=== PATIENT | male | born 1955 | race Caucasian/White ===

== ENCOUNTER → 2017-11-24 13:59 | Outpatient (CLI) | payer MEDICARE, SELFPAY ==
[2017-11-24 15:07] LABS: Absolute Lymphocyte Count 4.19 X10^3/ul (0.83-4.51); Absolute Neutrophil Count 10.7 X10^3/uL (2.0-7.7); Basophil# 0.11 X10^3/uL; Basophil% 0.7 % (0-1); Eosinophil# 0.28 X10^3/uL; Eosinophils% 1.7 % (0-5); Hematocrit 49.5 % (40-54); Hemoglobin 16.9 g/dl (13.0-16.5); Lymphocyte # 4.19 X10^3/ul (4.0); Lymphocyte % 25.5 % (19-41); Mean Corp Hgb Conc 34.1 g/gl (32-36); Mean Corpuscular Hgb 30.3 pg (27.0-32.0); Mean Corpuscular Volume 88.9 fL (80-94); Mean Platelet Vol. 11.1 fl (6.2-12.0); Monocyte# 1.03 X10^3/uL; Monocyte% 6.3 % (0-10); Neutrophil # 10.71 X10^3/uL (2.7-7.7); Neutrophil % 65.3 % (47-70); Platelet Count 307 K/mm3 (150-450); RBC Distribution Width CV 13.8 % (11.6-14.6); RBC Distribution Width SD 44.8 fl (35.1-43.9); Red Blood Count 5.57 M/mm3 (4.6-6.2); White Blood Count 16.4 K/mm3 (4.4-11.0)
[2017-11-24 15:23] LABS: AST(SGOT) 15 U/L (15-37); Alanine Aminotransfer ALT/SGPT 29 U/L (16-61); Albumin, Serum 3.9 g/dL (3.2-5.0); Alkaline Phosphatase 117 U/L (45-117); Anion Gap 9 (5-15); BUN 11 mg/dL (7-18); BUN/Creat Ratio 11.5 RATIO (10-20); Calcium,Total 8.9 mg/dL (8.5-10.1); Chloride 103 mmol/L (98-107); Cholesterol 160 mg/dL (200); Creatinine, Serum 0.96 mg/dL (0.70-1.30); EST Glomerular Filtration Rate 85 mL/min (>60); Est Glom Filt Rate - Afr Amer 103 mL/min (>60); Globulin 4.1 g/dL (2.2-4.2); Glucose 104 mg/dL (74-106); High Density Lipoprotein 32 mg/dL; Potassium 4.1 mmol/L (3.5-5.1); Sodium Level 137 mmol/L (136-145); Triglycerides 147 mg/dL; Very Low Density Lipoprotein 29 mg/dL (5-40)
[2017-11-24 15:29] LABS: Microalbumin,Random Urine 12.6 mg/L (NO RANGE EST.); Microalbumin:Creatinine Ratio 5.9 mg/g CRE (<30 mg/g CRE)
[2017-11-24 15:41] LABS: POSITIVE COUNT NO; POSITIVE DIFFERENTIAL NO; POSITIVE MORPHOLOGY NO
== END ==
PROVIDERS: Family Provider Family Medicine; PCP Family Medicine; Visit Provider Family Medicine
DX: E11.9 Type 2 diabetes mellitus without complications (principal); R35.0 Frequency of micturition; E78.5 Hyperlipidemia, unspecified; I10 Essential (primary) hypertension
CPT/HCPCS: 36415; 80053; 80061; 82043; 82570; 85025

== ENCOUNTER 2018-01-14 17:22 | Inpatient (IN) | payer MEDICARE, SELFPAY ==
[2018-01-14] VITALS (9 sets, daily range): BP systolic 116–160; BP diastolic 74–117; PULSE 59–93; RESP 8–20; TEMP 36.6–37.3; O2SAT 94–98; BMI 25.1; BMI 25.2
[2018-01-14 17:31] LABS: Bedside Glucose 101 mg/dL (70-110)
--- NOTE | 2018-01-14 17:42 | CT_ITS ---
STUDY: CT BRAIN WITHOUT CONTRAST REASON FOR EXAM: Male, 62 years old. Stroke RADIATION DOSAGE (If Supplied By Facility): CTDIvol = ( 44.99 ) mGy, DLP = ( 829.85 ) mGycm TECHNIQUE: Transaxial CT imaging of the brain was performed without administration of intravenous contrast material. Individualized dose optimization techniques were used for this CT. COMPARISON: September 22, 2014. FINDINGS: Normal soft tissue structures. Normal calvarium. Prominent size ventricles and extra-axial spaces with mild atrophy. Encephalomalacia of the left parietal lobe posteriorly. Normal white matter tracts of the cerebral hemispheres. Normal basal ganglia and thalami. Normal brainstem. Normal cerebellum. There is no intracranial hemorrhage. There are no findings of an acute ischemic infarction. Mucosal thickening of the right paranasal sinuses. CT/Brain/Head without Contrast IMPRESSION: Age-related and chronic changes of the brain. Right-sided paranasal sinus disease. Electronically Signed: Neeraj Preston DO at 18:55 EDT Tel [phone], Service support ,
--- NOTE | 2018-01-14 17:42 | EKG12_ITS ---
Test Reason : NEURO Blood Pressure : / mmHG Vent. Rate : 089 BPM Atrial Rate : 089 BPM P-R Int : 126 ms QRS Dur : 096 ms QT Int : 368 ms P-R-T Axes : 025 074 055 degrees QTc Int : 447 ms Normal sinus rhythm Nonspecific ST abnormality Abnormal ECG Confirmed by ALIVIA RO, THOMAS ([id number]), dictionary editor MARTINE BEATTY ([id number] on 01/19/2018 2:16:52 PM Referred By: Confirmed By:THOMAS BUNCH MD
--- NOTE | 2018-01-14 17:45 | RAD_ITS ---
STUDY: X-RAY CHEST REASON FOR EXAM: Male, 62 years old. Stroke TECHNIQUE: Single frontal view COMPARISON: September 22, 2014 FINDINGS: Stable sternotomy wires. The lungs are expanded. Bilateral apical pleural thickening. There is interstitial prominence. Normal size heart. Normal mediastinum and yuniel. Normal visualized pulmonary arteries. Normal visualized aortic arch and descending thoracic aorta. Normal visualized thoracic spine. Normal visualized ribs, clavicles, and shoulders. There is no demonstrated abnormality of the visualized soft tissue structures of the upper abdomen. RAD/Chest 1 View (Portable) IMPRESSION: Mild interstitial prominence. Bilateral apical pleural thickening. Electronically Signed: Neeraj Preston DO at 18:08 EDT Tel [phone], Service support ,
[2018-01-14] MEDS: 0.9% Normal Saline 1,000 ML 1000 ML IV (17:53)
[2018-01-14 18:00] LABS: Absolute Lymphocyte Count 4.03 X10^3/ul (0.83-4.51); Absolute Neutrophil Count 14.1 X10^3/uL (2.0-7.7); Basophil# 0.04 X10^3/uL; Basophil% 0.2 % (0-1); Eosinophil# 0.16 X10^3/uL; Eosinophils% 0.8 % (0-5); Hematocrit 54.1 % (40-54); Lymphocyte # 4.03 X10^3/ul (4.0); Lymphocyte % 20.2 % (19-41); Mean Corp Hgb Conc 33.5 g/gl (32-36); Mean Corpuscular Hgb 30.1 pg (27.0-32.0); Mean Platelet Vol. 11.2 fl (6.2-12.0); Neutrophil # 14.09 X10^3/uL (2.7-7.7); Neutrophil % 70.4 % (47-70); Platelet Count 325 K/mm3 (150-450); RBC Distribution Width SD 42.6 fl (35.1-43.9); Red Blood Count 6.01 M/mm3 (4.6-6.2)
[2018-01-14 18:01] LABS: Partial Thromboplast Time 25.5 Seconds (24.1-36.2); Prothrombin Time (Protime)PT. 13.6 SECONDS (11.7-14.9)
[2018-01-14 18:05] LABS: Differential Indicated SCAN CRITERIA MET; POSITIVE COUNT NO; POSITIVE DIFFERENTIAL YES; POSITIVE MORPHOLOGY NO
[2018-01-14 18:06] LABS: Hemoglobin 18.1 g/dl (13.0-16.5)
[2018-01-14 18:13] LABS: ALB/GLOB Ratio 0.9 RATIO (0.9-2.4); AST(SGOT) 10 U/L (15-37); Alanine Aminotransfer ALT/SGPT 22 U/L (16-61); Albumin, Serum 4.1 g/dL (3.2-5.0); Alkaline Phosphatase 133 U/L (45-117); Anion Gap 10 (5-15); BUN 15 mg/dL (7-18); Calcium,Total 8.7 mg/dL (8.5-10.1); Chloride 106 mmol/L (98-107); Creatinine, Serum 1.15 mg/dL (0.70-1.30); EST Glomerular Filtration Rate 69 mL/min (>60); Est Glom Filt Rate - Afr Amer 83 mL/min (>60); Estimated Creatinine Clearance 74.04 ml/min; Globulin 4.4 g/dL (2.2-4.2); Glucose 93 mg/dL (74-106); Lipase 62 U/L (73-393); Potassium 3.7 mmol/L (3.5-5.1); Protein, Total 8.5 g/dL (6.4-8.2); Sodium Level 140 mmol/L (136-145)
[2018-01-14 18:21] LABS: Differential Comment SCANNED
--- NOTE | 2018-01-14 18:39 | ED.DCSUM_ITS ---
- ER Visit Summary Date of Service: 01/14/18 Chief Complaint: Stroke History of Present Illness: The patient is a 62 M who presents with right-sided deficit. Patient states his 1 month ago. States that he has had prior left-sided stroke with some residual weakness on the right side particularly the fourth and fifth fingers on the right. States that a couple weeks ago he began to have some paresthesias on the right arm and leg. What he does notice for sure is over the past 3 days he has been pretty much unable to move the left leg and the right arm has become basically worthless. He states that he feels nauseated has a headache. He states he has been eating or drinking very much because his been hard to get to the kitchen and he is nauseated. His son drops him off here in the department. Nursing notes that he was unable to be transferred by himself Physical Examination: Overall vital signs are stable Gen: Well-nourished well-developed Head: Normocephalic atraumatic Eyes: Perrl EOMI ENT: TMs clear no rhinorrhea moist mucous membranes Neck: Supple no lymphadenopathy no JVD nontender CVS: Regular rate rhythm no murmurs normal S1-S2 Respiratory: No distress clear to auscultation bilaterally chest nontender Abdomen: Soft nontender nondistended normal bowel sounds no masses Back: Nontender Extremity: Nontender no edema Skin: Normal color no rash Neuro: alert and age of 11 please see the T-sheet and nursing documentation for NIH scale. Psych: Depressed and tearful Test Results: CT the head showed chronic changes. Chest x-ray showed no acute disease. White blood cell count at 20 hemoglobin of 18.1. Lactic acid 1.2. Troponin less than 0.02. EKG sinus at a rate of 89. Urinalysis was negative. Tox workup was positive for marijuana. Emergency Department Course and Treatment: Patient received IV fluids. He passed a swallowing test and was given Tylenol for his headache. Given the recent and his and his overall depressed affect I do wonder about some degree of conversion disorder. However the patient maintains that these deficits are new. Her plan is admission into the hospital. Impression: 1. CVA causing right-sided deficits 2. Depression This note was generated with [employer] software. It may contain incorrect words, spelling, and punctuation that were not noted in review of the chart prior to signing ED Disposition - Plan for ED Patient: Disposition: Acute Care Hospital [facility] Chief Complaint: Neuro S/Sx
[2018-01-14] MEDS: 0.9% Normal Saline 1,000 ML 150 ML IV (18:42)
[2018-01-14 18:44] LABS: CPK Total, Creatine Kinase 57 U/L (39-308)
[2018-01-14] MEDS: Enoxaparin 80 MG/0.8 ML Syringe SC (18:45)
[2018-01-14 18:53] LABS: Lactic Acid 1.2 mmol/L (0.4-2.0)
[2018-01-14] MEDS: Acetaminophen 500 MG Tablet 1000 MG PO (20:19)
[2018-01-14 20:26] LABS: Bacteria 0 SEEN /hpf (None Seen); Mucous, Urine 0 SEEN /hpf (<or=2+); Red Blood Cells-Urine 0 SEEN /hpf (0-5); Squamous Epithelial Cells - UA 0 SEEN /hpf (0-5); White Blood Cells 0 SEEN /hpf (0-5)
[2018-01-14 20:30] LABS: Color, Urine Yellow (Yellow); Glucose, Dipstick Normal (Normal); Ketone-Dipstick 5 mg/dl (Negative); Leukocyte Esterase-Dipstick Negative /ul (Negative); Nitrite-Dipstick Negative (Negative); Occult Blood-Urine Negative /ul (Negative); Protein-Dipstick Negative (Negative); Urine Bilirubin Dipstick Negative (Negative); Urine Clarity Clear (Clear); Urine Urobilinogen 4 mg/dl (Normal); Urine pH 6.5 (5.0 - 8.0)
[2018-01-14 20:59] LABS: Amphetamine Urine VISTA NEGATIVE (<1000 ng/mL); Barbiturate Urine VISTA NEGATIVE (< 200 ng/mL); Benzodiazepine Urine VISTA NEGATIVE (< 200 ng/mL); Cocaine Urine VISTA NEGATIVE (< 300 ng/mL); Ecstacy Urine VISTA NEGATIVE (< 500 ng/mL); Methadone Urine VISTA NEGATIVE (< 300 ng/mL); PCP Urine VISTA NEGATIVE (< 25 ng/mL); THC Urine VISTA POSITIVE (< 50 ng/mL); Vista UDS pH Range 6
--- NOTE | 2018-01-14 20:59 | PCM.HP.STD ---
Problem List (1) Stroke Status: Acute Qualifiers: CVA mechanism: unspecified Qualified Code(s): I63.9 - Cerebral infarction, unspecified (2) Status post placement of implantable loop recorder Status: Chronic (3) History of COPD Status: Chronic Comment: mild (4) Coronary artery disease Status: Chronic Qualifiers: Coronary Disease-Associated Artery/Lesion type: unspecified vessel or lesion type [place] vs. transplanted heart: unspecified whether [place] or transplanted heart Associated angina: angina presence unspecified Qualified Code(s): I25.10 - Atherosclerotic heart disease of [place] coronary artery without angina pectoris Comment: remote CABG (5) Compression fracture Status: Chronic (6) Hyperlipidemia Status: Chronic Qualifiers: Hyperlipidemia type: unspecified Qualified Code(s): E78.5 - Hyperlipidemia, unspecified (7) Hypertension Status: Chronic Qualifiers: Hypertension type: essential hypertension Qualified Code(s): I10 - Essential (primary) hypertension (8) Diabetes type 2, controlled Status: Chronic Qualifiers: Diabetes mellitus custodial insulin use: without termite control representative use Diabetes mellitus complication status: with unspecified complications Qualified Code(s): E11.8 - Type 2 diabetes mellitus with unspecified complications (9) Cerebrovascular disease Status: Chronic Comment: Status post ischemic stroke left parieto-occipital lobe 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 Status post ischemic stroke left frontal lobe MCA territory residual aphasia, dyslexia, RUE apraxia and numbness History of Present Illness Date of Admission: 01/14/18 Chief Complaint: R sided weakness, debility The patient is a 62 y/o M w/ PMHx: Hx [place], 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 He notes his spouse passed ~ 1 month prior. In the ED CBC w/ WBC 20, Hgb 18.1, Plts 325 with L shift, CMP unremarkable aside Alk phos 133, trop < 0.02, CXR unremarkable, CT head unremarkable, unremarkable UA, UDS w/ + cannabis. In the ED patient administered NS, tylenol and in error lovenox 80 mg SC x 1. 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 Status post ischemic stroke left frontal lobe MCA territory residual aphasia, dyslexia, RUE apraxia and numbness Dyslipidemia (Chronic) History of leukocytosis (Chronic) mild Allergies simvastatin Allergy (Verified 01/14/18 17:28) Unknown venom-honey bee [bee venom (honey bee)] Allergy (Verified 01/14/18 17:28) Unknown metformin Adverse Reaction (Verified 01/14/18 17:28) Diarrhea Home Medications: Ambulatory Orders Medication Instructions Recorded Duloxetine Hcl [Cymbalta] 60 mg PO DAILY 12/01/14 Atorvastatin Calcium [Lipitor] 20 mg PO QHS 01/14/18 Buspirone HCl [Buspirone HCl] 7.5 mg PO BID 01/14/18 Gabapentin [Neurontin] 100 mg PO TID 01/14/18 Metoprolol Succinate 25 mg PO DAILY 01/14/18 Surgical History: coronary bypass surgery Psychiatric History: Anxiety, Depression Lives: Alone Smoking Status: Current every day smoker - 1.5 ppd. Tobacco Use: Cigarettes Alcohol: None Drugs: Marijuana - *Family History Maternal History Items: No pertinent history Paternal History Items: No pertinent history Review of Systems Constitutional: Reports: Malaise, Weakness, Fatigue. Denies: Chills, Fever, Weight Change HEENT: Denies: Head Aches, Sinus Congestion, Sinus Drainage Cardiovascular: Denies: Chest Pain, Palpitations Respiratory: Denies: Cough, Shortness of breath at rest, Sputum production Gastrointestinal: Denies: Abdominal Pain, Nausea, Vomiting Genitourinary: Denies: Dysuria Musculoskeletal: Denies: Joint Pain, Joint Tenderness Skin: Denies: Rash, Wounds Neurological: Reports: Balance problems, Focal weakness. Denies: Numbness, Tingling Psychiatric: Reports: Anxiety, Depression. Denies: Homicidal Ideations, Suicidal Ideations Hematologic/ Lymphatic: Denies: Easy Bruising, Easy Bleeding VTE Information - Inpt Only VTE Present on Admission: No VTE Mechan Device Prophylaxis: SCD's VTE Pharm Prophylaxis ordered?: Yes Patient Problems: Active and Suspected Problems (Last Updated 01/04/18 @ 17:29 by Natalee Mark) Stroke (Acute) Subjective: Seated upright in the ED bed, NAD. Objective: Physical Examination: General: awake, alert, oriented x 3 and cooperative, seated upright in the ED bed in no apparent distress. Skin: normal color, turgor, no icterus, cyanosis. HEENT: AT/NC, EOMI, PERRLA, mildly dry MM, no carotid bruits or JVD noted. Lungs: Diminished BS BL, > bases, smells of tobacco, moderate effort, no rales, ronchi or wheezing. Heart: Regular rate and rhythm; no gallop, rub audible. Abdomen: soft, NTTP, ND, normal BS, no HSM. Extremities: no cyanosis, clubbing, or edema. Neurological: patient awake, alert, oriented x 3; cognitive function intact; pupils equally reactive to light and accomodation; cranial nerves II-XII grossly normal, moving all 4 extremities, negative babinski, sensation intact, RUE 4/5 strength w/ notable drift and RLE 3/5 strength w/ also drift, difficult to assess as prior chronic RLE weakness. Psychiatric: affect appears mildly flat, no acute evidence of depressive or anxiety feelings. - Physical Exam Vital Signs Temp Pulse Resp BP Pulse Ox 98 F 65 8 L 125/79 H 97 01/14/18 17:23 01/14/18 20:49 01/14/18 20:49 01/14/18 20:49 01/14/18 20:49 Oxygen Flow Rate (L/min) 2 Oxygen Delivery Method Nasal Cannula Weight: 185 lb 3.013 oz Body Mass Index (BMI) 25.1 Finger Stick Blood Glucose 101 Laboratory Tests Past 24 Hrs 01/14/18 01/14/18 01/14/18 17:25 17:25 17:25 WBC 20.0 H RBC 6.01 Hgb 18.1 H* Hct 54.1 H MCV 90.0 MCH 30.1 MCHC 33.5 RDW 13.0 RDW Differential 42.6 Plt Count 325 MPV 11.2 Immature Gran % (Auto) 0.400 Neut % (Auto) 70.4 H Lymph % (Auto) 20.2 [place] % (Auto) 8.0 Eos % (Auto) 0.8 Baso % (Auto) 0.2 Absolute Neuts (auto) 14.1 H Absolute Lymphs (auto) 4.03 Total Counted Not Reportable Differential Comment SCANNED Diff Path Review May foll PT 13.6 INR 1.0 APTT 25.5 Sodium 140 Potassium 3.7 Chloride 106 Carbon Dioxide 24.0 Anion Gap 10 BUN 15 Creatinine 1.15 Estim Creat Clear Calc 74.04 Est GFR (MDRD) Af Amer 83 Est GFR (MDRD) Non-Af 69 BUN/Creatinine Ratio 13.0 Glucose 93 Lactic Acid Calcium 8.7 Total Bilirubin 0.70 AST 10 L ALT 22 Alkaline Phosphatase 133 H Total Creatine Kinase Troponin I < 0.02 Total Protein 8.5 H Albumin 4.1 Globulin 4.4 H Albumin/Globulin Ratio 0.9 Lipase 62 L Urine Color Urine Clarity Urine pH Ur Specific [place] Urine Protein Urine Glucose (UA) Urine Ketones Urine Occult Blood Urine Nitrite Urine Bilirubin Urine Urobilinogen Ur Leukocyte Esterase Urine RBC Urine WBC Ur Squamous Epith Cells Urine Bacteria Urine Mucus Urine Opiates Screen Urine Methadone Screen Ur Barbiturates Screen Ur Phencyclidine Scrn Ur Amphetamines Screen U Methamphetamin-MDMA U Benzodiazepines Scrn Urine Cocaine Screen U Cannabinoids Screen Ur Drug Screen Comment Ethyl Alcohol 01/14/18 01/14/18 01/14/18 17:25 18:20 18:20 WBC RBC Hgb Hct MCV MCH MCHC RDW RDW Differential Plt Count MPV Immature Gran % (Auto) Neut % (Auto) Lymph % (Auto) [place] % (Auto) Eos % (Auto) Baso % (Auto) Absolute Neuts (auto) Absolute Lymphs (auto) Total Counted Differential Comment Diff Path Review PT INR APTT Sodium Potassium Chloride Carbon Dioxide Anion Gap BUN Creatinine Estim Creat Clear Calc Est GFR (MDRD) Af Amer Est GFR (MDRD) Non-Af BUN/Creatinine Ratio Glucose Lactic Acid 1.2 Calcium Total Bilirubin AST ALT Alkaline Phosphatase Total Creatine Kinase 57 Troponin I Total Protein Albumin Globulin Albumin/Globulin Ratio Lipase Urine Color Urine Clarity Urine pH Ur Specific [place] Urine Protein Urine Glucose (UA) Urine Ketones Urine Occult Blood Urine Nitrite Urine Bilirubin Urine Urobilinogen Ur Leukocyte Esterase Urine RBC Urine WBC Ur Squamous Epith Cells Urine Bacteria Urine Mucus Urine Opiates Screen Urine Methadone Screen Ur Barbiturates Screen Ur Phencyclidine Scrn Ur Amphetamines Screen U Methamphetamin-MDMA U Benzodiazepines Scrn Urine Cocaine Screen U Cannabinoids Screen Ur Drug Screen Comment Ethyl Alcohol 3.0 01/14/18 01/14/18 20:05 20:05 WBC RBC Hgb Hct MCV MCH MCHC RDW RDW Differential Plt Count MPV Immature Gran % (Auto) Neut % (Auto) Lymph % (Auto) [place] % (Auto) Eos % (Auto) Baso % (Auto) Absolute Neuts (auto) Absolute Lymphs (auto) Total Counted Differential Comment Diff Path Review PT INR APTT Sodium Potassium Chloride Carbon Dioxide Anion Gap BUN Creatinine Estim Creat Clear Calc Est GFR (MDRD) Af Amer Est GFR (MDRD) Non-Af BUN/Creatinine Ratio Glucose Lactic Acid Calcium Total Bilirubin AST ALT Alkaline Phosphatase Total Creatine Kinase Troponin I Total Protein Albumin Globulin Albumin/Globulin Ratio Lipase Urine Color Yellow Urine Clarity Clear Urine pH 6.5 Ur Specific [place] 1.010 Urine Protein Negative Urine Glucose (UA) Normal Urine Ketones 5 H Urine Occult Blood Negative Urine Nitrite Negative Urine Bilirubin Negative Urine Urobilinogen 4 H Ur Leukocyte Esterase Negative Urine RBC 0 SEEN Urine WBC 0 SEEN Ur Squamous Epith Cells 0 SEEN Urine Bacteria 0 SEEN Urine Mucus 0 SEEN Urine Opiates Screen NEGATIVE Urine Methadone Screen NEGATIVE Ur Barbiturates Screen NEGATIVE Ur Phencyclidine Scrn NEGATIVE Ur Amphetamines Screen NEGATIVE U Methamphetamin-MDMA NEGATIVE U Benzodiazepines Scrn NEGATIVE Urine Cocaine Screen NEGATIVE U Cannabinoids Screen POSITIVE H Ur Drug Screen Comment Ethyl Alcohol POC Glucose 01/14/18 17:25 POC Glucose 101 Assessment/Plan Active and Suspected Problems (Last Updated 01/04/18 @ 17:29 by Natalee Mark) Stroke (Acute) The patient is a 62 y/o M w/ PMHx: [place]x [place], 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 (1) R sided Weakness, Debility concerning for Acute CVA w/ Hx CVA left parieto-occipital lobe 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 and left frontal lobe MCA territory w/ residual aphasia, dyslexia, RUE apraxia and numbness: Will admit to PCU, given loop recorder unable to obtain MRI, will obtain CTA Head and Neck, obtain ECHO, PT/OT/Speech/Nutrition evaluation per protocol. Will consult Neurology for evaluation. Will continue home BP regimen with PRN to achieve goal < 140/90, asa-->plavix, increase statin w/ AM FLP, fall precautions, mag pending, TSH pending. s/p loop recorder, following w/ Dr. Schuster for cryptogenic CVA history. (2) Leukocytosis: Unclear etiology, CXR, UA unremarkable, no marked symptoms aside R sided weakness, possibly dehydration but UA with normal SG, will hydrate and repeat CBC w/ diff in AM. (2) CAD: Maintain on asa-->plavix, increased statin, BB therapy. (3) Hypertension: Will maintain on home regimen metoprolol given ongoing symptoms x 3 days, PRN hydralazine. (4) Hyperlipidemia: Change statin to high dose, AM FLP. (5) Anxiety and Depression: Maintain on home regimen cymbalta, buspar. (6) Tobacco Abuse: Encouraged cessation, inpatient consultation per RT, NR if desired. (7) Chronic COPD: Will maintain on oxygen with wean as tolerated to room air/home oxygen supplementation, continue ATC duonebs, PRN albuterol, HOB, IS parameters. (8) Chronic Back Pain: Fall precautions, PT and OT consulted, position changes q 2 hours. (9) MARCELO: CPAP q HS. (10) DVT Prophylaxis: SCDs, already given lovenox therapeutic x 1 in error in the ED, will defer lovenox until 12 hours has passed and maintain on prophylactic dose only. Code Visit Inpatient E&M: [id number] Init Hosp L3
--- NOTE | 2018-01-14 21:19 | HP.PCM_ITS ---
Problem List (1) Stroke Status: Acute Qualifiers: CVA mechanism: unspecified Qualified Code(s): I63.9 - Cerebral infarction, unspecified (2) Status post placement of implantable loop recorder Status: Chronic (3) History of COPD Status: Chronic Comment: mild (4) Coronary artery disease Status: Chronic Qualifiers: Coronary Disease-Associated Artery/Lesion type: unspecified vessel or lesion type [place] vs. transplanted heart: unspecified whether [place] or transplanted heart Associated angina: angina presence unspecified Qualified Code(s): I25.10 - Atherosclerotic heart disease of [place] coronary artery without angina pectoris Comment: remote CABG (5) Compression fracture Status: Chronic (6) Hyperlipidemia Status: Chronic Qualifiers: Hyperlipidemia type: unspecified Qualified Code(s): E78.5 - Hyperlipidemia , unspecified (7) Hypertension Status: Chronic Qualifiers: Hypertension type: essential hypertension Qualified Code(s): I10 - Essential (primary) hypertension (8) Diabetes type 2, controlled Status: Chronic Qualifiers: Diabetes mellitus 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 insulin use: without retirement use Diabetes mellitus complication status: with unspecified complications Qualified Code(s) : E11.8 - Type 2 diabetes mellitus with unspecified complications (9) Cerebrovascular disease Status: Chronic Comment: Status post ischemic stroke left parieto-occipital lobe AERIAL SPRAYER territory Status post ischemic stroke left frontal lobe MCA territory residual aphasia, dyslexia, RUE apraxia and numbness History of Present Illness Date of Admission: 01/14/18 Chief Complaint: R sided weakness, debility The patient is a 62 y/o M w/ PMHx: Hx ID, 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 He notes his spouse passed ~ 1 month prior. In the ED CBC w/ WBC 20, Hgb 18.1, Plts 325 with L shift, CMP unremarkable aside Alk phos 133, trop < 0.02, CXR unremarkable, CT head unremarkable, unremarkable UA, UDS w/ + cannabis. In the ED patient administered NS, tylenol and in error lovenox 80 mg SC x 1. Past Medical History Past Medical History (Chronic Problems): Chronic Problems (Last Updated 01/04/18 @ 17:29 by Natalee Mark) Status post placement of implantable loop recorder (Chronic) History of COPD (Chronic) mild Coronary artery disease (Chronic) remote CABG Compression fracture (Chronic) Hyperlipidemia (Chronic) Hypertension (Chronic) Diabetes type 2, controlled (Chronic) Cerebrovascular disease (Chronic) Status post ischemic stroke left parieto-occipital lobe AERIAL SPRAYER territory Status post ischemic stroke left frontal lobe MCA territory residual aphasia, dyslexia, RUE apraxia and numbness Dyslipidemia (Chronic) History of leukocytosis (Chronic) mild Allergies simvastatin Allergy (Verified 01/14/18 17:28) Unknown venom-honey bee [bee venom (honey bee)] Allergy (Verified 01/14/18 17:28) Unknown metformin Adverse Reaction (Verified 01/14/18 17:28) Diarrhea Home Medications: Ambulatory Orders Medication Instructions Recorded Duloxetine Hcl [Cymbalta] 60 mg PO DAILY 12/01/14 Atorvastatin Calcium [Lipitor] 20 mg PO QHS 01/14/18 Buspirone HCl [Buspirone HCl] 7.5 mg PO BID 01/14/18 Gabapentin [Neurontin] 100 mg PO TID 01/14/18 Metoprolol Succinate 25 mg PO DAILY 01/14/18 Surgical History: coronary bypass surgery Psychiatric History: Anxiety, Depression Lives: Alone Smoking Status: Current every day smoker - 1.5 ppd. Tobacco Use: Cigarettes Alcohol: None Drugs: Marijuana - *Family History Maternal History Items: No pertinent history Paternal History Items: No pertinent history Review of Systems Constitutional: Reports: Malaise, Weakness, Fatigue. Denies: Chills, Fever, Weight Change HEENT: Denies: Head Aches, Sinus Congestion, Sinus Drainage Cardiovascular: Denies: Chest Pain, Palpitations Respiratory: Denies: Cough, Shortness of breath at rest, Sputum production Gastrointestinal: Denies: Abdominal Pain, Nausea, Vomiting Genitourinary: Denies: Dysuria Musculoskeletal: Denies: Joint Pain, Joint Tenderness Skin: Denies: Rash, Wounds Neurological: Reports: Balance problems, Focal weakness. Denies: Numbness, Tingling Psychiatric: Reports: Anxiety, Depression. Denies: Homicidal Ideations, Suicidal Ideations Hematologic/ Lymphatic: Denies: Easy Bruising, Easy Bleeding VTE Information - Inpt Only VTE Present on Admission: No VTE Mechan Device Prophylaxis: SCD's VTE Pharm Prophylaxis ordered?: Yes Patient Problems: Active and Suspected Problems (Last Updated 01/04/18 @ 17:29 by Natalee Mark) Stroke (Acute) Subjective: Seated upright in the ED bed, NAD. Objective: Physical Examination: General: awake, alert, oriented x 3 and cooperative, seated upright in the ED bed in no apparent distress. Skin: normal color, turgor, no icterus, cyanosis. HEENT: AT/NC, EOMI, PERRLA, mildly dry MM, no carotid bruits or JVD noted. Lungs: Diminished BS BL, > bases, smells of tobacco, moderate effort, no rales, ronchi or wheezing. Heart: Regular rate and rhythm; no gallop, rub audible. Abdomen: soft, NTTP, ND, normal BS, no HSM. Extremities: no cyanosis, clubbing, or edema. Neurological: patient awake, alert, oriented x 3; cognitive function intact; pupils equally reactive to light and accomodation; cranial nerves II-XII grossly normal, moving all 4 extremities, negative babinski, sensation intact, RUE 4/5 strength w/ notable drift and RLE 3/5 strength w/ also drift, difficult to assess as prior chronic RLE weakness. Psychiatric: affect appears mildly flat, no acute evidence of depressive or anxiety feelings. - Physical Exam Vital Signs Temp Pulse Resp BP Pulse Ox 98 F 65 8 L 125/79 H 97 01/14/18 17:23 01/14/18 20:49 01/14/18 20:49 01/14/18 20:49 01/14/18 20:49 Oxygen Flow Rate (L/min) 2 Oxygen Delivery Method Nasal Cannula Weight: 185 lb 3.013 oz Body Mass Index (BMI) 25.1 Finger Stick Blood Glucose 101 Laboratory Tests Past 24 Hrs 01/14/18 01/14/18 01/14/18 17:25 17:25 17:25 WBC 20.0 H RBC 6.01 Hgb 18.1 H* Hct 54.1 H MCV 90.0 MCH 30.1 MCHC 33.5 RDW 13.0 RDW Differential 42.6 Plt Count 325 MPV 11.2 Immature Gran % (Auto) 0.400 Neut % (Auto) 70.4 H Lymph % (Auto) 20.2 [place] % (Auto) 8.0 Eos % (Auto) 0.8 Baso % (Auto) 0.2 Absolute Neuts (auto) 14.1 H Absolute Lymphs (auto) 4.03 Total Counted Not Reportable Differential Comment SCANNED Diff Path Review May foll PT 13.6 INR 1.0 APTT 25.5 Sodium 140 Potassium 3.7 Chloride 106 Carbon Dioxide 24.0 Anion Gap 10 BUN 15 Creatinine 1.15 Estim Creat Clear Calc 74.04 Est GFR (MDRD) Af Amer 83 Est GFR (MDRD) Non-Af 69 BUN/Creatinine Ratio 13.0 Glucose 93 Lactic Acid Calcium 8.7 Total Bilirubin 0.70 AST 10 L ALT 22 Alkaline Phosphatase 133 H Total Creatine Kinase Troponin I < 0.02 Total Protein 8.5 H Albumin 4.1 Globulin 4.4 H Albumin/Globulin Ratio 0.9 Lipase 62 L Urine Color Urine Clarity Urine pH Ur Specific [place] Urine Protein Urine Glucose (UA) Urine Ketones Urine Occult Blood Urine Nitrite Urine Bilirubin Urine Urobilinogen Ur Leukocyte Esterase Urine RBC Urine WBC Ur Squamous Epith Cells Urine Bacteria Urine Mucus Urine Opiates Screen Urine Methadone Screen Ur Barbiturates Screen Ur Phencyclidine Scrn Ur Amphetamines Screen U Methamphetamin-MDMA U Benzodiazepines Scrn Urine Cocaine Screen U Cannabinoids Screen Ur Drug Screen Comment Ethyl Alcohol 01/14/18 01/14/18 01/14/18 17:25 18:20 18:20 WBC RBC Hgb Hct MCV MCH MCHC RDW RDW Differential Plt Count MPV Immature Gran % (Auto) Neut % (Auto) Lymph % (Auto) [place] % (Auto) Eos % (Auto) Baso % (Auto) Absolute Neuts (auto) Absolute Lymphs (auto) Total Counted Differential Comment Diff Path Review PT INR APTT Sodium Potassium Chloride Carbon Dioxide Anion Gap BUN Creatinine Estim Creat Clear Calc Est GFR (MDRD) Af Amer Est GFR (MDRD) Non-Af BUN/Creatinine Ratio Glucose Lactic Acid 1.2 Calcium Total Bilirubin AST ALT Alkaline Phosphatase Total Creatine Kinase 57 Troponin I Total Protein Albumin Globulin Albumin/Globulin Ratio Lipase Urine Color Urine Clarity Urine pH Ur Specific [place] Urine Protein Urine Glucose (UA) Urine Ketones Urine Occult Blood Urine Nitrite Urine Bilirubin Urine Urobilinogen Ur Leukocyte Esterase Urine RBC Urine WBC Ur Squamous Epith Cells Urine Bacteria Urine Mucus Urine Opiates Screen Urine Methadone Screen Ur Barbiturates Screen Ur Phencyclidine Scrn Ur Amphetamines Screen U Methamphetamin-MDMA U Benzodiazepines Scrn Urine Cocaine Screen U Cannabinoids Screen Ur Drug Screen Comment Ethyl Alcohol 3.0 01/14/18 01/14/18 20:05 20:05 WBC RBC Hgb Hct MCV MCH MCHC RDW RDW Differential Plt Count MPV Immature Gran % (Auto) Neut % (Auto) Lymph % (Auto) [place] % (Auto) Eos % (Auto) Baso % (Auto) Absolute Neuts (auto) Absolute Lymphs (auto) Total Counted Differential Comment Diff Path Review PT INR APTT Sodium Potassium Chloride Carbon Dioxide Anion Gap BUN Creatinine Estim Creat Clear Calc Est GFR (MDRD) Af Amer Est GFR (MDRD) Non-Af BUN/Creatinine Ratio Glucose Lactic Acid Calcium Total Bilirubin AST ALT Alkaline Phosphatase Total Creatine Kinase Troponin I Total Protein Albumin Globulin Albumin/Globulin Ratio Lipase Urine Color Yellow Urine Clarity Clear Urine pH 6.5 Ur Specific [place] 1.010 Urine Protein Negative Urine Glucose (UA) Normal Urine Ketones 5 H Urine Occult Blood Negative Urine Nitrite Negative Urine Bilirubin Negative Urine Urobilinogen 4 H Ur Leukocyte Esterase Negative Urine RBC 0 SEEN Urine WBC 0 SEEN Ur Squamous Epith Cells 0 SEEN Urine Bacteria 0 SEEN Urine Mucus 0 SEEN Urine Opiates Screen NEGATIVE Urine Methadone Screen NEGATIVE Ur Barbiturates Screen NEGATIVE Ur Phencyclidine Scrn NEGATIVE Ur Amphetamines Screen NEGATIVE U Methamphetamin-MDMA NEGATIVE U Benzodiazepines Scrn NEGATIVE Urine Cocaine Screen NEGATIVE U Cannabinoids Screen POSITIVE H Ur Drug Screen Comment Ethyl Alcohol POC Glucose 01/14/18 17:25 POC Glucose 101 Assessment/Plan Active and Suspected Problems (Last Updated 01/04/18 @ 17:29 by Natalee Mark) Stroke (Acute) The patient is a 62 y/o M w/ PMHx: Hx ID, 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 (1) R sided Weakness, Debility concerning for Acute CVA w/ Hx CVA left parieto- occipital lobe AERIAL SPRAYER territory and left frontal lobe MCA territory w/ residual aphasia, dyslexia, RUE apraxia and numbness: Will admit to PCU, given loop recorder unable to obtain MRI, will obtain CTA Head and Neck, obtain ECHO, PT/OT /Speech/Nutrition evaluation per protocol. Will consult Neurology for evaluation. Will continue home BP regimen with PRN to achieve goal < 140/90, asa -->plavix, increase statin w/ AM FLP, fall precautions, mag pending, TSH pending. s/p loop recorder, following w/ Dr. Schuster for cryptogenic CVA history. (2) Leukocytosis: Unclear etiology, CXR, UA unremarkable, no marked symptoms aside R sided weakness, possibly dehydration but UA with normal SG, will hydrate and repeat CBC w/ diff in AM. (2) CAD: Maintain on asa-->plavix, increased statin, BB therapy. (3) Hypertension: Will maintain on home regimen metoprolol given ongoing symptoms x 3 days, PRN hydralazine. (4) Hyperlipidemia: Change statin to high dose, AM FLP. (5) Anxiety and Depression: Maintain on home regimen cymbalta, buspar. (6) Tobacco Abuse: Encouraged cessation, inpatient consultation per RT, NR if desired. (7) Chronic COPD: Will maintain on oxygen with wean as tolerated to room air/ home oxygen supplementation, continue ATC duonebs, PRN albuterol, HOB, IS parameters. (8) Chronic Back Pain: Fall precautions, PT and OT consulted, position changes q 2 hours. (9) MARCELO: CPAP q HS. (10) DVT Prophylaxis: SCDs, already given lovenox therapeutic x 1 in error in the ED, will defer lovenox until 12 hours has passed and maintain on prophylactic dose only. Code Visit Inpatient E&M: 79167 Init Hosp L3
--- NOTE | 2018-01-14 22:34 | ECHOD_ITS ---
Reason For Study: TIA/CVA Procedure This was a 2D Doppler, Color Flow transthoracic echocardiogram. Exam performed portable in patient room. Left Ventricle Normal size and thickness. The estimated ejection fraction is 65 %. Normal diastology for age. No regional wall motion abnormalities noted. Right Ventricle Normal size and thickness. Normal systolic function. Atria Normal left atrium. Normal right atrium. Normal atrial septum. Mitral Valve The mitral valve is structurally normal. No prolapse or stenosis seen. Trivial mitral valve insufficiency. Tricuspid Valve Normal tricuspid valve. Trivial tricuspid valve insufficiency. Unable to estimate RV systolic pressure/pulmonary artery pressure due to technically difficult study. Aortic Valve Normal aortic valve. Trisinus/trileaflet aortic valve. Pulmonic Valve Normal pulmonic valve. Trivial pulmonic valve insufficiency. Great Vessels Normal aortic root. Normal arch. Normal inferior vena cava. Inferior vena cava collapse with sniff. Pericardium/Pleural No pericardial effusion. MMode/2D Measurements & Calculations LVIDd: 3.7 cm IVSd: 1.3 cm Ao root diam: 3.5 cm LVIDs: 2.1 cm LVPWd: 1.3 cm LA dimension: 4.1 cm RVDd: 3.4 cm FS: 44.0 % LAV(MOD-bp): 53.6 ml LA A4 area: 19.6 cm2 RA A4 area: 18.0 cm2 LAV(MOD-bp) Indexed: 26.0 ml/m2 LAV(MOD-sp2): 49.8 ml LAV(MOD-sp4): 57.0 ml Doppler Measurements & Calculations MV E max lori: 66.9 cm/sec Ao V2 max: 108.6 cm/sec LV V1 max: 87.8 cm/sec MV A max lori: 57.2 cm/sec Ao max P.7 mmHg LV V1 max P.1 mmHg MV E/A: 1.2 PA V2 max: 88.9 cm/sec Interpretation Summary The estimated ejection fraction is 65 %. Normal diastology for age. Trivial mitral valve insufficiency. Trivial tricuspid valve insufficiency. Unable to estimate RV systolic pressure/pulmonary artery pressure due to technically difficult study. There is no comparison study available. Ordering Physician: Elvia Hope Referring Physician: Bear Muñoz Performed By: Korina Freitas RDCS
--- NOTE | 2018-01-14 22:34 | CT_ITS ---
STUDY: CTA OF THE BRAIN REASON FOR EXAM: Male, 62 years old. History of CVA right arm and leg numbness for 3 days. History of facial droop. RADIATION DOSAGE (If Supplied By Facility): CTDIvol = ( 20.39 ) mGy, DLP = ( 778.23 ) mGycm TECHNIQUE: CT angiography was performed with a multi-detector CT scanner. Data acquisition was obtained from the skull base through the vertex following intravenous administration of ml of . MIP images were reconstructed from the axial data set. Post-processing of the angiographic images was performed, with multiplanar reformation and 3D reconstruction. Individualized dose optimization techniques were used for this CT. COMPARISON: 09/25/2014. FINDINGS: Normal bilateral petrous carotid arteries. There is calcified plaque formation of the right cavernous carotid artery, with a mild stenosis (less than 50%). There is calcified plaque formation of the left cavernous carotid artery, with a mild stenosis (less than 50%). Normal right A1 segments of the anterior cerebral artery. Normal left A1 segments of the anterior cerebral artery. Normal intact anterior communicating artery (ACOM). Normal bilateral A2 segments of the anterior cerebral arteries. Normal right M1 and M2 segments of the middle cerebral arteries, with a normal M1 bifurcation. Normal left M1 and M2 segments of the middle cerebral arteries, with a normal M1 bifurcation. Normal right posterior communicating artery (PCOM). Normal left posterior communicating artery (PCOM). There is a small atretic right vertebral artery with a dominant left vertebral artery. The basilar artery is unremarkable. There again is hypoplastic left posterior cerebral artery. There is no demonstrated definite aneurysm of the [place] within the scope and limitation of this examination. CT/CTA Head W/WO Contrast IMPRESSION: Atherosclerotic calcifications of the cavernous internal carotid arteries bilaterally with a stable less than 50% stenosis unchanged since the prior examination.. No dominant left vertebral artery. Hypoplastic left posterior cerebral artery unchanged. No hemodynamically significant stenosis is seen. Electronically Signed: Lionel Carpenter MD at 0:35 EDT Tel , Service support ,
--- NOTE | 2018-01-14 22:34 | CT_ITS ---
STUDY: CTA NECK WITH CONTRAST REASON FOR EXAM: Male, 62 years old. RADIATION DOSAGE (If Supplied By Facility): CTDIvol = ( 20.39 ) mGy, DLP = ( 778.23 ) mGycm TECHNIQUE: CT angiography with multi-detector data acquisition was performed from the aortic arch to the skull base following intravenous administration of 100ML ml of Isovue 370 contrast. MIP images were reconstructed from the axial data set. Post-processing of the angiographic images was performed, with multiplanar reformation. Individualized dose optimization techniques were used for this CT. COMPARISON: 09/25/2014. FINDINGS: AORTIC ARCH: There is atherosclerotic calcific plaque formation of the aortic arch and great vessels arising from the aortic arch, without a hemodynamically significant stenosis. There is a normal origin of the brachiocephalic, left common carotid, and left subclavian arteries. Normal origins of the brachiocephalic, left common carotid, and left subclavian arteries. RIGHT CAROTID ARTERIES: Normal right common carotid artery (CCA). There is minimal atherosclerotic plaque formation without significant narrowing of the right carotid bulb. There again is minimal atherosclerotic plaque formation of the origin of the right internal carotid artery no significant cross sectional diameter stenosis. Normal visualized cervical portion of the right internal carotid artery. Normal origin of the right external carotid artery (ECA). LEFT CAROTID ARTERIES: Normal left common carotid artery (CCA). There again is moderate atherosclerotic plaque formation mostly eccentric with no significant narrowing of the left carotid bulb. There again is mild atherosclerotic plaque formation of the origin of the left internal carotid artery with less than 30% cross sectional diameter stenosis. Normal visualized cervical portion of the left internal carotid artery. Normal origin of the left external carotid artery (ECA). VERTEBRAL ARTERIES: There is enhancement within the bilateral vertebral arteries with a small right vertebral artery, and a dominant left vertebral artery. There again slightly prominent mediastinal nodes but unchanged since prior examination. 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 CT/CTA Neck W/WO Contrast IMPRESSION: Mild atherosclerotic calcifications of the carotid bulb and bifurcation bilaterally slightly worse on the left side without hemodynamically significant stenosis as described above unchanged since the prior examination. Patent bilateral vertebral artery with dominant left vertebral artery. 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 Electronically Signed: Lionel Carpenter MD at 0:52 EDT Tel , Service support ,
[2018-01-14 23:04] LABS: Magnesium 2.4 mg/dL (1.6-2.6); Thyroid Stim Hormone (TSH) 4.17 uIU/mL (0.358-3.74)
[2018-01-14] MEDS: Famotidine 20 MG Tablet PO (23:37)
[2018-01-14] MEDS: Gabapentin 100 MG Capsule PO (23:37)
[2018-01-14] MEDS: busPIRone 15 MG TABLET 7.5 MG PO (23:37)
[2018-01-15] VITALS (11 sets, daily range): BP systolic 119–135; BP diastolic 63–92; PULSE 59–79; RESP 14–16; TEMP 36.4–36.7; O2SAT 95–98; BMI 25.2
[2018-01-15] MEDS: 0.9% Normal Saline 1,000 ML 25 ML IV (00:06)
[2018-01-15] MEDS: 0.9% NaCl Peripheral Flush Adult/Peds IV (00:06)
[2018-01-15 07:39] LABS: Anion Gap 7 (5-15); BUN 10 mg/dL (7-18); BUN/Creat Ratio 10.6 RATIO (10-20); Calcium,Total 8.5 mg/dL (8.5-10.1); Chloride 111 mmol/L (98-107); Cholesterol 106 mg/dL (200); Creatinine, Serum 0.94 mg/dL (0.70-1.30); EST Glomerular Filtration Rate 87 mL/min (>60); Est Glom Filt Rate - Afr Amer 105 mL/min (>60); Estimated Creatinine Clearance 90.58 ml/min; Glucose 90 mg/dL (74-106); High Density Lipoprotein 22 mg/dL; Sodium Level 142 mmol/L (136-145); Triglycerides 136 mg/dL; Very Low Density Lipoprotein 27 mg/dL (5-40)
[2018-01-15] MEDS: Gabapentin 100 MG Capsule PO ×2 (08:57→11:43)
[2018-01-15] MEDS: busPIRone 15 MG TABLET 7.5 MG PO (08:57)
[2018-01-15] MEDS: Glucerna Shake 120 ML LIQUID PO (08:57)
[2018-01-15] MEDS: Enoxaparin 40 MG/0.4 ML Syringe SC (08:58)
[2018-01-15] MEDS: DULoxetine Hcl 60 MG Capsule PO (08:58)
[2018-01-15] MEDS: Atorvastatin Calcium 80 MG Tablet PO (08:58)
[2018-01-15] MEDS: Famotidine 20 MG Tablet PO (08:59)
[2018-01-15] MEDS: Clopidogrel Bisulfate 75 MG Tablet PO (08:59)
[2018-01-15] MEDS: Metoprolol(XL)Succ 25 MG Tablet PO (08:59)
--- NOTE | 2018-01-15 10:27 | PCM.CONS.GEN ---
Reason for Consult Date of Consultation: 01/15/18 History of Present Illness: The patient is a 62 year old M with history of cva, loop recorder unplugged because my grandkids kept turning it off. reports it was functional though for two yrs and was unrevealing. placed by lupe. history of marcelo but not on cpap because they said it wasnt that bad. history of left mca stroke with right sided weakness, reports worsening right sided weakness starting about 4 days ago, improved now, not back to normal, unclear reasons for improvement. reports one month ago, has been missing sleep and meals and losing weight and greiving. 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 He notes his spouse passed ~ 1 month prior. In the ED CBC w/ WBC 20, Hgb 18.1, Plts 325 with L shift, CMP unremarkable aside Alk phos 133, trop < 0.02, CXR unremarkable, CT head unremarkable, unremarkable UA, UDS w/ + cannabis. In the ED patient administered NS, tylenol and in error lovenox 80 mg SC x 1. 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 Status post ischemic stroke left frontal lobe MCA territory residual aphasia, dyslexia, RUE apraxia and numbness Dyslipidemia (Chronic) History of leukocytosis (Chronic) mild Allergies simvastatin Allergy (Verified 01/14/18 22:49) Unknown venom-honey bee [bee venom (honey bee)] Allergy (Verified 01/14/18 22:49) Unknown metformin Adverse Reaction (Verified 01/14/18 22:49) Diarrhea Home Medications: Ambulatory Orders Medication Instructions Recorded Duloxetine Hcl [Cymbalta] 60 mg PO DAILY 12/01/14 Atorvastatin Calcium [Lipitor] 20 mg PO QHS 01/14/18 Buspirone HCl [Buspirone HCl] 7.5 mg PO BID 01/14/18 Gabapentin [Neurontin] 100 mg PO TID 01/14/18 Metoprolol Succinate 25 mg PO DAILY 01/14/18 Surgical History: coronary bypass surgery Psychiatric History: Anxiety, Depression Lives: Alone Smoking Status: Current every day smoker Tobacco Use: Cigarettes Alcohol: None Drugs: Marijuana - *Family History Paternal History Items: No pertinent history Maternal History Items: No pertinent history Review of Systems Constitutional: Denies: Chills, Fever, Weight Change HEENT: Denies: Head Aches, Sinus Congestion, Sinus Drainage Cardiovascular: Denies: Chest Pain, Palpitations Respiratory: Denies: Cough, Shortness of breath at rest, Sputum production Gastrointestinal: Denies: Abdominal Pain, Nausea, Vomiting Genitourinary: Denies: Dysuria Musculoskeletal: Denies: Joint Pain, Joint Tenderness Skin: Denies: Rash, Wounds Neurological: Denies: Numbness, Tingling, Focal weakness Psychiatric: Reports: Depression - reactive, passed one month ago. Denies: Anxiety, Homicidal Ideations, Suicidal Ideations Hematologic/ Lymphatic: Denies: Easy Bruising, Easy Bleeding Patient Problems: Active and Suspected Problems (Last Updated 01/04/18 @ 17:29 by Natalee Mark) Stroke (Acute) - Physical Exam General: Alert, Oriented x3, Cooperative HEENT: Atraumatic, PERRLA, EOMI, Normocephalic Neck: Supple, No JVD, Negative Carotid Bruits Lungs: Clear to auscultation, Normal air movement Cardiovascular: Regular rate, No murmurs Abdomen: Bowel Sounds Present, Soft, Non Tender Extremities: No edema, Capillary Refill Less than 3 Seconds Skin: No rashes, No breakdown Musculoskeletal: No Tenderness to Palpation of Joints or Extremities Neurological: Cranial nerves II-XII grossly intact, - - neuro exam demonstrates give-way and nonphysiologic discoord with normal reflexes and no spasticity. Psych/Mental Status: Normal Affect, Appropriate Vital Signs Temp Pulse Resp BP Pulse Ox 36.5 C L 65 16 119/91 H 96 01/15/18 06:46 01/15/18 08:59 01/15/18 06:46 01/15/18 06:46 01/15/18 07:40 Oxygen Delivery Method Room Air Weight: 84.3 kg Body Mass Index (BMI) 25.2 Intake and Output for Last 24 Hours 01/13/18 01/14/18 01/15/18 23:59 23:59 23:59 Intake Total 382 / 382 Output Total 400 / 400 Balance - Laboratory Tests Past 24 Hrs 01/15/18 06:42 Sodium 142 Potassium 4.0 Chloride 111 H Carbon Dioxide 24.0 Anion Gap 7 BUN 10 Creatinine 0.94 Estim Creat Clear Calc 90.58 Est GFR (MDRD) Af Amer 105 Est GFR (MDRD) Non-Af 87 BUN/Creatinine Ratio 10.6 Glucose 90 Calcium 8.5 Triglycerides 136 Cholesterol 106 LDL Cholesterol 57 VLDL Cholesterol 27 HDL Cholesterol 22 L Current Home Med List Medication Instructions Recorded Confirmed Type Duloxetine Hcl [Cymbalta] 60 mg PO DAILY 12/01/14 01/14/18 History Atorvastatin Calcium [Lipitor] 20 mg PO QHS 01/14/18 01/14/18 History Buspirone HCl [Buspirone HCl] 7.5 mg PO BID 01/14/18 01/14/18 History Gabapentin [Neurontin] 100 mg PO TID 01/14/18 01/14/18 History Metoprolol Succinate 25 mg PO DAILY 01/14/18 01/14/18 History asa 325mg daily Current Medications Generic Name Dose Route Start Last Admin Trade Name Freq PRN Reason Stop Dose Admin Acetaminophen 650 mg 01/14/18 22:34 Tylenol PO Q4H PRN PRN Headache/Temp>99F Acetaminophen 650 mg 01/14/18 22:34 Tylenol RECTAL Q4H PRN PRN Headache/Temp>99F Acetaminophen 650 mg 01/14/18 22:34 Tylenol Liquid NG Q4H PRN PRN Headache/Temp>99F Al Hydroxide/Mg Hydroxide 30 ml 01/14/18 22:34 Mylanta Ii PO Q6H PRN PRN Gastric burning Albuterol Sulfate 2.5 mg 01/14/18 22:34 Ventolin Aerosols INHALATION Q2H PRN PRN dypsnea, wheezing Albuterol/Ipratropium 3 ml 01/14/18 22:34 01/15/18 07:40 Duoneb INHALATION Not Given Q6HWA.RT FELIPE Atorvastatin Calcium 80 mg 01/15/18 10:00 01/15/18 08:58 Lipitor PO 80 mg DAILY FELIPE Administration Buspirone HCl 7.5 mg 01/14/18 23:00 01/15/18 08:57 Buspar PO 7.5 mg BID FELIPE Administration Clopidogrel Bisulfate 75 mg 01/15/18 10:00 01/15/18 08:59 Plavix PO 75 mg DAILY FELIPE Administration Duloxetine HCl 60 mg 01/15/18 10:00 01/15/18 08:58 Cymbalta PO 60 mg DAILY FELIPE Administration Enoxaparin Sodium 40 mg 01/15/18 10:00 01/15/18 08:58 Lovenox SC 40 mg DAILY@1000 FELIPE Administration Famotidine 20 mg 01/14/18 22:34 01/15/18 08:59 Pepcid PO 20 mg BID FELIPE Administration Gabapentin 100 mg 01/14/18 22:34 01/15/18 08:57 Neurontin PO 100 mg TIDCM FELIPE Administration Hydralazine HCl 10 mg 01/14/18 22:34 Apresoline Iv IV Q4H PRN PRN SBP > 160 Sodium Chloride 1,000 mls @ 125 mls/hr 01/15/18 04:25 01/15/18 04:30 IV Not Given .Q8H FELIPE Magnesium Hydroxide 30 ml 01/14/18 22:34 Milk Of Magnesia PO DAILY PRN Constipation Metoprolol Succinate 25 mg 01/15/18 10:00 01/15/18 08:59 Toprol Xl (Beta Tram) PO 25 mg DAILY FELIPE Administration Nicotine 21 mg 01/14/18 22:34 01/15/18 08:58 Nicoderm Cq (Pbkc) TRANSDERM. 21 mg DAILY FELIPE Administration Nutritional Formula (Lactose Free) 120 ml 01/15/18 10:00 01/15/18 08:57 Glucerna Shake PO 120 ml 4X/DAY FELIPE Administration Ondansetron HCl 4 mg 01/14/18 22:34 Zofran IV Q8H PRN PRN NAUSEA Sodium Chloride 5 - 30 ml 01/14/18 23:31 01/15/18 00:06 IV 10 ml UD PRN Administration SALINE FLUSH ct and cta reviewd, no acute or significant stenosis, has old posterior left mca infarct Assessment/Plan Active and Suspected Problems (Last Updated 01/04/18 @ 17:29 by Natalee Mark) Stroke (Acute) history of left mca infarct, mild residual on right side, now nonspecific worsening in the presence of grief reaction mri if feasible, has non-funcitional loop recorder. repeat ct if unable to do mri takes asa daily, continue if mri neg bp control monitor leukocytosis, infection potential cause of decompensation of previously compensated neurologic deficits
--- NOTE | 2018-01-15 10:40 | MRI_ITS ---
MR Brain WO/W Contrast INDICATION: CVA. Numbness right arm and leg, H/A, right facial droop. COMPARISON: CT brain from the prior day, MRI brain September 22, 2014 TECHNIQUE: Multiplanar multisequence MRI examination of the brain without and with IV contrast. 7 mL of gadavist were given intravenously. FINDINGS: The area of infarction which was identified on September 2014 in the left parieto-occipital region has developed into encephalomalacia with surrounding gliosis and expected dilatation of the occipital horn of the left lateral ventricle is seen. There is no evidence of new infarction on today's study. The ventricular system is otherwise normal in size. Cortical sulci and basal cisterns are well seen. Mild chronic ischemic microvascular white matter changes are noted in the ajay. A very small lacunar infarct is noted in the left head of the caudate and left thalamus. There is no evidence of parenchymal hemorrhage, mass effect or midline shift, or abnormal extra-axial collection. After contrast administration, there is no abnormal parenchymal or extra-axial enhancement identified. There is diffuse mucosal thickening throughout the right paranasal sinuses and complete opacification of the right maxillary sinus. MRI/Brain W/WO Contrast IMPRESSION: Remote left parieto-occipital infarct with encephalomalacia. No acute infarct. Mild chronic ischemic microvascular white matter changes in the ajay and tiny lacunar infarcts in the left basal ganglia. Right paranasal sinus disease. at 1531 Reported and signed by: Shima Javier MD Electronically Signed: Shima Javier MD at 15:29 EDT Tel , Service support ,
[2018-01-15] MEDS: 0.9% Normal Saline 1,000 ML 125 ML IV (11:43)
[2018-01-15] MEDS: LORazepam 2 MG/ML Syringe 1 MG IV (13:40)
--- NOTE | 2018-01-15 13:53 | CASEMGMT ---
Social Work Assessment SW met with pt to complete initial assessment and to determine discharge needs. Per Unique REGALADO pt may need placement at discharge and pt recently lost his last month. SW introduced self and role at [facility]. Per pt, pt lives with his son and his son is with him 27/04. Pt states that he was previously independent with ADLs before coming into the hospital. Pt states that his son is good support for him and that his three grandkids are also good support for him. Pt states that he lost his about a month ago. Pt states that it was sudden. Pt states that his had been battling cancer and about two months ago pt brought his home from the custodial. Pt states that his went to bed at 11:20 pm and then pt tried to wake up his to watch the [employer] at 11:30 pm and when pt tried to wake his up she was unresponsive. Pt states that his son tried to wake up his mom as well and the squad attempted to as well. Pt states that the squad was able to get a faint pulse for pt but then she later on passed. Pt states that his from a heart attack. Pt states that he and his had been for 39 years. Pt states that he has had a hard time since his passed. He states that he has been eating less and sleeping less. Pt states that he has had no appetite and has been laying around and staying up all night. SW offered support and provided empathy to pt. SW used active listening skills and provided support to pt. SW informed pt that the feelings that he is feeling are normal for the grieving process and that everyone grieves differently. Pt was receptive to this. Pt states that he has a walker and wheelchair at home. Pt states that he wants to return to [facility] and that his [facility] family and heel former is also good support for him. Pt states that his plan is to return home at discharge. SW asked pt if he would be interested in home health care at discharge and pt denied at this time. Pt states that he would like to get through his grieving process before wanting home health care. SW informed pt that he can always talk to his PCP about getting home health care at a later time if needed. Pt states understanding. Pt asked this worker for information about the grieving process and support groups. This worker provided pt with information on the grieving process and local support groups. Pt denied additional needs at this time. 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 SW offered positive support and feedback to pt. Pt also states that he smokes about 1.5 packs of cigarettes a day as well but that he also trying to quit. SW again offered positive support and feedback. Mental Health Hx: Pt states that he has a history of depression and that bipolar runs in the family. Pt states that he currently takes Duloxetine. Pt states that he used to receive counseling services at the [facility]. Pt states that he thinks he will begin counseling services again at discharge. SW offered positive support and feedback to pt regarding receiving counseling services again. Pt states that he will also continue to go to [facility]. Plan: Return home at discharge and follow up with counseling services and support groups. Reyna Su KELP GATHERER, PRINT FINISHER.
--- NOTE | 2018-01-15 14:08 | PCM.PROGNOTE ---
Patient Problems: Active and Suspected Problems (Last Updated 01/04/18 @ 17:29 by Natalee Mark) Stroke (Acute) Subjective: Patient seen and examined. States he has chronic right-sided weakness which she states has been worse recently. Patient states he lost his approximately 1 month ago and has not been sleeping or eating. States he is able to ambulate with assistance of a cane and declines home health services. Denies other complaints. - Physical Exam General: Alert, Oriented x3, Cooperative, No apparent distress HEENT: Atraumatic, PERRLA, EOMI, Normocephalic Neck: Supple, No JVD, Negative Carotid Bruits Lungs: Clear to auscultation, Diminished Cardiovascular: Regular rate, Regular Rhythm, Normal S1, Normal S2, No murmurs Abdomen: Bowel Sounds Present, Soft, Non Tender, Non-Distended Extremities: No clubbing, No cyanosis, No edema, Capillary Refill Less than 3 Seconds Skin: No rashes, No breakdown Musculoskeletal: No Tenderness to Palpation of Joints or Extremities Neurological: - - Right-sided weakness with right upper extremity and right lower extremity drift. Sensation intact. Psych/Mental Status: Normal Affect, Appropriate Vital Signs Temp Pulse Resp BP Pulse Ox 98.0 F 69 16 132/92 H 98 01/15/18 11:26 01/15/18 11:26 01/15/18 11:26 01/15/18 11:26 01/15/18 11:26 Oxygen Delivery Method Room Air Weight: 84.3 kg Body Mass Index (BMI) 25.2 Intake and Output for Last 24 Hours 01/13/18 01/14/18 01/15/18 23:59 23:59 23:59 Intake Total 1264 / 1264 Output Total 975 / 975 Balance 289 / 289 Laboratory Tests Past 24 Hrs 01/15/18 06:42 Sodium 142 Potassium 4.0 Chloride 111 H Carbon Dioxide 24.0 Anion Gap 7 BUN 10 Creatinine 0.94 Estim Creat Clear Calc 90.58 Est GFR (MDRD) Af Amer 105 Est GFR (MDRD) Non-Af 87 BUN/Creatinine Ratio 10.6 Glucose 90 Calcium 8.5 Triglycerides 136 Cholesterol 106 LDL Cholesterol 57 VLDL Cholesterol 27 HDL Cholesterol 22 L Medical Necessity - Tobacco Use Smoking Status: Current every day smoker Tobacco Use: Cigarettes Assessment/Plan Active and Suspected Problems (Last Updated 01/04/18 @ 17:29 by Natalee Mark) Stroke (Acute) 1. 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 Neurology consulted. Brain CT showed age-related and chronic changes of the brain. CTA of head showed atherosclerotic calcifications of the internal carotid arteries with a stable less than 50% stenosis, unchanged from prior. Patient has a loop recorder but was able to undergo MRI. Results pending. Continue Plavix, statin. If MRI is negative, patient can continue aspirin regimen. Echo pending. Patient states he has been under distressed with recent passing of his . Toxicology screen positive for cannabinoids. Behavioral health consulted. 2. Leukocytosis-etiology unclear. Chest x-ray, UA unremarkable. Possibly secondary to dehydration. Afebrile. Continue IV fluids. Repeat CBC in a.m. 3. CAD-continue Plavix, statin, beta-taj. 4. Hypertension continue home regimen of metoprolol. As needed hydralazine.- 5. Hyperlipidemia-continue statin. 6. Anxiety/depression-continue home Cymbalta, BuSpar regimen. 7. Tobacco dependence-encourage smoking cessation. 8. Chronic COPD-no acute exacerbation. Albuterol/DuoNeb aerosols. 9. Obstructive sleep apnea-CPAP nightly. DVT prophylaxis-Lovenox Discharge planning: Physical therapy recommending further skilled therapy/rehab. This patient was seen by HOANG Hall under the supervision of Dr. Ernandez.
[2018-01-15 15:20] LABS: T4 Free Direct 1.32 ng/dL (0.76-1.46)
--- NOTE | 2018-01-15 17:27 | PCM.DC ---
- Discharge Diagnoses Current Active Problems: Current Active and Chronic Problems (Last Updated 01/04/18 @ 17:29 by Natalee Mark) Stroke (Acute) You will use the following diet at home:: Cardiac Discharge Activity: Return to Normal Activity Call your doctor if you observe: Numbness or Tingling, Shortness of breath, Dizziness, Fainting spells, Chest pain Allergies/Adverse Reactions: Allergies simvastatin Allergy (Verified 01/14/18 22:49) Unknown venom-honey bee [bee venom (honey bee)] Allergy (Verified 01/14/18 22:49) Unknown metformin Adverse Reaction (Verified 01/14/18 22:49) Diarrhea Medications to take at Discharge Duloxetine Hcl [Cymbalta] 60 mg PO DAILY 12/01/14 Atorvastatin Calcium [Lipitor] 20 mg PO QHS 01/14/18 Gabapentin [Neurontin] 100 mg PO TID 01/14/18 Metoprolol Succinate 25 mg PO DAILY 01/14/18 Aspirin E.C. [Ecotrin] 81 mg PO DAILY@0800 #30 tab 01/15/18 busPIRone [Buspar] 10 mg PO BID #120 tab 01/15/18 The following prescriptions were given: Aspirin E.C. [Ecotrin] 81 mg PO DAILY@0800 #30 tab busPIRone [Buspar] 10 mg PO BID #120 tab Primary Care Physician: Bear Muñoz DO [Primary Care Provider] - Please follow up with your Primary Care Physician in: 1 Week Please Follow Up With: Luc Estrella MD - Neurology When: 2-4 Weeks Please Follow Up With: Anupam Schuster MD When: As scheduled Proposed Discharge Date: 01/15/18
--- NOTE | 2018-01-15 17:29 | PCM.DC.SUM ---
Discharge Date and Diagnosis Date of Admission: 01/14/18 Date of Discharge: 01/15/18 - Primary Discharge Diagnosis Active and Suspected Problems (Last Updated 01/04/18 @ 17:29 by Natalee Mark) 1. Right sided weakness, debility-acute CVA ruled out. Residual right-sided weakness from previous MCA infarct. 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 Right-sided paranasal sinus disease. Electronically Signed: Neeraj Preston DO at 18:55 EDT Tel [phone], Service support , Chest X-Ray 01/14/18 17:45 IMPRESSION: Mild interstitial prominence. Bilateral apical pleural thickening. Electronically Signed: Neeraj Preston DO at 18:08 EDT Tel [phone], Service support , Head CTA 01/14/18 22:34 IMPRESSION: Atherosclerotic calcifications of the cavernous internal carotid arteries bilaterally with a stable less than 50% stenosis unchanged since the prior examination.. No dominant left vertebral artery. Hypoplastic left posterior cerebral artery unchanged. No hemodynamically significant stenosis is seen. Electronically Signed: Lionel Carpenter MD at 0:35 EDT Tel , Service support , Neck CTA 01/14/18 22:34 IMPRESSION: Mild atherosclerotic calcifications of the carotid bulb and bifurcation bilaterally slightly worse on the left side without hemodynamically significant stenosis as described above unchanged since the prior examination. Patent bilateral vertebral artery with dominant left vertebral artery. 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 Electronically Signed: Lionel Carpenter MD at 0:52 EDT Tel , Service support , Brain MRI 01/15/18 10:40 IMPRESSION: Remote left parieto-occipital infarct with encephalomalacia. No acute infarct. Mild chronic ischemic microvascular white matter changes in the ajay and tiny lacunar infarcts in the left basal ganglia. Right paranasal sinus disease. at 1531 Reported and signed by: Shima Javier MD Electronically Signed: Shima Javier MD at 15:29 EDT Tel , Service support , Dr. Estrella- Neurology Operations: None Procedures: None Summary of Care Provided: Patient is a 62-year-old male admitted 01/14/18 due to right-sided weakness, debility. 1. Right-sided weakness, debility-acute CVA ruled out. 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 Neurology consulted. Brain CT showed age-related and chronic changes of the brain. CTA of head showed atherosclerotic calcifications of the internal carotid arteries with a stable less than 50% stenosis, unchanged from prior. MRI negative for acute stroke. Echo showed an EF of 65%. Patient will continue aspirin, statin at discharge. Patient will follow up with neurology in 2-4 weeks. 2. Leukocytosis-etiology unclear. Chest x-ray, UA unremarkable. Possibly secondary to dehydration vs stress reaction due to recent loss of . Afebrile. 3. CAD-continue aspirin, statin, beta-taj. 4. Hypertension continue home regimen of metoprolol. 5. Hyperlipidemia-continue statin. 6. Anxiety/depression-continue home Cymbalta, BuSpar regimen. BuSpar regimen increased to 10 mg twice daily. 7. Tobacco dependence-encourage smoking cessation. 8. Chronic COPD-no acute exacerbation. 9. Obstructive sleep apnea-CPAP nightly. General: Alert, Oriented x3, Cooperative, No apparent distress HEENT: Atraumatic, PERRLA, EOMI, Normocephalic Neck: Supple, No JVD, Negative Carotid Bruits Lungs: Clear to auscultation, Diminished Cardiovascular: Regular rate, Regular Rhythm, Normal S1, Normal S2, No murmurs Abdomen: Bowel Sounds Present, Soft, Non Tender, Non-Distended Extremities: No clubbing, No cyanosis, No edema, Capillary Refill Less than 3 Seconds Skin: No rashes, No breakdown Musculoskeletal: No Tenderness to Palpation of Joints or Extremities Neurological: - - Right-sided weakness with right upper extremity and right lower extremity drift. Sensation intact. Psych/Mental Status: Normal Affect, Appropriate Patient seen and examined prior to discharge. Physical assessment as noted above. Physical therapy recommended further skilled therapy and patient declined. Stable for discharge home with further follow-up with primary care physician and neurology. Behavioral health to call patient at discharge for resources regarding grieving. This patient was seen by HOANG Hall under the supervision of Dr. Ernandez. Discharge Diet: Low fat/ Low Cholesterol Discharge Activity: Return to Normal Activity Call your doctor if you observe: Numbness or Tingling, Shortness of breath, Dizziness, Fainting spells, Chest pain Home Medications: Medications to take at Discharge Duloxetine Hcl [Cymbalta] 60 mg PO DAILY 12/01/14 Atorvastatin Calcium [Lipitor] 20 mg PO QHS 01/14/18 Gabapentin [Neurontin] 100 mg PO TID 01/14/18 Metoprolol Succinate 25 mg PO DAILY 01/14/18 Aspirin E.C. [Ecotrin] 81 mg PO DAILY@0800 #30 tab 01/15/18 busPIRone [Buspar] 10 mg PO BID #120 tab 01/15/18 Following Prescrptions Were Given to Patient: Aspirin E.C. [Ecotrin] 81 mg PO DAILY@0800 #30 tab busPIRone [Buspar] 10 mg PO BID #120 tab Primary Care Physician: Bear Muñoz DO [Primary Care Provider] - Please follow up with your Primary Care Physician in: 1 Week Please Follow Up With: Luc Estrella MD - Neurology When: 2-4 Weeks Please Follow Up With: Anupam Schuster MD When: As scheduled Disposition: Home Minutes spent on discharge:: 35 Patient Condition:: Stable Medical Necessity - Tobacco Use Smoking Status: Current every day smoker Tobacco Use: Cigarettes Meaningful Use Info Meaningful Use Diagnoses (Choose all that apply): None applicable
--- NOTE | 2018-01-15 17:37 | DS.PCM_ITS ---
Discharge Date and Diagnosis Date of Admission: 01/14/18 Date of Discharge: 01/15/18 - Primary Discharge Diagnosis Active and Suspected Problems (Last Updated 01/04/18 @ 17:29 by Natalee Mark) 1. Right sided weakness, debility-acute CVA ruled out. Residual right-sided weakness from previous MCA infarct. 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 Right-sided paranasal sinus disease. Electronically Signed: Neeraj Preston DO at 18:55 EDT Tel [phone], Service support , Chest X-Ray 01/14/18 17:45 IMPRESSION: Mild interstitial prominence. Bilateral apical pleural thickening. Electronically Signed: Neeraj Preston DO at 18:08 EDT Tel [phone], Service support , Head CTA 01/14/18 22:34 IMPRESSION: Atherosclerotic calcifications of the cavernous internal carotid arteries bilaterally with a stable less than 50% stenosis unchanged since the prior examination.. No dominant left vertebral artery. Hypoplastic left posterior cerebral artery unchanged. No hemodynamically significant stenosis is seen. Electronically Signed: Lionel Carpenter MD at 0:35 EDT Tel , Service support , Neck CTA 01/14/18 22:34 IMPRESSION: Mild atherosclerotic calcifications of the carotid bulb and bifurcation bilaterally slightly worse on the left side without hemodynamically significant stenosis as described above unchanged since the prior examination. Patent bilateral vertebral artery with dominant left vertebral artery. 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 Electronically Signed: Lionel Carpenter MD at 0:52 EDT Tel , Service support , Brain MRI 01/15/18 10:40 IMPRESSION: Remote left parieto-occipital infarct with encephalomalacia. No acute infarct. Mild chronic ischemic microvascular white matter changes in the ajay and tiny lacunar infarcts in the left basal ganglia. Right paranasal sinus disease. at 1531 Reported and signed by: Shima Javier MD Electronically Signed: Shima Javier MD at 15:29 EDT Tel , Service support , Dr. Estrella- Neurology Operations: None Procedures: None Summary of Care Provided: Patient is a 62-year-old male admitted 01/14/18 due to right-sided weakness, debility. 1. Right-sided weakness, debility-acute CVA ruled out. 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 Neurology consulted. Brain CT showed age-related and chronic changes of the brain. CTA of head showed atherosclerotic calcifications of the internal carotid arteries with a stable less than 50% stenosis, unchanged from prior. MRI negative for acute stroke. Echo showed an EF of 65%. Patient will continue aspirin, statin at discharge. Patient will follow up with neurology in 2-4 weeks. 2. Leukocytosis-etiology unclear. Chest x-ray, UA unremarkable. Possibly secondary to dehydration vs stress reaction due to recent loss of . Afebrile. 3. CAD-continue aspirin, statin, beta-taj. 4. Hypertension continue home regimen of metoprolol. 5. Hyperlipidemia-continue statin. 6. Anxiety/depression-continue home Cymbalta, BuSpar regimen. BuSpar regimen increased to 10 mg twice daily. 7. Tobacco dependence-encourage smoking cessation. 8. Chronic COPD-no acute exacerbation. 9. Obstructive sleep apnea-CPAP nightly. General: Alert, Oriented x3, Cooperative, No apparent distress HEENT: Atraumatic, PERRLA, EOMI, Normocephalic Neck: Supple, No JVD, Negative Carotid Bruits Lungs: Clear to auscultation, Diminished Cardiovascular: Regular rate, Regular Rhythm, Normal S1, Normal S2, No murmurs Abdomen: Bowel Sounds Present, Soft, Non Tender, Non-Distended Extremities: No clubbing, No cyanosis, No edema, Capillary Refill Less than 3 Seconds Skin: No rashes, No breakdown Musculoskeletal: No Tenderness to Palpation of Joints or Extremities Neurological: - - Right-sided weakness with right upper extremity and right lower extremity drift. Sensation intact. Psych/Mental Status: Normal Affect, Appropriate Patient seen and examined prior to discharge. Physical assessment as noted above. Physical therapy recommended further skilled therapy and patient declined. Stable for discharge home with further follow-up with primary care physician and neurology. Behavioral health to call patient at discharge for resources regarding grieving. This patient was seen by HOANG Hall under the supervision of Dr. Ernandez. Discharge Diet: Low fat/ Low Cholesterol Discharge Activity: Return to Normal Activity Call your doctor if you observe: Numbness or Tingling, Shortness of breath, Dizziness, Fainting spells, Chest pain Home Medications: Medications to take at Discharge Duloxetine Hcl [Cymbalta] 60 mg PO DAILY 12/01/14 Atorvastatin Calcium [Lipitor] 20 mg PO QHS 01/14/18 Gabapentin [Neurontin] 100 mg PO TID 01/14/18 Metoprolol Succinate 25 mg PO DAILY 01/14/18 Aspirin E.C. [Ecotrin] 81 mg PO DAILY@0800 #30 tab 01/15/18 busPIRone [Buspar] 10 mg PO BID #120 tab 01/15/18 Following Prescrptions Were Given to Patient: Aspirin E.C. [Ecotrin] 81 mg PO DAILY@0800 #30 tab busPIRone [Buspar] 10 mg PO BID #120 tab Primary Care Physician: Bear Muñoz DO [Primary Care Provider] - Please follow up with your Primary Care Physician in: 1 Week Please Follow Up With: Luc Estrella MD - Neurology When: 2-4 Weeks Please Follow Up With: Anupam Schuster MD When: As scheduled Disposition: Home Minutes spent on discharge:: 35 Patient Condition:: Stable Medical Necessity - Tobacco Use Smoking Status: Current every day smoker Tobacco Use: Cigarettes Meaningful Use Info Meaningful Use Diagnoses (Choose all that apply): None applicable
[2018-01-18 09:58] LABS: Pathologist Review Reviewed
--- NOTE | 2018-01-18 16:43 | CASEMGMT ---
Addendum entered by Reyna Ordonez 01/19/18 14:48: Attempted to reach pt again for discharge f/u phone call and pt's phone just keep ringing busy. [place] ODILIA RANGEL Original Note: ODILIA RANGEL DISCHARGE F/U PHONE CALL LACE: 9 STRATA: 3 CALL DATE: 01/18/18 DISCHARGE DATE: 01/15/18 TIME OF CALL: 1643 DURATION: NO ANSWER AND NO VOICEMAIL, WILL ATTEMPT AGAIN LATER ADM DX: CVA
== END 2018-01-15 18:48 | disposition home or self-care (01) | DRG 57 ==
LOC: ED 21:17 → PCU 21:56
PROVIDERS: Nurse Practitioner Family; Admitting Provider Family Medicine; Emergency Provider Emergency Medicine; Family Provider Family Medicine; PCP Family Medicine; Visit Provider Internal Medicine
DX: I69.351 Hemiplegia and hemiparesis following cerebral infarction affecting right dominant side (principal); R53.1 Weakness; I69.320 Aphasia following cerebral infarction; I69.398 Other sequelae of cerebral infarction; R20.9 Unspecified disturbances of skin sensation; I69.390 Apraxia following cerebral infarction; R48.0 Dyslexia and alexia; E11.9 Type 2 diabetes mellitus without complications; E78.5 Hyperlipidemia, unspecified; I10 Essential (primary) hypertension; Z95.1 Presence of aortocoronary bypass graft; I25.10 Atherosclerotic heart disease of native coronary artery without angina pectoris; F41.9 Anxiety disorder, unspecified; F32.9 Major depressive disorder, single episode, unspecified; G47.33 Obstructive sleep apnea (adult) (pediatric); J44.9 Chronic obstructive pulmonary disease, unspecified; Z79.899 Other long term (current) drug therapy; F17.210 Nicotine dependence, cigarettes, uncomplicated; D72.829 Elevated white blood cell count, unspecified; M54.9 Dorsalgia, unspecified; G89.29 Other chronic pain; I25.2 Old myocardial infarction
CPT/HCPCS: 36415; 70450; 70496; 70498; 70553; 71045; 80048; 80053; 80061; 80307; 80320; 81001; 82550; 82962; 83605; 83690; 83735; 84439; 84443; 84484; 85025; 85610; 85730; 92523; 93005; 93306; 97162; 97166; 97802; 99283; 99406; A9585; J7030; Q9967; A4216; G0480

== ENCOUNTER → 2018-02-01 06:44 | Day surgery (SDC) | payer MEDICARE, SELFPAY ==
[2018-01-29 09:29] VITALS: BMI 25.4
--- NOTE | 2018-02-01 08:36 | CL.IE_ITS ---
Patient: BOAZ MICHAEL Study Date: 02/01/2018 Performing: Anupam Schuster MD : [id number] Age: 62 Gender: male PROCEDURES PERFORMED NI19-OTYIYCK OF LOOP RECORDER INDICATIONS CVA PROCEDURE DETAILS The patient was brought to the Catheterization Lab in the postabsorptive nonsedated state. Informed consent was obtained prior to the procedure. Local anesthetic was given subcutaneously to the left torres bclavian region with Lidocaine 2%.Incision was made over the loop recorder.The loop was then explante d. The patient tolerated the procedure well. Estimated Blood Loss: 0 ml's IMPLANTED / EX-PLANTED DEVICES DEVICE PARAMETERS CONCLUSIONS / RECOMMENDATIONS Device Conclusions: Successful removal of Implanted loop recorder Device Recommendations: Follow up with Primary Care Physician PROCEDURE MEDICATIONS Versed 1 mg IV Oxygen: 2 L/min via nasal cannula Signed By Anupam Schuster MD On 02/01/2018 08:35:56 Anupam Schuster MD
== END ==
LOC: CLSP 06:44
PROVIDERS: Family Provider Family Medicine; PCP Family Medicine; Visit Provider Internal Medicine Cardiovascular Disease
DX: Z45.09 Encounter for adjustment and management of other cardiac device (principal); I10 Essential (primary) hypertension; E78.5 Hyperlipidemia, unspecified; I25.2 Old myocardial infarction; G47.33 Obstructive sleep apnea (adult) (pediatric); Z86.73 Personal history of transient ischemic attack (TIA), and cerebral infarction without residual deficits; J44.9 Chronic obstructive pulmonary disease, unspecified; I25.10 Atherosclerotic heart disease of native coronary artery without angina pectoris; E11.9 Type 2 diabetes mellitus without complications; Z95.1 Presence of aortocoronary bypass graft; Z90.89 Acquired absence of other organs; Z79.84 Long term (current) use of oral hypoglycemic drugs; Z79.82 Long term (current) use of aspirin; Z79.899 Other long term (current) drug therapy; F17.200 Nicotine dependence, unspecified, uncomplicated
CPT/HCPCS: 33284; 99152; J7030

== ENCOUNTER 2018-09-28 14:05 | Observation (INO) | payer MEDICARE, SELFPAY ==
[2018-09-28] VITALS (14 sets, daily range): BP systolic 85–156; BP diastolic 45–89; PULSE 56–78; RESP 8–20; TEMP 36.6–36.7; O2SAT 98–100; BMI 24.1; BMI 23.2
--- NOTE | 2018-09-28 14:09 | EKG12_ITS ---
Test Reason : Blood Pressure : / mmHG Vent. Rate : 072 BPM Atrial Rate : 072 BPM P-R Int : 136 ms QRS Dur : 096 ms QT Int : 398 ms P-R-T Axes : 060 086 079 degrees QTc Int : 435 ms Normal sinus rhythm Normal ECG Confirmed by ZITA RO, OSIRIS ([id number]), food editor MARTINE BEATTY ([id number]) on 10/01/2018 3:16:50 PM Referred By: ANDREW Confirmed By:OSIRIS AHUMADA MD
--- NOTE | 2018-09-28 14:10 | RAD_ITS ---
STUDY: X-RAY CHEST REASON FOR EXAM: Male, 63 years old. TECHNIQUE: 3 views COMPARISON: January 14, 2018 FINDINGS: The heart is not enlarged. Both lung tran are clear except mild pulmonary vascular congestion. No evidence of consolidation or atelectasis. The costophrenic angles are clear. There are multiple metallic stitches along the sternum from previous surgery. The visualized bony structures are intact. RAD/Chest 1 View (Portable) IMPRESSION: Mild pulmonary vascular congestion the study is otherwise negative Electronically Signed: Sue Farris, at 14:52 EST Tel , Service support ,
[2018-09-28 14:34] LABS: Absolute Lymphocyte Count 2.69 X10^3/ul (0.83-4.51); Absolute Neutrophil Count 10.6 X10^3/uL (2.0-7.7); Basophil# 0.05 X10^3/uL; Basophil% 0.3 % (0-1); Eosinophil# 0.21 X10^3/uL; Eosinophils% 1.5 % (0-5); Hemoglobin 16.7 g/dl (13.0-16.5); Lymphocyte # 2.69 X10^3/ul (4.0); Lymphocyte % 18.6 % (19-41); Mean Corp Hgb Conc 33.4 g/gl (32-36); Mean Corpuscular Hgb 30.5 pg (27.0-32.0); Mean Corpuscular Volume 91.4 fL (80-94); Mean Platelet Vol. 10.7 fl (6.2-12.0); Monocyte# 0.87 X10^3/uL; Neutrophil # 10.57 X10^3/uL (2.7-7.7); Neutrophil % 73.3 % (47-70); Platelet Count 283 K/mm3 (150-450); RBC Distribution Width CV 12.8 % (11.6-14.6); RBC Distribution Width SD 42.3 fl (35.1-43.9); Red Blood Count 5.47 M/mm3 (4.6-6.2); White Blood Count 14.4 K/mm3 (4.4-11.0)
[2018-09-28 14:35] LABS: POSITIVE COUNT NO; POSITIVE DIFFERENTIAL NO; POSITIVE MORPHOLOGY NO
[2018-09-28 14:43] LABS: Prothrombin Time (Protime)PT. 13.1 SECONDS (11.7-14.9)
[2018-09-28 14:44] LABS: Partial Thromboplast Time 26.9 Seconds (24.1-36.2)
[2018-09-28 14:45] LABS: Base Excess -2 mmol/L (-2 to +2); Blood Gas Specimen Type ART; O2 Delivery Device NRB Mask; PO2 227 mmHG (75-100); SITE R Radial; SO2 100 % (95-99); Time Given 1430; Total Carbon Dioxide 23 mmol/L; pCO2 33.6 mmHg (35-45); pH 7.42 (7.35-7.45)
[2018-09-28 14:46] LABS: Carboxyhemoglobin Frac (CO) 9.8 % (0.0-1.5)
[2018-09-28 14:51] LABS: Anion Gap 8 (5-15); BUN 10 mg/dL (7-18); BUN/Creat Ratio 11.4 RATIO (10-20); Calcium,Total 8.8 mg/dL (8.5-10.1); Chloride 106 mmol/L (98-107); Creatinine, Serum 0.88 mg/dL (0.70-1.30); EST Glomerular Filtration Rate 93 mL/min (>60); Est Glom Filt Rate - Afr Amer 113 mL/min (>60); Estimated Creatinine Clearance 95.53 ml/min; Glucose 103 mg/dL (74-106); Sodium Level 140 mmol/L (136-145)
[2018-09-28 14:57] LABS: Lactic Acid 1.6 mmol/L (0.4-2.0)
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
[2018-09-28 17:46] LABS: Carboxyhemoglobin Frac (CO) 6.7 % (0.0-1.5)
[2018-09-28] MEDS: 0.9% Normal Saline 1,000 ML 75 ML IV (18:02)
[2018-09-28] MEDS: Ipratropium/Albuterol Sulfate 3 ML AMPUL.NEB INHALATION (19:45)
--- NOTE | 2018-09-28 21:52 | NURSING ---
Pt blood sugar is 70 at this time. Pt states he does not feel like his blood sugar is low. Pt on clear liquid diet. Given approx 230 mL apple juice at this time. Will re-assess blood sugar.
[2018-09-28 21:55] LABS: Bedside Glucose 70 mg/dL (70-110)
--- NOTE | 2018-09-28 23:16 | NURSING ---
Pt not given 09/28/18 22:00 dose of Buspirone as pt states he takes 15 mg once a day even though he is supposed to take 7.5 mg BID. Pt states he already had 15 mg today.
--- NOTE | 2018-09-28 23:42 | NURSING ---
Blood sugar re-assessed at this time and was 72. Will give more apple juice to help keep blood sugar up through the night. Will continue to monitor blood sugar.
[2018-09-28 23:51] LABS: Bedside Glucose 72 mg/dL (70-110)
[2018-09-29] VITALS (10 sets, daily range): BP systolic 115–133; BP diastolic 59–79; PULSE 53–80; RESP 8–16; TEMP 36.6–37.1; O2SAT 95–98
[2018-09-29 06:25] LABS: Absolute Lymphocyte Count 3.27 X10^3/ul (0.83-4.51); Absolute Neutrophil Count 11.5 X10^3/uL (2.0-7.7); Basophil# 0.05 X10^3/uL; Basophil% 0.3 % (0-1); Eosinophil# 0.36 X10^3/uL; Eosinophils% 2.2 % (0-5); Hematocrit 47.5 % (40-54); Hemoglobin 15.6 g/dl (13.0-16.5); Lymphocyte # 3.27 X10^3/ul (4.0); Lymphocyte % 19.9 % (19-41); Mean Corp Hgb Conc 32.8 g/gl (32-36); Mean Corpuscular Volume 91.3 fL (80-94); Mean Platelet Vol. 11.2 fl (6.2-12.0); Monocyte# 1.21 X10^3/uL; Monocyte% 7.4 % (0-10); Neutrophil # 11.49 X10^3/uL (2.7-7.7); Neutrophil % 69.8 % (47-70); Platelet Count 269 K/mm3 (150-450); RBC Distribution Width CV 12.7 % (11.6-14.6); RBC Distribution Width SD 42.5 fl (35.1-43.9); White Blood Count 16.4 K/mm3 (4.4-11.0)
[2018-09-29 06:27] LABS: POSITIVE COUNT NO; POSITIVE DIFFERENTIAL NO; POSITIVE MORPHOLOGY NO
[2018-09-29 06:33] LABS: Anion Gap 8 (5-15); BUN 8 mg/dL (7-18); BUN/Creat Ratio 9.2 RATIO (10-20); Calcium,Total 8.8 mg/dL (8.5-10.1); Chloride 108 mmol/L (98-107); Creatinine, Serum 0.87 mg/dL (0.70-1.30); EST Glomerular Filtration Rate 95 mL/min (>60); Est Glom Filt Rate - Afr Amer 115 mL/min (>60); Estimated Creatinine Clearance 96.63 ml/min; Glucose 91 mg/dL (74-106); Sodium Level 144 mmol/L (136-145)
[2018-09-29] MEDS: Ipratropium/Albuterol Sulfate 3 ML AMPUL.NEB INHALATION (07:01)
[2018-09-29 07:15] LABS: Bedside Glucose 84 mg/dL (70-110)
[2018-09-29 08:25] LABS: Bedside Glucose 96 mg/dL (70-110)
[2018-09-29] MEDS: glipiZIDE 5 MG Tablet PO (10:12)
[2018-09-29] MEDS: DULoxetine Hcl 60 MG Capsule PO (10:12)
[2018-09-29] MEDS: busPIRone 5 MG Tablet 7.5 MG PO (10:12)
[2018-09-29] MEDS: Pantoprazole Sodium 20 MG Tablet PO (10:12)
[2018-09-29] MEDS: Aspirin E.C. 81 MG Tablet PO (10:12)
[2018-09-29] MEDS: Metoprolol(XL)Succ 25 MG Tablet PO (10:12)
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
--- NOTE | 2018-09-29 11:29 | NURSING ---
Patient being discharge. Already eating tray and declined insulin and blood sugar check.
== END 2018-09-29 10:28 | disposition home or self-care (01) ==
LOC: ED 14:45 → PCU 18:48
PROVIDERS: Admitting Provider Hospitalist; Emergency Provider Emergency Medicine; Family Provider Family Medicine; PCP Family Medicine; Visit Provider Internal Medicine
DX: J70.5 Respiratory conditions due to smoke inhalation (principal); G47.33 Obstructive sleep apnea (adult) (pediatric); E78.5 Hyperlipidemia, unspecified; J44.9 Chronic obstructive pulmonary disease, unspecified; I25.10 Atherosclerotic heart disease of native coronary artery without angina pectoris; I10 Essential (primary) hypertension; E11.9 Type 2 diabetes mellitus without complications; Z95.1 Presence of aortocoronary bypass graft; Z86.73 Personal history of transient ischemic attack (TIA), and cerebral infarction without residual deficits; Z79.899 Other long term (current) drug therapy; Z79.82 Long term (current) use of aspirin; Z79.84 Long term (current) use of oral hypoglycemic drugs; F17.210 Nicotine dependence, cigarettes, uncomplicated; F32.9 Major depressive disorder, single episode, unspecified; F41.9 Anxiety disorder, unspecified; D72.829 Elevated white blood cell count, unspecified; I25.2 Old myocardial infarction; R40.2410 Glasgow coma scale score 13-15, unspecified time
CPT/HCPCS: 36415; 36600; 71045; 80048; 82375; 82803; 82962; 83605; 84484; 85025; 85610; 85730; 93005; 94640; 94762; 96360; 96361; 97802; 99218; 99285; 99406; J7030; A4216; G0378

== ENCOUNTER → 2020-06-05 14:33 | Outpatient (CLI) | payer MEDICARE, SELFPAY ==
[2018-09-28 17:21] VITALS: BMI 23.2
[2020-06-05 17:08] LABS: Absolute Lymphocyte Count 3.69 X10^3/uL (0.83-4.51); Absolute Neutrophil Count 10.1 X10^3/uL (2.0-7.7); Basophil# 0.11 X10^3/uL; Basophil% 0.7 % (0-1); Eosinophil# 0.38 X10^3/uL; Eosinophils% 2.5 % (0-5); Hematocrit 49.3 % (40-54); Hemoglobin 15.7 g/dL (13.0-16.5); Lymphocyte # 3.69 X10^3/ul (4.0); Mean Corp Hgb Conc 31.8 g/dL (32-36); Mean Corpuscular Hgb 29.2 pg (27.0-32.0); Mean Corpuscular Volume 91.6 fL (80-94); Mean Platelet Vol. 10.9 fl (6.2-12.0); Monocyte# 0.94 X10^3/uL; Monocyte% 6.1 % (0-10); NRBC Flagged by Analyzer 0 % (0-5); Neutrophil # 10.14 X10^3/uL (2.7-7.7); Neutrophil % 65.8 % (47-70); Platelet Count 306 K/mm3 (150-450); RBC Distribution Width SD 43.6 fl (35.1-43.9); Red Blood Count 5.38 M/mm3 (4.6-6.2); White Blood Count 15.4 K/mm3 (4.4-11.0)
[2020-06-05 17:36] LABS: ALB/GLOB Ratio 0.9 RATIO (0.9-2.4); AST(SGOT) 15 U/L (15-37); Alanine Aminotransfer ALT/SGPT 32 U/L (16-61); Albumin, Serum 3.5 g/dL (3.2-5.0); Alkaline Phosphatase 98 U/L (45-117); Anion Gap 4 (5-15); BUN 10 mg/dL (7-18); BUN/Creat Ratio 10.4 RATIO (10-20); Calcium,Total 8.6 mg/dL (8.5-10.1); Chloride 104 mmol/L (98-107); Cholesterol 140 mg/dL (200); Creatinine, Serum 0.96 mg/dL (0.70-1.30); EST Glomerular Filtration Rate 83 mL/min (>60); Est Glom Filt Rate - Afr Amer 101 mL/min (>60); Globulin 3.9 g/dL (2.2-4.2); Glucose 55 mg/dL (74-106); High Density Lipoprotein 30 mg/dL; PSA,Total - Annual Screen 2.52 ng/mL (0.00-4.00); Potassium 3.8 mmol/L (3.5-5.1); Protein, Total 7.4 g/dL (6.4-8.2); Sodium Level 137 mmol/L (136-145); Triglycerides 112 mg/dL; Very Low Density Lipoprotein 22 mg/dL (5-40)
[2020-06-05 17:50] LABS: Hemoglobin A1c 7.1 % (3.8-5.6)
== END ==
LOC: BFHLAB 14:38
PROVIDERS: PCP Family Medicine; Visit Provider Family Medicine
DX: E11.9 Type 2 diabetes mellitus without complications (principal); I10 Essential (primary) hypertension; I25.10 Atherosclerotic heart disease of native coronary artery without angina pectoris; Z12.5 Encounter for screening for malignant neoplasm of prostate
CPT/HCPCS: 36415; 80053; 80061; 83036; 84153; 85025; G0103

== ENCOUNTER → 2020-12-26 10:51 | Outpatient (CLI) | payer MEDICARE, SELFPAY ==
[2018-09-28 17:21] VITALS: BMI 23.2
--- NOTE | 2020-12-26 11:01 | RAD_ITS ---
STUDY: X-RAY - PELVIS AND RIGHT HIP REASON FOR EXAM: Male, 65 years old. Right hip and leg pain. TECHNIQUE: 3 views of the pelvis and hip. COMPARISON: None. FINDINGS: There is a non-specific bowel gas pattern. Normal visualized soft tissue structures. There are atherosclerotic vascular calcifications. Normal bilateral iliac wings, sacroiliac joints and visualized sacrum. Normal bilateral superior and inferior pubic rami. Normal pubic symphysis. Normal bilateral ischial tuberosities. Moderate degenerative changes of the left hip. There are osteoarthritic changes of the right femoral head with marginal osteophyte formation. Normal right acetabulum. There is moderate articular joint space narrowing of the right hip. RAD/HIP, UNI W/ Pelvis 2-3 Views IMPRESSION: Degenerative changes in bilateral hips. There is no acute fracture or dislocation. Electronically Signed: Adeel Richardson DO at 16:49 EDT Tel [phone], Service support ,
--- NOTE | 2020-12-26 11:01 | RAD_ITS ---
STUDY: X-RAY - LUMBAR SPINE REASON FOR EXAM: Male, 65 years old. Right hip and leg pain. TECHNIQUE: 5 view(s) of the lumbar spine were obtained. COMPARISON: None FINDINGS: Normal lumbar lordosis. There is no substantial scoliosis. There is a normal alignment of the vertebrae. There is multilevel endplate spondylosis of the lumbar vertebrae. There is disc space narrowing at L5-S1. The remaining disc spaces appear preserved. Diffuse degenerative facet disease. There is no evidence of acute fracture or loss of vertebral axial height. There is no demonstrated spondylolysis of the pars interarticulares. There is atherosclerotic calcification of the abdominal aorta without a demonstrated aneurysm. RAD/L/S Spine Min 4 Views IMPRESSION: Degenerative changes of the spine, as detailed above. Electronically Signed: Adeel Richardson DO at 16:48 EDT Tel [phone], Service support ,
== END ==
PROVIDERS: PCP Family Medicine; Referring Provider Family Medicine; Visit Provider Family Medicine
DX: M25.551 Pain in right hip (principal); M79.604 Pain in right leg
CPT/HCPCS: 72110; 73502

== ENCOUNTER → 2021-05-13 | Outpatient (CLI) | payer MEDICARE, SELFPAY ==
[2018-09-28 17:21] VITALS: BMI 23.2
== END | disposition home or self-care (01) ==
LOC: LABSPEC 16:34
PROVIDERS: PCP Family Medicine; Referring Provider Urology; Visit Provider Urology
DX: R35.0 Frequency of micturition (principal)
CPT/HCPCS: 87086; 87088

== ENCOUNTER → 2021-06-03 12:01 | Outpatient (CLI) | payer MEDICARE, SELFPAY ==
--- NOTE | 2021-06-03 12:03 | EKG12_ITS ---
Test Reason : PRE OP Blood Pressure : / mmHG Vent. Rate : 099 BPM Atrial Rate : 099 BPM P-R Int : 122 ms QRS Dur : 094 ms QT Int : 362 ms P-R-T Axes : 068 082 014 degrees QTc Int : 464 ms Normal sinus rhythm Normal ECG Confirmed by ALIVIA RO, THOMAS ([id number]), senior technical editor ORVILLE ARGUELLO ([id number]) on 06/04/2021 8:36:26 AM Referred By: Rito Conway Confirmed By:THOMAS BUNCH MD
[2021-06-03 12:35] LABS: Hematocrit 48.4 % (40-54); Hemoglobin 15.8 g/dL (13.0-16.5); Mean Corp Hgb Conc 32.6 g/dL (32-36); Mean Corpuscular Hgb 29.3 pg (27.0-32.0); Mean Corpuscular Volume 89.8 fL (80-94); Mean Platelet Vol. 9.8 fl (6.2-12.0); Platelet Count 292 K/mm3 (150-450); RBC Distribution Width CV 12.7 % (11.6-14.6); RBC Distribution Width SD 41.8 fl (35.1-43.9); Red Blood Count 5.39 M/mm3 (4.6-6.2); White Blood Count 10.6 K/mm3 (4.4-11.0)
[2021-06-03 13:03] LABS: Anion Gap 4 (5-15); BUN 14 mg/dL (7-18); BUN/Creat Ratio 16.1 RATIO (10-20); Calcium,Total 9.1 mg/dL (8.5-10.1); Chloride 105 mmol/L (98-107); Creatinine, Serum 0.87 mg/dL (0.70-1.30); EST Glomerular Filtration Rate 93 mL/min (>60); Est Glom Filt Rate - Afr Amer 113 mL/min (>60); Glucose 177 mg/dL (74-106); Potassium 4.5 mmol/L (3.5-5.1); Sodium Level 137 mmol/L (136-145)
== END ==
LOC: PSN 12:02
PROVIDERS: PCP Family Medicine; Referring Provider Urology; Visit Provider Urology
DX: Z01.810 Encounter for preprocedural cardiovascular examination (principal); I10 Essential (primary) hypertension; Z01.812 Encounter for preprocedural laboratory examination
CPT/HCPCS: 36415; 80048; 85027; 93005

== ENCOUNTER → 2021-06-07 | Outpatient (CLI) | payer MEDICARE, SELFPAY ==
--- NOTE | 2021-06-07 11:17 | PROS_PTH ---
PATIENT: BOAZ MICHAEL [facility]: [facility] U#:[id number] AGE/SX: 66/M ROOM: RE06/07/[address]: Dr. Rito Conway MD : [id number] BED: DIS: 06/07/2021 SPEC #: [id number] RECD: 06/07/21 14:52 STATUS: PEG REGénesis #: [id number] CHAN: 06/07/21 11:[address]: Rito Conway DEPT: SURGICAL PATHOLOGY RECD BY: Dominick Montero ENTERED: 06/11/21 08:57 SP TYPE: TURP OTHR DR: Dr. Bear Muñoz, [facility] Tissues: Prostate, NOS Procedures: Surgery Specimen Level IV HEADER OPERATION: Transuretheral resection of the prostate PRE-OP DIAGNOSIS: BPH with lower urinary tract symptoms TISSUE SUBMITTED: Prostate tissue MICROSCOPIC DIAGNOSIS Prostate , transurethral resection: Benign nodular hyperplasia. Mild chronic inflammation. AM;am 06/12/21 MICROSCOPIC DESCRIPTION Slides are reviewed. GROSS DESCRIPTION Received is one container labeled with the patient's name and designated prostate tissue. The specimen consists of multiple irregular fragments of [place], rubbery, soft tissue that in aggregate weigh 6.5 gm and measure in aggregate 5 x 5 x 0.6cm. The entire specimen is totally submitted in 10 cassettes. /AM;am 06/11/21 TC:5 CPT: 98509
== END | disposition home or self-care (01) ==
LOC: LABSPEC 16:13
PROVIDERS: PCP Family Medicine; Visit Provider Urology
DX: N40.1 Benign prostatic hyperplasia with lower urinary tract symptoms (principal); R35.0 Frequency of micturition; N39.498 Other specified urinary incontinence
CPT/HCPCS: 88305

== ENCOUNTER 2022-03-30 14:31 | Emergency (ER) | payer MEDICARE, SELFPAY ==
[2022-03-30 14:32] VITALS: BP 171/115; PULSE 106; RESP 14; TEMP 36.4; O2SAT 98; BMI 26.7
[2022-03-30 14:39] VITALS: BP 139/100; PULSE 99; RESP 18; O2SAT 95
--- NOTE | 2022-03-30 14:58 | EKG12_ITS ---
Test Reason : Blood Pressure : / mmHG Vent. Rate : 088 BPM Atrial Rate : 088 BPM P-R Int : 136 ms QRS Dur : 096 ms QT Int : 364 ms P-R-T Axes : 044 073 070 degrees QTc Int : 440 ms Normal sinus rhythm Normal ECG Confirmed by ZITA RO, OSIRIS ([id number]), supervising film or videotape editor ORVILLE ARGUELLO ([id number]) on 04/01/2022 8:21:38 AM Referred By: KWAKU Confirmed By:OSIRIS AHUMADA MD
--- NOTE | 2022-03-30 14:58 | CT_ITS ---
STUDY: CT BRAIN WITHOUT CONTRAST REASON FOR EXAM: Male, 67 years old. head injury RADIATION DOSAGE (If Supplied By Facility): CTDIvol = ( 44.99 ) mGy, DLP = ( 829.85 ) mGycm TECHNIQUE: Transaxial CT imaging of the brain was performed without administration of intravenous contrast material. Individualized dose optimization techniques were used for this CT. COMPARISON: No relevant priors. FINDINGS: Normal soft tissue structures. Normal calvarium. There is moderate cerebral atrophy with widening of the extra-axial spaces and ventricular dilatation. Normal white matter tracts of the cerebral hemispheres. Normal basal ganglia and thalami. Normal brainstem. Normal cerebellum. There is no intracranial hemorrhage. Encephalomalacia in the posterior left parietal lobe consistent with a chronic infarct. Normal visualized paranasal sinuses. CT/Brain/Head without Contrast IMPRESSION: Chronic involutional changes of the brain. Electronically Signed: Sony Odonnell MD at 15:51 EDT ,
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
[2022-03-30 15:22] LABS: Mucous, Urine 0 SEEN /hpf (<or=2+)
[2022-03-30 15:24] LABS: Anion Gap 8 (5-15); BUN 12 mg/dL (7-18); Calcium,Total 9.2 mg/dL (8.5-10.1); Chloride 99 mmol/L (98-107); Creatinine, Serum 1.09 mg/dL (0.70-1.30); EST Glomerular Filtration Rate 72 mL/min (>60); Est Glom Filt Rate - Afr Amer 87 mL/min (>60); Estimated Creatinine Clearance 73.17 ml/min; Glucose 387 mg/dL (74-106); Potassium 4.2 mmol/L (3.5-5.1); Sodium Level 131 mmol/L (136-145)
[2022-03-30 15:26] LABS: Absolute Neutrophil Count 8.9 X10^3/uL (2.0-7.7); Basophil# 0.15 X10^3/uL; Basophil% 1.1 % (0-1); Eosinophil# 0.33 X10^3/uL; Eosinophils% 2.4 % (0-5); Hematocrit 48.3 % (40-54); Hemoglobin 16.4 g/dL (13.0-16.5); Lymphocyte % 23.2 % (19-41); Mean Corpuscular Hgb 29.7 pg (27.0-32.0); Mean Corpuscular Volume 87.5 fL (80-94); Mean Platelet Vol. 10.4 fl (6.2-12.0); Monocyte# 1.02 X10^3/uL; Monocyte% 7.4 % (0-10); NRBC Flagged by Analyzer 0 % (0-5); Neutrophil # 8.91 X10^3/uL (2.7-7.7); Neutrophil % 64.5 % (47-70); Platelet Count 300 K/mm3 (150-450); RBC Distribution Width CV 12.7 % (11.6-14.6); RBC Distribution Width SD 40.6 fl (35.1-43.9); Red Blood Count 5.52 M/mm3 (4.6-6.2); White Blood Count 13.8 K/mm3 (4.4-11.0)
[2022-03-30 15:28] LABS: Color, Urine Straw (Yellow); Glucose, Dipstick 1000 mg/dl (Normal); Ketone-Dipstick Negative (Negative); Leukocyte Esterase-Dipstick 500 /ul (Negative); Nitrite-Dipstick Positive (Negative); Occult Blood-Urine 10 /ul (Negative); Protein-Dipstick 15 mg/dl (Negative); Urine Bilirubin Dipstick Negative (Negative); Urine Clarity Clear (Clear); Urine Urobilinogen Normal (Normal)
[2022-03-30 15:38] LABS: Bacteria 1+ /hpf (None Seen); Red Blood Cells-Urine 5-10 SEEN /hpf (0-5); Squamous Epithelial Cells - UA 0-5 SEEN /hpf (0-5); White Blood Cells 25-50 SEEN /hpf (0-5); Yeast-Urine 3+ /hpf (None Seen)
[2022-03-30 16:50] VITALS: BP 143/87; PULSE 77; RESP 16; O2SAT 95
[2022-03-30] MEDS: Cephalexin 250 MG Capsule 500 MG PO (16:53)
== END 2022-03-30 16:58 | disposition home or self-care (01) ==
PROVIDERS: Emergency Provider Emergency Medicine; PCP Family Medicine; Visit Provider Emergency Medicine
DX: N39.0 Urinary tract infection, site not specified (principal); J44.9 Chronic obstructive pulmonary disease, unspecified; E11.65 Type 2 diabetes mellitus with hyperglycemia; B37.2 Candidiasis of skin and nail; R55 Syncope and collapse; I25.10 Atherosclerotic heart disease of native coronary artery without angina pectoris; E78.5 Hyperlipidemia, unspecified; G47.33 Obstructive sleep apnea (adult) (pediatric); Z95.818 Presence of other cardiac implants and grafts; Z86.73 Personal history of transient ischemic attack (TIA), and cerebral infarction without residual deficits; Z79.899 Other long term (current) drug therapy; Z79.84 Long term (current) use of oral hypoglycemic drugs; Z79.82 Long term (current) use of aspirin; N40.0 Benign prostatic hyperplasia without lower urinary tract symptoms; Z87.440 Personal history of urinary (tract) infections; F17.290 Nicotine dependence, other tobacco product, uncomplicated; S09.90XA Unspecified injury of head, initial encounter; W19.XXXA Unspecified fall, initial encounter
CPT/HCPCS: 70450; 80048; 81001; 85025; 87077; 87086; 87088; 93005; 99284

== ENCOUNTER 2022-08-25 12:27 | Outpatient (CLI) | payer MEDICARE, SELFPAY ==
[2022-08-25 13:02] LABS: Absolute Neutrophil Count 5.6 X10^3/uL (2.0-7.7); Basophil# 0.04 X10^3/uL; Basophil% 0.5 % (0-1); Eosinophils% 1.1 % (0-5); Hematocrit 50.6 % (40-54); Hemoglobin 16.1 g/dL (13.0-16.5); Lymphocyte % 24.1 % (19-41); Mean Corp Hgb Conc 31.8 g/dL (32-36); Mean Corpuscular Hgb 28.8 pg (27.0-32.0); Mean Corpuscular Volume 90.5 fL (80-94); Mean Platelet Vol. 11.3 fl (6.2-12.0); Monocyte# 0.66 X10^3/uL; Monocyte% 7.6 % (0-10); NRBC Flagged by Analyzer 0 % (0-5); Neutrophil # 5.64 X10^3/uL (2.7-7.7); Neutrophil % 64.7 % (47-70); Platelet Count 286 K/mm3 (150-450); RBC Distribution Width CV 12.5 % (11.6-14.6); RBC Distribution Width SD 40.9 fl (35.1-43.9); Red Blood Count 5.59 M/mm3 (4.6-6.2); White Blood Count 8.7 K/mm3 (4.4-11.0)
[2022-08-25 13:16] LABS: Microalbumin,Random Urine 8.7 mg/L (NO RANGE EST.); Microalbumin:Creatinine Ratio 11.5 mg/g CRE (<30 mg/g CRE)
[2022-08-25 13:20] LABS: ALB/GLOB Ratio 0.8 RATIO (0.9-2.4); AST(SGOT) 41 U/L (15-37); Alanine Aminotransfer ALT/SGPT 94 U/L (16-61); Albumin, Serum 3.3 g/dL (3.2-5.0); Alkaline Phosphatase 124 U/L (45-117); Anion Gap 8 (5-15); BUN 10 mg/dL (7-18); BUN/Creat Ratio 10.6 RATIO (10-20); Calcium,Total 8.7 mg/dL (8.5-10.1); Chloride 103 mmol/L (98-107); Cholesterol 153 mg/dL (200); Creatinine, Serum 0.94 mg/dL (0.70-1.30); EST Glomerular Filtration Rate 85 mL/min (>60); Est Glom Filt Rate - Afr Amer 103 mL/min (>60); Glucose 333 mg/dL (74-106); High Density Lipoprotein 23 mg/dL; PSA,Total - Annual Screen 2.08 ng/mL (0.00-4.00); Protein, Total 7.3 g/dL (6.4-8.2); Sodium Level 137 mmol/L (136-145); Triglycerides 187 mg/dL; Very Low Density Lipoprotein 37 mg/dL (5-40)
== END 2022-08-25 23:59 | disposition home or self-care (01) ==
LOC: LABSPEC 12:28
PROVIDERS: PCP Family Medicine; Referring Provider Family Medicine; Visit Provider Family Medicine
DX: E11.9 Type 2 diabetes mellitus without complications (principal); I25.10 Atherosclerotic heart disease of native coronary artery without angina pectoris; I10 Essential (primary) hypertension; Z12.5 Encounter for screening for malignant neoplasm of prostate
CPT/HCPCS: 80053; 80061; 82043; 82570; 84153; 85025; G0103

== ENCOUNTER → 2022-11-24 | Outpatient (CLI) | payer MEDICARE, SELFPAY ==
[2022-11-24 12:47] LABS: Hemoglobin A1c 9.5 % (3.8-5.6)
== END | disposition home or self-care (01) ==
LOC: BFHLAB 09:56
PROVIDERS: PCP Family Medicine; Visit Provider Family Medicine
DX: E11.40 Type 2 diabetes mellitus with diabetic neuropathy, unspecified (principal)
CPT/HCPCS: 36415; 83036

== ENCOUNTER → 2023-02-23 | Outpatient (CLI) | payer MEDICARE, SELFPAY ==
[2023-02-23 10:58] LABS: Anion Gap 6 (5-15); BUN 10 mg/dL (7-18); BUN/Creat Ratio 10.2 RATIO (10-20); Calcium,Total 9.1 mg/dL (8.5-10.1); Chloride 103 mmol/L (98-107); Creatinine, Serum 0.98 mg/dL (0.70-1.30); EST Glomerular Filtration Rate 81 mL/min (>60); Est Glom Filt Rate - Afr Amer 98 mL/min (>60); Glucose 230 mg/dL (74-106); Potassium 4.1 mmol/L (3.5-5.1); Sodium Level 137 mmol/L (136-145)
[2023-02-23 11:14] LABS: Microalbumin,Random Urine 16.3 mg/L (NO RANGE EST.); Microalbumin:Creatinine Ratio 8.4 mg/g CRE (<30 mg/g CRE)
== END | disposition home or self-care (01) ==
LOC: BFHLAB 09:47
PROVIDERS: PCP Family Medicine; Referring Provider Family Medicine; Visit Provider Family Medicine
DX: E11.40 Type 2 diabetes mellitus with diabetic neuropathy, unspecified (principal); I10 Essential (primary) hypertension
CPT/HCPCS: 36415; 80048; 82043; 82570

== ENCOUNTER → 2024-02-12 | Outpatient (CLI) | payer MEDICARE, SELFPAY ==
[2024-02-12 12:53] LABS: Absolute Lymphocyte Count 2.82 X10^3/uL (0.83-4.51); Absolute Neutrophil Count 9.7 X10^3/uL (2.0-7.7); Basophil# 0.17 X10^3/uL; Basophil% 1.2 % (0-1); Eosinophils% 2.1 % (0-5); Hematocrit 53.7 % (40-54); Lymphocyte # 2.82 X10^3/ul (0.83-4.51); Lymphocyte % 19.7 % (19-41); Mean Corp Hgb Conc 31.7 g/dL (32-36); Mean Corpuscular Hgb 27.8 pg (27.0-32.0); Mean Corpuscular Volume 87.7 fL (80-94); Mean Platelet Vol. 10.9 fl (6.2-12.0); Monocyte# 0.97 X10^3/uL; Monocyte% 6.8 % (0-10); NRBC Flagged by Analyzer 0 % (0-5); Neutrophil # 9.74 X10^3/uL (2.7-7.7); Neutrophil % 67.8 % (47-70); Platelet Count 419 K/mm3 (150-450); RBC Distribution Width CV 13.7 % (11.6-14.6); RBC Distribution Width SD 43.7 fl (35.1-43.9); Red Blood Count 6.12 M/mm3 (4.6-6.2); White Blood Count 14.3 K/mm3 (4.4-11.0)
[2024-02-12 13:25] LABS: Vitamin B12 436 pg/mL (211-911); Vitamin D,25 Hydroxy 18.5 ng/mL
[2024-02-12 13:28] LABS: Hemoglobin A1c 8.3 % (3.8-5.6)
[2024-02-12 13:40] LABS: ALB/GLOB Ratio 0.7 RATIO (0.9-2.4); AST(SGOT) 17 U/L (15-37); Alanine Aminotransfer ALT/SGPT 31 U/L (16-61); Albumin, Serum 3.3 g/dL (3.2-5.0); Alkaline Phosphatase 123 U/L (45-117); Anion Gap 8 (5-15); BUN 13 mg/dL (7-18); BUN/Creat Ratio 13.5 RATIO (10-20); Calcium,Total 8.9 mg/dL (8.5-10.1); Chloride 104 mmol/L (98-107); Cholesterol 186 mg/dL (200); Creatinine, Serum 0.97 mg/dL (0.70-1.30); EST Glomerular Filtration Rate 82 mL/min (>60); Est Glom Filt Rate - Afr Amer 100 mL/min (>60); Globulin 4.5 g/dL (2.2-4.2); Glucose 239 mg/dL (74-106); High Density Lipoprotein 30 mg/dL; Protein, Total 7.8 g/dL (6.4-8.2); Sodium Level 135 mmol/L (136-145); Thyroid Stim Hormone (TSH) 2.12 uIU/mL (0.358-3.74); Triglycerides 239 mg/dL; Very Low Density Lipoprotein 48 mg/dL (5-40)
== END | disposition home or self-care (01) ==
LOC: BFHLAB 10:56
PROVIDERS: PCP Family Medicine; Referring Provider Family Medicine; Visit Provider Family Medicine
DX: R53.83 Other fatigue (principal); E11.65 Type 2 diabetes mellitus with hyperglycemia; I25.10 Atherosclerotic heart disease of native coronary artery without angina pectoris; E55.9 Vitamin D deficiency, unspecified; E53.8 Deficiency of other specified B group vitamins
CPT/HCPCS: 80053; 80061; 82306; 82607; 83036; 84443; 85025

== ENCOUNTER 2024-04-15 17:08 | Emergency (ER) | payer MEDICARE, SELFPAY ==
[2024-04-15] VITALS (7 sets, daily range): BP systolic 143–180; BP diastolic 81–97; PULSE 69–103; RESP 11–22; TEMP 36.6–37.1; O2SAT 96–99; BMI 25.0
--- NOTE | 2024-04-15 17:29 | EX.ED.DYSGE1 ---
HPI History of Present Illness Chief Complaint: Confusion Informant: patient Onset/Context/Timing Onset: Month(s) Context: Gradual Onset Timing: Intermittent Quality: Forgetful, confused Location: Generalized Worsened by: Nothing Relieved by: Nothing Narrative Narrative: Patient presents with confusion that has been intermittent over the past few months. Patient states he feels like he is forgetful at times. Patient states that sometimes he does not remember how to get from one room to the next. Patient states nothing makes it better and nothing makes it worse. Patient admits to some nausea but denies any vomiting. Patient denies any fevers or chills. Patient denies any chest pain or shortness of breath. Patient denies any cough. [facility] Medical History Tobacco abuse Obstructive sleep apnea Stroke Status post placement of implantable loop recorder History of leukocytosis History of COPD Coronary artery disease Hyperlipidemia Hypertension Diabetes type 2, controlled Home Medications ?Medication ?Instructions ?Recorded ?Last Taken ?Type duloxetine 60 mg capsule,delayed 60 mg PO DAILY depression 12/01/14 09/28/18 08:00 History release atorvastatin 20 mg tablet 20 mg PO QHS CHOLESTEROL LOWERING 01/14/18 09/28/18 08:00 History gabapentin 100 mg capsule 100 mg PO TID PRN Pain 01/14/18 01/14/18 History metoprolol succinate 25 mg 25 mg PO DAILY BLOOD PRESSURE 01/14/18 09/28/18 08:00 History tablet,extended release 24 hr aspirin 81 mg tablet,delayed 81 mg PO DAILY@0800 #30 tabs 01/15/18 09/28/18 08:00 Rx release glipizide 5 mg tablet 5 mg PO QDAY diabetes 01/19/18 09/28/18 08:00 History omeprazole 20 mg capsule,delayed 20 mg PO QDAY reflux/ heart burn 01/19/18 09/28/18 08:00 History release buspirone 5 mg tablet 7.5 mg PO BID anxiety 01/27/18 09/28/18 08:00 History cephalexin 500 mg capsule 500 mg PO TID #20 caps 03/30/22 Unknown Rx nystatin 100,000 unit/gram topical 1 applic topical BID #30 grams 03/30/22 Unknown Rx cream Allergy/AdvReac Type Severity Reaction Status Date / Time venom-honey bee (bee venom Allergy Swelling Verified 04/15/24 17:12 (honey bee)) simvastatin AdvReac Unknown Unknown Verified 04/15/24 17:12 metformin AdvReac Diarrhea Verified 04/15/24 17:12 Family History Mother Diabetes Hypertension Father CAD (coronary artery disease) Hypertension Sister Hypertension Surgical History History of tonsillectomy History of appendectomy S/P CABG x 5 Social History (Updated 04/15/24 @ 17:[address] Alek Wu DO) Smoking Status: Current every day smoker tobacco type: cigarettes and e-cigarettes ROS ROS ED Constitutional Constitutional ED: Denies chills or fever(s) Eyes Eyes: Denies blurry vision or change in vision ENT ENT ED: Denies rhinorrhea or sore throat Cardiovascular Cardiovascular: Denies chest pain or palpitations Respiratory/Chest Respiratory/Chest: Denies cough or dyspnea Gastrointestinal Gastrointestinal: Reports nausea; Denies vomiting Genitourinary Genitourinary ED: Denies dysuria or hematuria Musculoskeletal Musculoskeletal: Denies back pain or neck pain Integumentary Denies abscess or rash Neurologic Neurologic: Denies headache(s) or weakness Allergic/Immunologic Allergic/Immunologic ED: Denies mouth swelling or urticaria EXAM Physical Exam Const Vital Signs: 04/15/24 17:09 04/15/24 18:30 04/15/24 19:00 Temperature 98.7 F Temperature Source Oral Pulse Rate 103 H 76 69 Respiratory Rate 22 H 11 L 13 Blood Pressure 180/87 H 143/81 H 147/84 H Blood Pressure Mean 118 101 104 Pulse Ox 97 96 97 Oxygen Delivery Method Room Air 04/15/24 19:15 04/15/24 19:30 04/15/24 21:00 Temperature Temperature Source Pulse Rate 69 71 71 Respiratory Rate 15 11 L 15 Blood Pressure 157/97 H Blood Pressure Mean 115 Pulse Ox 99 97 98 Oxygen Delivery Method Positive well nourished and well developed General Appearance ED: well developed and NAD HEENT Reports dry mucous membranes Mouth ED: Yes dry mucous membranes Mouth: dry mucous membranes Neck supple and no JVD Resp normal respiratory effort and clear to auscultation bilaterally Cardio regular rhythm Rate: tachycardic GI non-tender and non-distended Palpation: soft Neuro CN's II-XII intact bilaterally and no sensory deficits noted Neuro Narrative: Patient was alert and oriented to person, place, year, month, but is off on the exact day by 4 days. Patient stated it was the eighth when it is actually the 12th. Sensorium / Orientation: alert Motor Exam: strength 5/5 throughout Psych mental status grossly normal MDM MDM MDM Narrative Medical decision making narrative: Differential diagnosis includes urinary tract infection, pneumonia, viral infection, stroke, dehydration, electrolyte abnormality, hypothyroidism, hyperthyroidism, and encephalopathy. CT scan of the brain will be obtained to assess for intracranial bleeding and stroke. Chest x-ray will be obtained to assess for pneumonia and pneumothorax. CBC will be obtained to assess for leukocytosis and anemia. Comprehensive metabolic profile will be obtained to assess for hepatic function, renal function, and electrolyte abnormality. Serum ammonia level will be obtained to assess for encephalopathy. Urinalysis will be obtained to assess for urinary tract infection or hematuria. Lab Data Attestation: I reviewed the patient's lab results. Lab results narrative: CBC was reviewed. There is a mild leukocytosis of 11.3. The remainder is within normal limits. Comprehensive metabolic profile was reviewed. CO2 is slightly low at 20. Glucose was mildly elevated at 286. Alkaline phosphatase was slightly elevated at 130. The remainder is within normal limits. Serum ammonia level was reviewed and was normal at 15. Urinalysis was reviewed. There is no evidence of urinary tract infection or hematuria. COVID-19 PCR was reviewed and was negative. Influenza PCR was reviewed and was negative for influenza A and influenza B. RSV PCR was reviewed and was negative. Labs: Laboratory Results - last 24 hr 04/15/24 04/15/24 17:50 19:35 WBC 11.3 H RBC 5.96 Hgb 16.3 Hct 49.4 MCV 82.9 MCH 27.3 MCHC 33.0 RDW Std Deviation 41.7 RDW Coeff of [place] 13.9 Plt Count 290 MPV 10.5 Immature Gran % (Auto) 1.000 H Neut % (Auto) 65.3 Lymph % (Auto) 23.8 [place] % (Auto) 7.0 Eos % (Auto) 1.8 Baso % (Auto) 1.1 H Absolute Neuts (auto) 7.4 Absolute Lymphs (auto) 2.69 Nucleated RBC % 0 Sodium 137 Potassium 3.8 Chloride 107 Carbon Dioxide 20.0 L Anion Gap 10 BUN 12 Creatinine 1.15 Estim Creat Clear Calc 67.48 Est GFR (MDRD) Af Amer 81 Est GFR (MDRD) Non-Af 67 BUN/Creatinine Ratio 10.4 Glucose 286 H Calcium 8.9 Total Bilirubin 0.30 AST 20 ALT 31 Alkaline Phosphatase 130 H Ammonia 15.0 Total Protein 7.0 Albumin 3.1 L Globulin 3.9 Albumin/Globulin Ratio 0.8 L Urine Color Yellow Urine Clarity Sl. Cloudy Urine pH 6.5 Ur Specific [place] 1.015 Urine Protein Negative Urine Glucose (UA) 1000 H Urine Ketones Negative Urine Occult Blood Negative Urine Nitrite Negative Urine Bilirubin Negative Urine Urobilinogen 1 H Ur Leukocyte Esterase 100 H Urine RBC 0 SEEN Urine WBC 0-5 SEEN Ur Squamous Epith Cells 0 SEEN Urine Bacteria RARE Urine Mucus 0 SEEN Urine Yeast 1+ Radiography Diagnostic Testing: Clinical Impression(s) from Imaging Studies Brain CT 04/15/24 17:38 IMPRESSION: No change or acute abnormality. Stable old infarcts. Electronically Signed: Yves Ricketts MD at 18:57 EDT , CT scan of the brain was obtained. There is no acute intracranial abnormality. There are stable old infarcts. This was interpreted by the radiologist and was also independently reviewed by myself. EKG Initial EKG: Attestation: I personally reviewed and interpreted this EKG as follows: Interpretation: Sinus Rhythm (79) and Non-Specific ST Changes Comments: EKG was obtained. On my independent interpretation, it showed a normal sinus rhythm with a rate of 79. OK interval, QRS interval, and QTc intervals were all normal. [place] was normal. There are nonspecific ST-T wave changes. Prior EKG tracings: available for review Prior: Unchanged (03/30/2022) Treatment and Re-Evaluation :: Patient was given IV fluids. Patient was alert and oriented x 3 on reevaluation. Patient was advised of his findings. Patient was advised that this could be beginning of dementia. Case was discussed with the hospitalist. She recommended having the patient follow-up as an outpatient. Patient was given a referral for neurology. Patient was instructed to follow-up with his primary care physician in 5 to 7 days as well. Patient understood and was agreeable with the plan. All questions were answered. Discharge Plan Triage Chief Complaint: Confusion ED Provider: Alek Wu Dx/Rx/DC Orders Clinical Impression: Confusion, Diabetes type 2, controlled Instructions: ED Confusion Prescriptions: No Action glipizide 5 mg tablet 5 mg PO QDAY omeprazole 20 mg capsule,delayed release(DR/EC) 20 mg PO QDAY buspirone 5 mg tablet 7.5 mg PO BID duloxetine 60 MG capsule 60 mg PO DAILY Patient Comments: antidepressant gabapentin 100 MG capsule 100 mg PO TID PRN (Reason: Pain) Patient Comments: metoprolol succinate 25 MG tablet extended release 24 hr 25 mg PO DAILY atorvastatin 20 MG tablet 20 mg PO QHS aspirin 81 MG tablet 81 mg PO DAILY@0800 Qty: 30 0RF cephalexin [cephalexin] 500 mg capsule 500 mg PO TID Qty: 20 0RF nystatin 100,000 unit/gram cream 1 applic topical BID Qty: 30 0RF Primary Care Provider: Bear Muñoz Referrals: Bear Muñoz DO [Primary Care Provider] - 5-7 Days Ulisses Castellanos MD [Non-Staff -Ordering Privileges] - 5-7 Days Print Language: Kiswahili Disposition Disposition: Home, Self Care
--- NOTE | 2024-04-15 17:38 | CT_ITS ---
STUDY: CT BRAIN WITHOUT CONTRAST REASON FOR EXAM: Male, 69 years old. Confusion RADIATION DOSAGE (If Supplied By Facility): CTDIvol = ( 44.99 ) mGy, DLP = ( 863.60 ) mGycm TECHNIQUE: Transaxial CT imaging of the brain was performed without administration of intravenous contrast material. Individualized dose optimization techniques were used for this CT. COMPARISON: 03/30/2022 FINDINGS: Normal soft tissue structures. Normal calvarium. Normal size ventricles and extra-axial spaces for the patient''s age. There are areas of decreased attenuation within the white matter tracts of the supratentorial brain, consistent with microvascular disease changes. There are bilateral lacunar infarcts of the basal ganglia and thalami. Normal brainstem. Normal cerebellum. Stable large old left posterior parietal and occipital infarct. There is no intracranial hemorrhage. There are no findings of an acute ischemic infarction. Normal visualized paranasal sinuses. CT/Brain/Head without Contrast IMPRESSION: No change or acute abnormality. Stable old infarcts. Electronically Signed: Yves Ricketts MD at 18:57 EDT ,
--- NOTE | 2024-04-15 17:38 | EKG12_ITS ---
Test Reason : Blood Pressure : / mmHG Vent. Rate : 079 BPM Atrial Rate : 079 BPM P-R Int : 138 ms QRS Dur : 098 ms QT Int : 386 ms P-R-T Axes : 048 071 118 degrees QTc Int : 442 ms Normal sinus rhythm Nonspecific ST and T wave abnormality Abnormal ECG Confirmed by JAH RO, EVA ([id number]), advertising editor ORVILLE ARGUELLO ([id number]) on 04/20/2024 10:49:49 A M Referred By: Confirmed By:HANY TYSON MD
[2024-04-15] MEDS: 0.9% Normal Saline (1000mL) 1,000 ML 1000 ML IV (17:54)
--- NOTE | 2024-04-15 17:55 | ED.RN ---
pt's POA is [phone] Pat Garcia.....pt's sister.
[2024-04-15 17:59] LABS: Absolute Lymphocyte Count 2.69 X10^3/uL (0.83-4.51); Absolute Neutrophil Count 7.4 X10^3/uL (2.0-7.7); Basophil# 0.12 X10^3/uL; Basophil% 1.1 % (0-1); Eosinophils% 1.8 % (0-5); Hematocrit 49.4 % (40-54); Hemoglobin 16.3 g/dL (13.0-16.5); Lymphocyte # 2.69 X10^3/ul (0.83-4.51); Lymphocyte % 23.8 % (19-41); Mean Corpuscular Hgb 27.3 pg (27.0-32.0); Mean Corpuscular Volume 82.9 fL (80-94); Mean Platelet Vol. 10.5 fl (6.2-12.0); Monocyte# 0.79 X10^3/uL; NRBC Flagged by Analyzer 0 % (0-5); Neutrophil # 7.39 X10^3/uL (2.7-7.7); Neutrophil % 65.3 % (47-70); Platelet Count 290 K/mm3 (150-450); RBC Distribution Width CV 13.9 % (11.6-14.6); RBC Distribution Width SD 41.7 fl (35.1-43.9); Red Blood Count 5.96 M/mm3 (4.6-6.2); White Blood Count 11.3 K/mm3 (4.4-11.0)
[2024-04-15 18:16] LABS: ALB/GLOB Ratio 0.8 RATIO (0.9-2.4); AST(SGOT) 20 U/L (15-37); Alanine Aminotransfer ALT/SGPT 31 U/L (16-61); Albumin, Serum 3.1 g/dL (3.2-5.0); Alkaline Phosphatase 130 U/L (45-117); Anion Gap 10 (5-15); BUN 12 mg/dL (7-18); BUN/Creat Ratio 10.4 RATIO (10-20); Calcium,Total 8.9 mg/dL (8.5-10.1); Chloride 107 mmol/L (98-107); Creatinine, Serum 1.15 mg/dL (0.70-1.30); EST Glomerular Filtration Rate 67 mL/min (>60); Est Glom Filt Rate - Afr Amer 81 mL/min (>60); Estimated Creatinine Clearance 67.48 ml/min; Globulin 3.9 g/dL (2.2-4.2); Glucose 286 mg/dL (74-106); Potassium 3.8 mmol/L (3.5-5.1); Sodium Level 137 mmol/L (136-145)
--- NOTE | 2024-04-15 19:20 | ED.RN ---
THIS RN RECEIVED A CALL FROM THE PATIENT'S SISTER AND MIC RABAGO, SHE REFERS THAT SHE IS CONCERNED ABOUT HER BROTHERS SAFETY AT HOME. SHE STATES HE CURRENTLY LIVES WITH HIS SON WHO JUST STOPPED HIS MENTAL HEALTH MEDICATIONS. [facility]A HAD APS MAKE A STOP AT THE HOUSE TODAY WHO STATES THE HOUSE IS DEPLORABLE AND THEY DON'T EVEN FEEL IT IS GOOD LIVING CONDITIONS FOR THE DOG. RN WILL LET MD KNOW.
[2024-04-15 19:44] LABS: Mucous, Urine 0 SEEN /hpf (<or=2+); Red Blood Cells-Urine 0 SEEN /hpf (0-5); Squamous Epithelial Cells - UA 0 SEEN /hpf (0-5)
[2024-04-15 19:47] LABS: Color, Urine Yellow (Yellow); Glucose, Dipstick 1000 mg/dl (Normal); Ketone-Dipstick Negative (Negative); Leukocyte Esterase-Dipstick 100 /ul (Negative); Nitrite-Dipstick Negative (Negative); Occult Blood-Urine Negative /ul (Negative); Protein-Dipstick Negative (Negative); Specific Gravity, Urine 1.015 (1.002-1.030); Urine Bilirubin Dipstick Negative (Negative); Urine Clarity Sl. Cloudy (Clear); Urine Urobilinogen 1 mg/dl (Normal); Urine pH 6.5 (5.0 - 8.0)
[2024-04-15 19:56] LABS: Bacteria RARE /hpf (None Seen); White Blood Cells 0-5 SEEN /hpf (0-5); Yeast-Urine 1+ /hpf (None Seen)
== END 2024-04-15 23:10 | disposition home or self-care (01) ==
PROVIDERS: Emergency Provider Emergency Medicine; PCP Family Medicine; Visit Provider Emergency Medicine
DX: R41.0 Disorientation, unspecified (principal); J44.9 Chronic obstructive pulmonary disease, unspecified; E11.9 Type 2 diabetes mellitus without complications; F17.210 Nicotine dependence, cigarettes, uncomplicated; I25.10 Atherosclerotic heart disease of native coronary artery without angina pectoris; I10 Essential (primary) hypertension; E78.5 Hyperlipidemia, unspecified; Z86.73 Personal history of transient ischemic attack (TIA), and cerebral infarction without residual deficits; Z79.899 Other long term (current) drug therapy; Z79.82 Long term (current) use of aspirin; Z79.84 Long term (current) use of oral hypoglycemic drugs; Z90.49 Acquired absence of other specified parts of digestive tract; Z95.1 Presence of aortocoronary bypass graft; F17.290 Nicotine dependence, other tobacco product, uncomplicated
CPT/HCPCS: 70450; 80053; 81001; 82140; 85025; 87631; 93005; 96360; 96361; 99285; J7030

== ENCOUNTER 2024-04-24 18:41 | Inpatient (IN) | payer MEDICARE, SELFPAY ==
[2024-04-24] VITALS (9 sets, daily range): BP systolic 113–138; BP diastolic 69–99; PULSE 66–79; RESP 14–21; TEMP 35.7–36.7; O2SAT 91–98; BMI 26.8; BMI 24.3
--- NOTE | 2024-04-24 18:45 | CT_ITS ---
EXAM: CT ANGIOGRAPHY HEAD AND NECK WITH INTRAVENOUS CONTRAST CLINICAL INDICATION: CVA TECHNIQUE: [place] [facility] [place]/head and neck CT angiography protocol performed with intravenous contrast. This CT exam was performed using one or more of the following dose reduction techniques: automated exposure control, adjustment of the mA and/or kV according to patient size, and/or use of iterative reconstruction technique. MIP reconstructed images were created and reviewed. CONTRAST: IV 100mL Isovue-370 RADIATION DOSE: CTDIvol = 22.28 mGy, DLP = 723.54 mGy-cm COMPARISON: No relevant prior studies available. FINDINGS: HEAD: RIGHT ANTERIOR CEREBRAL ARTERY: Unremarkable. No occlusion or significant stenosis. Anterior communicating artery is present. No aneurysm. RIGHT MIDDLE CEREBRAL ARTERY: Unremarkable. No occlusion or significant stenosis. No aneurysm. RIGHT POSTERIOR CEREBRAL ARTERY: Unremarkable. No occlusion or significant stenosis. No aneurysm. RIGHT INTRACRANIAL INTERNAL CAROTID ARTERY: Unremarkable. No significant stenosis. No dissection or occlusion. RIGHT INTRACRANIAL VERTEBRAL ARTERY: Unremarkable. No significant stenosis. No dissection or occlusion. LEFT ANTERIOR CEREBRAL ARTERY: Unremarkable. No occlusion or significant stenosis. No aneurysm. LEFT MIDDLE CEREBRAL ARTERY: Unremarkable. No occlusion or significant stenosis. No aneurysm. LEFT POSTERIOR CEREBRAL ARTERY: Unremarkable. No occlusion or significant stenosis. No aneurysm. LEFT INTRACRANIAL INTERNAL CAROTID ARTERY: Unremarkable. No significant stenosis. No dissection or occlusion. LEFT INTRACRANIAL VERTEBRAL ARTERY: Unremarkable. No significant stenosis. No dissection or occlusion. BASILAR ARTERY: Unremarkable. No occlusion or significant stenosis. No aneurysm. 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 Series 2 image 358. 1.6 mm right posteriorly located supraclinoid carotid artery aneurysm. Series 2 image 365. Series 603 image 119. There is calcified plaque formation of the right cavernous carotid artery, with a mild stenosis (less than 50%). ALL ABOVE CRITERIA BY NASCET. There is calcified plaque formation of the left cavernous carotid artery, with a mild stenosis (less than 50%). ALL ABOVE CRITERIA BY NASCET. No vascular malformation. NECK: RIGHT COMMON CAROTID ARTERY: Unremarkable. No significant stenosis. No dissection or occlusion. RIGHT EXTRACRANIAL INTERNAL CAROTID ARTERY: There is mild atherosclerotic plaque formation of the origin of the right internal carotid artery with less than 50% cross sectional diameter stenosis. ALL ABOVE CRITERIA BY NASCET. No dissection or occlusion. RIGHT EXTERNAL CAROTID ARTERY: Unremarkable. No occlusion. RIGHT EXTRACRANIAL VERTEBRAL ARTERY: Unremarkable. No significant stenosis. No dissection or occlusion. LEFT COMMON CAROTID ARTERY: Unremarkable. No significant stenosis. No dissection or occlusion. LEFT EXTRACRANIAL INTERNAL CAROTID ARTERY: There is mild atherosclerotic plaque formation of the origin of the left internal carotid artery with less than 50% cross sectional diameter stenosis. ALL ABOVE CRITERIA BY NASCET. No dissection or occlusion. LEFT EXTERNAL CAROTID ARTERY: Unremarkable. No occlusion. LEFT EXTRACRANIAL VERTEBRAL ARTERY: Unremarkable. No significant stenosis. No dissection or occlusion. BRACHIOCEPHALIC AND SUBCLAVIAN ARTERIES: Unremarkable as visualized. No occlusion or significant stenosis. LUNG APICES: Pulmonary emphysema. HEAD and NECK: BONES/JOINTS: There are degenerative findings of the cervical spine. Median sternotomy wires. No discrete lytic or blastic abnormalities. SOFT TISSUES: Unremarkable. OTHER FINDINGS: Post-processing of the images was performed, with axial imaging and 3D reconstruction. MIPS images were obtained. CAROTID STENOSIS REFERENCE USING NASCET CRITERIA: % ICA stenosis = (1 - narrowest ICA diameter/diameter of distal cervical ICA) x 100. Mild - <50% stenosis. Moderate - 50-69% stenosis. Severe - 70-94% stenosis. Near occlusion - 95-99% stenosis. Occluded - 100% stenosis. CT/STROKE CTA Head AND Neck W/Con IMPRESSION: 1. 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 Series 2 image 358. 2. 1.6 mm right posteriorly located supraclinoid cavernous carotid artery aneurysm. Series 2 image 365. Series 603 image 119. 3. There is mild atherosclerotic plaque formation of the origin of the right internal carotid artery with less than 50% cross sectional diameter stenosis. ALL ABOVE CRITERIA BY NASCET. 4. There is mild atherosclerotic plaque formation of the origin of the left internal carotid artery with less than 50% cross sectional diameter stenosis. ALL ABOVE CRITERIA BY NASCET. 5. There is calcified plaque formation of the right cavernous carotid artery, with a mild stenosis (less than 50%). ALL ABOVE CRITERIA BY NASCET. 6. There is calcified plaque formation of the left cavernous carotid artery, with a mild stenosis (less than 50%). ALL ABOVE CRITERIA BY NASCET. Critical finding called and case discussed. 04/24/2024 7:17 PM Frannie Phipps.B. : The above Results were Read Back by Cristi Lambert MD to Brynn Kathleen DO, and understanding confirmed on 04/24/2024 19:17:40 (ET). Electronically Signed: Cristi Lambert MD at 19:18 EDT ,
--- NOTE | 2024-04-24 18:45 | EKG12_ITS ---
Test Reason : STROKE ALERT Blood Pressure : / mmHG Vent. Rate : 078 BPM Atrial Rate : 078 BPM P-R Int : 154 ms QRS Dur : 100 ms QT Int : 386 ms P-R-T Axes : 060 081 110 degrees QTc Int : 440 ms Sinus rhythm with Premature atrial complexes Nonspecific ST and T wave abnormality Abnormal ECG Confirmed by ALIVIA RO, THOMAS ([id number]), art editor RIK MCDERMOTT ([id number]) on 04/26/2024 8:29:04 AM Referred By: Confirmed By:THOMAS BUNCH MD
--- NOTE | 2024-04-24 18:45 | CT_ITS ---
We are attempting to reach an attending provider to discuss findings. An addendum with communication details will be sent when the communication is complete. EXAMINATION : Head CT w/out contrast HISTORY : CVA COMPARISON : 04/15/2024. TECHNIQUE : Multiple contiguous axial images were obtained from the skull base to the vertex without intravenous contrast. A radiation dose optimization technique was used for this scan. FINDINGS : There is no evidence for acute intracranial hemorrhage, mass effect, or midline shift. There is no extra-axial fluid collection. There are periventricular white matter changes consistent with chronic microvascular ischemic disease. There is sulcal widening and ventricular enlargement consistent with cerebral atrophy. There is normal rendon-white differentiation, without CT evidence of acute ischemia or infarct. Left parieto-occipital encephalomalacia. Old lacunar infarcts in the bilateral basal ganglia and thalami. The skull base and calvarium are unremarkable. The orbits are unremarkable. The paranasal sinuses are clear. The mastoid air cells are well-aerated. The soft tissues are unremarkable. CT/STROKE Brain/Head without Cont IMPRESSION: No acute intracranial abnormality. No change from prior. Electronically Signed: Antoine Lentz MD at 18:57 EDT ,
--- NOTE | 2024-04-24 18:46 | ED.VIS.STROK ---
HPI History of Present Illness Chief Complaint: Stroke Alert Detail of Chief Complaint: Confusion Informant: patient Narrative Narrative: Patient presents the emergency department with complaint of confusion. Patient was with a friend and a half an hour ago noted increased confusion and EMS was called. He had been normal prior to that. Patient has history of 5 prior strokes. Patient denies any chest pain or shortness of breath. He denies difficulty with speech. Patient denies vision changes although EMS initially thought he had ataxia and decreased vision in the left eye. Patient denies being on blood thinners. [facility] Medical History Tobacco abuse Obstructive sleep apnea Stroke Status post placement of implantable loop recorder History of leukocytosis History of COPD Coronary artery disease Hyperlipidemia Hypertension Diabetes type 2, controlled Home Medications ?Medication ?Instructions ?Recorded ?Last Taken ?Type duloxetine 60 mg capsule,delayed 60 mg PO DAILY depression 12/01/14 09/28/18 08:00 History release atorvastatin 20 mg tablet 20 mg PO QHS CHOLESTEROL LOWERING 01/14/18 09/28/18 08:00 History gabapentin 100 mg capsule 100 mg PO TID PRN Pain 01/14/18 01/14/18 History metoprolol succinate 25 mg 25 mg PO DAILY BLOOD PRESSURE 01/14/18 09/28/18 08:00 History tablet,extended release 24 hr aspirin 81 mg tablet,delayed 81 mg PO DAILY@0800 #30 tabs 01/15/18 09/28/18 08:00 Rx release glipizide 5 mg tablet 5 mg PO QDAY diabetes 01/19/18 09/28/18 08:00 History omeprazole 20 mg capsule,delayed 20 mg PO QDAY reflux/ heart burn 01/19/18 09/28/18 08:00 History release buspirone 5 mg tablet 7.5 mg PO BID anxiety 01/27/18 09/28/18 08:00 History cephalexin 500 mg capsule 500 mg PO TID #20 caps 03/30/22 Unknown Rx nystatin 100,000 unit/gram topical 1 applic topical BID #30 grams 03/30/22 Unknown Rx cream Allergy/AdvReac Type Severity Reaction Status Date / Time venom-honey bee (bee venom Allergy Swelling Verified 04/24/24 18:56 (honey bee)) simvastatin AdvReac Unknown Unknown Verified 04/24/24 18:56 metformin AdvReac Diarrhea Verified 04/24/24 18:56 Family History Mother Diabetes Hypertension Father CAD (coronary artery disease) Hypertension Sister Hypertension Surgical History History of tonsillectomy History of appendectomy S/P CABG x 5 Social History (Updated 04/15/24 @ 17:[address] Alek Wu DO) Smoking Status: Current every day smoker tobacco type: cigarettes and e-cigarettes ROS ROS ED ROS Narrative Confusion Review of Systems ROS Unobtainable: other Constitutional Constitutional ED: Reports lethargy; Denies chills, fever(s), sweats or weight loss Eyes Eyes: Denies blurry vision, change in vision or diplopia ENT ENT ED: Denies rhinorrhea or sore throat Cardiovascular Cardiovascular: Denies chest pain, orthopnea or racing heartbeat Respiratory/Chest Respiratory/Chest: Denies cough, dyspnea, dyspnea on exertion, orthopnea or sputum Gastrointestinal Gastrointestinal: Denies abdominal pain, diarrhea, nausea or vomiting Genitourinary Genitourinary ED: Denies dysuria, hematuria or urinary frequency Musculoskeletal Musculoskeletal: Denies arthralgias, back pain, myalgias or neck pain Integumentary Denies abscess, Abrasions or rash Neurologic Neurologic: Denies headache(s) or weakness Psychiatric Psychiatric: Denies anxiety, depression or suicidal thoughts Endocrine Endocrinology: Denies polydipsia, polyphagia or polyuria Hematologic/Lymphatic Hematologic/Lymphatic: Denies easy bleeding, easy bruising or lymphadenopathy Allergic/Immunologic Allergic/Immunologic ED: Denies mouth swelling, tongue swelling or urticaria EXAM Physical Exam Const Vital Signs: 04/24/24 18:43 04/24/24 18:45 04/24/24 19:03 Temperature 97.8 F 97.8 F Temperature Source Temporal Temporal Pulse Rate 79 Respiratory Rate 16 Blood Pressure 131/73 H Blood Pressure Mean 92 Pulse Ox 93 Oxygen Delivery Method Room Air Room Air 04/24/24 19:15 04/24/24 19:30 04/24/24 19:42 Temperature Temperature Source Pulse Rate 73 73 74 Respiratory Rate 18 19 H 21 H Blood Pressure 123/72 H 126/69 H 126/69 H Blood Pressure Mean 89 88 88 Pulse Ox 94 91 94 Oxygen Delivery Method Room Air Room Air Room Air Positive well nourished and well developed General Appearance ED: well developed and NAD HEENT Reports TM's clear and moist mucous membranes normocephalic and atraumatic; Negative for trauma or tenderness Tympanic Membrane ED: Yes TM's clear Eyes PERRL and EOMs intact bilaterally General Eye ED: Negative for pale conjunctiva or scleral icterus Neck no lymphadenopathy, supple and no JVD General: Negative for tenderness Chest Wall inspection of chest normal and palpation of chest normal Chest: Negative for tenderness Resp normal respiratory effort and clear to auscultation bilaterally Effort and Inspection: Negative for respiratory distress or pain with movement Auscultation: Negative for rhonchi, wheezes or diminished lung sounds Cardio regular rate, regular rhythm, S1 normal heart sound, S2 normal heart sound and no murmurs Peripheral Pulses: pulses 2+ throughout GI normal to inspection, nondistended, normoactive bowel sounds, soft to palpation, non-tender, non-distended and no masses Back/Spine no CVA tenderness and no thoracic nor lumbar tenderness Extremity normal to inspection General Extremety ED: Negative for edema General Extremity: Negative for edema Neuro oriented x3, CN's II-XII intact bilaterally, no sensory deficits noted and gait normal Neuro Narrative: No focal deficits noted on exam. We did give him an NIH stroke scale of 1 for some decreased vision in the left eye. Did not appreciate any ataxia here. Patient does not know the year. Sensorium / Orientation: awake, alert, oriented to person, oriented to place and oriented to time Motor Exam: strength 5/5 throughout and strength abnormal Psych mental status grossly normal Skin no rashes or lesions noted and no wounds [facility] MDM MDM Narrative Medical decision making narrative: Patient presents with confusion and history of strokes. Rather sudden onset. Patient had a stroke team called. On my initial and evaluation of the patient in the hallway got a stroke scale of 1 for some decreased vision to the left eye. It is unclear if this is baseline for him or not as he does wear glasses. He also has had prior strokes. EKG obtained arrival showed a sinus rhythm with ventricular rate of [address] changes. Initial head CT was unremarkable for hemorrhage. 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 CBC with differential showed a slightly elevated white count white count of 16.6 with hemoglobin 16.8 and platelet count of 325. Chemistries were unremarkable. 1 view chest x-ray obtained interpreted by myself as no evidence of acute disease process. I did discuss case with [facility] neurologist who evaluated patient and who did not feel patient required or met criteria for tPA. This point etiology of his confusion unclear. Will discuss with hospitalist to evaluate patient for admission. Lab Data Attestation: I reviewed the patient's lab results. Labs: Laboratory Results - last 24 hr 04/24/24 04/24/24 18:45 19:14 WBC 16.6 H RBC 6.13 Hgb 16.8 H Hct 51.8 MCV 84.5 MCH 27.4 MCHC 32.4 RDW Std Deviation 43.3 RDW Coeff of [place] 14.6 Plt Count 325 MPV 10.3 Immature Gran % (Auto) 1.000 H Neut % (Auto) 75.5 H Lymph % (Auto) 15.4 L [place] % (Auto) 5.9 Eos % (Auto) 1.4 Baso % (Auto) 0.8 Absolute Neuts (auto) 12.5 H Absolute Lymphs (auto) 2.55 Nucleated RBC % 0 PT 14.4 INR 1.1 APTT 25.4 Sodium 136 Potassium 4.3 Chloride 107 Carbon Dioxide 21.0 Anion Gap 8 BUN 19 H Creatinine 1.18 Estim Creat Clear Calc 65.76 Est GFR (MDRD) Af Amer 79 Est GFR (MDRD) Non-Af 65 BUN/Creatinine Ratio 16.1 Glucose 168 H Calcium 9.4 Troponin I High Sens 33 POC Glucose 171 H Radiography Chest X-Ray - ED: 1 View Diagnostic Testin view chest x-ray obtained interpreted by myself as no evidence of infiltrate or pneumothorax or acute disease process. Radiology in agreement. EKG Initial EKG: Attestation: I personally reviewed and interpreted this EKG as follows: Comments: Sinus rhythm with rate of [address] changes Discharge Plan Dx/Rx/DC Orders Clinical Impression: Altered mental status, Acute confusion, History of stroke Disposition Disposition: Acute Care Hospital [facility]
[2024-04-24 18:53] LABS: Absolute Lymphocyte Count 2.55 X10^3/uL (0.83-4.51); Absolute Neutrophil Count 12.5 X10^3/uL (2.0-7.7); Basophil# 0.13 X10^3/uL; Basophil% 0.8 % (0-1); Eosinophil# 0.23 X10^3/uL; Eosinophils% 1.4 % (0-5); Hematocrit 51.8 % (40-54); Hemoglobin 16.8 g/dL (13.0-16.5); Lymphocyte # 2.55 X10^3/ul (0.83-4.51); Lymphocyte % 15.4 % (19-41); Mean Corp Hgb Conc 32.4 g/dL (32-36); Mean Corpuscular Hgb 27.4 pg (27.0-32.0); Mean Corpuscular Volume 84.5 fL (80-94); Mean Platelet Vol. 10.3 fl (6.2-12.0); Monocyte# 0.98 X10^3/uL; Monocyte% 5.9 % (0-10); NRBC Flagged by Analyzer 0 % (0-5); Neutrophil # 12.51 X10^3/uL (2.7-7.7); Neutrophil % 75.5 % (47-70); Platelet Count 325 K/mm3 (150-450); RBC Distribution Width CV 14.6 % (11.6-14.6); RBC Distribution Width SD 43.3 fl (35.1-43.9); Red Blood Count 6.13 M/mm3 (4.6-6.2); White Blood Count 16.6 K/mm3 (4.4-11.0)
[2024-04-24 19:16] LABS: Anion Gap 8 (5-15); BUN 19 mg/dL (7-18); BUN/Creat Ratio 16.1 RATIO (10-20); Calcium,Total 9.4 mg/dL (8.5-10.1); Chloride 107 mmol/L (98-107); Creatinine, Serum 1.18 mg/dL (0.70-1.30); EST Glomerular Filtration Rate 65 mL/min (>60); Est Glom Filt Rate - Afr Amer 79 mL/min (>60); Estimated Creatinine Clearance 65.76 ml/min; Glucose 168 mg/dL (74-106); Potassium 4.3 mmol/L (3.5-5.1); Sodium Level 136 mmol/L (136-145); Troponin-I HS 33 pg/mL (3.0-78.0)
[2024-04-24 19:18] LABS: International Normalized Ratio 1.1; Prothrombin Time (Protime)PT. 14.4 SECONDS (11.7-14.9)
[2024-04-24 19:19] LABS: Partial Thromboplast Time 25.4 Seconds (24.1-36.2)
--- NOTE | 2024-04-24 19:23 | RAD_ITS ---
STUDY: XR Chest 1 View 04/24/2024 7:20 PM REASON FOR EXAM: Male, 69 years old. NEURO DEFICIT, ACUTE, STROKE SUSPECTED COMPARISON: 09/28/2018 TECHNIQUE: XR Chest 1 View FINDINGS: There is no demonstrated pleural abnormality. There are multiple median sternotomy wires. Normal heart size. Normal mediastinum. Normal yuniel. Prominent appearing increased interstitial lung markings. Normal visualized pulmonary arteries. There is atherosclerotic calcification of the aortic arch with tortuosity. There are diffuse degenerative changes of the visualized thoracic spine. There is degenerative osteoarthritis of the bilateral shoulders. There are no acute findings of the upper abdomen. RAD/Chest 1 View IMPRESSION: There are no acute findings. Electronically Signed: Cristi Lambert MD at 20:01 EDT ,
[2024-04-24 19:34] LABS: Bedside Glucose 171 mg/dL (74-106)
--- NOTE | 2024-04-24 19:45 | PCM.HP.STD ---
HPI - General General Date of Admission: 04/24/24 Date of Service: 04/24/24 Chief Complaint: Transient AMS, Ataxia and Decreased Vision in the Left Eye. HPI Narrative BOAZ MICHAEL, is a 69 M with a past medical history of essential hypertension, hyperlipidemia; on statin, DM-2; of unknown control on Glyburide, overweight; with BMI of 26.8 this admission, MARCELO, active chronic tobacco abuse; with subsequent COPD, history of chronic mild Leukocytosis, depression, GERD, OA, history of appendectomy, history of tonsillectomy, history of implanted Loop Recorder, CAD; s/p CABG x 5 (2007) and history of CVA's x 5; on daily BASA who presents to [facility] ER complaining of transient altered mental status, ataxia and decreased vision in the Left eye. Mr. Michael reports his symptoms began approximately 30 minutes prior to arrival when his friend noticed the abrupt-onset of confusion with immediate activation of EMS. According to the records EMS thought he had ataxia and decreased visual acuity in the Left eye but there was no report of slurred speech, headache, unilateral weakness, chest pain or SOB. Patient denies being on any other antiplatelet or anticoagulant agents other than BASA. In the ER his initial Head CT was negative for acute pathologic changes - but did reveal two small Right-sided cavernous sinus aneurysms (~2.9 mm & 1.6 mm) with [facility] teleneurology not recommending TNK and stating the aneurysms are very small and likely not related to his initial complaints. However, the patient was noted to have Leukocytosis of 16.6K with Left Shift of 1% present on admission with a negative CXR, no other obvious source of infection and UA pending at this time. He was then admitted to the PCU under observation status for TIA/CVA workup for a stay that is expected to be less than 2 midnights. [facility] Medical History Tobacco abuse Obstructive sleep apnea Stroke Status post placement of implantable loop recorder History of leukocytosis History of COPD Coronary artery disease Hyperlipidemia Hypertension Diabetes type 2, controlled Home Medications ?Medication ?Instructions ?Recorded ?Last Taken ?Type duloxetine 60 mg capsule,delayed 60 mg PO DAILY depression 12/01/14 09/28/18 08:00 History release atorvastatin 20 mg tablet 20 mg PO QHS CHOLESTEROL LOWERING 01/14/18 09/28/18 08:00 History gabapentin 100 mg capsule 100 mg PO TID PRN Pain 01/14/18 01/14/18 History metoprolol succinate 25 mg 25 mg PO DAILY BLOOD PRESSURE 01/14/18 09/28/18 08:00 History tablet,extended release 24 hr aspirin 81 mg tablet,delayed 81 mg PO DAILY@0800 #30 tabs 01/15/18 09/28/18 08:00 Rx release glipizide 5 mg tablet 5 mg PO QDAY diabetes 01/19/18 09/28/18 08:00 History omeprazole 20 mg capsule,delayed 20 mg PO QDAY reflux/ heart burn 01/19/18 09/28/18 08:00 History release buspirone 5 mg tablet 7.5 mg PO BID anxiety 01/27/18 09/28/18 08:00 History nystatin 100,000 unit/gram topical 1 applic topical BID #30 grams 03/30/22 Unknown Rx cream Allergy/AdvReac Type Severity Reaction Status Date / Time venom-honey bee (bee venom Allergy Swelling Verified 04/24/24 18:56 (honey bee)) simvastatin AdvReac Unknown Unknown Verified 04/24/24 18:56 metformin AdvReac Diarrhea Verified 04/24/24 18:56 Family History Mother Diabetes Hypertension Father CAD (coronary artery disease) Hypertension Sister Hypertension Surgical History History of tonsillectomy History of appendectomy S/P CABG x 5 Social History Smoking Status: Current every day smoker tobacco type: cigarettes and e-cigarettes ROS ROS Narrative Review of systems: Constitutional: Patient admit to lethargy but he denies fever or chills. Eyes: Patient denies changes in vision or discharge from eyes. ENT: Patient denies runny nose, sore throat or ear pain. CV: Patient denies chest pain or palpitations. Resp: Patient denies SOB or cough. GI: Patient denies nausea, vomiting, diarrhea or constipation. : Patient denies dysuria, hematuria or urinary frequency. MSK: Patient admits to myalgias but denies arthralgias. Skin: Patient denies rash, abscess or jaundice. Neuro: Patient admits to confusion, ataxia and transient decreased visual acuity in the Left eye but he denies headache, paresthesias or focal neurologic deficits. Allergy: Patient denies lip swelling, tongue swelling or urticaria. Psychology: Patient admits to depression and anxiety that are made worse with drinking but he denies suicidal or homicidal ideation. Hematology: Patient denies easy bleeding or easy bruisability. Endocrinology: Patient denies polyuria, polydipsia and polyphagia. 14 point ROS otherwise negative except for positives noted above. Vital Signs Vital Signs Vital Signs: 04/24/24 18:43 04/24/24 18:45 04/24/24 19:03 Temperature 97.8 F 97.8 F Temperature Source Temporal Temporal Pulse Rate 79 Respiratory Rate 16 Blood Pressure 131/73 H Blood Pressure Mean 92 Pulse Ox 93 Oxygen Delivery Method Room Air Room Air 04/24/24 19:15 04/24/24 19:30 04/24/24 19:42 Temperature Temperature Source Pulse Rate 73 73 74 Respiratory Rate 18 19 H 21 H Blood Pressure 123/72 H 126/69 H 126/69 H Blood Pressure Mean 89 88 88 Pulse Ox 94 91 94 Oxygen Delivery Method Room Air Room Air Room Air Weight Weight: 197 lb 8.547 oz Body Mass Index (BMI) 26.8 Physical Exam Const alert, oriented x3, no apparent distress and average body habitus General Appearance: cooperative HEENT normocephalic, head/scalp atraumatic, hearing grossly normal bilaterally and moist oral mucous membranes Eyes PERRL and EOMs intact bilaterally Neck no lymphadenopathy and supple Resp normal respiratory effort, no retractions, no use of accessory muscles and clear to auscultation bilaterally Cardio regular rate and regular rhythm GI normal to inspection, nondistended, normoactive bowel sounds, soft to palpation, non-tender and non-distended Extremity normal to inspection, full ROM and no clubbing, cyanosis or edema Skin Skin Narrative: Patient has no evidence of rash, abscess or jaundice. Neuro oriented x3, CN's II-XII intact bilaterally, moves all extremities and no focal motor deficits Sensorium / Orientation: awake, alert, oriented to person, oriented to place and oriented to time Speech: speech normal Psych affect normal Results Medical Records Data Attestation: I reviewed the patient's medical records Lab / Micro Data Attestation: I reviewed the patient's lab results. 04/24/24 18:45 04/24/24 18:45 Labs: Laboratory Results - last 24 hr 04/24/24 18:45: WBC 16.6 H, RBC 6.13, Hgb 16.8 H, Hct 51.8, MCV 84.5, MCH 27.4, MCHC 32.4, RDW Std Deviation 43.3, RDW Coeff of [place] 14.6, Plt Count 325, MPV 10.3, Immature Gran % (Auto) 1.000 H, Neut % (Auto) 75.5 H, Lymph % (Auto) 15.4 L, [place] % (Auto) 5.9, Eos % (Auto) 1.4, Baso % (Auto) 0.8, Absolute Neuts (auto) 12.5 H, Absolute Lymphs (auto) 2.55, Nucleated RBC % 0, PT 14.4, INR 1.1, APTT 25.4, Sodium 136, Potassium 4.3, Chloride 107, Carbon Dioxide 21.0, Anion Gap 8, BUN 19 H, Creatinine 1.18, Estim Creat Clear Calc 65.76, Est GFR (MDRD) Af Amer 79, Est GFR (MDRD) Non-Af 65, BUN/Creatinine Ratio 16.1, Glucose 168 H, Calcium 9.4, Troponin I High Sens 33 04/24/24 19:14: POC Glucose 171 H Assessment & Plan Assessment/Plan (1) TIA (transient ischemic attack): (2) Altered mental status: QUALIFIERS: Altered mental status type: unspecified Qualified Code(s): R41.82 - Altered mental status, unspecified (3) Ataxia: (4) Decreased vision of left eye: (5) History of multiple cerebrovascular accidents (CVAs): (6) Tobacco abuse: (7) S/P CABG x 5: (8) Leukocytosis: QUALIFIERS: Leukocytosis type: unspecified Qualified Code(s): D72.829 - Elevated white blood cell count, unspecified PLAN: Plan 1. TIA vs CVA; with transient altered mental status, ataxia and decreased vision in the Left eye in the setting of previous CVA's x 5 - Admit to PCU under observation status. Continue BASA and statin plus add Plavix 75 mg PO daily with breakthrough symptoms. We will order complete standard TIA/CVA workup with MRI of brain without contrast, carotid doppler to evaluate for stenosis and echocardiogram to evaluate LVEF and to assess for any evidence of clots. We will hold scheduled antihypertensives to allow for 'permissive hypertension' until CVA definitively ruled out on MRI. Give Tylenol prn pain or fever. Finally, [facility] teleneurology help is greatly appreciated. 2. Chronic Active Tobacco Abuse; with subsequent COPD likely contributing to #1 - Tobacco Cessation will be strongly encouraged with Nicotine patch offered to control cravings. 3. Leukocytosis of 16.6K with Left Shift of 1% present on admission with a history of Chronic Mild Leukocytosis complicating #1 & #2 - Noted. Imaging and physical exam not showing any signs of acute infection with UA pending at this time. 4. Head CT this admission did reveal two small Right-sided cavernous sinus aneurysms (~2.9 mm & 1.6 mm) with [facility] teleneurology not recommending TNK and stating the aneurysms are very small and likely not related to his initial complaints - Noted. 5. Essential hypertension - Hold scheduled antihypertensives to allow for 'permissive hypertension'. 6. Hyperlipidemia; on statin - Resume statin and check Lipid Profile to assess effectiveness of current dose of statin. 7. DM-2; of unknown control on Glyburide - ADA diet. FSBS q. AC/HS plus SSI. Hold Glyburide until further notice. Finally we will check HgbA1c to objectively evaluate quality of diabetic control. 8. History of CAD; s/p CABG x 5 (2007) - Noted. 9. History of implanted Loop Recorder - Noted. 10. Overweight; with BMI of 26.8 this admission plus MARCELO - Weight loss will be recommended. Resume CPAP as previous. Check TSH. 11. Depression - Continue Duloxetine as previous. 12. GERD - Resume PPI. 13. History of appendectomy - Noted. 14. History of tonsillectomy - Noted. 15. OA - Give Tylenol prn. 16. DVT prophylaxis - Lovenox 40 mg sq daily. Total time: Approximately 85 minutes. Charges/Coding Visit Charges OBSV E&M: 54488 Observ/hosp same date L2
--- NOTE | 2024-04-24 19:49 | ED.RN ---
Attempted to call sister listed as a contact in pt's chart. Number no longer associated with patient's family
[2024-04-24 20:13] LABS: Mucous, Urine 0 SEEN /hpf (<or=2+); Red Blood Cells-Urine 0 SEEN /hpf (0-5)
--- NOTE | 2024-04-24 20:16 | CDU_ITS ---
Reason For Study: Evaluate for stenosis Rt. Velocities/BP Lt. Velocities/BP Prox CCA 57.9/6.9 cm/sec. Prox CCA 90/14.5 cm/sec. Mid CCA 82.5/8.8 cm/sec. Mid CCA 60.7/10.7 cm/sec. Dist CCA 81.7/6.9 cm/sec. Dist CCA 53.2/9.7 cm/sec. Prox ICA 25.8/4.1 cm/sec. Prox ICA 59.8/7.8 cm/sec. Mid ICA 50.4/13.5 cm/sec. Mid ICA 72.1/19.2 cm/sec. Dist ICA 57/11.6 cm/sec. Dist ICA 52.2/14.5 cm/sec. Rt. ICA/CCA = 0.69. Lt. ICA/CCA = 1.19. Prox ECA 108.4/7.7 cm/sec. Prox ECA 85.3/6 cm/sec. Rt. Vert. 33.7/4.5 cm/sec. Lt. Vert. 46.6/9.7 cm/sec. Right Extracranial There is intimal thickening but no significant atherosclerotic plaque noted in the right common carotid artery. There is heterogeneous, irregular atherosclerotic plaque noted in the right internal carotid artery. There is heterogeneous, irregular atherosclerotic plaque noted in the right external carotid artery. Antegrade flow is noted in the right vertebral artery. Left Extracranial There is homogeneous, smooth atherosclerotic plaque noted in the left common carotid artery. There is heterogeneous, irregular atherosclerotic plaque noted in the left internal carotid artery. There is heterogeneous, irregular atherosclerotic plaque noted in the left external carotid artery. Antegrade flow is noted in the left vertebral artery. Procedure Carotid Duplex [id number]. This is a Carotid Duplex examination using B-mode, color flow and specral Doppler. Exam performed portable in patient room. VL/Carotid Duplex Ultrasound Interpretation Summary Irregular calcific plaque with shadowing at the proximal right internal carotid artery and less than 50% stenosis Less than 50% stenosis right external carotid artery Irregular calcific plaque with shadowing at the proximal left internal carotid artery with less than 50% stenosis Less than 50% stenosis left external carotid artery Patent and antegrade vertebral arteries bilaterally Ordering Physician: Conor Azevedo Referring Physician: Bear Muñoz Performed By: Reyna Gan RVT
--- NOTE | 2024-04-24 20:16 | ECHOD_ITS ---
Reason For Study: TIA/CVA Procedure This was a 2D Doppler, Color Flow transthoracic echocardiogram. Exam performed portable in patient room. Left Ventricle Normal left ventricle. Left ventricular systolic function is normal. The left ventricular ejection fraction is 60 %. No regional wall motion abnormalities noted. Right Ventricle Normal RV size. Normal systolic function. Atria Normal left atrium. Normal right atrium. Mitral Valve Normal mitral valve. Tricuspid Valve Normal tricuspid valve. Mild tricuspid valve insufficiency. Aortic Valve Trisinus/trileaflet aortic valve. Pulmonic Valve Normal pulmonic valve. Great Vessels Normal aortic root. The pulmonary artery is normal size. Normal inferior vena cava. Pericardium/Pleural No pericardial effusion. MMode/2D Measurements & Calculations LVIDd: 4.9 cm IVSd: 1.5 cm LVOT diam: 2.1 cm LVIDs: 3.6 cm LVPWd: 0.98 cm LVOT area: 3.5 cm2 RVDd: 3.3 cm FS: 27.3 % Ao root diam: 3.3 cm LAV(MOD-bp): 37.7 ml LVAd ap4: 31.3 cm2 LAV(MOD-bp) Indexed: 18.6 ml/m2 LVLd ap4: 8.0 cm LAV(MOD-sp2): 49.3 ml EDV(MOD-sp4): 101.6 ml LAV(MOD-sp4): 28.7 ml EDV(sp4-el): 104.4 ml LVAs ap4: 20.0 cm2 LVLs ap4: 6.6 cm ESV(MOD-sp4): 52.0 ml ESV(sp4-el): 51.8 ml EF(MOD-sp4): 48.8 % EF(sp4-el): 50.4 % LVAd ap2: 31.4 cm2 SV(MOD-sp4): 49.6 ml SV(MOD-sp2): 42.9 ml LVLd ap2: 8.5 cm EDV(MOD-sp2): 98.7 ml EDV(sp2-el): 98.1 ml LVAs ap2: 22.5 cm2 LVLs ap2: 7.8 cm ESV(MOD-sp2): 55.8 ml ESV(sp2-el): 55.0 ml EF(MOD-sp2): 43.5 % SV(sp4-el): 52.7 ml LA dimension(2D): 4.1 cm LA A4 area: 13.7 cm2 RA A4 area: 14.4 cm2 TAPSE: 1.3 cm Time Measurements MV dec time: 0.29 sec Doppler Measurements & Calculations MV E max parish: 78.7 cm/sec Lat Peak E' Parish: 8.7 cm/sec Med Peak E' Parish: 5.6 cm/sec MV A max parish: 77.3 cm/sec E/E' lat: 9.0 E/E' med: 14.1 MV E/A: 1.0 Ao V2 max: 100.4 cm/sec LV V1 max: 90.5 cm/sec MV dec slope: 269.6 cm/sec2 Ao max P.0 mmHg LV V1 max P.3 mmHg Ao V2 mean: 67.4 cm/sec LV V1 mean P.6 mmHg Ao mean P.1 mmHg LV V1 mean: 58.2 cm/sec Ao V2 VTI: 22.0 cm LV V1 VTI: 18.5 cm AV (velocity ratio): 0.84 AISHWARYA(I,D): 3.0 cm2 AISHWARYA(V,D): 3.2 cm2 SV(LVOT): 65.0 ml PA V2 max: 80.6 cm/sec PI end-d parish: 97.0 cm/sec PA max PG (full): 1.1 mmHg TR max parish: 189.2 cm/sec TR max P.3 mmHg ECHO/Echo Complete Interpretation Summary Normal left ventricle. Left ventricular systolic function is normal. The left ventricular ejection fraction is 60 %. Structurally normal valves. Ordering Physician: Conor Azevedo Referring Physician: Bear Muñoz Performed By: Korina Freitas RDCS and Student
[2024-04-24 20:22] LABS: Color, Urine Yellow (Yellow); Glucose, Dipstick 1000 mg/dl (Normal); Ketone-Dipstick 5 mg/dl (Negative); Leukocyte Esterase-Dipstick 500 /ul (Negative); Nitrite-Dipstick Negative (Negative); Occult Blood-Urine Negative /ul (Negative); Protein-Dipstick 15 mg/dl (Negative); Specific Gravity, Urine 1.015 (1.002-1.030); Urine Bilirubin Dipstick Negative (Negative); Urine Clarity Clear (Clear); Urine Urobilinogen 1 mg/dl (Normal)
[2024-04-24 20:43] LABS: Bacteria 1+ /hpf (None Seen); Squamous Epithelial Cells - UA 0-5 SEEN /hpf (0-5); White Blood Cells 5-10 SEEN /hpf (0-5)
[2024-04-24 20:45] LABS: Yeast-Urine 1+ /hpf (None Seen)
[2024-04-24 21:21] LABS: Hemoglobin A1c 9.1 % (3.8-5.6)
[2024-04-24] MEDS: 0.9% Normal Saline (1000mL) 1,000 ML 50 ML IV (21:25)
[2024-04-24 21:26] LABS: Thyroid Stim Hormone (TSH) 0.73 uIU/mL (0.358-3.74)
[2024-04-24] MEDS: Atorvastatin Calcium 20 MG Tablet PO (21:27)
[2024-04-24] MEDS: busPIRone 5 MG Tablet 7.5 MG PO (21:27)
[2024-04-24] MEDS: Clopidogrel Bisulfate 75 MG Tablet PO (21:31)
[2024-04-24 23:30] LABS: Bedside Glucose 135 mg/dL (74-106)
[2024-04-25 01:00] VITALS: BP 145/90; PULSE 87; RESP 14; TEMP 36.1; O2SAT 97
[2024-04-25 04:22] VITALS: BMI 24.3
[2024-04-25 05:00] VITALS: BP 136/83; PULSE 80; RESP 16; TEMP 36.2; O2SAT 97
[2024-04-25] MEDS: Enoxaparin 40 MG/0.4 ML Syringe SC (05:03)
[2024-04-25 06:44] LABS: Cholesterol 164 mg/dL (200); High Density Lipoprotein 27 mg/dL; Triglycerides 127 mg/dL; Very Low Density Lipoprotein 25 mg/dL (5-40)
[2024-04-25 06:53] LABS: Bedside Glucose 94 mg/dL (74-106)
--- NOTE | 2024-04-25 07:00 | MRI_ITS ---
ACR Level 3 findings have been noted. An addendum which confirms receipt of the report will follow. HISTORY: Evaluate for CVA. please compare to previous mri. TECHNIQUE: Multiplanar and multisequence MR images of the brain were obtained without contrast. 295 images. COMPARISON: CT prior day, MR 01/15/2018. FINDINGS: BRAIN PARENCHYMA: Chronic moderate left parieto-occipital encephalomalacia with ex vacuo dilatation of the left lateral ventricle. Chronic small vessel ischemic gliosis. 3 mm focus of restricted diffusion in the left thalamus. No acute intracranial hemorrhage identified. CSF SPACES: Chronic volume loss. No significant midline shift or other mass effect.No extra-axial fluid collection. VASCULAR SYSTEM: Major intracranial flow voids are maintained. PARANASAL SINUSES AND MASTOID AIR CELLS: Trace fluid in the left mastoid air cells. ORBITS: Symmetric contents. MRI/Brain without Contrast IMPRESSION: Acute left thalamic lacunar infarct. Old left parieto-occipital infarct. Chronic involutional and white matter changes. Electronically Signed: Darby Oliver MD at 8:25 EDT ,
--- NOTE | 2024-04-25 09:23 | CASEMGMT ---
SW completed a PHQ 9 with patient as he had a Stroke. Patient scored a 9 which indicates mild depression. SW spoke with patient about counseling resources. Patient said he was not sure if he wanted any. SW then provided patient with a list of local mental health agencies and a pamphlet on [facility] stroke support group. Unique REGALADO
[2024-04-25 11:13] VITALS: BP 132/71; PULSE 61; RESP 16; TEMP 36.7; O2SAT 98
[2024-04-25] MEDS: DULoxetine Hcl 60 MG Capsule PO (11:28)
[2024-04-25] MEDS: Pantoprazole Sodium 20 MG Tablet PO (11:28)
[2024-04-25] MEDS: Aspirin E.C. 81 MG Tablet PO (11:29)
[2024-04-25] MEDS: busPIRone 5 MG Tablet 7.5 MG PO ×2 (11:29→21:10)
[2024-04-25] MEDS: Clopidogrel Bisulfate 75 MG Tablet PO (11:35)
[2024-04-25 11:48] LABS: Bedside Glucose 151 mg/dL (74-106)
--- NOTE | 2024-04-25 12:02 | CASEMGMT ---
Addendum entered by Renata Ly 04/25/24 13:26: TC to pt son Natanael. He states that pt has a DPOA and it is his sister Pat Garcia. 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 He asked RN CM to call Pat regarding dc plan. Original Note: RN JUAN CARLOS Assessment: Face to Face with pt for initial transition planning/care coordination assessment. RN JUAN CARLOS introduced self and role at [facility], pt voices understanding and consents to assessment. Pt is A&O x2, unable to state president or correct year. Care providers, pharmacy, and demographics verified/updated. Admitting Dx:TIA vs CVA with transient AMS ataxia PCP:Wanda Specialists:Denies, states to speak with his son. Preferred Pharmacy:[facility] Insurance:[facility] Prescription Benefit: yes LNOK:Pat Garcia, sister Living Arrangements: Pt lives with son in a mobile home with 4-5 steps to enter with a rail. Pt reports he is I in ADL and son performs IADLs such as obtaining meals, getting groceries and doing laundry. Pt denies concerns at home. Transportation: Pt reports his son provides him with transportation. DME:[employer] with sufficient supply of strips and lancets, cane HHC/SNF:Pt reports he has had HHC in the past but cannot recall the name, denies SNF stays. Pt states no concerns with going home at time of dc. Pt requests RN CM speak to son regarding dc plan. Discussed home therapy and pt is agreeable and agreeable to son making decision of agency. ST to eval and came in room during assessment. Pt states no further concerns/needs. CM to follow. Advised pt to ask CM if any further question/concerns/needs arise, voices understanding. Pt Goal:Home with HHC Plan:Home with HHC pending conversation with son and course of hospitalization.
--- NOTE | 2024-04-25 12:37 | CON.PCM.NE_ITS ---
Assessment and Plan: Stroke Assessment/Plan BOAZ MICHAEL is a 69 M with a history of previous strokes who presents for evaluation of confusion. Pt is a poor historian. He notes he has had previous strokes, doesnt know his medications, but states he has not missed any doses. Neurological examination shows NIH 0. Neuroimaging shows MRI with left thalamic infarct. Could be a cause of his confusion, however given previous vascular insults, he probably is suffering from mild vascular dementia. Plan - Anti-platelet medication: Aspirin 81 mg daily/Plavix 75. For 90 days,. Then ASA only after that. - Occupational/ Physical therapy consults - NPO until swallow evaluation. IVF until able to take po - DVT prophylaxis with SCDs and heparin SQ - Vascular risk factor modification. The following are the recommended guidelines: LDL Goal < 70. Inc Lipitor to 80mg Smoking Cessation - states he has stopped. Diabetes Management - check A1C terminal manager blood pressure control should achieve <130/80 mmHg. BP management should aim to achieve long-term control in a reasonable amount of time, taking into consideration the individual patient's requirements and characteristics. Weight Management: Goal for BMI is 18.5 -24.9 kg/m2 Alcohol: No more than 2 drinks/day for men or 1 drink/day for non- women - Promote lifestyle modification: weight control, physical activity, moderation of alcohol intake, moderate sodium intake. -- Repeat CTA or Carotid US in 6 mos, for monitor progression of carotid stenosis. IF 50-70%, would recommend vascular consult, since he has had BL infarcts now. Followup with PCP in 1-2 weeks, and in Neurology clinic in 6-12 weeks. Follow up or send referral to Neurocognitive clinic for memory loss. Recommend home health to help with medications at home. HPI Consult Data Date of Consult: 04/25/24 HPI Narrative HPI Narrative: BOAZ MICHAEL, is a 69 M who presents [facility] Medical History Tobacco abuse Obstructive sleep apnea Stroke Status post placement of implantable loop recorder History of leukocytosis History of COPD Coronary artery disease Hyperlipidemia Hypertension Diabetes type 2, controlled Home Medications ?Medication ?Instructions ?Recorded ?Last Taken ?Type duloxetine 60 mg capsule,delayed 60 mg PO DAILY depression 12/01/14 09/28/18 08:00 History release atorvastatin 20 mg tablet 20 mg PO QHS CHOLESTEROL LOWERING 01/14/18 09/28/18 08:00 History gabapentin 100 mg capsule 100 mg PO TID PRN Pain 01/14/18 01/14/18 History metoprolol succinate 25 mg 25 mg PO DAILY BLOOD PRESSURE 01/14/18 09/28/18 08:00 History tablet,extended release 24 hr aspirin 81 mg tablet,delayed 81 mg PO DAILY@0800 #30 tabs 01/15/18 09/28/18 08:00 Rx release glipizide 5 mg tablet 5 mg PO QDAY diabetes 01/19/18 09/28/18 08:00 History omeprazole 20 mg capsule,delayed 20 mg PO QDAY reflux/ heart burn 01/19/18 09/28/18 08:00 History release buspirone 5 mg tablet 7.5 mg PO BID anxiety 01/27/18 09/28/18 08:00 History nystatin 100,000 unit/gram topical 1 applic topical BID #30 grams 03/30/22 Unknown Rx cream Allergy/AdvReac Type Severity Reaction Status Date / Time venom-honey bee (bee venom Allergy Swelling Verified 04/24/24 18:56 (honey bee)) simvastatin AdvReac Unknown Unknown Verified 04/24/24 18:56 metformin AdvReac Diarrhea Verified 04/24/24 18:56 Family History Mother Diabetes Hypertension Father CAD (coronary artery disease) Hypertension Sister Hypertension Surgical History History of tonsillectomy History of appendectomy S/P CABG x 5 Social History Smoking Status: Current every day smoker tobacco type: cigarettes and e- cigarettes Vital Signs Vital Signs Vital Signs: 04/24/24 18:43 04/24/24 18:45 04/24/24 19:03 Temperature 97.8 F 97.8 F Temperature Source Temporal Temporal Pulse Rate 79 Pulse Strength Respiratory Rate 16 Respiratory Effort Respiratory Depth Respiratory Pattern Blood Pressure 131/73 H Blood Pressure Mean 92 Blood Pressure Source Blood Pressure Position Blood Pressure Location Pulse Ox 93 Oxygen Delivery Method Room Air Room Air 04/24/24 19:15 04/24/24 19:30 07/21/24 19:42 Temperature Temperature Source Pulse Rate 73 73 74 Pulse Strength Respiratory Rate 18 19 H 21 H Respiratory Effort Respiratory Depth Respiratory Pattern Blood Pressure 123/72 H 126/69 H 126/69 H Blood Pressure Mean 89 88 88 Blood Pressure Source Blood Pressure Position Blood Pressure Location Pulse Ox 94 91 94 Oxygen Delivery Method Room Air Room Air Room Air 04/24/24 20:00 04/24/24 20:00 04/24/24 20:03 Temperature 98.1 F Temperature Source Pulse Rate 71 70 68 Pulse Strength Respiratory Rate 14 16 19 H Respiratory Effort Respiratory Depth Respiratory Pattern Blood Pressure 113/99 H 113/99 H 113/99 H Blood Pressure Mean 103 103 103 Blood Pressure Source Blood Pressure Position Blood Pressure Location Pulse Ox 92 98 98 Oxygen Delivery Method Room Air Room Air 04/24/24 20:55 04/24/24 21:00 04/24/24 21:23 Temperature 96.2 F L Temperature Source Temporal Pulse Rate 66 Pulse Strength Normal (2+) Respiratory Rate 18 Respiratory Effort Normal Non-Labored Respiratory Depth Normal Respiratory Pattern Normal Blood Pressure 138/76 H Blood Pressure Mean 96 Blood Pressure Source Monitor Blood Pressure Position Semi-Fowlers Blood Pressure Location Left Arm Pulse Ox 95 Oxygen Delivery Method Room Air Room Air 04/24/24 22:49 04/25/24 01:00 04/25/24 01:33 Temperature 97.0 F L Temperature Source Temporal Pulse Rate 87 Pulse Strength Respiratory Rate 14 Respiratory Effort Normal Non-Labored Respiratory Depth Respiratory Pattern Blood Pressure 145/90 H Blood Pressure Mean 108 Blood Pressure Source Monitor Blood Pressure Position Supine Blood Pressure Location Right Arm Pulse Ox 95 97 Oxygen Delivery Method Room Air Room Air Room Air 04/25/24 05:00 04/25/24 11:13 Temperature 97.1 F L 98.1 F Temperature Source Temporal Temporal Pulse Rate 80 61 Pulse Strength Respiratory Rate 16 16 Respiratory Effort Respiratory Depth Respiratory Pattern Blood Pressure 136/83 H 132/71 H Blood Pressure Mean 100 91 Blood Pressure Source Monitor Monitor Blood Pressure Position Semi-Fowlers Semi-Fowlers Blood Pressure Location Right Arm Left Arm Pulse Ox 97 98 Oxygen Delivery Method Room Air Room Air Weight Weight: 81.4 kg Body Mass Index (BMI) 24.3 EEG Results Procedure Details EEG Procedure Details: BOAZ MICHAEL is a 69 year old M with a past medical history of , who presents for evaluation of Electroencephalogram on DATE at TIME NIHSS NIHSS Nursing Documentation NIHSS Nursing Documentation: NIHSS: Ischemic Stroke/TIA Start: 04/24/24 20:57 Text: For PCU Patients: NIH and Neuro Check every 4 Status: Active hours, PRN and with change in RN caregiver. Freq: [id number] Protocol: Activity Type Activity Date Activity User E-sign Co-sign Detail Recorded Client Recorded Date Recorded By Document 04/25/24 11:14 SS desktop 04/25/24 11:24 SS 04/25/24 11:14 NIH Stroke Scale [NIHSS] A score of 0 is normal or asymptomatic . Total possible score is 42. Inpatient: RN or Physician to activate a stroke alert for onset of new stroke symptoms or with NIHSS increase >/= 3 points. Following change in neurological status, NIHSS will be performed per physician order or more frequently PRN. -1a. Level of Consciousness Alert; keenly responsive -1b. LOC Questions Answers BOTH questions correctly. -1c. LOC Commands Performs both tasks correctly . -2. Best Gaze Normal -3. Visual Partial hemianopia -4. Facial Palsy Normal symmetrical movements -5a. Left Arm No drift; arm holds 90 (or 45 ) degrees for full 10 seconds -5b. Right Arm No drift; arm holds 90 (or 45 ) degrees for full 10 seconds -6a. Left Leg No drift; leg holds 30-degree position for full 5 seconds -6b. Right Leg No drift; leg holds 30-degree position for full 5 seconds -7. Limb Ataxia Absent -8. Sensory Normal; no sensory loss -9. Best Language Mild-to- moderate aphasia; -10. Dysarthria Mild-to- moderate dysarthria; -11. Extinction and Inattention No abnormality -Total 3 Query Text:A score of 0 is normal or asymptomatic. Total possible score is 42 . ED: Notify Physician for NIHSS increase by > / = 3 points. Inpatient: RN or Physician to activate a stroke alert for NIHSS increase of > / = 3 points. Coma Scale [Assess] -Eye Opening Spontaneous -Motor Obeys Commands -Verbal Oriented [Total] -Coma Scale Total 15 Physical Exam Neuro Cranial Nerves: CN normal except as noted Speech: speech normal Motor Exam: strength 5/5 throughout Psych Attention / Concentration: attention grossly impaired and concentration grossly impaired Memory / Cognition: memory grossly impaired and cognition impaired Lab / Micro Data 04/24/24 18:45 04/24/24 18:45 Labs: Laboratory Results - last 24 hr 04/24/24 18:45: WBC 16.6 H, RBC 6.13, Hgb 16.8 H, Hct 51.8, MCV 84.5, MCH 27.4, MCHC 32.4, RDW Std Deviation 43.3, RDW Coeff of [place] 14.6, Plt Count 325, MPV 10.3, Immature Gran % (Auto) 1.000 H, Neut % (Auto) 75.5 H, Lymph % (Auto) 15.4 L, Logan % (Auto) 5.9, Eos % (Auto) 1.4, Baso % (Auto) 0.8, Absolute Neuts (auto) 12.5 H, Absolute Lymphs (auto) 2.55, Nucleated RBC % 0, PT 14.4, INR 1.1, APTT 25.4, Sodium 136, Potassium 4.3, Chloride 107, Carbon Dioxide 21.0, Anion Gap 8, BUN 19 H, Creatinine 1.18, Estim Creat Clear Calc 65.76, Est GFR (MDRD) Af Amer 79, Est GFR (MDRD) Non-Af 65, BUN/Creatinine Ratio 16.1, Glucose 168 H, Calcium 9.4, Troponin I High Sens 33 04/24/24 19:14: POC Glucose 171 H 04/24/24 20:00: Urine Color Yellow, Urine Clarity Clear, Urine pH 5.0, Ur Specific [place] 1.015, Urine Protein 15 H, Urine Glucose (UA) 1000 H, Urine Ketones 5 H, Urine Occult Blood Negative, Urine Nitrite Negative, Urine Bilirubin Negative, Urine Urobilinogen 1 H, Ur Leukocyte Esterase 500 H, Urine RBC 0 SEEN, Urine WBC 5-10 SEEN, Ur Squamous Epith Cells 0-5 SEEN, Urine Bacteria 1+, Urine Mucus 0 SEEN, Urine Yeast 1+ 04/24/24 20:45: Hemoglobin A1c 9.1 H, TSH 0.73, Ethyl Alcohol 3.0 04/24/24 21:14: POC Glucose 135 H 04/25/24 05:58: Triglycerides 127, Cholesterol 164, LDL Cholesterol 112, VLDL Cholesterol 25, HDL Cholesterol 27 L 04/25/24 06:33: POC Glucose 94 04/25/24 11:29: POC Glucose 151 H Imaging Radiology Impression Brain CT 04/24/24 18:45 IMPRESSION: No acute intracranial abnormality. No change from prior. N.B. : The above Results were Read Back by Antoine Lentz MD to Brynn Kathleen DO, and understanding confirmed on 04/24/2024 19:06:29 (ET). Electronically Signed: Antoine Lentz MD at 18:57 EDT , Head/Neck CTA 04/24/24 18:45 IMPRESSION: 1. 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 Series 2 image 358. 2. 1.6 mm right posteriorly located supraclinoid cavernous carotid artery aneurysm. Series 2 image 365. Series 603 image 119. 3. There is mild atherosclerotic plaque formation of the origin of the right internal carotid artery with less than 50% cross sectional diameter stenosis. ALL ABOVE CRITERIA BY NASCET. 4. There is mild atherosclerotic plaque formation of the origin of the left internal carotid artery with less than 50% cross sectional diameter stenosis. ALL ABOVE CRITERIA BY NASCET. 5. There is calcified plaque formation of the right cavernous carotid artery, with a mild stenosis (less than 50%). ALL ABOVE CRITERIA BY NASCET. 6. There is calcified plaque formation of the left cavernous carotid artery, with a mild stenosis (less than 50%). ALL ABOVE CRITERIA BY NASCET. Critical finding called and case discussed. 04/24/2024 7:17 PM [place] N.B. : The above Results were Read Back by Cristi Lambert MD to Brynn Kathleen DO, and understanding confirmed on 04/24/2024 19:17:40 (ET). Electronically Signed: Cristi Lambert MD at 19:18 EDT , Chest X-Ray 04/24/24 19:23 IMPRESSION: There are no acute findings. Electronically Signed: Cristi Lambert MD at 20:01 EDT , Carotid Duplex 04/24/24 20:16 Interpretation Summary Irregular calcific plaque with shadowing at the proximal right internal carotid artery and less than 50% stenosis Less than 50% stenosis right external carotid artery Irregular calcific plaque with shadowing at the proximal left internal carotid artery with less than 50% stenosis Less than 50% stenosis left external carotid artery Patent and antegrade vertebral arteries bilaterally Ordering Physician: Conor Azevedo Referring Physician: Bear Muñoz Performed By: Reyna Gan, T Brain MRI 04/25/24 07:00 IMPRESSION: Acute left thalamic lacunar infarct. Old left parieto-occipital infarct. Chronic involutional and white matter changes. Electronically Signed: Darby Oliver MD at 8:25 EDT , ADDENDUM: 04/25/24 0837 IMPRESSION: Acute left thalamic lacunar infarct. Old left parieto-occipital infarct. Chronic involutional and white matter changes. N.B. : Juli Amador RN, confirmed on 04/25/2024 08:30:07 (ET) that the healthcare facility has received the radiology report. Electronically Signed: Darby Oliver MD at 8:25 EDT , Active Medications Active Medications Active Medications: Current Medications Generic Name Dose Route Start Last Admin Trade Name Freq PRN Reason Stop Dose Admin Acetaminophen 650 mg 04/24/24 20:57 Acetaminophen 325 Mg Tablet PO Q4H PRN PRN Pain 1-10 Or Fever>99.6 Aspirin 81 mg 04/25/24 08:00 04/25/24 11:29 Aspirin E.C. 81 Mg Tablet PO 81 mg DAILY@0800 FELIPE Administration Atorvastatin Calcium 20 mg 04/24/24 22:00 04/24/24 21:27 Atorvastatin Calcium 20 Mg Tablet PO 20 mg QHS FELIPE Administration Buspirone HCl 7.5 mg 04/24/24 22:00 04/25/24 11:29 Buspirone 5 Mg Tablet PO 7.5 mg BID FELIPE Administration Clopidogrel Bisulfate 75 mg 04/24/24 20:30 04/25/24 11:35 Clopidogrel Bisulfate 75 Mg Tablet PO 75 mg DAILY FELIPE Administration Duloxetine HCl 60 mg 04/25/24 10:00 04/25/24 11:28 Duloxetine Hcl 60 Mg Capsule PO 60 mg DAILY FELIPE Administration Enoxaparin Sodium 40 mg 04/25/24 06:00 04/25/24 05:03 Enoxaparin 40 Mg/0.4 Ml Syringe SC 40 mg DAILY@0600 FELIPE Administration Gabapentin 100 mg 04/24/24 20:57 Gabapentin 100 Mg Capsule PO TID PRN PRN Nerve Pain 1-10 Hydralazine HCl 5 mg 04/24/24 20:57 Hydralazine 20 Mg/Ml Vial IV 04/25/24 20:58 Q30M PRN maintain BP parameters with HR <60 Sodium Chloride 1,000 mls @ 50 mls/hr 04/24/24 20:57 04/25/24 11:41 IV 50 mls/hr .Q20H FELIPE Infusion Sodium Chloride 250 mls @ 15 mls/hr 04/24/24 21:01 IV .[id number] PRN Additional IVPB Infusion Sodium Chloride 250 mls @ 15 mls/hr 04/24/24 21:01 IV .[id number] PRN Saline Flush Nystatin 1 applic 04/24/24 22:00 04/25/24 11:29 Nystatin Ointment TOPICAL Not Given BID FELIPE Pantoprazole Sodium 20 mg 04/25/24 10:00 04/25/24 11:28 Pantoprazole Sodium 20 Mg Tablet PO 20 mg DAILY FELIPE Administration Sodium Chloride 10 - 40 ml 04/24/24 21:01 0.9% Saline Lock 10 Ml Syringe IV UD PRN SALINE FLUSH
--- NOTE | 2024-04-25 12:56 | CASEMGMT ---
Discharge Planning A list of?HH providers including quality and resource use data and consistent with the patient's preferred geographic region, medical needs, and insurance network was created in [employer] Guide.? This list was provided to the RN JUAN CARLOS. [place], Discharge Planning Asst.
--- NOTE | 2024-04-25 14:02 | PN.HOSP_ITS ---
Reason for Visit Reason for Visit: Diagnoses Elevated white blood cell count, unspecified (04/24/24) Transient cerebral ischemic attack, unspecified (04/24/24) Unqualified visual loss, left eye, normal vision right eye (04/24/24) Ataxia, unspecified (04/24/24) Altered mental status, unspecified (04/24/24) Tobacco use (04/24/24) Personal history of transient ischemic attack (TIA), and cerebral infarction without residual deficits (04/24/24) Presence of aortocoronary bypass graft (04/24/24) Subjective Subjective Patient was seen and examined today, his MRI of the brain resulted showing an acute left thalamic lacunar infarct. I talked to the patient briefly today, I also talked with his POA who is his sister, she states she would prefer the patient go to a rehab facility or half-way facility if possible, she states that the patient lives with his son who has schizophrenia and bipolar disorder and she does not feel he would receive proper care there poststroke. I talked to the patient about going to a rehab facility and he did not seem to object. Objective Data Objective Data Vital Signs: Vital Signs Temp Pulse Resp BP Pulse Ox O2 Del Method 98.1 F 61 16 132/71 H 98 Room Air 04/25/24 11:13 04/25/24 11:13 04/25/24 11:13 04/25/24 11:13 04/25/24 11:13 04/25/24 11:13 Oxygen Delivery Method Room Air Weight: 81.4 kg Body Mass Index (BMI) 24.3 Intake & Output: Intake and Output for Last 24 Hours 04/23/24 04/24/24 04/25/24 23:59 23:59 23:59 Intake Total 911.67 / 911.67 Balance 911.67 / 911.67 Lab / Micro Data 04/24/24 18:45 04/24/24 18:45 Labs: Laboratory Results - last 24 hr 04/24/24 18:45: WBC 16.6 H, RBC 6.13, Hgb 16.8 H, Hct 51.8, MCV 84.5, MCH 27.4, MCHC 32.4, RDW Std Deviation 43.3, RDW Coeff of Tyler 14.6, Plt Count 325, MPV 10.3, Immature Gran % (Auto) 1.000 H, Neut % (Auto) 75.5 H, Lymph % (Auto) 15.4 L, Yancey % (Auto) 5.9, Eos % (Auto) 1.4, Baso % (Auto) 0.8, Absolute Neuts (auto) 12.5 H, Absolute Lymphs (auto) 2.55, Nucleated RBC % 0, PT 14.4, INR 1.1, APTT 25.4, Sodium 136, Potassium 4.3, Chloride 107, Carbon Dioxide 21.0, Anion Gap 8, BUN 19 H, Creatinine 1.18, Estim Creat Clear Calc 65.76, Est GFR (MDRD) Af Amer 79, Est GFR (MDRD) Non-Af 65, BUN/Creatinine Ratio 16.1, Glucose 168 H, Calcium 9.4, Troponin I High Sens 33 04/24/24 19:14: POC Glucose 171 H 04/24/24 20:00: Urine Color Yellow, Urine Clarity Clear, Urine pH 5.0, Ur Specific [place] 1.015, Urine Protein 15 H, Urine Glucose (UA) 1000 H, Urine Ketones 5 H, Urine Occult Blood Negative, Urine Nitrite Negative, Urine Bilirubin Negative, Urine Urobilinogen 1 H, Ur Leukocyte Esterase 500 H, Urine RBC 0 SEEN, Urine WBC 5-10 SEEN, Ur Squamous Epith Cells 0-5 SEEN, Urine Bacteria 1+, Urine Mucus 0 SEEN, Urine Yeast 1+ 04/24/24 20:45: Hemoglobin A1c 9.1 H, TSH 0.73, Ethyl Alcohol 3.0 04/24/24 21:14: POC Glucose 135 H 04/25/24 05:58: Triglycerides 127, Cholesterol 164, LDL Cholesterol 112, VLDL Cholesterol 25, HDL Cholesterol 27 L 04/25/24 06:33: POC Glucose 94 04/25/24 11:29: POC Glucose 151 H Radiography Diagnostic Testing: Radiology Impression Brain CT 04/24/24 18:45 IMPRESSION: No acute intracranial abnormality. No change from prior. N.B. : The above Results were Read Back by Antoine Lentz MD to Brynn Kathleen DO, and understanding confirmed on 04/24/2024 19:06:29 (ET). Electronically Signed: Antoine Lentz MD at 18:57 EDT , Head/Neck CTA 04/24/24 18:45 IMPRESSION: 1. 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 Series 2 image 358. 2. 1.6 mm right posteriorly located supraclinoid cavernous carotid artery aneurysm. Series 2 image 365. Series 603 image 119. 3. There is mild atherosclerotic plaque formation of the origin of the right internal carotid artery with less than 50% cross sectional diameter stenosis. ALL ABOVE CRITERIA BY NASCET. 4. There is mild atherosclerotic plaque formation of the origin of the left internal carotid artery with less than 50% cross sectional diameter stenosis. ALL ABOVE CRITERIA BY NASCET. 5. There is calcified plaque formation of the right cavernous carotid artery, with a mild stenosis (less than 50%). ALL ABOVE CRITERIA BY NASCET. 6. There is calcified plaque formation of the left cavernous carotid artery, with a mild stenosis (less than 50%). ALL ABOVE CRITERIA BY NASCET. Critical finding called and case discussed. 04/24/2024 7:17 PM Frannie Maria : The above Results were Read Back by Cristi Lambert MD to Brynn Kathleen DO, and understanding confirmed on 04/24/2024 19:17:40 (ET). Electronically Signed: Cristi Lambert MD at 19:18 EDT , Chest X-Ray 04/24/24 19:23 IMPRESSION: There are no acute findings. Electronically Signed: Cristi Lambert MD at 20:01 EDT , Carotid Duplex 04/24/24 20:16 Interpretation Summary Irregular calcific plaque with shadowing at the proximal right internal carotid artery and less than 50% stenosis Less than 50% stenosis right external carotid artery Irregular calcific plaque with shadowing at the proximal left internal carotid artery with less than 50% stenosis Less than 50% stenosis left external carotid artery Patent and antegrade vertebral arteries bilaterally Ordering Physician: Conor Azevedo Referring Physician: Bear Muñoz Performed By: Reyna Gan, RVT Brain MRI 04/25/24 07:00 IMPRESSION: Acute left thalamic lacunar infarct. Old left parieto-occipital infarct. Chronic involutional and white matter changes. Electronically Signed: Darby Oliver MD at 8:25 EDT , ADDENDUM: 04/25/24 0837 IMPRESSION: Acute left thalamic lacunar infarct. Old left parieto-occipital infarct. Chronic involutional and white matter changes. N.B. : Juli Amador RN, confirmed on 04/25/2024 08:30:07 (ET) that the healthcare facility has received the radiology report. Electronically Signed: Darby Oliver MD at 8:25 EDT , Physical Exam Const alert and no apparent distress Constitutional Narrative: Patient appears older than stated age General Appearance: cooperative and well developed Orientation / Consciousness: awake, oriented to person and oriented to place HEENT normocephalic, head/scalp atraumatic and moist oral mucous membranes Eyes PERRL, EOMs intact bilaterally and conjunctivae normal Neck supple, no JVD, thyroid normal and no carotid bruits General: trachea midline Resp normal respiratory effort, no retractions, no use of accessory muscles and clear to auscultation bilaterally Auscultation: Negative for rales, rhonchi or wheezes Cardio regular rate, regular rhythm, S1 normal heart sound, S2 normal heart sound, no murmurs, no rub and no gallops GI normal to inspection, nondistended, normoactive bowel sounds, soft to palpation, non-tender and non-distended Extremity no clubbing, cyanosis or edema Skin no rashes or lesions noted General Skin Exam: no breakdown Neuro CN's II-XII intact bilaterally, moves all extremities and no focal motor deficits Sensorium / Orientation: awake, alert, oriented to person and oriented to place Speech: speech normal Psych Psych Narrative: Patient has flat affect Assessment & Plan Assessment/Plan (1) History of multiple cerebrovascular accidents (CVAs): PLAN: Plan 1. Acute ischemic left thalamic lacunar infarct-patient will continue with PT and OT, he will continue on a statin and dual antiplatelet therapy for 90 days according to teleneurology. Patient will need temporary placement in a half-way facility versus a rehab facility. #2 coronary artery disease-this is stable at this time, complicates care, management, recovery, and prognosis #3 type 2 diabetes-blood sugars will be monitored, sliding scale insulin will be used as needed #4 hypertension-patient will remain on his current medications, blood pressure medication will be adjusted as needed #5 chronic obstructive pulmonary disease-patient is not on any oxygen presently, he does not use any inhalers #6 anxiety/depression-patient will remain on his present outpatient medications #7 hyperlipidemia-patient is on a statin Total clinical time spent by myself addressing the patient's medical issues, reviewing all of his data, and collaborating with patient's care team: 35 minutes Charges/Coding Visit Charges Inpatient E&M: 40870 Subs Hosp L2
--- NOTE | 2024-04-25 14:05 | CASEMGMT ---
Physician spoke with patient's sister Pat. Pat said she is patient's Healthcare Power of Registered Nurse Nursery. Per physician Pat would like patient to go somewhere for rehab. AUREA called patient's sister Pat. AUREA introduced self and role at [facility]. Pat said she has moved to [place]. Pat said patient lives at home with his son Natanael. Natanael has Schizophrenia and Bipolar Disorder. Pat said Natanael is having a hard time dealing with patient and his condition. Pat has noticed a decline in patient's cognitive functioning. Pat feels patient is withdrawn and has given up. Adult Protective Services is involved per Pat. AUREA explained to Pat that patient would have to get approved by his insurance to go to a Rehab Unit or a fci. AUREA explained if insurance does not approve patient he would have to private pay at the fci. Pat said patient would not be able to private pay. AUREA talked about patient applying for Medicaid. Pat said she is patient's Power of Registered Nurse Nursery so she could assist with this as she has access to patient's finances. AUREA asked Pat if she could email a copy of the documents as they are not on file at [facility]. AUREA provided Pat with SW's email address. Pat stated she would like [facility] Acute Rehab or [facility] TCU. AUREA let Pat know SW will make the referral and we can see what insurance says. AUREA will be in touch with Pat when AUREA finds out more. AUREA made a referral to [facility] Acute Rehab Unit. Unique REGALADO
--- NOTE | 2024-04-25 14:44 | CASEMGMT ---
AUREA called Adult Protective Services and left a message for Lucien. Unique Kumar WAFER POLISHER FLORIST SUPPLIES SALESPERSON
[2024-04-25 15:00] VITALS: BP 129/81; PULSE 71; RESP 16; TEMP 36.6; O2SAT 98
--- NOTE | 2024-04-25 15:13 | CASEMGMT ---
Addendum entered by Unique Kumar 04/25/24 15:31: Physician spoke with patient about going to Acute Rehab and patient did not object to this plan. SW will also check in with patient. SW was not sure if patient is able to make his own decisions, but physician feels like patient is able to make decisions. Unique REGALADO Original Note: [facility] Acute Rehab Unit accepted patient and [facility] will start the pre-cert. Plan: [facility] Acute Rehab pending insurance approval. Unique REGALADO
--- NOTE | 2024-04-25 15:42 | CASEMGMT ---
SW received a call from [place] at Adult Protective Services. They are not actively involved with patient at this time. A worker did go out to the home at one time and a referral was made to [facility]. Unique REGALADO
[2024-04-25 16:46] LABS: Bedside Glucose 140 mg/dL (74-106)
[2024-04-25 17:00] VITALS: BP 135/84; PULSE 71; RESP 16; TEMP 36.4; O2SAT 98
[2024-04-25 18:12] VITALS: BMI 24.3
[2024-04-25] MEDS: 0.9% Normal Saline (1000mL) 1,000 ML 50 ML IV (20:19)
[2024-04-25 21:00] VITALS: BP 137/95; PULSE 59; RESP 18; TEMP 36.4; O2SAT 98
[2024-04-25] MEDS: Atorvastatin Calcium 20 MG Tablet PO (21:10)
[2024-04-26] VITALS (8 sets, daily range): BP systolic 144–157; BP diastolic 84–90; PULSE 66–70; RESP 16–18; TEMP 36.4–36.6; O2SAT 95–99; BMI 24.3
[2024-04-26 00:28] LABS: Bedside Glucose 117 mg/dL (74-106)
[2024-04-26] MEDS: Enoxaparin 40 MG/0.4 ML Syringe SC (06:37)
[2024-04-26 06:56] LABS: Bedside Glucose 107 mg/dL (74-106)
--- NOTE | 2024-04-26 09:46 | CASEMGMT ---
AUREA spoke with patient this am regarding recommendations for Acute Rehab. Patient was agreeable to [facility] Acute Rehab or TCU and he declined a list of Rehab Units or SNF's. Await pre-cert. Plan: d/c to [facility] Acute Rehab pending insurance approval. Unique Kumar EKG TECHMatheus REGALADO
--- NOTE | 2024-04-26 10:32 | PCM.PN.HOSP ---
Reason for Visit Reason for Visit: Diagnoses Elevated white blood cell count, unspecified (04/25/24) Transient cerebral ischemic attack, unspecified (04/25/24) Unqualified visual loss, left eye, normal vision right eye (04/25/24) Ataxia, unspecified (04/25/24) Altered mental status, unspecified (04/25/24) Tobacco use (04/25/24) Personal history of transient ischemic attack (TIA), and cerebral infarction without residual deficits (04/25/24) Presence of aortocoronary bypass graft (04/25/24) Subjective Subjective Patient was seen and examined today, he voices no complaints to this examiner. We are currently awaiting approval from his insurance carrier for the patient to go to a rehab center or senior living facility for rehab services for his stroke. Objective Data Objective Data Vital Signs: Vital Signs Temp Pulse Resp BP Pulse Ox O2 Del Method 97.5 F L 66 18 151/84 H 97 Room Air 04/26/24 05:00 04/26/24 05:00 04/26/24 05:00 04/26/24 05:00 04/26/24 09:38 04/26/24 09:38 Oxygen Delivery Method Room Air Weight: 81.4 kg Body Mass Index (BMI) 24.3 Intake & Output: Intake and Output for Last 24 Hours 04/24/24 04/25/24 04/26/24 23:59 23:59 23:59 Intake Total 1703.34 / 1703.34 120 / 120 Balance 1703.34 / 1703.34 120 / 120 Lab / Micro Data 04/24/24 18:45 04/24/24 18:45 Labs: Laboratory Results - last 24 hr 04/25/24 11:29: POC Glucose 151 H 04/25/24 16:27: POC Glucose 140 H 04/25/24 21:08: POC Glucose 117 H 04/26/24 06:36: POC Glucose 107 H Radiography Diagnostic Testing: Radiology Impression Carotid Duplex 04/24/24 20:16 Interpretation Summary Irregular calcific plaque with shadowing at the proximal right internal carotid artery and less than 50% stenosis Less than 50% stenosis right external carotid artery Irregular calcific plaque with shadowing at the proximal left internal carotid artery with less than 50% stenosis Less than 50% stenosis left external carotid artery Patent and antegrade vertebral arteries bilaterally Ordering Physician: Conor Azevedo Referring Physician: Bear Muñoz Performed By: Reyna Gan RVT Echocardiogram 04/24/24 20:16 Interpretation Summary Normal left ventricle. Left ventricular systolic function is normal. The left ventricular ejection fraction is 60 %. Structurally normal valves. Ordering Physician: Conor Azevedo Referring Physician: Bear Muñoz Performed By: Korina Freitas RDCS and Student Physical Exam Narrative alert and no apparent distress Constitutional Narrative: Patient appears older than stated age General Appearance: cooperative and well developed Orientation / Consciousness: awake, oriented to person and oriented to place HEENT normocephalic, head/scalp atraumatic and moist oral mucous membranes Eyes PERRL, EOMs intact bilaterally and conjunctivae normal Neck supple, no JVD, thyroid normal and no carotid bruits General: trachea midline Resp normal respiratory effort, no retractions, no use of accessory muscles and clear to auscultation bilaterally Auscultation: Negative for rales, rhonchi or wheezes Cardio regular rate, regular rhythm, S1 normal heart sound, S2 normal heart sound, no murmurs, no rub and no gallops GI normal to inspection, nondistended, normoactive bowel sounds, soft to palpation, non-tender and non-distended Extremity no clubbing, cyanosis or edema Skin no rashes or lesions noted General Skin Exam: no breakdown Neuro CN's II-XII intact bilaterally, moves all extremities and no focal motor deficits Sensorium / Orientation: awake, alert, oriented to person and oriented to place Speech: speech normal Psych Psych Narrative: Patient has flat affect Assessment & Plan Assessment/Plan (1) History of multiple cerebrovascular accidents (CVAs): PLAN: Plan 1. Acute ischemic left thalamic lacunar infarct-patient will continue with PT and OT, he will continue on a statin and dual antiplatelet therapy for 90 days according to teleneurology. Patient will need temporary placement in a senior living facility versus a rehab facility. Approval is pending at this point. #2 coronary artery disease-this is stable at this time, complicates care, management, recovery, and prognosis #3 type 2 diabetes-blood sugars will be monitored, sliding scale insulin will be used as needed #4 hypertension-patient will remain on his current medications, blood pressure medication will be adjusted as needed #5 chronic obstructive pulmonary disease-patient is not on any oxygen presently, he does not use any inhalers #6 anxiety/depression-patient will remain on his present outpatient medications #7 hyperlipidemia-patient is on a statin Total clinical time spent by myself addressing the patient's medical issues, reviewing all of his data, and collaborating with patient's care team: 35 minutes Charges/Coding Visit Charges Inpatient E&M: 12897 Subs Hosp L2
[2024-04-26] MEDS: busPIRone 5 MG Tablet 7.5 MG PO ×2 (11:49→22:11)
[2024-04-26] MEDS: Aspirin E.C. 81 MG Tablet PO (11:49)
[2024-04-26] MEDS: Pantoprazole Sodium 20 MG Tablet PO (11:49)
[2024-04-26] MEDS: DULoxetine Hcl 60 MG Capsule PO (11:49)
[2024-04-26] MEDS: Clopidogrel Bisulfate 75 MG Tablet PO (11:49)
[2024-04-26 12:43] LABS: Bedside Glucose 149 mg/dL (74-106)
--- NOTE | 2024-04-26 12:47 | CASEMGMT ---
Social Work As per admitting RN, pt does not have LW/POA completed and declined further information. WANDY Richards
[2024-04-26] MEDS: 0.9% Saline Lock 10 ML Syringe IV (16:15)
[2024-04-26 16:46] LABS: Bedside Glucose 103 mg/dL (74-106)
[2024-04-26] MEDS: Atorvastatin Calcium 20 MG Tablet PO (22:13)
[2024-04-27] VITALS (7 sets, daily range): BP systolic 110–172; BP diastolic 85–95; PULSE 70–85; RESP 14–18; TEMP 36.5–36.7; O2SAT 97–99; BMI 24.3
[2024-04-27 00:06] LABS: Bedside Glucose 158 mg/dL (74-106)
[2024-04-27] MEDS: Enoxaparin 40 MG/0.4 ML Syringe SC (06:09)
[2024-04-27] MEDS: 0.9% Saline Lock 10 ML Syringe IV (06:10)
[2024-04-27 06:49] LABS: Bedside Glucose 124 mg/dL (74-106)
--- NOTE | 2024-04-27 07:41 | CASEMGMT ---
SW received a voice mail from patient's insurance. They are requesting a peer to peer to make final decision. SW will check with physician to see if she would be willing to do a peer to peer. Should physician not want to do a peer to peer pre-cert could be initiated for SNF (TCU). Unique Kumar MACHINE II ENGRAVER FABRICIO
[2024-04-27] MEDS: Pantoprazole Sodium 20 MG Tablet PO (11:00)
[2024-04-27] MEDS: Aspirin E.C. 81 MG Tablet PO (11:00)
[2024-04-27] MEDS: Clopidogrel Bisulfate 75 MG Tablet PO (11:00)
[2024-04-27] MEDS: busPIRone 5 MG Tablet 7.5 MG PO ×2 (11:00→20:32)
[2024-04-27] MEDS: DULoxetine Hcl 60 MG Capsule PO (11:00)
[2024-04-27 11:45] LABS: Bedside Glucose 192 mg/dL (74-106)
--- NOTE | 2024-04-27 13:40 | CASEMGMT ---
Pre-cert has been initiated for TCU. Unique Kumar CHRISTMAS TREE GRADER SKIVER MACHINE OPERATOR
--- NOTE | 2024-04-27 14:20 | PN_ITS ---
Subjective Subjective Patient seen and examined. He was lying comfortably in bed. He had no complaints and had an uneventful night. Review of systems otherwise negative. He is awaiting placement. Objective Data Objective Data Vital Signs: Vital Signs Temp Pulse Resp BP Pulse Ox O2 Del Method 97.7 F L 84 16 148/91 H 97 Room Air 04/27/24 10:58 04/27/24 10:58 04/27/24 10:58 04/27/24 10:58 04/27/24 10:58 04/27/24 10:58 Oxygen Delivery Method Room Air Weight: 179 lb 7.3 oz Body Mass Index (BMI) 24.3 Intake & Output: Intake and Output for Last 24 Hours 04/25/24 04/26/24 04/27/24 23:59 23:59 23:59 Intake Total 1703.34 / 1703.34 2213.33 / 2213.33 Balance 1703.34 / 1703.34 2213.33 / 2213.33 Lab / Micro Data 04/24/24 18:45 04/24/24 18:45 Labs: Laboratory Results - last 24 hr 04/26/24 16:13: POC Glucose 103 04/26/24 22:10: POC Glucose 158 H 04/27/24 06:14: POC Glucose 124 H 04/27/24 11:27: POC Glucose 192 H Physical Exam Const alert, oriented x3, no apparent distress and well nourished General Appearance: cooperative and well developed HEENT normocephalic, head/scalp atraumatic, moist oral mucous membranes and oropharynx normal Eyes PERRL and EOMs intact bilaterally Neck no lymphadenopathy, supple and no JVD Lymph Lymphatic: no lymphadenopathy noted and no lymphedema noted Resp normal respiratory effort, normal air movement and clear to auscultation bilaterally Cardio regular rate, regular rhythm, S1 normal heart sound, S2 normal heart sound and no murmurs GI normal to inspection, nondistended, normoactive bowel sounds, soft to palpation, non-tender and non-distended Extremity normal capillary refill, no clubbing, cyanosis or edema and no calf tenderness General Extremity: no tenderness to palpation of joints or extremities Skin General Skin Exam: no breakdown and turgor normal Neuro CN's II-XII intact bilaterally, no focal motor deficits, no sensory deficits noted and deep tendon reflexes 2+ bilaterally Motor Exam: strength 5/5 throughout and general weakness Psych thought process normal and cooperative Appearance: appropriate Assessment & Plan Assessment/Plan (1) History of multiple cerebrovascular accidents (CVAs): PLAN: Plan #Acute ischemic CVA * Imaging showed left thalamic lacunar infarct. * On aspirin and statin as well as Plavix. * PT OT on board. Awaiting placement. * 2D echo showed EF of 60% with normal left ventricular function and normal valves. #CAD: On aspirin and statin as well as Plavix. #Type 2 diabetes mellitus: On glipizide. Insulin sliding scale. Accu-Cheks ACHS. #Hypertension: On metoprolol #COPD: Not in exacerbation. Stable #anxiety and depression: On duloxetine and buspirone #Hyperlipidemia: On statin Disposition: awaiting placement Charges/Coding Visit Charges Inpatient E&M: 30959 Subs Hosp L2
[2024-04-27 18:19] LABS: Bedside Glucose 180 mg/dL (74-106)
[2024-04-27] MEDS: Atorvastatin Calcium 20 MG Tablet PO (20:32)
[2024-04-27 21:22] LABS: Bedside Glucose 175 mg/dL (74-106)
[2024-04-28 02:30] VITALS: BP 148/89; PULSE 82; RESP 14; TEMP 36.6; O2SAT 94
[2024-04-28] MEDS: Enoxaparin 40 MG/0.4 ML Syringe SC (06:08)
[2024-04-28 06:36] LABS: Absolute Lymphocyte Count 2.01 X10^3/uL (0.83-4.51); Absolute Neutrophil Count 7.4 X10^3/uL (2.0-7.7); Basophil# 0.11 X10^3/uL; Eosinophils% 2.8 % (0-5); Hematocrit 54.4 % (40-54); Hemoglobin 17.4 g/dL (13.0-16.5); Lymphocyte # 2.01 X10^3/ul (0.83-4.51); Lymphocyte % 18.6 % (19-41); Mean Corpuscular Hgb 27.3 pg (27.0-32.0); Mean Corpuscular Volume 85.4 fL (80-94); Monocyte# 0.95 X10^3/uL; Monocyte% 8.8 % (0-10); NRBC Flagged by Analyzer 0 % (0-5); Neutrophil # 7.37 X10^3/uL (2.7-7.7); Platelet Count 260 K/mm3 (150-450); RBC Distribution Width CV 14.1 % (11.6-14.6); RBC Distribution Width SD 43.2 fl (35.1-43.9); Red Blood Count 6.37 M/mm3 (4.6-6.2); White Blood Count 10.8 K/mm3 (4.4-11.0)
[2024-04-28 07:05] LABS: Anion Gap 8 (5-15); BUN 15 mg/dL (7-18); BUN/Creat Ratio 13.5 RATIO (10-20); Calcium,Total 9.4 mg/dL (8.5-10.1); Chloride 109 mmol/L (98-107); Creatinine, Serum 1.11 mg/dL (0.70-1.30); EST Glomerular Filtration Rate 70 mL/min (>60); Est Glom Filt Rate - Afr Amer 85 mL/min (>60); Estimated Creatinine Clearance 69.91 ml/min; Glucose 138 mg/dL (74-106); Potassium 3.7 mmol/L (3.5-5.1); Sodium Level 139 mmol/L (136-145)
[2024-04-28 08:28] VITALS: BP 150/92; PULSE 80; RESP 18; TEMP 36.2; O2SAT 96
[2024-04-28 08:32] VITALS: PULSE 80
[2024-04-28] MEDS: busPIRone 5 MG Tablet 7.5 MG PO ×2 (08:32→21:28)
[2024-04-28] MEDS: DULoxetine Hcl 60 MG Capsule PO (08:32)
[2024-04-28] MEDS: Metoprolol(XL)Succ 25 MG Tablet PO (08:32)
[2024-04-28] MEDS: Aspirin E.C. 81 MG Tablet PO (08:32)
[2024-04-28] MEDS: glipiZIDE 5 MG Tablet PO (08:32)
[2024-04-28] MEDS: Clopidogrel Bisulfate 75 MG Tablet PO (08:33)
[2024-04-28] MEDS: Pantoprazole Sodium 20 MG Tablet PO (08:33)
[2024-04-28 09:22] VITALS: BMI 24.3
--- NOTE | 2024-04-28 11:31 | PN_ITS ---
Subjective Subjective Patient seen and examined. He had no active complaints and had an uneventful night. Review of systems is otherwise negative. Objective Data Objective Data Vital Signs: Vital Signs Temp Pulse Resp BP Pulse Ox O2 Del Method 97.2 F L 80 18 150/92 H 96 Room Air 04/28/24 08:28 04/28/24 08:32 04/28/24 08:28 04/28/24 08:28 04/28/24 08:28 04/28/24 08:28 Oxygen Delivery Method Room Air Weight: 179 lb 7.3 oz Body Mass Index (BMI) 24.3 Intake & Output: Intake and Output for Last 24 Hours 04/26/24 04/27/24 04/28/24 23:59 23:59 23:59 Intake Total 2213.33 / 2213.33 580 / 580 Balance 2213.33 / 2213.33 580 / 580 Lab / Micro Data 04/28/24 05:48 04/28/24 05:48 Labs: Laboratory Results - last 24 hr 04/27/24 11:27: POC Glucose 192 H 04/27/24 17:54: POC Glucose 180 H 04/27/24 20:37: POC Glucose 175 H 04/28/24 05:48: WBC 10.8, RBC 6.37 H, Hgb 17.4 H, Hct 54.4 H, MCV 85.4, MCH 27.3, MCHC 32.0, RDW Std Deviation 43.2, RDW Coeff of Tyler 14.1, Plt Count 260, MPV 11.0, Immature Gran % (Auto) 0.800, Neut % (Auto) 68.0, Lymph % (Auto) 18.6 L, Blair % (Auto) 8.8, Eos % (Auto) 2.8, Baso % (Auto) 1.0, Absolute Neuts (auto) 7.4, Absolute Lymphs (auto) 2.01, Nucleated RBC % 0, Sodium 139, Potassium 3.7, Chloride 109 H, Carbon Dioxide 22.0, Anion Gap 8, BUN 15, Creatinine 1.11, Estim Creat Clear Calc 69.91, Est GFR (MDRD) Af Amer 85, Est GFR (MDRD) Non-Af 70, BUN/Creatinine Ratio 13.5, Glucose 138 H, Calcium 9.4 Physical Exam Const alert, oriented x3, no apparent distress, average body habitus and well nourished General Appearance: cooperative and well developed Orientation / Consciousness: awake, oriented to person and oriented to place HEENT normocephalic, head/scalp atraumatic, hearing grossly normal bilaterally, moist oral mucous membranes and oropharynx normal Eyes PERRL, EOMs intact bilaterally and conjunctivae normal Neck no lymphadenopathy, supple, no JVD, thyroid normal and no carotid bruits General: trachea midline Lymph Lymphatic: no lymphadenopathy noted and no lymphedema noted Resp normal respiratory effort, normal air movement, no retractions, no use of accessory muscles and clear to auscultation bilaterally Auscultation: Negative for rales, rhonchi or wheezes Cardio regular rate, regular rhythm, S1 normal heart sound, S2 normal heart sound, no murmurs, no rub and no gallops GI normal to inspection, nondistended, normoactive bowel sounds, soft to palpation, non-tender and non-distended Extremity normal to inspection, full ROM, normal capillary refill, no clubbing, cyanosis or edema and no calf tenderness General Extremity: no tenderness to palpation of joints or extremities Skin no rashes or lesions noted General Skin Exam: no breakdown and turgor normal Neuro oriented x3, CN's II-XII intact bilaterally, moves all extremities, no focal motor deficits, no sensory deficits noted and deep tendon reflexes 2+ bilaterally Sensorium / Orientation: awake, alert, oriented to person, oriented to place and oriented to time Speech: speech normal Motor Exam: strength 5/5 throughout and general weakness Psych thought process normal, cooperative and affect normal Appearance: appropriate Assessment & Plan Assessment/Plan (1) History of multiple cerebrovascular accidents (CVAs): PLAN: Plan #Acute ischemic CVA * Imaging showed left thalamic lacunar infarct. * On aspirin and statin as well as Plavix. * PT OT on board. Awaiting placement. * 2D echo showed EF of 60% with normal left ventricular function and normal valves. #CAD: On aspirin and statin as well as Plavix. #Type 2 diabetes mellitus: On glipizide. Insulin sliding scale. Accu-Cheks ACHS. #Hypertension: On metoprolol #COPD: Not in exacerbation. Stable #anxiety and depression: On duloxetine and buspirone #Hyperlipidemia: On statin Disposition: still awaiting placement Charges/Coding Visit Charges Inpatient E&M: 83445 Subs Hosp L2
[2024-04-28 12:17] LABS: Bedside Glucose 190 mg/dL (74-106)
--- NOTE | 2024-04-28 14:44 | CASEMGMT ---
AUREA called patient's sister Pat and updated her regarding denial for the Acute Rehab Unit and now trying for [facility] TCU. AUREA explained if he would get denied for TCU home health could be arranged. Pat asked AUREA if AUREA received patient's POA papers. AUREA told her SW did not. Pat asked patient's DrFavio's office to e-mail them to AUREA. AUREA will contact Dr Muñoz's office to get a copy. Pat thanked AUREA for the update. Pat would also like notified when patient is being discharged. Plan: TCU pending insurance approval. Unique Kumar CLIENT SERVICES VICE PRESIDENT FABRICIO
[2024-04-28 15:00] VITALS: BP 118/72; PULSE 68; RESP 18; TEMP 36.2; O2SAT 95
[2024-04-28 16:11] LABS: Bedside Glucose 151 mg/dL (74-106)
[2024-04-28 16:47] LABS: Bedside Glucose 79 mg/dL (74-106)
[2024-04-28 21:26] VITALS: BP 130/76; PULSE 62; RESP 18; TEMP 36.3; O2SAT 98
[2024-04-28] MEDS: 0.9% Saline Lock 10 ML Syringe IV (21:28)
[2024-04-28] MEDS: Atorvastatin Calcium 20 MG Tablet PO (21:29)
[2024-04-29 00:45] LABS: Bedside Glucose 138 mg/dL (74-106)
[2024-04-29 03:30] VITALS: BP 162/90; PULSE 69; RESP 18; TEMP 36.4; O2SAT 95
[2024-04-29 03:32] VITALS: BMI 24.3
[2024-04-29] MEDS: Enoxaparin 40 MG/0.4 ML Syringe SC (05:52)
[2024-04-29 06:45] LABS: Absolute Lymphocyte Count 2.48 X10^3/uL (0.83-4.51); Absolute Neutrophil Count 6.6 X10^3/uL (2.0-7.7); Basophil# 0.11 X10^3/uL; Eosinophil# 0.46 X10^3/uL; Eosinophils% 4.3 % (0-5); Hematocrit 53.8 % (40-54); Hemoglobin 17.2 g/dL (13.0-16.5); Lymphocyte # 2.48 X10^3/ul (0.83-4.51); Mean Corpuscular Hgb 27.4 pg (27.0-32.0); Mean Corpuscular Volume 85.7 fL (80-94); Monocyte# 1.04 X10^3/uL; Monocyte% 9.7 % (0-10); NRBC Flagged by Analyzer 0 % (0-5); Neutrophil # 6.56 X10^3/uL (2.7-7.7); Platelet Count 254 K/mm3 (150-450); RBC Distribution Width SD 42.9 fl (35.1-43.9); Red Blood Count 6.28 M/mm3 (4.6-6.2); White Blood Count 10.8 K/mm3 (4.4-11.0)
[2024-04-29 06:51] LABS: Bedside Glucose 130 mg/dL (74-106)
[2024-04-29 07:12] LABS: Anion Gap 3 (5-15); BUN 14 mg/dL (7-18); BUN/Creat Ratio 13.1 RATIO (10-20); Calcium,Total 9.3 mg/dL (8.5-10.1); Chloride 109 mmol/L (98-107); Creatinine, Serum 1.07 mg/dL (0.70-1.30); EST Glomerular Filtration Rate 73 mL/min (>60); Est Glom Filt Rate - Afr Amer 88 mL/min (>60); Estimated Creatinine Clearance 72.52 ml/min; Glucose 122 mg/dL (74-106); Potassium 3.8 mmol/L (3.5-5.1); Sodium Level 137 mmol/L (136-145)
[2024-04-29 08:30] VITALS: BP 146/86; PULSE 69; RESP 18; TEMP 36.7; O2SAT 98
[2024-04-29] MEDS: Aspirin E.C. 81 MG Tablet PO (08:30)
[2024-04-29] MEDS: glipiZIDE 5 MG Tablet PO (08:30)
[2024-04-29 08:31] VITALS: BP 146/86; PULSE 69
[2024-04-29] MEDS: Nystatin Ointment 1 APPLIC TOPICAL (08:31)
[2024-04-29] MEDS: Pantoprazole Sodium 20 MG Tablet PO (08:31)
[2024-04-29] MEDS: Metoprolol(XL)Succ 25 MG Tablet PO (08:31)
[2024-04-29] MEDS: DULoxetine Hcl 60 MG Capsule PO (08:31)
[2024-04-29] MEDS: Clopidogrel Bisulfate 75 MG Tablet PO (08:31)
[2024-04-29] MEDS: busPIRone 5 MG Tablet 7.5 MG PO (08:31)
--- NOTE | 2024-04-29 10:59 | PN_ITS ---
Subjective Subjective Patient seen and examined. He was lying comfortably in bed and had no complaints. He had an uneventful night. Review of systems otherwise negative. He is awaiting placement. Objective Data Objective Data Vital Signs: Vital Signs Temp Pulse Resp BP Pulse Ox O2 Del Method 98.1 F 69 18 146/86 H 98 Room Air 04/29/24 08:30 04/29/24 08:31 04/29/24 08:30 04/29/24 08:31 04/29/24 08:30 04/29/24 08:42 Oxygen Delivery Method Room Air Weight: 179 lb 7.3 oz Body Mass Index (BMI) 24.3 Intake & Output: Intake and Output for Last 24 Hours 04/27/24 04/28/24 04/29/24 23:59 23:59 23:59 Intake Total 580 / 580 920 / 920 Balance 580 / 580 920 / 920 Lab / Micro Data 04/29/24 05:47 04/29/24 05:47 Labs: Laboratory Results - last 24 hr 04/28/24 06:10: POC Glucose 151 H 04/28/24 10:55: POC Glucose 190 H 04/28/24 16:06: POC Glucose 79 04/28/24 21:25: POC Glucose 138 H 04/29/24 05:47: WBC 10.8, RBC 6.28 H, Hgb 17.2 H, Hct 53.8, MCV 85.7, MCH 27.4, MCHC 32.0, RDW Std Deviation 42.9, RDW Coeff of [place] 14.0, Plt Count 254, MPV 11.0, Immature Gran % (Auto) 1.000 H, Neut % (Auto) 61.0, Lymph % (Auto) 23.0, [place] % (Auto) 9.7, Eos % (Auto) 4.3, Baso % (Auto) 1.0, Absolute Neuts (auto) 6.6, Absolute Lymphs (auto) 2.48, Nucleated RBC % 0, Sodium 137, Potassium 3.8, Chloride 109 H, Carbon Dioxide 25.0, Anion Gap 3 L, BUN 14, Creatinine 1.07, Estim Creat Clear Calc 72.52, Est GFR (MDRD) Af Amer 88, Est GFR (MDRD) Non-Af 73, BUN/Creatinine Ratio 13.1, Glucose 122 H, Calcium 9.3 04/29/24 06:34: POC Glucose 130 H Physical Exam Const alert, oriented x3, no apparent distress, average body habitus and well nourished Constitutional Narrative: General Appearance: cooperative and well developed Orientation / Consciousness: awake, oriented to person and oriented to place HEENT normocephalic, head/scalp atraumatic, hearing grossly normal bilaterally, moist oral mucous membranes and oropharynx normal Eyes PERRL, EOMs intact bilaterally and conjunctivae normal Neck no lymphadenopathy, supple, no JVD, thyroid normal and no carotid bruits General: trachea midline Lymph Lymphatic: no lymphadenopathy noted and no lymphedema noted Resp normal respiratory effort, normal air movement, no retractions, no use of accessory muscles and clear to auscultation bilaterally Auscultation: Negative for rales, rhonchi or wheezes Cardio regular rate, regular rhythm, S1 normal heart sound, S2 normal heart sound, no murmurs, no rub and no gallops GI normal to inspection, nondistended, normoactive bowel sounds, soft to palpation, non-tender and non-distended Extremity normal to inspection, full ROM, normal capillary refill, no clubbing, cyanosis or edema and no calf tenderness General Extremity: no tenderness to palpation of joints or extremities Skin no rashes or lesions noted General Skin Exam: no breakdown and turgor normal Neuro oriented x3, CN's II-XII intact bilaterally, moves all extremities, no focal motor deficits, no sensory deficits noted and deep tendon reflexes 2+ bilaterally Sensorium / Orientation: awake, alert, oriented to person, oriented to place and oriented to time Speech: speech normal Motor Exam: strength 5/5 throughout and general weakness Psych thought process normal, cooperative and affect normal Appearance: appropriate Assessment & Plan Assessment/Plan (1) History of multiple cerebrovascular accidents (CVAs): PLAN: Plan #Acute ischemic CVA * Imaging showed left thalamic lacunar infarct. * On aspirin and statin as well as Plavix. * PT OT on board. Awaiting placement. * 2D echo showed EF of 60% with normal left ventricular function and normal valves. #CAD: On aspirin and statin as well as Plavix. #Type 2 diabetes mellitus: On glipizide. Insulin sliding scale. Accu-Cheks ACHS. #Hypertension: On metoprolol #COPD: Not in exacerbation. Stable #anxiety and depression: On duloxetine and buspirone #Hyperlipidemia: On statin Disposition: still awaiting placement Charges/Coding Visit Charges Inpatient E&M: 25276 Subs Hosp L2
[2024-04-29 11:54] LABS: Bedside Glucose 80 mg/dL (74-106)
--- NOTE | 2024-04-29 13:27 | CASEMGMT ---
Social Work POA papers for pt were sent over naming Pat as POA. The form is Durable POA but does contain provisions regarding Medical POA as well. WANDY Richards
[2024-04-29 14:42] VITALS: BP 152/88; PULSE 66; RESP 16; TEMP 36.4; O2SAT 97
--- NOTE | 2024-04-29 14:42 | CASEMGMT ---
Social Work [facility] in TCU did get precert for pt to go to TCU today. SW let physician know, she will discharge pt. SW let pt know,he is agreeable to TCU today, and agreeable for SW to call sister to let her know. SW called pt's sister Pat, message left letting her know pt will go to TCU today. WANDY Richards
[2024-04-29 14:51] VITALS: BMI 24.3
--- NOTE | 2024-04-29 15:07 | TREXTCAR_ITS ---
Diet Diet Order/Speech Therapy: 04/25/24 06:44 Diet: Cardiac - Heart Healthy Is pt able to select menu?: Yes Routine Orders/Code Status Enema Type: Fleetz Enema Frequency: Daily PRN Suppository Type: Dulcolax 10mg Suppository Frequency: Daily PRN O2 Frequency: PRN Keep PO Greater than or Equal to (%): 90 Therapies Weight Bearing: Weight bearing as tolerated Physical Therapy: Eval and Treat Occupational Therapy: Eval and Treat Problem/Diagnosis (1) History of multiple cerebrovascular accidents (CVAs): Status: Acute Code(s): Z86.73 - Personal history of transient ischemic attack (TIA), and cerebral infarction without residual deficits Plan #Acute ischemic CVA * Imaging showed left thalamic lacunar infarct. * On aspirin and statin as well as Plavix. * PT OT on board. Awaiting placement. * 2D echo showed EF of 60% with normal left ventricular function and normal valves. #CAD: On aspirin and statin as well as Plavix. #Type 2 diabetes mellitus: On glipizide. Insulin sliding scale. Accu-Cheks ACHS. #Hypertension: On metoprolol #COPD: Not in exacerbation. Stable #anxiety and depression: On duloxetine and buspirone #Hyperlipidemia: On statin Disposition: still awaiting placement Allergies/Procedures Done in Hospital Allergies venom-honey bee (bee venom (honey bee)) Allergy (Verified 04/24/24 18:56) Swelling simvastatin Adverse Reaction (Unknown, Verified 04/24/24 18:56) Unknown metformin Adverse Reaction (Verified 04/24/24 18:56) Diarrhea Procedures: 2-D Echocardiogram Type of Care/Length of Stay Estimated LOS: Convalescent Care Less Than 30 days Type of Care Needed: Skilled Rehab Potential: Fair Prognosis: Fair Additional Orders/Day of Discharge H&P will serve as current which was dated: 04/29/24 Day of Discharge: 04/29/24 Dietary and Speech Recommendations Dietitian Recommendations/Changes: Continue Cardiac diet to manage medical conditions. Speech Linguistic Eval Summary: The patient lives at home with his son, who is does not work and is able to assist him as needed per patient. Pt was independently completing finance and medication management tasks at home prior to this CVA. Per patient, his son is capable of assisting him with these tasks. Orientation: Pt is oriented to self, age, , place, and month. He was off by 2 hours reading the clock, off by 21 days for date, and unable to independently state the year, but could select the year from field of 2 choices. Auditory Comprehension: Following 2-step commands - 4/5 acc. Following multi- step commands - 1/3 acc. Basic yes/no - 5/5 acc. Moderate yes/no - 4/5 acc. Verbal Expression: 2-min speech sample revealed slow rate of speech with HEAD SWAMPER providing frequent cueing to elicit simple conversation. He responded with 2-10 word utterances. Speech was fluent at 4.58 words per utterance. He had one moment of anomia. 27.5 words per minute. Speech 100% intelligible. Confrontation naming 9/10 acc with 1 self-correction (unable to name cap of pen). Divergent naming of animals (60sec) - 1 item. Short-term Recall: Immediate recall 3/3 acc. Delayed recall (4-min) - 0/3 acc. The patient presents with mild-moderate cognitive-linguistic impairment characterized by deficits in verbal expression, auditory comprehension, and short term memory. Goals added to POC. Discharge Plan Admission Admit Date/Time: 04/25/24 14:09 Primary Reason for Your Visit: ischemic stroke Attending Provider: Mary Vickers Primary Care Provider: Bear Muñoz Consulting Providers: Gerardo Paris; Fidel Silva; Mary Ellen Ellington; Nia Mcgraw; Taylor Puentes; Ryan Wilson; Paulette Lopez; Girish Mora; Robby Velasquez; Maycol Farnsworth; Lili Ruvalcaba; Don Schroeder; Nika Siu; Marlon Garcia; Carol Ann Castrejon; Gerry Rush; Rachael Bennett; Rivera Mosquera; Malena Malave; Herb Major; Conor Azevedo; Bear Cuevas Instructions Patient Instructions: Booklet - [facility] Stroke ED - Living After Stroke, Booklet - Understanding Stroke Discharge Orders/Prescriptions Prescriptions: New clopidogrel 75 mg Tablet 75 mg PO DAILY Qty: 21 0RF atorvastatin 40 mg tablet 40 mg PO DAILY Qty: 30 2RF Continued glipizide 5 mg tablet 5 mg PO QDAY omeprazole 20 mg capsule,delayed release(DR/EC) 20 mg PO QDAY buspirone 5 mg tablet 7.5 mg PO BID duloxetine 60 MG capsule 60 mg PO DAILY Patient Comments: antidepressant gabapentin 100 MG capsule 100 mg PO TID PRN (Reason: Pain) Patient Comments: metoprolol succinate 25 MG tablet extended release 24 hr 25 mg PO DAILY aspirin 81 MG tablet 81 mg PO DAILY@0800 Qty: 30 0RF nystatin 100,000 unit/gram cream 1 applic topical BID Qty: 30 0RF Discontinued atorvastatin 20 MG tablet 20 mg PO QHS Referrals / Follow Up: Bear Muñoz DO [Primary Care Provider] - Within 2 Weeks Ulisses Castellanos MD [Non-Staff -Ordering Privileges] - Within 2 Weeks Disposition Disposition (needs filled in before D/C Order can be placed): Assisted Facility
--- NOTE | 2024-04-29 15:08 | DS.PCM_ITS ---
Providers Date of Admission: 04/25/24 Date of Discharge: 04/29/24 Primary Care Physician: Dr. Bear Muñoz, DO Consultations 04/24/24 20:57 Consult: Tele-Neurology Routine Consulting Provider: [facility] Reason for Consult: Acute Ischemic Stroke/TIA EMERGENT Consult: No MD Notified: Yes Date Notified: 04/24/24 Time Notified: 20:08 Method of Notification: ED Physician Initiated Nursing Unit Staff Notify [facility] of Tele-Neurology Consult: Yes Reason For Visit: TIA VS CVA WITH TRANSIENT AMS ATAXIA AND DECREASED Diagnosis Discharge Diagnosis (1) History of multiple cerebrovascular accidents (CVAs): Status: Acute Code(s): Z86.73 - Personal history of transient ischemic attack (TIA), and cerebral infarction without residual deficits Plan #Acute ischemic CVA * Imaging showed left thalamic lacunar infarct. * On aspirin and statin as well as Plavix. * PT OT on board. Awaiting placement. * 2D echo showed EF of 60% with normal left ventricular function and normal valves. #CAD: On aspirin and statin as well as Plavix. #Type 2 diabetes mellitus: On glipizide. Insulin sliding scale. Accu-Cheks ACHS. #Hypertension: On metoprolol #COPD: Not in exacerbation. Stable #anxiety and depression: On duloxetine and buspirone #Hyperlipidemia: On statin Disposition: still awaiting placement Medications at Discharge Home Medications duloxetine 60 mg capsule,delayed release 60 mg PO DAILY depression 12/01/14 gabapentin 100 mg capsule 100 mg PO TID PRN Pain 01/14/18 metoprolol succinate 25 mg tablet,extended release 24 hr 25 mg PO DAILY BLOOD PRESSURE 01/14/18 aspirin 81 mg tablet,delayed release 81 mg PO DAILY@0800 #30 tabs 01/15/18 glipizide 5 mg tablet 5 mg PO QDAY diabetes 01/19/18 omeprazole 20 mg capsule,delayed release 20 mg PO QDAY reflux/ heart burn 01/19/18 buspirone 5 mg tablet 7.5 mg PO BID anxiety 01/27/18 nystatin 100,000 unit/gram topical cream 1 applic topical BID #30 grams 03/30/22 atorvastatin 40 mg tablet 40 mg PO DAILY #30 tabs 04/29/24 clopidogrel 75 mg tablet 75 mg PO DAILY #21 tabs 04/29/24 Hospital Course Operations None Procedures 2-D Echocardiogram Summary of Care Provided Minutes Spent on Discharge: 55 Hospital Course: Patient is a 69-year-old male with a past medical history as outlined was admitted through the ED on 04/24/2024 with a complaint of transient onset of mental status, ataxia and decreased vision in the left eye. His symptoms are started about 30 minutes prior to his admission. He did not have any slurred speech or headache unilateral weakness. 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 [facility] reviewed patient and did not think that he was a candidate for tenecteplase. Neurology also stated that the aneurysms were small and unlikely to be related to his initial complaints. He was admitted to be managed for TIA and was started on aspirin and Plavix as well as high intensity statin. 2D echo done showed EF of 60% with normal left ventricular systolic function and normal valves. MRI of the brain done showed left thalamic lacunar infarct. As stated he was placed on aspirin and statin as well as Plavix. He was to be on Plavix for 21 days together with the aspirin and to continue on aspirin monotherapy afterwards together with high intensity statin. Patient's course was otherwise uncomplicated. He was skilled as needing rehab. Insurance denied rehab the patient was accepted to TCU. He was discharged to the transitional care unit on 04/29/2024. He is follow-up with his primary care doctor and with neurology within 2 to 4 weeks. Patient seen and examined prior to discharge. He had no active complaints and had an uneventful night. Review of systems otherwise negative. Labs and vitals reviewed. Home medication reviewed and reconciled. Physical Exam Const alert, oriented x3, no apparent distress, average body habitus and well nourished Constitutional Narrative: General Appearance: cooperative, comfortable, well kempt and well developed Orientation / Consciousness: awake, oriented to person and oriented to place HEENT normocephalic, head/scalp atraumatic, hearing grossly normal bilaterally, moist oral mucous membranes and oropharynx normal Mouth: oral and palatal mucosa normal Eyes PERRL, EOMs intact bilaterally and conjunctivae normal Neck no lymphadenopathy, supple, no JVD, thyroid normal and no carotid bruits General: trachea midline Lymph Lymphatic: no lymphadenopathy noted and no lymphedema noted Resp normal respiratory effort, normal air movement, no retractions, no use of accessory muscles and clear to auscultation bilaterally Auscultation: Negative for rales, rhonchi or wheezes Cardio regular rate, regular rhythm, S1 normal heart sound, S2 normal heart sound, no murmurs, no rub and no gallops GI normal to inspection, nondistended, normoactive bowel sounds, soft to palpation, non-tender and non-distended Extremity normal to inspection, full ROM, normal capillary refill, no clubbing, cyanosis or edema and no calf tenderness General Extremity: no tenderness to palpation of joints or extremities Skin no rashes or lesions noted General Skin Exam: no breakdown and turgor normal Neuro oriented x3, CN's II-XII intact bilaterally, moves all extremities, no focal motor deficits, no sensory deficits noted and deep tendon reflexes 2+ bilaterally Sensorium / Orientation: awake, alert, oriented to person, oriented to place and oriented to time Speech: speech normal Motor Exam: strength 5/5 throughout and general weakness Psych thought process normal, cooperative and affect normal Appearance: appropriate Weight / BMI Weight Weight: 179 lb 7.3 oz Body Mass Index (BMI) 24.3 ABG / Lab / Microbiology Data 04/29/24 05:47 04/29/24 05:47 Laboratory: Laboratory Results - last 24 hr 04/28/24 06:10: POC Glucose 151 H 04/28/24 16:06: POC Glucose 79 04/28/24 21:25: POC Glucose 138 H 04/29/24 05:47: WBC 10.8, RBC 6.28 H, Hgb 17.2 H, Hct 53.8, MCV 85.7, MCH 27.4, MCHC 32.0, RDW Std Deviation 42.9, RDW Coeff of [place] 14.0, Plt Count 254, MPV 11.0, Immature Gran % (Auto) 1.000 H, Neut % (Auto) 61.0, Lymph % (Auto) 23.0, [place] % (Auto) 9.7, Eos % (Auto) 4.3, Baso % (Auto) 1.0, Absolute Neuts (auto) 6.6, Absolute Lymphs (auto) 2.48, Nucleated RBC % 0, Sodium 137, Potassium 3.8, Chloride 109 H, Carbon Dioxide 25.0, Anion Gap 3 L, BUN 14, Creatinine 1.07, Estim Creat Clear Calc 72.52, Est GFR (MDRD) Af Amer 88, Est GFR (MDRD) Non-Af 73, BUN/Creatinine Ratio 13.1, Glucose 122 H, Calcium 9.3 04/29/24 06:34: POC Glucose 130 H 04/29/24 11:34: POC Glucose 80 D/C Instructions Discharge Diet: Low fat / Low cholesterol Discharge Activity: Return to Normal Activity Weight Bearing Status: Weight bearing as tolerated Call your doctor if you observe: Fever of 101 or Higher, Shortness of breath, Dizziness, Swelling in the ankles and Chest pain Meaningful Use Info Meaningful Use Meaningful Use Diagnoses (Choose all that apply): Ischemic CVA CVA Therapy Assessed for PT,OT and/or ST?: Yes Ischemic Stroke Antithrombotic order at d/c?: Yes Dx of Atrial fib/flutter?: No Anticoagulant at discharge?: No Reason anticoagulant not ordered: Treatment not Indicated Statin Dosing Therapy Reference: STATIN DOSE THERAPY REFERENCE: * Patients > 75 years receive moderate or high dose statin therapy. * Patients 75 years or YOUNGER should receive HIGH intensity statin dose unless contraindicated. You will be required to document reason for non-treatment if statin daily dose does not meet guidelines. HIGH DOSE STATIN THERAPY DAILY Atorvastatin > than or = to 40 mg Rosuvastatin > than or = to 20 mg Amlodipine + Atorvastatin > than or = to 2.5/40 mg Ezetimibe + Simvastatin 10/80 mg Simvastatin 80mg Statins at discharge?: Yes If patient is 75 or younger, pt will be discharged on HIGH intensity statin.: Y es Primary Dx Acute Ischemic CVA?: Yes IV thrombolytic ordered during stay?: No Reason IV thrombolytic not ordered: Treatment not Indicated Discharge Plan Admission Admit Date/Time: 04/25/24 14:09 Primary Reason for Your Visit: ischemic stroke Attending Provider: Mary Vickers Primary Care Provider: Bear Muñoz Consulting Providers: Gerardo Paris; Fidel Silva; Mary Ellen Ellington; Nia Mcgraw; Taylor Puentes; Ryan Wilson; Paulette Lopez; Girish Mora; Robby Velasquez; Maycol Farnsworth; Lili Ruvalcaba; Don Schroeder; Nika Siu; Marlon Garcia; Carol Ann Castrejon; Gerry Rush; Rachael Bennett; Rivera Mosquera; Malena Malave; Herb Major; Conor Azevedo; Bear Cuevas Instructions Patient Instructions: Booklet - [facility] Stroke ED - Living After Stroke, Booklet - Understanding Stroke Discharge Orders/Prescriptions Prescriptions: New clopidogrel 75 mg Tablet 75 mg PO DAILY Qty: 21 0RF atorvastatin 40 mg tablet 40 mg PO DAILY Qty: 30 2RF Continued glipizide 5 mg tablet 5 mg PO QDAY omeprazole 20 mg capsule,delayed release(DR/EC) 20 mg PO QDAY buspirone 5 mg tablet 7.5 mg PO BID duloxetine 60 MG capsule 60 mg PO DAILY Patient Comments: antidepressant gabapentin 100 MG capsule 100 mg PO TID PRN (Reason: Pain) Patient Comments: metoprolol succinate 25 MG tablet extended release 24 hr 25 mg PO DAILY aspirin 81 MG tablet 81 mg PO DAILY@0800 Qty: 30 0RF nystatin 100,000 unit/gram cream 1 applic topical BID Qty: 30 0RF Discontinued atorvastatin 20 MG tablet 20 mg PO QHS Referrals / Follow Up: Bear Muñoz DO [Primary Care Provider] - Within 2 Weeks Ulisses Castellanos MD [Non-Staff -Ordering Privileges] - Within 2 Weeks Disposition Disposition (needs filled in before D/C Order can be placed): Care Home Facility Charges/Coding Visit Charges Inpatient E&M: 18713 Disch Hosp >30min
--- NOTE | 2024-04-29 15:31 | CASEMGMT ---
Social Work Pt's sister did call back, [facility] let Pat know pt was accepted and is going to TCU today. [facility] faxed over discharge instructions. No further needs, pt to TCU skilled today. WANDY Richards
--- NOTE | 2024-04-29 16:15 | NURSING ---
Reoprt given to Edwin, patient to go to TCU Room 2
== END 2024-04-29 16:28 | disposition skilled nursing facility (03) | DRG 66 ==
LOC: ED 19:41 → PCU 20:27
PROVIDERS: Internal Medicine; Admitting Provider Internal Medicine; Emergency Provider Emergency Medicine; PCP Family Medicine; Visit Provider Student in an Organized Health Care Education/Training Program
DX: I63.81 Other cerebral infarction due to occlusion or stenosis of small artery (principal); I67.1 Cerebral aneurysm, nonruptured; E11.9 Type 2 diabetes mellitus without complications; J44.9 Chronic obstructive pulmonary disease, unspecified; F01.A0 Vascular dementia, mild, without behavioral disturbance, psychotic disturbance, mood disturbance, and anxiety; I10 Essential (primary) hypertension; F32.A Depression, unspecified; E78.5 Hyperlipidemia, unspecified; F17.210 Nicotine dependence, cigarettes, uncomplicated; I25.10 Atherosclerotic heart disease of native coronary artery without angina pectoris; F17.290 Nicotine dependence, other tobacco product, uncomplicated; G47.33 Obstructive sleep apnea (adult) (pediatric); K21.9 Gastro-esophageal reflux disease without esophagitis; M19.90 Unspecified osteoarthritis, unspecified site; H54.62 Unqualified visual loss, left eye, normal vision right eye; F41.9 Anxiety disorder, unspecified; E66.3 Overweight; R27.0 Ataxia, unspecified; R41.82 Altered mental status, unspecified; R29.701 NIHSS score 1; Z68.26 Body mass index [BMI] 26.0-26.9, adult; Z79.82 Long term (current) use of aspirin; Z79.84 Long term (current) use of oral hypoglycemic drugs; Z79.899 Other long term (current) drug therapy; Z86.73 Personal history of transient ischemic attack (TIA), and cerebral infarction without residual deficits; Z95.1 Presence of aortocoronary bypass graft
CPT/HCPCS: 36415; 70450; 70496; 70498; 70551; 71045; 80048; 80061; 81001; 82077; 82962; 83036; 84443; 84484; 85025; 85610; 85730; 92507; 92523; 93005; 93306; 93880; 97110; 97116; 97162; 97166; 97530; 97535; 99285; J7030; Q9967; A4216

== ENCOUNTER 2024-04-29 16:32 | Inpatient (IN) | payer MEDICARE, SELFPAY ==
[2024-04-29 16:36] VITALS: BP 145/82; PULSE 66; RESP 15; TEMP 36.1; O2SAT 97; BMI 23.8; BMI 23.9
[2024-04-29 16:43] VITALS: BMI 23.9
--- NOTE | 2024-04-29 16:55 | NURSING ---
Arrived with street clothes on, states he has a wallet in his pocket. Asked if he would like it locked up in med box and he declined
--- NOTE | 2024-04-29 19:37 | HP.PCM_ITS ---
HPI - General General Date of Admission: 04/29/24 Date of Service: 04/29/24 Chief Complaint: Here for rehabilitation. HPI Narrative 04/24/2024 BOAZ MICHAEL, is a 69 Male who presents to [facility] ED with stroke alert. Confusion, worsening confusion for 1.5 hours. History of 5 previous strokes, also ataxia, decreased vision left eye. NIHSS 1. EKG okay, CT brain negative for hemorrhage. CTA head and neck negative LVO, but showed small right aneurysm x 2. Chest X-ray okay, Neurology recommended no TNK. 04/24/2024 Admit to [facility]. Change mental status, ataxia, decreased vision left eye. Statin, Aspirin, add Plavix for TIA versus stroke. 04/24/2024 Echo Normal LV. LVSF normal. LVEF 60%. 04/25/2024 Carotid doppler ultrasound < 50% bilateral stenosis. 04/25/2024 MRI brain showed acute left thalamic lacunar infarct. Lives with schizophrenic, bipolar son, would not have good care at home. PT/OT/ST SNF versus RU. 04/26/2024 No complaints. Pre-CERT for SNF versus RU. 04/27/2024 Aspirin, Plavix, statin for stroke. PT/OT. Await placement. 04/28/2024 No acute events overnight. Await placement. 04/29/2024 Admit to TCU with debility, here for rehabilitation, strengthening, prior to discharge home with son. [facility] Medical History Tobacco abuse Obstructive sleep apnea Stroke Status post placement of implantable loop recorder History of leukocytosis History of COPD Coronary artery disease Hyperlipidemia Hypertension Diabetes type 2, controlled Home Medications ?Medication ?Instructions ?Recorded ?Last Taken ?Type duloxetine 60 mg capsule,delayed 60 mg PO DAILY depression 12/01/14 04/29/24 History release gabapentin 100 mg capsule 100 mg PO TID PRN Pain 01/14/18 01/14/18 History metoprolol succinate 25 mg 25 mg PO DAILY BLOOD PRESSURE 01/14/18 04/29/24 History tablet,extended release 24 hr aspirin 81 mg tablet,delayed 81 mg PO DAILY@0800 Anticoagulant 01/15/18 09/28/18 08:00 Rx release #30 tabs glipizide 5 mg tablet 5 mg PO QDAY diabetes 01/19/18 04/29/24 History omeprazole 20 mg capsule,delayed 20 mg PO QDAY reflux/ heart burn 01/19/18 04/29/24 History release buspirone 5 mg tablet 7.5 mg PO BID anxiety 01/27/18 09/28/18 08:00 History nystatin 100,000 unit/gram topical 1 applic topical BID Redness #30 03/30/22 Unknown Rx cream grams atorvastatin 40 mg tablet 40 mg PO DAILY Hyperlipidemia #30 04/29/24 Unknown Rx tabs clopidogrel 75 mg tablet 75 mg PO DAILY Anticoagulant #21 04/29/24 Unknown Rx tabs Allergy/AdvReac Type Severity Reaction Status Date / Time venom-honey bee (bee venom Allergy Swelling Verified 04/24/24 18:56 (honey bee)) simvastatin AdvReac Unknown Unknown Verified 04/24/24 18:56 metformin AdvReac Diarrhea Verified 04/24/24 18:56 Family History Mother Diabetes Hypertension Father CAD (coronary artery disease) Hypertension Sister Hypertension Surgical History History of tonsillectomy History of appendectomy S/P CABG x 5 Social History (Updated 04/29/24 @ 19:[address] Basim Baires MD) household members: children and other details: Son with schizophrenia, bipolar disorder. Smoking Status: Current every day smoker tobacco type: cigarettes and e- cigarettes alcohol intake: never substance use type: does not use ROS Constitutional Constitutional: Denies chills, fever(s) or weight gain ENT HEENT: Denies headache(s), nasal congestion or nasal discharge Cardiovascular Cardiovascular: Denies chest pain or palpitations Respiratory/Chest Respiratory/Chest: Denies cough, excessive phlegm production or shortness of breath with exertion Gastrointestinal Gastrointestinal: Denies abdominal pain, nausea or vomiting Genitourinary Genitourinary: Denies dysuria Musculoskeletal Musculoskeletal: Denies joint pain or joint swelling Integumentary Integumentary: Denies rash or wounds Neurologic Neurologic: Denies focal weakness, numbness or tingling Psychiatric Psychiatric: Denies anxiety, auditory hallucinations, depression, homicidal ideation or suicidal ideation Vital Signs Vital Signs Vital Signs: 04/29/24 16:36 04/29/24 16:36 Temperature 97 F L Temperature Source Temporal Pulse Rate 66 Pulse Rhythm Regular Pulse Strength Normal (2+) Respiratory Rate 15 Respiratory Effort Normal Non-Labored Respiratory Depth Normal Respiratory Pattern Normal Blood Pressure 145/82 H Blood Pressure Mean 103 Blood Pressure Source Monitor Blood Pressure Position Sitting Blood Pressure Location Right Arm Pulse Ox 97 Oxygen Delivery Method Room Air Room Air Weight Weight: 80.014 kg Body Mass Index (BMI) 23.9 Physical Exam Const alert General Appearance: cooperative HEENT normocephalic Eyes PERRL and EOMs intact bilaterally Neck supple, no JVD and no carotid bruits Resp normal respiratory effort, normal air movement and clear to auscultation bilaterally Cardio regular rate and regular rhythm GI normal to inspection, nondistended, normoactive bowel sounds, non-tender and non-distended Extremity normal capillary refill General Extremity: Negative for edema Skin no rashes or lesions noted General Skin Exam: no breakdown Neuro moves all extremities Speech: speech normal Psych affect normal Appearance: appropriate Assessment & Plan Assessment/Plan (1) Debility: (2) Stroke: (3) Depression: (4) Hyperlipidemia: (5) Neuropathic pain: (6) Diabetes mellitus type 2 in nonobese: (7) GERD (gastroesophageal reflux disease): (8) Anxiety: (9) Coronary artery disease: PLAN: Plan 69 year old male with below past medical history hospitalized with encephalopathy, ataxia, vision loss left eye, diagnosed with stroke (acute left thalamic lacunar infarct), admitted to TCU with debility, here for rehabilitation, strengthening, prior to discharge home with son. * Debility - PT/OT. * Pain - Tylenol 1000mg q6 prn pain (1-10). * Bowel - senna/colace 1 tablet bid. * Adult immunization - Administer pneumonia vaccine, covid vaccine, flu vaccine as appropriate. * DVT prophylaxis - Hold on dual antiplatelet therapy. * Stroke - Aspirin 81mg daily, Plavix 75mg daily thru 07/16/2024, then Aspirin 81mg daily only. * Hyperlipidemia - Atorvastatin 40mg qhs. * Anxiety - Buspar 7.5mg bid, stable chronic terminal superintendent use, GDR not recommended. * Depression - Duloxetine 60mg daily, stable chronic terminal superintendent use, GDR not recommended. * Neuropathic pain - Gabapentin 100mg tid prn. * Diabetes Mellitus II - Glipizide 5mg daily. * Skin irritation - Calmoseptine topical bid. * Coronary artery disease - Metoprolol succinate 25mg daily. * Tinea Corporis - Nystatin cream topical bid, Nystatin powder topical bid. * GERD - Pantoprazole 20mg daily.
[2024-04-29] MEDS: busPIRone 5 MG Tablet 7.5 MG PO (21:08)
[2024-04-29] MEDS: Senna/Docusate Sodium 1 Tablet PO (21:09)
[2024-04-29] MEDS: Nystatin Ointment 1 APPLIC TOPICAL (21:10)
[2024-04-29] MEDS: Menthol/Lanolin/Calamine/Znox 113 GM Tube 1 APPLIC TOPICAL (21:13)
[2024-04-29] MEDS: Nystatin Powder 15gm Bottle 1 APPLIC TOPICAL (21:14)
[2024-04-30 07:46] LABS: Bedside Glucose 148 mg/dL (74-106)
[2024-04-30] MEDS: glipiZIDE 5 MG Tablet PO (07:52)
[2024-04-30] MEDS: Aspirin E.C. 81 MG Tablet PO (07:52)
[2024-04-30] MEDS: busPIRone 5 MG Tablet 7.5 MG PO ×2 (07:52→20:02)
[2024-04-30] MEDS: DULoxetine Hcl 60 MG Capsule PO (07:54)
[2024-04-30] MEDS: Atorvastatin Calcium 40 MG Tablet PO (07:54)
[2024-04-30] MEDS: Nystatin Powder 15gm Bottle 1 APPLIC TOPICAL ×2 (07:54→20:05)
[2024-04-30] MEDS: Menthol/Lanolin/Calamine/Znox 113 GM Tube 1 APPLIC TOPICAL ×2 (07:54→20:04)
[2024-04-30 07:55] VITALS: BP 136/88; PULSE 71
[2024-04-30] MEDS: Pantoprazole Sodium 20 MG Tablet PO (07:55)
[2024-04-30] MEDS: Senna/Docusate Sodium 1 Tablet PO ×2 (07:55→20:03)
[2024-04-30] MEDS: Metoprolol(XL)Succ 25 MG Tablet PO (07:55)
[2024-04-30] MEDS: Nystatin Ointment 1 APPLIC TOPICAL ×2 (07:56→20:03)
[2024-04-30] MEDS: Clopidogrel Bisulfate 75 MG Tablet PO (08:03)
[2024-04-30 08:07] VITALS: BP 136/88; PULSE 71
[2024-04-30 08:47] LABS: Absolute Lymphocyte Count 2.62 X10^3/uL (0.83-4.51); Absolute Neutrophil Count 8.4 X10^3/uL (2.0-7.7); Basophil# 0.09 X10^3/uL; Basophil% 0.7 % (0-1); Eosinophil# 0.42 X10^3/uL; Eosinophils% 3.3 % (0-5); Hematocrit 55.2 % (40-54); Hemoglobin 17.6 g/dL (13.0-16.5); Lymphocyte # 2.62 X10^3/ul (0.83-4.51); Lymphocyte % 20.8 % (19-41); Mean Corp Hgb Conc 31.9 g/dL (32-36); Mean Corpuscular Hgb 27.2 pg (27.0-32.0); Mean Corpuscular Volume 85.4 fL (80-94); Mean Platelet Vol. 10.7 fl (6.2-12.0); Monocyte# 0.96 X10^3/uL; Monocyte% 7.6 % (0-10); NRBC Flagged by Analyzer 0 % (0-5); Neutrophil # 8.42 X10^3/uL (2.7-7.7); Platelet Count 302 K/mm3 (150-450); RBC Distribution Width SD 43.2 fl (35.1-43.9); Red Blood Count 6.46 M/mm3 (4.6-6.2); White Blood Count 12.6 K/mm3 (4.4-11.0)
[2024-04-30 09:07] LABS: Anion Gap 5 (5-15); BUN 16 mg/dL (7-18); BUN/Creat Ratio 14.5 RATIO (10-20); Calcium,Total 9.6 mg/dL (8.5-10.1); Chloride 107 mmol/L (98-107); EST Glomerular Filtration Rate 71 mL/min (>60); Est Glom Filt Rate - Afr Amer 86 mL/min (>60); Estimated Creatinine Clearance 70.55 ml/min; Glucose 198 mg/dL (74-106); Potassium 4.2 mmol/L (3.5-5.1); Sodium Level 134 mmol/L (136-145)
[2024-04-30] MEDS: Tuberculin,Purif.prot.deriv. 50 TU/ML Vial 0.1 ML ID (10:11)
[2024-04-30 15:51] VITALS: BP 128/76; PULSE 65; RESP 18; TEMP 36.2; O2SAT 96
[2024-05-01 06:49] LABS: Bedside Glucose 157 mg/dL (74-106)
[2024-05-01] MEDS: glipiZIDE 5 MG Tablet PO (07:56)
[2024-05-01] MEDS: busPIRone 5 MG Tablet 7.5 MG PO ×2 (07:56→19:57)
[2024-05-01] MEDS: Aspirin E.C. 81 MG Tablet PO (07:57)
[2024-05-01] MEDS: Senna/Docusate Sodium 1 Tablet PO ×2 (07:57→19:57)
[2024-05-01] MEDS: DULoxetine Hcl 60 MG Capsule PO (07:57)
[2024-05-01] MEDS: Clopidogrel Bisulfate 75 MG Tablet PO (07:57)
[2024-05-01 07:58] VITALS: BP 132/87; PULSE 68
[2024-05-01] MEDS: Menthol/Lanolin/Calamine/Znox 113 GM Tube 1 APPLIC TOPICAL ×2 (07:58→19:58)
[2024-05-01] MEDS: Metoprolol(XL)Succ 25 MG Tablet PO (07:58)
[2024-05-01] MEDS: Pantoprazole Sodium 20 MG Tablet PO (07:58)
[2024-05-01] MEDS: Nystatin Powder 15gm Bottle 1 APPLIC TOPICAL ×2 (07:59→19:57)
[2024-05-01] MEDS: Nystatin Ointment 1 APPLIC TOPICAL ×2 (08:00→19:56)
[2024-05-01] MEDS: Atorvastatin Calcium 40 MG Tablet PO (08:01)
[2024-05-01 08:06] VITALS: BP 132/87; PULSE 68
[2024-05-01 13:30] VITALS: PULSE 70; RESP 18; O2SAT 95
[2024-05-01 16:00] VITALS: BP 146/87; PULSE 65; RESP 12; TEMP 36.7; O2SAT 99
[2024-05-02 06:37] LABS: Bedside Glucose 132 mg/dL (74-106)
[2024-05-02 08:29] VITALS: BP 118/74; PULSE 67
[2024-05-02] MEDS: glipiZIDE 5 MG Tablet PO (08:30)
[2024-05-02 08:31] VITALS: PULSE 67
[2024-05-02] MEDS: Aspirin E.C. 81 MG Tablet PO (08:31)
[2024-05-02] MEDS: Pantoprazole Sodium 20 MG Tablet PO (08:31)
[2024-05-02] MEDS: Clopidogrel Bisulfate 75 MG Tablet PO (08:31)
[2024-05-02] MEDS: busPIRone 5 MG Tablet 7.5 MG PO ×2 (08:31→22:40)
[2024-05-02] MEDS: Metoprolol(XL)Succ 25 MG Tablet PO (08:31)
[2024-05-02] MEDS: Senna/Docusate Sodium 1 Tablet PO ×2 (08:31→22:41)
[2024-05-02] MEDS: DULoxetine Hcl 60 MG Capsule PO (08:32)
[2024-05-02] MEDS: Atorvastatin Calcium 40 MG Tablet PO (08:32)
[2024-05-02] MEDS: Nystatin Powder 15gm Bottle 1 APPLIC TOPICAL ×2 (08:33→22:40)
[2024-05-02] MEDS: Menthol/Lanolin/Calamine/Znox 113 GM Tube 1 APPLIC TOPICAL ×2 (08:33→22:42)
[2024-05-02] MEDS: Nystatin Ointment 1 APPLIC TOPICAL ×2 (08:33→22:42)
--- NOTE | 2024-05-02 12:42 | PHA.CONS_ITS ---
Documented by User: Dg Morgan 05/02/24 12:52 TCU RX Drug Regimen Review Subjective/Objective Subjective/Objective: Subjective: TCU admission note. EDUARDO is a 69 yo M who presents to [facility] ED with stroke alert, and worsening confusion for 1.5 hours on 04/24. Currently admitted to TCU with debility, here for rehabilitation, strengthening, prior to discharge home with son. Objective: Allergies venom-honey bee (bee venom (honey bee)) Allergy (Verified 04/24/24 18:56) Swelling simvastatin Adverse Reaction (Unknown, Verified 04/24/24 18:56) Unknown metformin Adverse Reaction (Verified 04/24/24 18:56) Diarrhea Current Medications Generic Name Dose Route Start Last Admin Trade Name Freq PRN Reason Stop Dose Admin Acetaminophen 1,000 mg 04/29/24 19:51 Acetaminophen 500 Mg Tablet PO Q6H PRN PRN Pain Score 1-10 Aspirin 81 mg 04/30/24 08:00 05/02/24 08:31 Aspirin E.C. 81 Mg Tablet PO 81 mg DAILY@0800 FELIPE Administration Atorvastatin Calcium 40 mg 04/30/24 10:00 05/02/24 08:32 Atorvastatin Calcium 40 Mg Tablet PO 40 mg DAILY FELIPE Administration Buspirone HCl 7.5 mg 04/29/24 22:00 05/02/24 08:31 Buspirone 5 Mg Tablet PO 7.5 mg BID FELIPE Administration Calamine/Phenol 1 applic 04/29/24 22:00 05/02/24 08:33 Menthol/Lanolin/Calamine/Znox 113 Gm Tube TOPICAL 1 applic BID FELIPE Administration Protocol Clopidogrel Bisulfate 75 mg 04/30/24 10:00 05/02/24 08:31 Clopidogrel Bisulfate 75 Mg Tablet PO 07/16/24 23:59 75 mg DAILY FELIPE Administration Duloxetine HCl 60 mg 04/30/24 10:00 05/02/24 08:32 Duloxetine Hcl 60 Mg Capsule PO 60 mg DAILY FELIPE Administration Gabapentin 100 mg 04/29/24 16:41 Gabapentin 100 Mg Capsule PO TID PRN Pain Score 1-10 Glipizide 5 mg 04/30/24 07:30 05/02/24 08:30 Glipizide 5 Mg Tablet PO 5 mg DAILY@0730 FELIPE Administration Metoprolol Succinate 25 mg 04/30/24 10:00 05/02/24 08:31 Metoprolol(Xl)Succ 25 Mg Tablet PO 25 mg DAILY FELIPE Administration Protocol Nystatin 1 applic 04/29/24 22:00 05/02/24 08:33 Nystatin Ointment TOPICAL 1 applic BID FELIPE Administration Nystatin 1 applic 04/29/24 22:00 05/02/24 08:33 Nystatin Powder 15gm Bottle TOPICAL 1 applic BID FELIPE Administration Protocol Pantoprazole Sodium 20 mg 04/30/24 10:00 05/02/24 08:31 Pantoprazole Sodium 20 Mg Tablet PO 20 mg DAILY FELIPE Administration Senna/Docusate Sodium 1 tablet 04/29/24 22:00 05/02/24 08:31 Senna/Docusate Sodium 1 Tablet PO 1 tablet BID FELIPE Administration Tuberculin PPD 0.1 ml 05/07/24 10:00 Tuberculin,Purif.Prot.Deriv. 50 Tu/Ml Vial ID 05/07/24 10:01 X1 ONE Problem List Coronary artery disease (Acute) Anxiety (Acute) GERD (gastroesophageal reflux disease) (Acute) Diabetes mellitus type 2 in nonobese (Acute) Neuropathic pain (Acute) Depression (Acute) Debility (Acute) Stroke (Chronic) Hyperlipidemia (Chronic) Vital Signs Temp Pulse Resp BP Pulse Ox O2 Del Method 98.0 F 67 12 118/74 99 Room Air 05/01/24 16:00 05/02/24 08:31 05/01/24 16:00 05/02/24 08:29 05/01/24 16:00 05/01/24 16:00 Oxygen Delivery Method Room Air Weight: 80.014 kg Body Mass Index (BMI) 23.9 Sodium 134 mmol/L (136-145) L 04/30/24 08:35 Potassium 4.2 mmol/L (3.5-5.1) 04/30/24 08:35 Chloride 107 mmol/L (98-107) 04/30/24 08:35 Carbon Dioxide 22.0 mmol/L (21.0-32.0) 04/30/24 08:35 Anion Gap 5 (5-15) 04/30/24 08:35 BUN 16 mg/dL (7-18) 04/30/24 08:35 Creatinine 1.10 mg/dL (0.70-1.30) 04/30/24 08:35 Est GFR (MDRD) Af Amer 86 mL/min (>60) 04/30/24 08:35 Est GFR (MDRD) Non-Af 71 mL/min (>60) 04/30/24 08:35 BUN/Creatinine Ratio 14.5 RATIO (10-20) 04/30/24 08:35 Glucose 198 mg/dL (74-106) H 04/30/24 08:35 Assessment/Plan: 1. Stroke - Aspirin 81 mg PO DAILY, Clopidogrel 75 mg PO DAILY thru 07/16/2024, then Aspirin 81 mg PO DAILY ONLY. Continue to monitor for new or worsening bruising or bleeding, coughing up blood or vomit that looks like coffee grounds, bloody or dark/tarry stools, and blood in the urine, hemoglobin (last 17.6 g/dL [H], on 04/30/24), and platelets (last 302 K/mm3, on 04/30). 2. HLD - Atorvastatin 40 mg PO QHS. Continue to monitor for muscle pains, lipid panel (last WNL, except HDL 27 mg/dL [L], on 04/25/24), and LFTs (no current AST/ALT levels). 3. T2DM - Glipizide 5 mg PO DAILY. Continue to monitor for S/S of hypo- /hyperglycemia, nausea, and upset stomach, BG (last 198 mg/dL), A1c (last 9.1%, on 04/24/24).? 4. CAD - Metoprolol succinate 25 mg PO DAILY. Continue to monitor for dizziness, headaches, nausea, and syncope, HR (last 67 BPM), and BP (last 118/74 mmHg). 5. Tinea Corporis - Nystatin 100,000 unit/g cream topical BID, nystatin powder topically BID. Continue to monitor for skin irritation where medicine is applied. 6. GERD - Pantoprazole 20 mg PO DAILY. Continue to monitor for diarrhea and headaches. 7. Skin irritation - Calmoseptine topical BID. Continue to monitor for skin irritation where medicine is applied. 8. Bowel - Senna/colace 8.6-50 mg PO BID. Continue to monitor for diarrhea, and/or constipation. 9. Neuropathic?pain - Gabapentin 100 mg PO TID PRN pain. Continue to monitor for vision changes, dizziness/drowsiness, lack of energy and tiredness, and PRN usage. 10. Pain - Tylenol 1,000 mg PO Q6H PRN pain (1-10). Continue?to monitor for PRN usage. Resident has had 0 PRN doses of Acetaminophen given. Pain appears to be managed at this time with current therapy options. Assessment & Plan for indications treated with psychotropic medications: 1. Anxiety - Buspirone 7.5 mg PO BID, stable chronic long chain quiller tender use, GDR not recommended. 2. Depression - Duloxetine 60 mg PO DAILY, stable chronic long chain quiller tender use, GDR not recommended. Medical chart and medication regimen reviewed. The following medication irregularities or issues were identified: 1. HLD - Please recommend getting AST/ALT levels. Date Date of Note:: 05/02/24 Documented by User: Dr. Basim Baires MD 05/02/24 12:59 TCU RX Drug Regimen Review Provider Comments Provider responsibility Provider Comments to Recommendations by Pharmacy: Agree
[2024-05-02 13:33] VITALS: BP 135/79; PULSE 71; RESP 18; TEMP 36.5; O2SAT 96
--- NOTE | 2024-05-02 14:23 | CASEMGMT ---
Social Work SW met with patient to complete initial assessment. Introduced self and role. Verified contacts. Pt confirmed code status as full code. Pt denied wanting to complete advanced directives. SW educated to [facility] insurance with NRD 05/03 and continued stay is not guaranteed with each review. Pt's goal is to return home with son at [facility]. SW will continue to follow. MIKEY SheffieldW
[2024-05-02 20:00] VITALS: PULSE 63; O2SAT 98
[2024-05-03 06:14] LABS: Bedside Glucose 136 mg/dL (74-106)
[2024-05-03 06:35] LABS: ALB/GLOB Ratio 0.8 RATIO (0.9-2.4); AST(SGOT) 18 U/L (15-37); Alanine Aminotransfer ALT/SGPT 28 U/L (16-61); Albumin, Serum 3.3 g/dL (3.2-5.0); Alkaline Phosphatase 117 U/L (45-117); Anion Gap 7 (5-15); BUN 17 mg/dL (7-18); BUN/Creat Ratio 15.6 RATIO (10-20); Calcium,Total 9.3 mg/dL (8.5-10.1); Chloride 106 mmol/L (98-107); Creatinine, Serum 1.09 mg/dL (0.70-1.30); EST Glomerular Filtration Rate 72 mL/min (>60); Est Glom Filt Rate - Afr Amer 87 mL/min (>60); Estimated Creatinine Clearance 71.19 ml/min; Globulin 3.9 g/dL (2.2-4.2); Glucose 128 mg/dL (74-106); Potassium 4.1 mmol/L (3.5-5.1); Protein, Total 7.2 g/dL (6.4-8.2); Sodium Level 139 mmol/L (136-145)
[2024-05-03 08:37] VITALS: PULSE 72
[2024-05-03] MEDS: DULoxetine Hcl 60 MG Capsule PO (08:37)
[2024-05-03] MEDS: glipiZIDE 5 MG Tablet PO (08:37)
[2024-05-03] MEDS: Metoprolol(XL)Succ 25 MG Tablet PO (08:37)
[2024-05-03] MEDS: busPIRone 5 MG Tablet 7.5 MG PO ×2 (08:37→21:04)
[2024-05-03] MEDS: Pantoprazole Sodium 20 MG Tablet PO (08:37)
[2024-05-03] MEDS: Clopidogrel Bisulfate 75 MG Tablet PO (08:38)
[2024-05-03] MEDS: Atorvastatin Calcium 40 MG Tablet PO (08:38)
[2024-05-03] MEDS: Senna/Docusate Sodium 1 Tablet PO ×2 (08:38→21:03)
[2024-05-03] MEDS: Aspirin E.C. 81 MG Tablet PO (08:38)
[2024-05-03] MEDS: Nystatin Powder 15gm Bottle 1 APPLIC TOPICAL ×2 (08:39→21:02)
[2024-05-03] MEDS: Menthol/Lanolin/Calamine/Znox 113 GM Tube 1 APPLIC TOPICAL ×2 (08:42→21:01)
[2024-05-03] MEDS: Nystatin Ointment 1 APPLIC TOPICAL ×2 (08:42→21:02)
[2024-05-03 08:45] VITALS: BP 132/79; PULSE 72; RESP 16; O2SAT 97
[2024-05-03 09:44] VITALS: RESP 16
[2024-05-03 13:42] VITALS: BMI 23.7
[2024-05-03 16:00] VITALS: TEMP 36
[2024-05-04 06:12] LABS: Bedside Glucose 136 mg/dL (74-106)
[2024-05-04] MEDS: busPIRone 5 MG Tablet 7.5 MG PO ×2 (08:02→19:44)
[2024-05-04] MEDS: glipiZIDE 5 MG Tablet PO (08:02)
[2024-05-04] MEDS: Aspirin E.C. 81 MG Tablet PO (08:02)
[2024-05-04 08:03] VITALS: PULSE 64
[2024-05-04] MEDS: DULoxetine Hcl 60 MG Capsule PO (08:03)
[2024-05-04] MEDS: Pantoprazole Sodium 20 MG Tablet PO (08:03)
[2024-05-04] MEDS: Senna/Docusate Sodium 1 Tablet PO ×2 (08:03→19:44)
[2024-05-04] MEDS: Atorvastatin Calcium 40 MG Tablet PO (08:03)
[2024-05-04] MEDS: Metoprolol(XL)Succ 25 MG Tablet PO (08:03)
[2024-05-04] MEDS: Clopidogrel Bisulfate 75 MG Tablet PO (08:03)
[2024-05-04] MEDS: Nystatin Powder 15gm Bottle 1 APPLIC TOPICAL ×2 (08:03→19:42)
[2024-05-04] MEDS: Menthol/Lanolin/Calamine/Znox 113 GM Tube 1 APPLIC TOPICAL ×2 (08:03→19:43)
[2024-05-04] MEDS: Nystatin Ointment 1 APPLIC TOPICAL (08:04)
--- NOTE | 2024-05-04 09:33 | NURSING ---
Pt. and family notified on new positive covid case on the unit.
--- NOTE | 2024-05-04 09:46 | CASEMGMT ---
Social Work IDT met with patient and conference call to son for care plan meeting. Discussed patient's progress in PT/OT/ST/SN. Educated to [facility] insurance with NRD 05/09, EDC 05/12. Provided pt written communication on insurance process and copay coverage during stay. Educated to son pt will additional assistance in the home for finances, medications, ensure safety. Son stated this is a noted decline, but is able to assist pt. SW will continue to follow for DC planning assistance. Thania Nayak, EGG PROCESSOR PHYSICAL THERAPY INSTRUCTOR
[2024-05-04 10:59] VITALS: BP 146/82; PULSE 64; RESP 18; TEMP 36.1; O2SAT 98
--- NOTE | 2024-05-04 12:15 | NURSING ---
Manager Net Note; Activity Asset: Ana Cardoza prefers to be called Gianni. He is independent in his choice of daily activities. Gianni will play cards, watch tv read the paper and welcomes visits from marriage and family counselor and therapy dog. His family will visits and bring him items he may want. Staff will encourage social activities, remind him of weekly activities and respect his right to say no.
--- NOTE | 2024-05-04 15:19 | CHAPLAIN ---
Type of Pastoral Visit _x__ Initial Visit ___ Follow-up Visit ___ On-call Visit ___ General Patient Visit ___ Spiritual Assessment ___ Family Conference ___ Bereavement ___ Rapid Response ___ Code Blue ___ Other (describe below) Pastoral Care Referral From ___ Patient ___ Family ___ Nurse ___ Physician _x__ Assistant Professor Of Economics ___ Roll Cutter _x__ Other (describe below) Sacrament/Intervention _x__ Active listening ___ Anointing ___ Zoroastrian ___ Bereavement ___ Communion _x__ Bessy exploration ___ _x__ Life review _x__ Prayer ___ Reconciliation ___ Sacrament of Sick _xas __ Supportive presence ___ Wedding ___ Other (describe below) Pastoral Comments as per nurse this patient was having a difficult time with what is best for his health and life in general; go into room and engage in conversation; pt has some difficulty expressing his words clearly but understands why; pt is apologetic for his difficulty in speaking; pt reveals that his three years ago and that his first stroke was two years ago and it has been hard ever since; pt admits to having little interest in things and activities and that his knapsack sprayer is his little dog; patient is welcoming of prayer; pt is not involved in a bessy community but did some years ago
[2024-05-04] MEDS: Hydrocortisone 2.5% Crm 1 APPLIC TOPICAL (19:42)
[2024-05-05 00:30] VITALS: PULSE 68; O2SAT 98
[2024-05-05 06:41] LABS: Bedside Glucose 143 mg/dL (74-106)
[2024-05-05] MEDS: busPIRone 5 MG Tablet 7.5 MG PO ×2 (08:09→20:06)
[2024-05-05] MEDS: Aspirin E.C. 81 MG Tablet PO (08:09)
[2024-05-05] MEDS: glipiZIDE 5 MG Tablet PO (08:09)
[2024-05-05] MEDS: Menthol/Lanolin/Calamine/Znox 113 GM Tube 1 APPLIC TOPICAL ×2 (08:11→20:07)
[2024-05-05] MEDS: DULoxetine Hcl 60 MG Capsule PO (08:11)
[2024-05-05 08:12] VITALS: BP 126/80; PULSE 71
[2024-05-05] MEDS: Pantoprazole Sodium 20 MG Tablet PO (08:12)
[2024-05-05] MEDS: Clopidogrel Bisulfate 75 MG Tablet PO (08:12)
[2024-05-05] MEDS: Metoprolol(XL)Succ 25 MG Tablet PO (08:12)
[2024-05-05] MEDS: Senna/Docusate Sodium 1 Tablet PO ×2 (08:12→20:08)
[2024-05-05] MEDS: Nystatin Powder 15gm Bottle 1 APPLIC TOPICAL ×2 (08:12→20:07)
[2024-05-05] MEDS: Atorvastatin Calcium 40 MG Tablet PO (08:16)
[2024-05-05 08:17] VITALS: BP 126/80; PULSE 71
--- NOTE | 2024-05-05 09:16 | CASEMGMT ---
BIMS (05/19) and PHQ9() interviews completed on this date for MDS assessment. RONNY Fontana
--- NOTE | 2024-05-05 10:05 | MDS.RN ---
Pain interview for MDS completed.
[2024-05-05 16:00] VITALS: BP 149/83; PULSE 64; RESP 16; TEMP 36.7; O2SAT 97
[2024-05-05] MEDS: Hydrocortisone 2.5% Crm 1 APPLIC TOPICAL (20:05)
[2024-05-06 00:43] VITALS: PULSE 60; O2SAT 93
[2024-05-06 06:29] LABS: Absolute Lymphocyte Count 3.04 X10^3/uL (0.83-4.51); Absolute Neutrophil Count 7.2 X10^3/uL (2.0-7.7); Basophil# 0.14 X10^3/uL; Basophil% 1.2 % (0-1); Eosinophil# 0.46 X10^3/uL; Eosinophils% 3.9 % (0-5); Hematocrit 50.8 % (40-54); Lymphocyte # 3.04 X10^3/ul (0.83-4.51); Lymphocyte % 25.5 % (19-41); Mean Corp Hgb Conc 31.5 g/dL (32-36); Mean Corpuscular Hgb 27.6 pg (27.0-32.0); Mean Corpuscular Volume 87.7 fL (80-94); Mean Platelet Vol. 11.4 fl (6.2-12.0); Monocyte# 0.99 X10^3/uL; Monocyte% 8.3 % (0-10); NRBC Flagged by Analyzer 0 % (0-5); Neutrophil % 60.2 % (47-70); Platelet Count 272 K/mm3 (150-450); RBC Distribution Width SD 44.9 fl (35.1-43.9); Red Blood Count 5.79 M/mm3 (4.6-6.2); White Blood Count 11.9 K/mm3 (4.4-11.0)
[2024-05-06 06:45] LABS: Bedside Glucose 160 mg/dL (74-106)
[2024-05-06 07:19] LABS: Anion Gap 6 (5-15); BUN 13 mg/dL (7-18); BUN/Creat Ratio 12.4 RATIO (10-20); Calcium,Total 9.3 mg/dL (8.5-10.1); Chloride 107 mmol/L (98-107); Creatinine, Serum 1.05 mg/dL (0.70-1.30); EST Glomerular Filtration Rate 75 mL/min (>60); Est Glom Filt Rate - Afr Amer 90 mL/min (>60); Glucose 132 mg/dL (74-106); Sodium Level 139 mmol/L (136-145)
[2024-05-06] MEDS: Aspirin E.C. 81 MG Tablet PO (08:46)
[2024-05-06] MEDS: busPIRone 5 MG Tablet 7.5 MG PO ×2 (08:46→20:47)
[2024-05-06] MEDS: glipiZIDE 5 MG Tablet PO (08:46)
[2024-05-06] MEDS: Atorvastatin Calcium 40 MG Tablet PO (08:48)
[2024-05-06] MEDS: Nystatin Powder 15gm Bottle 1 APPLIC TOPICAL ×2 (08:48→20:48)
[2024-05-06] MEDS: DULoxetine Hcl 60 MG Capsule PO (08:48)
[2024-05-06] MEDS: Menthol/Lanolin/Calamine/Znox 113 GM Tube 1 APPLIC TOPICAL ×2 (08:48→20:48)
[2024-05-06] MEDS: Clopidogrel Bisulfate 75 MG Tablet PO (08:48)
[2024-05-06 08:49] VITALS: BP 124/61; PULSE 82
[2024-05-06] MEDS: Senna/Docusate Sodium 1 Tablet PO (08:49)
[2024-05-06] MEDS: Pantoprazole Sodium 20 MG Tablet PO (08:49)
[2024-05-06] MEDS: Metoprolol(XL)Succ 25 MG Tablet PO (08:49)
[2024-05-06 08:53] VITALS: BP 124/61; PULSE 82
--- NOTE | 2024-05-06 11:43 | NURSING ---
THIS NURSE TRIMMED PT THICK TOE NAILS. PT TOLERATED WELL AND STATED THANK YOU THEY FEEL MUCH BETTER.
--- NOTE | 2024-05-06 13:01 | NURSING ---
Solar Sales Representative And Assessor Note; MDS for 05/06/2024 Complete
[2024-05-06 15:15] VITALS: BP 150/77; PULSE 65; RESP 16; TEMP 36.2; O2SAT 97
[2024-05-07 06:51] LABS: Bedside Glucose 186 mg/dL (74-106)
[2024-05-07 08:21] VITALS: PULSE 67
[2024-05-07] MEDS: Clopidogrel Bisulfate 75 MG Tablet PO (08:21)
[2024-05-07] MEDS: Aspirin E.C. 81 MG Tablet PO (08:21)
[2024-05-07] MEDS: Pantoprazole Sodium 20 MG Tablet PO (08:21)
[2024-05-07] MEDS: busPIRone 5 MG Tablet 7.5 MG PO ×2 (08:21→20:26)
[2024-05-07] MEDS: Atorvastatin Calcium 40 MG Tablet PO (08:21)
[2024-05-07] MEDS: DULoxetine Hcl 60 MG Capsule PO (08:21)
[2024-05-07] MEDS: Metoprolol(XL)Succ 25 MG Tablet PO (08:21)
[2024-05-07] MEDS: glipiZIDE 5 MG Tablet PO (08:21)
[2024-05-07] MEDS: Menthol/Lanolin/Calamine/Znox 113 GM Tube 1 APPLIC TOPICAL ×2 (08:22→20:25)
[2024-05-07] MEDS: Nystatin Powder 15gm Bottle 1 APPLIC TOPICAL ×2 (08:22→20:25)
[2024-05-07] MEDS: Tuberculin,Purif.prot.deriv. 50 TU/ML Vial 0.1 ML ID (09:42)
[2024-05-07 10:12] VITALS: BP 135/76; PULSE 67; RESP 16; TEMP 36.1; O2SAT 97
[2024-05-08 06:12] VITALS: PULSE 62; O2SAT 92
[2024-05-08 06:40] LABS: Bedside Glucose 120 mg/dL (74-106)
[2024-05-08 08:37] VITALS: BP 150/88; PULSE 66; RESP 18; TEMP 36.2; O2SAT 97
[2024-05-08] MEDS: glipiZIDE 5 MG Tablet PO (08:39)
[2024-05-08] MEDS: busPIRone 5 MG Tablet 7.5 MG PO ×2 (08:39→19:31)
[2024-05-08 08:40] VITALS: PULSE 66
[2024-05-08] MEDS: Metoprolol(XL)Succ 25 MG Tablet PO (08:40)
[2024-05-08] MEDS: DULoxetine Hcl 60 MG Capsule PO (08:40)
[2024-05-08] MEDS: Pantoprazole Sodium 20 MG Tablet PO (08:40)
[2024-05-08] MEDS: Atorvastatin Calcium 40 MG Tablet PO (08:40)
[2024-05-08] MEDS: Aspirin E.C. 81 MG Tablet PO (08:40)
[2024-05-08] MEDS: Clopidogrel Bisulfate 75 MG Tablet PO (08:41)
[2024-05-08] MEDS: Nystatin Powder 15gm Bottle 1 APPLIC TOPICAL ×2 (08:42→19:32)
[2024-05-08] MEDS: Menthol/Lanolin/Calamine/Znox 113 GM Tube 1 APPLIC TOPICAL ×2 (08:43→19:33)
[2024-05-08] MEDS: Senna/Docusate Sodium 1 Tablet PO (19:31)
[2024-05-09 06:18] LABS: Bedside Glucose 136 mg/dL (74-106)
[2024-05-09] MEDS: DULoxetine Hcl 60 MG Capsule PO (08:15)
[2024-05-09] MEDS: Aspirin E.C. 81 MG Tablet PO (08:15)
[2024-05-09] MEDS: Pantoprazole Sodium 20 MG Tablet PO (08:15)
[2024-05-09] MEDS: busPIRone 5 MG Tablet 7.5 MG PO ×2 (08:16→22:34)
[2024-05-09] MEDS: glipiZIDE 5 MG Tablet PO (08:16)
[2024-05-09] MEDS: Clopidogrel Bisulfate 75 MG Tablet PO (08:17)
[2024-05-09] MEDS: Atorvastatin Calcium 40 MG Tablet PO (08:17)
[2024-05-09 08:18] VITALS: BP 135/83; PULSE 99
[2024-05-09] MEDS: Nystatin Powder 15gm Bottle 1 APPLIC TOPICAL (08:18)
[2024-05-09] MEDS: Metoprolol(XL)Succ 25 MG Tablet PO (08:18)
[2024-05-09] MEDS: Menthol/Lanolin/Calamine/Znox 113 GM Tube 1 APPLIC TOPICAL (08:19)
[2024-05-09 08:22] VITALS: BP 135/83; PULSE 99
[2024-05-09 16:00] VITALS: BP 149/76; PULSE 59; RESP 18; TEMP 36.6; O2SAT 96
--- NOTE | 2024-05-09 16:06 | CASEMGMT ---
Social Work Insurance issued LCD 05/11, DC 05/12. Pt unable to comprehend information. SW phoned son - left requesting return call. SW spoke with IDT about DC recommendations. Pt does not need phsyical assistance (SBA), but does need assistance for all cognitive tasks, IADLs, and requires verbal cues for all tasks. Pt will need / care for safety. During the POC meeting, son stated he could provide this care. SW will continue to attempt to speak with son. Recommending skilled C PT/OT/ST/SN/[facility]. Will continue to follow. Plan: DC home with son 05/12, [facility] PT/OT/ST/SN/MIKEY Tomlin
[2024-05-09] MEDS: Senna/Docusate Sodium 1 Tablet PO (22:34)
[2024-05-10 06:40] LABS: Bedside Glucose 142 mg/dL (74-106)
[2024-05-10 07:58] VITALS: BP 137/94; PULSE 72; RESP 16; TEMP 36.6; O2SAT 97
[2024-05-10] MEDS: glipiZIDE 5 MG Tablet PO (08:00)
[2024-05-10] MEDS: Aspirin E.C. 81 MG Tablet PO (08:01)
[2024-05-10] MEDS: busPIRone 5 MG Tablet 7.5 MG PO ×2 (08:01→21:53)
[2024-05-10] MEDS: Pantoprazole Sodium 20 MG Tablet PO (08:02)
[2024-05-10] MEDS: Clopidogrel Bisulfate 75 MG Tablet PO (08:02)
[2024-05-10] MEDS: Atorvastatin Calcium 40 MG Tablet PO (08:02)
[2024-05-10] MEDS: DULoxetine Hcl 60 MG Capsule PO (08:02)
[2024-05-10] MEDS: Nystatin Powder 15gm Bottle 1 APPLIC TOPICAL (08:02)
[2024-05-10 08:03] VITALS: PULSE 72
[2024-05-10] MEDS: Metoprolol(XL)Succ 25 MG Tablet PO (08:03)
--- NOTE | 2024-05-10 10:13 | CASEMGMT ---
Addendum entered by Thania Nayak 05/10/24 10:33: [facility] [employer]. Original Note: Social Work SW phoned sister as son as not returned this worker's phone call. SW explained pt's abilities and DC recommendations for 27/04 care d/t to safety and lack of cognitive functioning. Sister agreed son cannot provide adequate care for pt, especially considering son's own mental health. Per sister, son had updated sister from POC meeting stating things didn't sound good; and [son] did not believe he could care for pt. Sister also concerned with son getting stressed and not treating pt well. SW agreed and recommended a SNF. Inquired about Medicaid. Sister manages pt's finances and states she has little to live off of after expenses are paid for, and has no assets. Sister agreed to speak with [facility] to complete Medicaid application. SW offered to send sister a list of INN SNFs with quality and resource data via [employer] Guide link. Sister agreed and requested to get a text link. Sister stated her first choice is [facility] ([place]), but will review the list of other options in [facility]. SW sent referral via secure email to Sandra at [facility]. SW sent text link of SNFs to . Will continue to follow. Plan: DC 05/12 to SNF, intermediate MIKEY Sheffield
[2024-05-10 10:18] VITALS: BMI 24.0
--- NOTE | 2024-05-10 21:00 | DS.PCM_ITS ---
Providers Date of Admission: 04/29/24 Primary Care Physician: Dr. Bear Muñoz DO Reason For Visit: CVA Diagnosis Discharge Diagnosis (1) Debility: Status: Acute Code(s): R53.81 - Other malaise (2) Stroke: Status: Chronic Code(s): I63.9 - Cerebral infarction, unspecified (3) Depression: Status: Acute Code(s): F32.A - Depression, unspecified (4) Hyperlipidemia: Status: Chronic Code(s): E78.5 - Hyperlipidemia, unspecified (5) Neuropathic pain: Status: Acute Code(s): M79.2 - Neuralgia and neuritis, unspecified (6) Diabetes mellitus type 2 in nonobese: Status: Acute Code(s): E11.9 - Type 2 diabetes mellitus without complications (7) GERD (gastroesophageal reflux disease): Status: Acute Code(s): K21.9 - Gastro-esophageal reflux disease without esophagitis (8) Anxiety: Status: Acute Code(s): F41.9 - Anxiety disorder, unspecified (9) Coronary artery disease: Status: Acute Code(s): I25.10 - Atherosclerotic heart disease of [place] coronary artery without angina pectoris Plan 69 year old male with below past medical history hospitalized with encephalopathy, ataxia, vision loss left eye, diagnosed with stroke (acute left thalamic lacunar infarct), admitted to TCU with debility, here for rehabilitation, strengthening, prior to discharge home with son. * Debility - PT/OT. * Pain - Tylenol 1000mg q6 prn pain (1-10). * Bowel - senna/colace 1 tablet bid. * Adult immunization - Administer pneumonia vaccine, covid vaccine, flu vaccine as appropriate. * DVT prophylaxis - Hold on dual antiplatelet therapy. * Stroke - Aspirin 81mg daily, Plavix 75mg daily thru 07/16/2024, then Aspirin 81mg daily only. * Hyperlipidemia - Atorvastatin 40mg qhs. * Anxiety - Buspar 7.5mg bid, stable chronic rn long term care use, GDR not recommended. * Depression - Duloxetine 60mg daily, stable chronic rn long term care use, GDR not recommended. * Neuropathic pain - Gabapentin 100mg tid prn. * Diabetes Mellitus II - Glipizide 5mg daily. * Skin irritation - Calmoseptine topical bid. * Coronary artery disease - Metoprolol succinate 25mg daily. * Tinea Corporis - Nystatin cream topical bid, Nystatin powder topical bid. * GERD - Pantoprazole 20mg daily. Medications at Discharge Home Medications duloxetine 60 mg capsule,delayed release 60 mg PO DAILY depression 12/01/14 metoprolol succinate 25 mg tablet,extended release 24 hr 25 mg PO DAILY BLOOD PRESSURE 01/14/18 aspirin 81 mg tablet,delayed release 81 mg PO DAILY@0800 Anticoagulant #30 tabs 01/15/18 glipizide 5 mg tablet 5 mg PO QDAY diabetes 01/19/18 buspirone 5 mg tablet 7.5 mg PO BID anxiety 01/27/18 atorvastatin 40 mg tablet 40 mg PO DAILY Hyperlipidemia #30 tabs 04/29/24 clopidogrel 75 mg tablet 75 mg PO DAILY 64 days #0 tabs 05/10/24 hydrocortisone 2.5 % topical cream 1 applic topical BID PRN PRN RASH/TOPICAL IRRITATION #0 grams 05/10/24 menthol 0.44 %-zinc oxide 20.6 % topical ointment (Calmoseptine) 1 applic topical BID #0 grams 05/10/24 nystatin 100,000 unit/gram topical powder (Nyamyc) 1 applic topical BID #0 grams 05/10/24 pantoprazole 20 mg tablet,delayed release 20 mg PO DAILY #0 tabs 05/10/24 sennosides 8.6 mg-docusate sodium 50 mg tablet (Stimulant Laxative Plus) 1 tab PO BID #0 tabs 05/10/24 Hospital Course Operations None Procedures None Summary of Care Provided Minutes Spent on Discharge: 35 Hospital Course: 69 year old male with below past medical history hospitalized with encephalopathy, ataxia, vision loss left eye, diagnosed with stroke (acute left thalamic lacunar infarct), admitted to TCU with debility, here for rehabilitation, strengthening, prior to discharge home with son. Discharge to SNF 05/12/2024, intermediate. Physical Exam Const alert General Appearance: cooperative HEENT normocephalic Eyes PERRL and EOMs intact bilaterally Neck supple, no JVD and no carotid bruits Resp normal respiratory effort, normal air movement and clear to auscultation bilaterally Cardio regular rate and regular rhythm GI normal to inspection, nondistended, normoactive bowel sounds, non-tender and non-distended Extremity normal capillary refill General Extremity: Negative for edema Skin no rashes or lesions noted General Skin Exam: no breakdown Neuro moves all extremities Speech: speech normal Psych affect normal Appearance: appropriate Weight / BMI Weight Weight: 80.513 kg Body Mass Index (BMI) 24.0 ABG / Lab / Microbiology Data 05/06/24 05:03 05/06/24 05:03 Laboratory: Laboratory Results - last 24 hr 05/10/24 06:18: POC Glucose 142 H Microbiology: Microbiology 05/05/24 05:40 Nasal Secretion SARS-CoV-2 Antigen (Rapid) - Final D/C Instructions Discharge Diet: No restrictions Discharge Activity: Return to Normal Activity, May Shower and Use Walker Weight Bearing Status: Weight bearing as tolerated Call your doctor if you observe: Fever of 101 or Higher, Inability to urinate, Inability to have a bowel movement, Shortness of breath, Dizziness, Fainting spells, Swelling in the ankles, Chest pain and Uncontrolled pain Additional Instructions: Discharge to SNF 05/12/2024, intermediate. Meaningful Use Info Meaningful Use Meaningful Use Diagnoses (Choose all that apply): Ischemic CVA CVA Therapy Assessed for PT,OT and/or ST?: Yes Ischemic Stroke Antithrombotic order at d/c?: Yes Dx of Atrial fib/flutter?: No Statin Dosing Therapy Reference: STATIN DOSE THERAPY REFERENCE: * Patients > 75 years receive moderate or high dose statin therapy. * Patients 75 years or YOUNGER should receive HIGH intensity statin dose unless contraindicated. You will be required to document reason for non-treatment if statin daily dose does not meet guidelines. HIGH DOSE STATIN THERAPY DAILY Atorvastatin > than or = to 40 mg Rosuvastatin > than or = to 20 mg Amlodipine + Atorvastatin > than or = to 2.5/40 mg Ezetimibe + Simvastatin 10/80 mg Simvastatin 80mg Statins at discharge?: Yes If patient is 75 or younger, pt will be discharged on HIGH intensity statin.: Y es Primary Dx Acute Ischemic CVA?: Yes Discharge Plan Admission Admit Date/Time: 04/29/24 16:32 Primary Reason for Your Visit: Debility. Attending Provider: Basim Baires Chi Primary Care Provider: Bear Muñoz Instructions Additional Instructions / Restrictions: Discharge to SNF 05/12/2024, intermediate. Discharge Orders/Prescriptions Prescriptions: New clopidogrel 75 mg Tablet 75 mg PO DAILY 64 Days Qty: 0 0RF Rx Instructions: Stop after 07/16/2024 per neurology. hydrocortisone 2.5 % Cream 1 applic topical BID PRN PRN (Reason: RASH/TOPICAL IRRITATION) Qty: 0 0RF Protocol: *Topical Application Instructions APPLICATION INSTRUCTIONS: Back. menthol-zinc oxide [Calmoseptine] 0.44-20.6 % Ointment 1 applic topical BID Qty: 0 0RF Protocol: *Topical Application Instructions APPLICATION INSTRUCTIONS: Bilateral Buttocks sennosides-docusate sodium [Stimulant Laxative Plus] 8.6-50 mg Tablet 1 tab PO BID Qty: 0 0RF pantoprazole 20 mg Tablet,Delayed Release (Dr/Ec) 20 mg PO DAILY Qty: 0 0RF nystatin [Nyamyc] 100,000 unit/gram Powder 1 applic topical BID Qty: 0 0RF Protocol: *Topical Application Instructions APPLICATION INSTRUCTIONS: Groin Continued glipizide 5 mg tablet 5 mg PO QDAY buspirone 5 mg tablet 7.5 mg PO BID duloxetine 60 MG capsule 60 mg PO DAILY Patient Comments: antidepressant metoprolol succinate 25 MG tablet extended release 24 hr 25 mg PO DAILY aspirin 81 MG tablet 81 mg PO DAILY@0800 Qty: 30 0RF atorvastatin 40 mg tablet 40 mg PO DAILY Qty: 30 2RF Discontinued omeprazole 20 mg capsule,delayed release(DR/EC) 20 mg PO QDAY gabapentin 100 MG capsule 100 mg PO TID PRN (Reason: Pain) Patient Comments: nystatin 100,000 unit/gram cream 1 applic topical BID Qty: 30 0RF clopidogrel 75 mg Tablet 75 mg PO DAILY Qty: 21 0RF Referrals / Follow Up: Bear Muñoz DO [Primary Care Provider] - Disposition Disposition (needs filled in before D/C Order can be placed): Shelter Facility
--- NOTE | 2024-05-10 21:06 | TREXTCAR_ITS ---
Diet Diet Order/Speech Therapy: 04/29/24 16:48 Diet: Cardiac - Heart Healthy Food consistency:: Regular Liquid Consistency:: Regular/Thin Dietary Modifications:: Consistent Carbohydrate Routine Orders/Code Status Code Status: Full Code Therapies Weight Bearing: Weight bearing as tolerated Extremity Affected:: Bilateral Lower Physical Therapy: Eval and Treat Occupational Therapy: Eval and Treat Speech Therapy: Eval and Treat Problem/Diagnosis (1) Debility: Status: Acute Code(s): R53.81 - Other malaise (2) Stroke: Status: Chronic Code(s): I63.9 - Cerebral infarction, unspecified Comment: 09/14/2014 (3) Depression: Status: Acute Code(s): F32.A - Depression, unspecified (4) Hyperlipidemia: Status: Chronic Code(s): E78.5 - Hyperlipidemia, unspecified (5) Neuropathic pain: Status: Acute Code(s): M79.2 - Neuralgia and neuritis, unspecified (6) Diabetes mellitus type 2 in nonobese: Status: Acute Code(s): E11.9 - Type 2 diabetes mellitus without complications (7) GERD (gastroesophageal reflux disease): Status: Acute Code(s): K21.9 - Gastro-esophageal reflux disease without esophagitis (8) Anxiety: Status: Acute Code(s): F41.9 - Anxiety disorder, unspecified (9) Coronary artery disease: Status: Acute Code(s): I25.10 - Atherosclerotic heart disease of [place] coronary artery without angina pectoris Plan 69 year old male with below past medical history hospitalized with encephalopathy, ataxia, vision loss left eye, diagnosed with stroke (acute left thalamic lacunar infarct), admitted to TCU with debility, here for rehabilitation, strengthening, prior to discharge home with son. * Debility - PT/OT. * Pain - Tylenol 1000mg q6 prn pain (1-10). * Bowel - senna/colace 1 tablet bid. * Adult immunization - Administer pneumonia vaccine, covid vaccine, flu vaccine as appropriate. * DVT prophylaxis - Hold on dual antiplatelet therapy. * Stroke - Aspirin 81mg daily, Plavix 75mg daily thru 07/16/2024, then Aspirin 81mg daily only. * Hyperlipidemia - Atorvastatin 40mg qhs. * Anxiety - Buspar 7.5mg bid, stable chronic half-way use, GDR not recommended. 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 * Neuropathic pain - Gabapentin 100mg tid prn. * Diabetes Mellitus II - Glipizide 5mg daily. * Skin irritation - Calmoseptine topical bid. * Coronary artery disease - Metoprolol succinate 25mg daily. * Tinea Corporis - Nystatin cream topical bid, Nystatin powder topical bid. * GERD - Pantoprazole 20mg daily. Allergies/Procedures Done in Hospital Allergies venom-honey bee (bee venom (honey bee)) Allergy (Verified 04/24/24 18:56) Swelling simvastatin Adverse Reaction (Unknown, Verified 04/24/24 18:56) Unknown metformin Adverse Reaction (Verified 04/24/24 18:56) Diarrhea Procedures: None Type of Care/Length of Stay Estimated LOS: More Than 30 Days Type of Care Needed: Intermediate Rehab Potential: Good Prognosis: Fair Additional Orders/Day of Discharge Additional Orders: part B therapies Day of Discharge: 05/12/24 Dietary and Speech Recommendations Dietitian Recommendations/Changes: Will continue Consistent CHO/ Cardiac diet d/t pmhx Discharge Plan Admission Admit Date/Time: 04/29/24 16:32 Primary Reason for Your Visit: Debility. Attending Provider: Basim Baires Chi Primary Care Provider: Bear Muñoz Instructions Additional Instructions / Restrictions: Discharge to SNF 05/12/2024, intermediate. Discharge Orders/Prescriptions Prescriptions: New clopidogrel 75 mg Tablet 75 mg PO DAILY 64 Days Qty: 0 0RF Rx Instructions: Stop after 07/16/2024 per neurology. hydrocortisone 2.5 % Cream 1 applic topical BID PRN PRN (Reason: RASH/TOPICAL IRRITATION) Qty: 0 0RF Protocol: *Topical Application Instructions APPLICATION INSTRUCTIONS: Back. menthol-zinc oxide [Calmoseptine] 0.44-20.6 % Ointment 1 applic topical BID Qty: 0 0RF Protocol: *Topical Application Instructions APPLICATION INSTRUCTIONS: Bilateral Buttocks sennosides-docusate sodium [Stimulant Laxative Plus] 8.6-50 mg Tablet 1 tab PO BID Qty: 0 0RF pantoprazole 20 mg Tablet,Delayed Release (Dr/Ec) 20 mg PO DAILY Qty: 0 0RF nystatin [Nyamyc] 100,000 unit/gram Powder 1 applic topical BID Qty: 0 0RF Protocol: *Topical Application Instructions APPLICATION INSTRUCTIONS: Groin Continued glipizide 5 mg tablet 5 mg PO QDAY buspirone 5 mg tablet 7.5 mg PO BID duloxetine 60 MG capsule 60 mg PO DAILY Patient Comments: antidepressant metoprolol succinate 25 MG tablet extended release 24 hr 25 mg PO DAILY aspirin 81 MG tablet 81 mg PO DAILY@0800 Qty: 30 0RF atorvastatin 40 mg tablet 40 mg PO DAILY Qty: 30 2RF Discontinued omeprazole 20 mg capsule,delayed release(DR/EC) 20 mg PO QDAY gabapentin 100 MG capsule 100 mg PO TID PRN (Reason: Pain) Patient Comments: nystatin 100,000 unit/gram cream 1 applic topical BID Qty: 30 0RF clopidogrel 75 mg Tablet 75 mg PO DAILY Qty: 21 0RF Referrals / Follow Up: Bear Muñoz DO [Primary Care Provider] - Disposition Disposition (needs filled in before D/C Order can be placed): [facility]
[2024-05-11 06:38] LABS: Bedside Glucose 130 mg/dL (74-106)
--- NOTE | 2024-05-11 08:05 | MDS.RN ---
Information for the MDS was obtained from review of the clinical record, interview of resident, staff, and direct observation of resident?s care.
[2024-05-11] MEDS: Aspirin E.C. 81 MG Tablet PO (08:29)
[2024-05-11] MEDS: glipiZIDE 5 MG Tablet PO (08:29)
[2024-05-11] MEDS: busPIRone 5 MG Tablet 7.5 MG PO ×2 (08:30→20:06)
[2024-05-11 08:31] VITALS: BP 138/78; PULSE 68
[2024-05-11] MEDS: Metoprolol(XL)Succ 25 MG Tablet PO (08:31)
[2024-05-11] MEDS: DULoxetine Hcl 60 MG Capsule PO (08:31)
[2024-05-11] MEDS: Clopidogrel Bisulfate 75 MG Tablet PO (08:32)
[2024-05-11] MEDS: Atorvastatin Calcium 40 MG Tablet PO (08:32)
[2024-05-11] MEDS: Pantoprazole Sodium 20 MG Tablet PO (08:32)
[2024-05-11 08:39] VITALS: BP 138/78; PULSE 68
[2024-05-11] MEDS: Nystatin Powder 15gm Bottle 1 APPLIC TOPICAL (11:34)
[2024-05-11 14:54] VITALS: BP 150/80; PULSE 57; RESP 16; TEMP 36.2; O2SAT 97
--- NOTE | 2024-05-11 14:59 | CASEMGMT ---
Social Work [facility] can accept pt clinically, just awaiting return call from [facility] to review finances. [facility] Rep also awaiting auth form to be signed from [facility] to complete Medicaid application. Each green party left several messages with sister. AUREA also phoned sister, no answer, left VM requesting to contact each green party. -- Received updated that sister signed auth form and [facility] submitted DAMION lorena. Will provide this worker with pending number once received. [facility] updated [facility] AUREA will await sister return call to determine transportation. PASRR completed. -- Received pending case # [id number] Plan: DC 05/12 to [facility] SNF, intermediate, Medicaid pending MIKEY [place]
[2024-05-11 20:00] VITALS: BP 148/76; PULSE 56; RESP 16; TEMP 36.2; O2SAT 96
[2024-05-12 06:08] LABS: Bedside Glucose 136 mg/dL (74-106)
[2024-05-12] MEDS: Aspirin E.C. 81 MG Tablet PO (07:53)
[2024-05-12] MEDS: busPIRone 5 MG Tablet 7.5 MG PO (07:53)
[2024-05-12] MEDS: glipiZIDE 5 MG Tablet PO (07:53)
[2024-05-12 07:54] VITALS: BP 160/83; PULSE 64
[2024-05-12] MEDS: Metoprolol(XL)Succ 25 MG Tablet PO (07:54)
[2024-05-12] MEDS: Senna/Docusate Sodium 1 Tablet PO (07:54)
[2024-05-12] MEDS: Pantoprazole Sodium 20 MG Tablet PO (07:54)
[2024-05-12] MEDS: Atorvastatin Calcium 40 MG Tablet PO (07:55)
[2024-05-12] MEDS: DULoxetine Hcl 60 MG Capsule PO (07:55)
[2024-05-12] MEDS: Clopidogrel Bisulfate 75 MG Tablet PO (07:55)
[2024-05-12 08:03] VITALS: BP 160/83; PULSE 64; RESP 18; TEMP 36.4; O2SAT 94
--- NOTE | 2024-05-12 08:35 | CASEMGMT ---
Addendum entered by Thania Nayak 05/12/24 16:10: Received return call from sister that pt's son can transport at 1230. IDT notified. When nursing called [facility] for a hand-off, [facility] was unaware of the admission stating the family still needed to provide additional documents before pt could admit. AUREA spoke with Sean Car of [facility], to get further information. SW involved Director of Care Management. After several discussions, pt is accepted and admitting as planned. Son to still transport. Original Note: Social Work SW left VM with sister inquiring about transport and ensuring sister didn't have further questions on DC. Will continue to attempt. Thania Nayak, MIKEY OROW
[2024-05-12 10:00] VITALS: PULSE 64; RESP 18; O2SAT 94
--- NOTE | 2024-05-12 11:30 | NURSING ---
PT AND PT SISTER HIMA NOTIFIED OF A POSITIVE COVID PT TODAY. SISTER THANKED THIS NURSE.
--- NOTE | 2024-05-12 15:29 | NURSING ---
CALLED PT SON THAT HIS DAD IS READY TO DISCHARGE TO [facility] AND TO COME PICK HIS DAD UP. LEFT MESSAGE DUE TO SON DID NOT ROUTE SERVICE REPRESENTATIVE PHONE. VLAD,LOCKER ROOM ATTENDANT AWARE.
[2024-05-12 16:00] VITALS: BP 148/89; PULSE 64; RESP 16; TEMP 36.1; O2SAT 96
--- NOTE | 2024-05-12 16:38 | NURSING ---
PT SON CAME AT 1615 TO TAKE PT TO THE [facility]. DISCHARGE PACKET GIVEN TO SON AND THIS NURSE EXPLAINED TO SON TO TAKE PT STRAIGHT TO [facility] AND GIVE PACKET TO [facility] WHEN HE GOT THERE. SON STATED HE UNDERSTOOD.. 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 REPORT WAS GIVEN TO [facility] PRYER TO DISCHARGE.
--- NOTE | 2024-05-12 16:51 | CASEMGMT ---
Social Work BIMS (12/17) and PHQ-2 () completed for MDS assessment, Thania Nayak, PROGRAM CLERK [employer] [facility] [employer]
== END 2024-05-12 16:15 | DRG 57 ==
PROVIDERS: Admitting Provider Family Medicine Geriatric Medicine; PCP Family Medicine; Visit Provider Family Medicine Geriatric Medicine
DX: I69.393 Ataxia following cerebral infarction (principal); E11.40 Type 2 diabetes mellitus with diabetic neuropathy, unspecified; E78.5 Hyperlipidemia, unspecified; F17.210 Nicotine dependence, cigarettes, uncomplicated; B35.4 Tinea corporis; J44.9 Chronic obstructive pulmonary disease, unspecified; F32.A Depression, unspecified; I10 Essential (primary) hypertension; I69.398 Other sequelae of cerebral infarction; I25.10 Atherosclerotic heart disease of native coronary artery without angina pectoris; K21.9 Gastro-esophageal reflux disease without esophagitis; F41.9 Anxiety disorder, unspecified; G47.33 Obstructive sleep apnea (adult) (pediatric); F17.290 Nicotine dependence, other tobacco product, uncomplicated; H53.9 Unspecified visual disturbance; Z79.84 Long term (current) use of oral hypoglycemic drugs; Z79.02 Long term (current) use of antithrombotics/antiplatelets; Z79.82 Long term (current) use of aspirin; Z79.899 Other long term (current) drug therapy
CPT/HCPCS: 36415; 80048; 80053; 82962; 85025; 87811; 92507; 92523; 97110; 97116; 97129; 97130; 97162; 97166; 97530; 97535; 97802

== ENCOUNTER 2024-06-22 14:47 | Inpatient (IN) | payer MEDICARE, SELFPAY ==
[2024-06-22 14:55] VITALS: BP 135/69; PULSE 61; RESP 16; TEMP 36.9; O2SAT 94
--- NOTE | 2024-06-22 16:02 | CT_ITS ---
We are attempting to reach an attending provider to discuss findings. An addendum with communication details will be sent when the communication is complete. STUDY: CT BRAIN WITHOUT CONTRAST REASON FOR EXAM: Male, 69 years old. ams RADIATION DOSAGE (If Supplied By Facility): CTDIvol = ( 44.99 ) mGy, DLP = ( 829.85 ) mGycm TECHNIQUE: Transaxial CT imaging of the brain was performed without administration of intravenous contrast material. Individualized dose optimization techniques were used for this CT. COMPARISON: April 24, 2024 FINDINGS: Normal soft tissue structures. Normal calvarium. Calcific plaquing of the cavernous carotids Moderate atrophy and periventricular white matter ischemic changes. Old left parietal lobe and subacute to chronic right occipital lobe infarct which is new finding since prior study.. . Normal basal ganglia and thalami. Normal brainstem. Normal cerebellum. There is no intracranial hemorrhage. There are no findings of an acute ischemic infarction. Mild mucosal thickening of left anterior ethmoid sinuses. CT/Brain/Head without Contrast IMPRESSION: Moderate atrophy and periventricular white matter ischemic changes. Old left parietal lobe infarct. Probable subacute to chronic right occipital lobe infarct which is new finding since April 2024. MRI would be useful for more definitive evaluation Electronically Signed: Arsh Silveira MD at 17:24 EDT ,
--- NOTE | 2024-06-22 16:02 | EKG12_ITS ---
Test Reason : ALT LOC Blood Pressure : / mmHG Vent. Rate : 057 BPM Atrial Rate : 057 BPM P-R Int : 148 ms QRS Dur : 108 ms QT Int : 476 ms P-R-T Axes : 056 068 098 degrees QTc Int : 463 ms Sinus bradycardia Inferior infarct , age undetermined Abnormal ECG Confirmed by Konstantin Hassan ([id number]), editor sound ORVILLE ARGUELLO ([id number]) on 06/27/2024 10:40:51 AM Referred By: Confirmed By:Konstantin Hassan
--- NOTE | 2024-06-22 16:05 | EX.ED.DYSGE1 ---
HPI History of Present Illness Chief Complaint: Fall Informant: patient, EMS and SNF Narrative Narrative: 69-year-old male presenting to the emergency room from SNF. History is exceedingly minimal as the only report is that the patient has had several falls recently and declining. He reportedly possibly struck his head though is unclear if anybody witnessed this and has a skin tear to the left lateral dorsal hand. Patient himself states that he is just tired and wants to sleep. Currently denies any pain. He denies falling. Patient denies any difficulty breathing. I see in the computer the patient was seen in April with confusion. Apparently there was concern raised for dementia and he had a normal ammonia level. Patient was eventually admitted to [facility] facility where reportedly has had a steady decline. I had nursing speak again with nursing at the facility. They state that the decline has been most noticed in the past couple weeks. Had several falls. He states that he has pleasantly confused at baseline and was sundowning last night. [facility] Medical History History of multiple cerebrovascular accidents (CVAs) Decreased vision of left eye Ataxia TIA (transient ischemic attack) History of stroke Tobacco abuse Obstructive sleep apnea Stroke Status post placement of implantable loop recorder History of COPD Coronary artery disease Hyperlipidemia Hypertension Diabetes type 2, controlled Home Medications ?Medication ?Instructions ?Recorded ?Last Taken ?Type duloxetine 60 mg capsule,delayed 60 mg PO DAILY depression 12/01/14 04/29/24 History release metoprolol succinate 25 mg 25 mg PO DAILY BLOOD PRESSURE 01/14/18 04/29/24 History tablet,extended release 24 hr aspirin 81 mg tablet,delayed 81 mg PO DAILY@0800 Anticoagulant 01/15/18 09/28/18 08:00 Rx release #30 tabs glipizide 5 mg tablet 5 mg PO QDAY diabetes 01/19/18 04/29/24 History buspirone 5 mg tablet 5 mg PO BID anxiety 01/27/18 09/28/18 08:00 History atorvastatin 40 mg tablet 40 mg PO DAILY Hyperlipidemia #30 04/29/24 Unknown Rx tabs clopidogrel 75 mg tablet 75 mg PO DAILY 64 days #0 tabs 05/10/24 Unknown Rx hydrocortisone 2.5 % topical cream 1 applic topical BID PRN PRN 05/10/24 Unknown Rx RASH/TOPICAL IRRITATION #0 grams menthol 0.44 %-zinc oxide 20.6 % 1 applic topical BID #0 grams 05/10/24 Unknown Rx topical ointment (Calmoseptine) nystatin 100,000 unit/gram topical 1 applic topical BID #0 grams 05/10/24 Unknown Rx powder (Nyamyc) pantoprazole 20 mg tablet,delayed 20 mg PO DAILY #0 tabs 05/10/24 Unknown Rx release sennosides 8.6 mg-docusate sodium 1 tab PO BID #0 tabs 05/10/24 Unknown Rx 50 mg tablet (Stimulant Laxative Plus) lisinopril 5 mg tablet 5 mg PO DAILY 06/22/24 Unknown History Allergy/AdvReac Type Severity Reaction Status Date / Time venom-honey bee (bee venom Allergy Swelling Verified 06/22/24 15:02 (honey bee)) simvastatin AdvReac Unknown Unknown Verified 06/22/24 15:02 metformin AdvReac Diarrhea Verified 06/22/24 15:02 Family History Mother Diabetes Hypertension Father CAD (coronary artery disease) Hypertension Sister Hypertension Surgical History History of tonsillectomy History of appendectomy S/P CABG x 5 Social History (Updated 06/22/24 @ 22:[address] Elvia Hope MD) household members: children and other details: Son with schizophrenia, bipolar disorder. Smoking Status: Current every day smoker alcohol intake: never substance use type: does not use ROS ROS ED Review of Systems ROS Unobtainable: due to mental status EXAM Physical Exam Narrative Exam Narrative: Patient laying on his right side in the bed. When I ask him to lay on his back he will. Const Vital Signs: 06/22/24 14:55 06/22/24 16:22 06/22/24 18:12 Temperature 98.4 F 96.1 F L Temperature Source Oral Temporal Pulse Rate 61 60 58 L Respiratory Rate 16 18 18 Blood Pressure 135/69 H 125/81 H 140/85 H Blood Pressure Mean 91 95 103 Pulse Ox 94 98 100 Oxygen Delivery Method Room Air Room Air Room Air Positive well nourished and well developed General Appearance ED: well developed HEENT Reports normocephalic, head/scalp atraumatic and moist mucous membranes Eyes PERRL and EOMs intact bilaterally Neck no lymphadenopathy, supple and no JVD Resp normal respiratory effort and clear to auscultation bilaterally Cardio regular rate, regular rhythm and no murmurs GI normal to inspection, nondistended, normoactive bowel sounds and non-tender Palpation: soft Back/Spine no CVA tenderness and normal ROM Extremity Extremity Narrative: There is some generalized contusions to the bilateral upper extremities with a quarter sized skin tear to the dorsal lateral aspect of the left hand. No active bleeding and no secondary signs of infection. This area was dressed with bandage from SNF. General Extremety ED: Negative for edema General Extremity: Negative for edema Neuro Neuro Narrative: Moves all extremities x 4. He does not know where he is at the year but does know name. Sensorium / Orientation: alert Psych mental status grossly normal Mood & Affect: Negative for depressed or tearful Skin no rashes or lesions noted and no wounds MDM MDM MDM Narrative Medical decision making narrative: Differential diagnosis includes but not limited to stroke (hemorrhagic and ischemic) cardiac dysrhythmia, dehydration anemia UTI pneumonia skin tear White count 11.6 with hemoglobin 16.1 platelet count of 276 BMP essentially negative liver enzymes showed alkaline phosphatase of 128 urinalysis 0-5 white cells 0-5 squamous cells 1+ bacteria negative nitrates. ABG was obtained shows pH 7.415 pCO2 34.7. I obtained a pneumonia level which was being sought by the assisted. CT of the brain was obtained read by radiology reviewed by myself. Please see radiologist for full details. There is new right occipital lobe changes since MRI of the brain was obtained in April. This could possibly represent his decline over the past couple weeks. Negative interpretation of the chest x-ray is no acute process. Patient is more alert than he was when he first came in. He ambulates unsteadily and requires assistance getting back into bed. History & Record Review Discussion w/independent historian: EMS personnel, Patient and Other (SNF) Lab Data Attestation: I reviewed the patient's lab results. Labs: Laboratory Results - last 24 hr 06/22/24 06/22/24 06/22/24 16:20 17:20 18:10 WBC 11.6 H RBC 5.67 Hgb 16.1 Hct 49.5 MCV 87.3 MCH 28.4 MCHC 32.5 RDW Std Deviation 43.0 RDW Coeff of [place] 13.5 Plt Count 276 MPV 10.9 Immature Gran % (Auto) 0.800 Neut % (Auto) 58.9 Lymph % (Auto) 28.8 [place] % (Auto) 7.8 Eos % (Auto) 2.9 Baso % (Auto) 0.8 Absolute Neuts (auto) 6.9 Absolute Lymphs (auto) 3.35 Nucleated RBC % 0 PT 15.6 H INR 1.2 APTT 26.3 Sodium 138 Potassium 4.8 Chloride 107 Carbon Dioxide 26.0 Anion Gap 5 BUN 14 Creatinine 1.20 Estim Creat Clear Calc 64.67 Est GFR (MDRD) Af Amer 77 Est GFR (MDRD) Non-Af 64 BUN/Creatinine Ratio 11.7 Glucose 84 Calcium 9.5 Magnesium 2.2 Total Bilirubin 0.60 Direct Bilirubin 0.25 AST 15 ALT 19 Alkaline Phosphatase 128 H Ammonia 22.0 Troponin I High Sens 16 Total Protein 7.3 Albumin 3.3 Globulin 4.0 Urine Color Griselda Urine Clarity Sl. Cloudy Urine pH 6.0 Ur Specific [place] 1.025 Urine Protein 15 H Urine Glucose (UA) Normal Urine Ketones 15 H Urine Occult Blood Negative Urine Nitrite Negative Urine Bilirubin 1 H Urine Urobilinogen 4 H Ur Leukocyte Esterase 25 H Urine RBC 0 SEEN Urine WBC 0-5 SEEN Ur Squamous Epith Cells 0-5 SEEN Urine Bacteria 1+ Urine Mucus 2+ ABG Data ABG results: ABG 06/22/24 16:23 Specimen Type ART Sample Site L Brach pH 7.42 Bicarbonate Actual 22.2 Total CO2 23 Base Excess -2 O2 Saturation 95 ABG pCO2 34.7 L ABG pO2 76 O2 Delivery Device Room Air Vent Mode Not entered Radiography Diagnostic Testing: Clinical Impression(s) from Imaging Studies Brain CT 06/22/24 16:02 IMPRESSION: Moderate atrophy and periventricular white matter ischemic changes. Old left parietal lobe infarct. Probable subacute to chronic right occipital lobe infarct which is new finding since April 2024. MRI would be useful for more definitive evaluation Electronically Signed: Arsh Silveira MD at 17:24 EDT , ADDENDUM: 06/22/24 1906 IMPRESSION: Moderate atrophy and periventricular white matter ischemic changes. Old left parietal lobe infarct. Probable subacute to chronic right occipital lobe infarct which is new finding since April 2024. MRI would be useful for more definitive evaluation N.B. : The above Results were Read Back by Arsh Silveira MD to Kevin Banegas DO, and understanding confirmed on 06/22/2024 17:30:34 (ET). Electronically Signed: Arsh Silveira MD at 17:24 EDT , Chest X-Ray 06/22/24 16:35 IMPRESSION: COPD. No acute cardiopulmonary pathology Electronically Signed: Arsh Silveira MD at 17:26 EDT , EKG Initial EKG: Attestation: I personally reviewed and interpreted this EKG as follows: Comments: Sinus bradycardia ventricular rate of 57 bpm Management Discussion w/another healthcare provider: Hospitalist and PCP (Dr. Yuen) Discharge Plan Dx/Rx/DC Orders Clinical Impression: Fall, Stroke, Skin tear of left hand without complication, AMS (altered mental status) Disposition Disposition: Acute Care Hospital [facility] Discharge Date/Time: 06/22/24 22:00 NIHSS NIHSS 1a. Level of Consciousness: Alert; keenly responsive 1b. LOC Questions: Answers neither question correctly. 1c. LOC Commands: Performs both tasks correctly. 2. Best Gaze: Normal 3. Visual: No visual loss 4. Facial Palsy: Normal symmetrical movements 5a. Left Arm: No drift; arm holds 90 (or 45) degrees for full 10 seconds 5b. Right Arm: No drift; arm holds 90 (or 45) degrees for full 10 seconds 6a. Left Leg: No drift; leg holds 30-degree position for full 5 seconds 6b. Right Leg: No drift; leg holds 30-degree position for full 5 seconds 7. Limb Ataxia: Absent 8. Sensory: Normal; no sensory loss 9. Best Language: [id number] aphasia; 10. Dysarthria: Normal 11. Extinction and Inattention: No abnormality Total: 3
[2024-06-22 16:21] VITALS: BMI 23.7
[2024-06-22 16:22] VITALS: BP 125/81; PULSE 60; RESP 18; O2SAT 98
[2024-06-22 16:26] LABS: Base Excess -2 mmol/L (-2 to +2); Bicarbonate 22.2 mmol/L (22-26); Blood Gas Specimen Type ART; Mode Not entered; O2 Delivery Device Room Air; PO2 76 mmHG (75-100); SITE L Brach; SO2 95 % (95-99); Total Carbon Dioxide 23 mmol/L; pCO2 34.7 mmHg (35-45); pH 7.42 (7.35-7.45)
[2024-06-22] MEDS: 0.9% Normal Saline (1000mL) 1,000 ML 999 ML IV (16:26)
[2024-06-22 16:31] LABS: Absolute Lymphocyte Count 3.35 X10^3/uL (0.83-4.51); Absolute Neutrophil Count 6.9 X10^3/uL (2.0-7.7); Basophil# 0.09 X10^3/uL; Basophil% 0.8 % (0-1); Eosinophil# 0.34 X10^3/uL; Eosinophils% 2.9 % (0-5); Hematocrit 49.5 % (40-54); Hemoglobin 16.1 g/dL (13.0-16.5); Lymphocyte # 3.35 X10^3/ul (0.83-4.51); Lymphocyte % 28.8 % (19-41); Mean Corp Hgb Conc 32.5 g/dL (32-36); Mean Corpuscular Hgb 28.4 pg (27.0-32.0); Mean Corpuscular Volume 87.3 fL (80-94); Mean Platelet Vol. 10.9 fl (6.2-12.0); Monocyte# 0.91 X10^3/uL; Monocyte% 7.8 % (0-10); NRBC Flagged by Analyzer 0 % (0-5); Neutrophil # 6.86 X10^3/uL (2.7-7.7); Neutrophil % 58.9 % (47-70); Platelet Count 276 K/mm3 (150-450); RBC Distribution Width CV 13.5 % (11.6-14.6); Red Blood Count 5.67 M/mm3 (4.6-6.2); White Blood Count 11.6 K/mm3 (4.4-11.0)
--- NOTE | 2024-06-22 16:35 | RAD_ITS ---
STUDY: X-RAY CHEST REASON FOR EXAM: Male, 69 years old. copd TECHNIQUE: AP portable COMPARISON: April 24, 2024 FINDINGS: Lungs are hyperinflated but clear. Infiltration.. There is no demonstrated pleural abnormality. Postop change status post median sternotomy and CABG Normal size heart. Normal mediastinum and yuniel. Normal visualized pulmonary arteries. Normal visualized aortic arch and descending thoracic aorta. Dorsal spine and shoulders demonstrate degenerative change. Normal visualized ribs and clavicles There is no demonstrated abnormality of the visualized soft tissue structures of the upper abdomen. RAD/Chest 1 View (Portable) IMPRESSION: COPD. No acute cardiopulmonary pathology Electronically Signed: Arsh Silveira MD at 17:26 EDT ,
--- NOTE | 2024-06-22 16:40 | ED.RN ---
pt combative with any care. when not being bothered, pt returns to sleeping. will also not answer any questions for RN while awake.
[2024-06-22 16:51] LABS: AST(SGOT) 15 U/L (15-37); Alanine Aminotransfer ALT/SGPT 19 U/L (16-61); Albumin, Serum 3.3 g/dL (3.2-5.0); Alkaline Phosphatase 128 U/L (45-117); Anion Gap 5 (5-15); BUN 14 mg/dL (7-18); BUN/Creat Ratio 11.7 RATIO (10-20); Bilirubin, Direct 0.25 mg/dL (0.00-0.30); Calcium,Total 9.5 mg/dL (8.5-10.1); Chloride 107 mmol/L (98-107); EST Glomerular Filtration Rate 64 mL/min (>60); Est Glom Filt Rate - Afr Amer 77 mL/min (>60); Estimated Creatinine Clearance 64.67 ml/min; Glucose 84 mg/dL (74-106); Potassium 4.8 mmol/L (3.5-5.1); Protein, Total 7.3 g/dL (6.4-8.2); Sodium Level 138 mmol/L (136-145); Troponin-I HS 16 pg/mL (3.0-78.0)
[2024-06-22 17:26] LABS: Color, Urine Amber (Yellow); Glucose, Dipstick Normal (Normal); Ketone-Dipstick 15 mg/dl (Negative); Leukocyte Esterase-Dipstick 25 /ul (Negative); Nitrite-Dipstick Negative (Negative); Occult Blood-Urine Negative /ul (Negative); Protein-Dipstick 15 mg/dl (Negative); Red Blood Cells-Urine 0 SEEN /hpf (0-5); Specific Gravity, Urine 1.025 (1.002-1.030); Urine Clarity Sl. Cloudy (Clear); Urine Urobilinogen 4 mg/dl (Normal)
[2024-06-22 17:29] LABS: Urine Bilirubin Dipstick 1 mg/dL (Negative)
[2024-06-22 17:33] LABS: Bacteria 1+ /hpf (None Seen); Mucous, Urine 2+ /hpf (<or=2+); Squamous Epithelial Cells - UA 0-5 SEEN /hpf (0-5); White Blood Cells 0-5 SEEN /hpf (0-5)
[2024-06-22 18:12] VITALS: BP 140/85; PULSE 58; RESP 18; TEMP 35.6; O2SAT 100
--- NOTE | 2024-06-22 18:22 | ED.RN ---
spoke with Dr. Banegas. RN to complete one NIH assessment. also pt needs to ambulate.
[2024-06-22 18:43] LABS: International Normalized Ratio 1.2; Prothrombin Time (Protime)PT. 15.6 SECONDS (11.7-14.9)
[2024-06-22 18:44] LABS: Partial Thromboplast Time 26.3 Seconds (24.1-36.2)
--- NOTE | 2024-06-22 19:53 | HP.PCM.HOS_ITS ---
HPI - General General Date of Admission: 06/22/24 Date of Service: 06/22/24 Chief Complaint: Falls, malaise HPI Narrative The patient is a 69 y/o M w/ PMHx: High suspicion underlying dementia, unclear type and extent with correction facility reported sundowning behavioral component, Hx CVAs, HTN, HLD, MARCELO, Tobacco use, COPD, CAD s/p CABG x 5, Diabetes mellitus type II who presents to the [facility] ED on 06/22/24 with history of transition from correction facility as patient with recent significant ~ 2 weeks history of onset of severe falls with declining mental status with questionable trauma to the head as falls have occasionally been unwitnessed with most recently a skin tear to his left lateral dorsal hand with patient reporting increased fatigue and malaise prompting ED transition for evaluation. In the ED NIH stroke scale 3 for LOC questions as well as mild to moderate aphasia. 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 Workup in the ED included T98.4, heart rate 61, BP 135/69, respiratory rate 16, 94% room air, most recent repeat vital signs T96.1 Temporally, heart rate 58, BP 140/85, respiratory rate 18, percent room air, CBC with WC 11.6, hemoglobin 16.1, platelet 276 without marked shift, unremarkable coags aside PT 15.6, ABG with pCO2 34.7 otherwise not marked appearing with pH 7.42, CMP unremarkable aside alk phos mildly elevated 128, troponin 16, ammonia level 22, urinalysis with elevated specific remedy 1.025, cloudy, 15 protein, 15 ketones, negative nitrite, leukocyte Estrace 25 with no marked urine RBCs or WBCs with 1+ urine bacteria, CT of the brain with moderate atrophy and periventricular white matter ischemic changes with an old left parietal lobe infarct and a probable subacute to chronic right occipital lobe infarct which is new since April 2024, chest x-ray with COPD type changes with no acute cardiopulmonary findings, EKG with sinus bradycardia with no acute evidence of ischemia. In the ED patient ministered 1 L normal saline. [facility] Medical History History of multiple cerebrovascular accidents (CVAs) Decreased vision of left eye Ataxia TIA (transient ischemic attack) History of stroke Tobacco abuse Obstructive sleep apnea Stroke Status post placement of implantable loop recorder History of COPD Coronary artery disease Hyperlipidemia Hypertension Diabetes type 2, controlled Home Medications ?Medication ?Instructions ?Recorded ?Last Taken ?Type duloxetine 60 mg capsule,delayed 60 mg PO DAILY depression 12/01/14 04/29/24 History release metoprolol succinate 25 mg 25 mg PO DAILY BLOOD PRESSURE 01/14/18 04/29/24 History tablet,extended release 24 hr aspirin 81 mg tablet,delayed 81 mg PO DAILY@0800 Anticoagulant 01/15/18 09/28/18 08:00 Rx release #30 tabs glipizide 5 mg tablet 5 mg PO QDAY diabetes 01/19/18 04/29/24 History buspirone 5 mg tablet 5 mg PO BID anxiety 01/27/18 09/28/18 08:00 History atorvastatin 40 mg tablet 40 mg PO DAILY Hyperlipidemia #30 04/29/24 Unknown Rx tabs clopidogrel 75 mg tablet 75 mg PO DAILY 64 days #0 tabs 05/10/24 Unknown Rx hydrocortisone 2.5 % topical cream 1 applic topical BID PRN PRN 05/10/24 Unknown Rx RASH/TOPICAL IRRITATION #0 grams menthol 0.44 %-zinc oxide 20.6 % 1 applic topical BID #0 grams 05/10/24 Unknown Rx topical ointment (Calmoseptine) nystatin 100,000 unit/gram topical 1 applic topical BID #0 grams 05/10/24 Unknown Rx powder (Nyamyc) pantoprazole 20 mg tablet,delayed 20 mg PO DAILY #0 tabs 05/10/24 Unknown Rx release sennosides 8.6 mg-docusate sodium 1 tab PO BID #0 tabs 05/10/24 Unknown Rx 50 mg tablet (Stimulant Laxative Plus) lisinopril 5 mg tablet 5 mg PO DAILY 06/22/24 Unknown History Allergy/AdvReac Type Severity Reaction Status Date / Time venom-honey bee (bee venom Allergy Swelling Verified 06/22/24 15:02 (honey bee)) simvastatin AdvReac Unknown Unknown Verified 06/22/24 15:02 metformin AdvReac Diarrhea Verified 06/22/24 15:02 Family History Mother Diabetes Hypertension Father CAD (coronary artery disease) Hypertension Sister Hypertension Surgical History History of tonsillectomy History of appendectomy S/P CABG x 5 Social History (Updated 06/22/24 @ 22:[address] Elvia Hope MD) household members: children and other details: Son with schizophrenia, bipolar disorder. Smoking Status: Current every day smoker alcohol intake: never substance use type: does not use ROS Review of Systems ROS Unobtainable: due to mental status Vital Signs Vital Signs Vital Signs: 06/22/24 14:55 06/22/24 16:22 06/22/24 18:12 Temperature 98.4 F 96.1 F L Temperature Source Oral Temporal Pulse Rate 61 60 58 L Respiratory Rate 16 18 18 Blood Pressure 135/69 H 125/81 H 140/85 H Blood Pressure Mean 91 95 103 Pulse Ox 94 98 100 Oxygen Delivery Method Room Air Room Air Room Air Weight Weight: 174 lb 13.225 oz Body Mass Index (BMI) 23.7 Physical Exam Narrative Physical Examination: General: Awake, alert, oriented to self and place but gives wrong month, wrong year and wrong president, suspect does have likely underlying dementia but also significant stroke history, remains cooperative, laying in the ED bed, no complaints. Skin: Normal color, normal turgor, no icterus, no cyanosis except occasional staged ecchymoses, abrasion with recent falls. HEENT: AT/NC, EOMI, PERRLA, chronic decreased vision L eye, MMM, no carotid bruits or JVD noted. Lungs: Mildly diminished, > bases, appropriate effort, no rales, ronchi or wheezing. Heart: Mildly bradycardic with regular rhythm; no gallop, rub audible. Abdomen: Soft, NTTP, ND, mildly hyperactive BS, no appreciated HSM. Extremities: No cyanosis, clubbing, or edema. Neurological: Patient awake, alert, oriented as noted, chronic decreased vision L eye, suspect underlying dementia component complicated by notable CVA history, cognitive function per family not baseline intact for the last ~ 2 weeks; pupils equally reactive to light and accommodation with chronic L eye vision deficits, cranial nerves grossly normal except chronic vision L eye deficits, moving all 4 extremities, chronic ataxia from prior CVA, otherwise no focal deficits, strength moderately globally decreased, sensation intact, some difficulty with FTN/HTS but does have prior chronic ataxia from prior CVA, equivocal babinski noted. Psychiatric: Affect appears fatigued otherwise normal, no acute evidence of depressive or anxiety feelings but does have underlying history. Results Lab / Micro Data 06/22/24 16:20 06/22/24 16:20 Labs: Laboratory Results - last 24 hr 06/22/24 16:20: WBC 11.6 H, RBC 5.67, Hgb 16.1, Hct 49.5, MCV 87.3, MCH 28.4, MCHC 32.5, RDW Std Deviation 43.0, RDW Coeff of [place] 13.5, Plt Count 276, MPV 10.9, Immature Gran % (Auto) 0.800, Neut % (Auto) 58.9, Lymph % (Auto) 28.8, [place] % (Auto) 7.8, Eos % (Auto) 2.9, Baso % (Auto) 0.8, Absolute Neuts (auto) 6.9, Absolute Lymphs (auto) 3.35, Nucleated RBC % 0, Sodium 138, Potassium 4.8, Chloride 107, Carbon Dioxide 26.0, Anion Gap 5, BUN 14, Creatinine 1.20, Estim Creat Clear Calc 64.67, Est GFR (MDRD) Af Amer 77, Est GFR (MDRD) Non-Af 64, BUN/Creatinine Ratio 11.7, Glucose 84, Calcium 9.5, Total Bilirubin 0.60, Direct Bilirubin 0.25, AST 15, ALT 19, Alkaline Phosphatase 128 H, Troponin I High Sens 16, Total Protein 7.3, Albumin 3.3, Globulin 4.0 06/22/24 17:20: Urine Color Griselda, Urine Clarity Sl. Cloudy, Urine pH 6.0, Ur Specific [place] 1.025, Urine Protein 15 H, Urine Glucose (UA) Normal, Urine Ketones 15 H, Urine Occult Blood Negative, Urine Nitrite Negative, Urine Bilirubin 1 H, Urine Urobilinogen 4 H, Ur Leukocyte Esterase 25 H, Urine RBC 0 SEEN, Urine WBC 0-5 SEEN, Ur Squamous Epith Cells 0-5 SEEN, Urine Bacteria 1+, Urine Mucus 2+ 06/22/24 18:10: PT 15.6 H, INR 1.2, APTT 26.3, Ammonia 22.0 ABG Data ABG results: ABG 06/22/24 16:23 Specimen Type ART Sample Site L Brach pH 7.42 Bicarbonate Actual 22.2 Total CO2 23 Base Excess -2 O2 Saturation 95 ABG pCO2 34.7 L ABG pO2 76 O2 Delivery Device Room Air Vent Mode Not entered Imaging Radiology Impression Brain CT 06/22/24 16:02 IMPRESSION: Moderate atrophy and periventricular white matter ischemic changes. Old left parietal lobe infarct. Probable subacute to chronic right occipital lobe infarct which is new finding since April 2024. MRI would be useful for more definitive evaluation Electronically Signed: Arsh Silveira MD at 17:24 EDT Reading Location ID and State: [facility]– [place] / [place] Tel [phone], Service support , ADDENDUM: 06/22/24 1737 IMPRESSION: Moderate atrophy and periventricular white matter ischemic changes. Old left parietal lobe infarct. Probable subacute to chronic right occipital lobe infarct which is new finding since April 2024. MRI would be useful for more definitive evaluation N.B. : The above Results were Read Back by Arsh Silveira MD to Kevin Banegas DO, and understanding confirmed on 06/22/2024 17:30:34 (ET). Electronically Signed: Arsh Silveira MD at 17:24 EDT , Chest X-Ray 06/22/24 16:35 IMPRESSION: COPD. No acute cardiopulmonary pathology Electronically Signed: Arsh Silveira MD at 17:26 EDT , Assessment & Plan Assessment/Plan (1) CVA (cerebral vascular accident): PLAN: Plan The patient is a 69 y/o M w/ PMHx: High suspicion underlying dementia, unclear type and extent with correction facility reported sundowning behavioral component, Hx CVAs, HTN, HLD, MARCELO, Tobacco use, COPD, CAD s/p CABG x 5, Diabetes mellitus type II who presents to the [facility] ED on 06/22/24 with history of transition from correction facility as patient with recent significant ~ 2 weeks history of onset of severe falls with declining mental status with questionable trauma to the head as falls have occasionally been unwitnessed with most recently a skin tear to his left lateral dorsal hand with patient reporting increased fatigue and malaise prompting ED transition for evaluation. #1. Fatigue, malaise, adult failure to thrive with increased mechanical falls with CT evidence of new concerning probable subacute right occipital lobe infarct with previous history of strokes: Will admit to PCU, will obtain MRI Brain, CTA head and Neck to be cautious although recently done 04/2024 but there were aneurysms but at that time, recent 04/25/24 ECHO for CVA/TIA evaluation thus will not repeat, PT/OT/Speech/Nutrition evaluation per protocol. Given timeline will continue HTN regimen, maintain on asa/plavix, statin w/ AM FLP, fall precautions. Mag, TSH, FLP, HgbA1c requested. Maintain on fall and aspiration precautions. Will request neurology consultation. #2. Mechanical fall with left hand contusion, skin tear: Localized skin care as needed, fall precautions, high risk given frequent serial falls, PT/OT/case management consulted. #3. High suspicion underlying dementia, unclear type and extent with correction facility reported sundowning behavioral component: Complicates presentation, would benefit from formal memory testing and assessment as well as outpatient neurology follow-up, not on the regimen, PT/OT/case management consulted as noted. #4. CAD: Status post CABG x 5, continue aspirin, Plavix, lisinopril, metoprolol home regimen given patient with subacute findings and at least suspected 2 weeks out. #5. Chronic COPD: Not on chronic inhalers per current list, PRN albuterol, HOB, IS parameters. #6. Tobacco Abuse: Encouraged cessation, inpatient consultation per RT, NR if desired. #7. Hypertension: Continue home regimen including lisinopril, metoprolol, PRN hydralazine. As noted not performing permissive hypertension given timeline of symptom onset and subacute findings on CT. #8. Hyperlipidemia: Continue home statin regimen. AM FLP. #9. Diabetes mellitus type II: Hold oral home regimen, hemoglobin A1c requested per stroke protocol, nutrition consulted per stroke protocol, ADA diet, accu checks w/ ISS. #10. Anxiety and depression: We will continue patient home Cymbalta and cautiously BuSpar regimen given frequent falls and altered mental status With low threshold to pause/hold if necessary. #11. DVT prophylaxis: Lovenox. #12. CODE STATUS: Full code. Charges/Coding Visit Charges Inpatient E&M: 73091 Init Hosp L3
[2024-06-22 20:02] VITALS: BP 135/67; PULSE 58; RESP 14; TEMP 36.6; O2SAT 96
--- NOTE | 2024-06-22 20:06 | ED.RN ---
Sister Pat updated with pt's admission and findings in ED
--- NOTE | 2024-06-22 20:51 | CT_ITS ---
STUDY: CTA HEAD AND NECK WITH CONTRAST REASON FOR EXAM: Male, 69 years old. CVA RADIATION DOSAGE (If Supplied By Facility): CTDIvol = ( 28.45 ) mGy, DLP = ( 772.07 ) mGycm TECHNIQUE: CT angiography was performed with a multi-detector CT scanner. Data acquisition was obtained from the skull base through the vertex following intravenous administration of IV 100mL [id number]-[id number]. MIP images were reconstructed from the axial data set. Post-processing of the angiographic images was performed, with multiplanar reformation and 3D reconstruction. Individualized dose optimization techniques were used for this CT. COMPARISON: No relevant priors. FINDINGS: Normal bilateral petrous carotid arteries. Mild calcific plaquing of the right cavernous carotid artery with a normal supraclinoid bifurcation. Tiny aneurysm measuring approximately 2.5 mm Mild calcific plaquing of the left cavernous carotid artery with a normal supraclinoid bifurcation. Diffusely narrowed right A1 segments of the anterior cerebral artery. Normal left A1 segments of the anterior cerebral artery. Normal intact anterior communicating artery (ACOM). Normal bilateral A2 segments of the anterior cerebral arteries. Normal right M1 and M2 segments of the middle cerebral arteries, with a normal M1 bifurcation. Normal left M1 and M2 segments of the middle cerebral arteries, with a normal M1 bifurcation. Hypoplastic posterior communicating arteries consistent with normal variant Normal bilateral vertebral arteries. Normal basilar artery with a normal basilar bifurcation. The visualized bilateral superior cerebellar (SCA) arteries are normal. Normal bilateral P1, P2 and visualized P3 segments of the posterior cerebral arteries. . AORTIC ARCH: Normal visualized aortic arch. Normal origins of the brachiocephalic, left common carotid, and left subclavian arteries. RIGHT CAROTID ARTERIES: Mild calcific plaquing of the right common carotid artery (CCA). Moderate calcific plaquing of the right common carotid bulb. Mild calcific plaquing of the origin of the right internal carotid (ICA) artery without a hemodynamically significant stenosis. Normal visualized cervical portion of the right internal carotid artery. Normal origin of the right external carotid artery (ECA). LEFT CAROTID ARTERIES: Mild calcific plaquing of the left common carotid artery (CCA). Moderate calcific plaquing of the left common carotid bulb. Mild calcific plaquing of the origin of the left internal carotid (ICA) artery without a hemodynamically significant stenosis. Normal visualized cervical portion of the left internal carotid artery. Normal origin of the left external carotid artery (ECA). VERTEBRAL ARTERIES: Left vertebral is dominant and normal caliber.. 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 Electronically Signed: Arsh Silveira MD at 21:55 EDT ,
[2024-06-22 21:47] LABS: Magnesium 2.2 mg/dL (1.6-2.6)
[2024-06-22 22:16] VITALS: BMI 22.9
[2024-06-22 22:20] VITALS: BP 124/73; PULSE 52; RESP 16; TEMP 36.5; O2SAT 96
[2024-06-22] MEDS: 0.9% Saline Lock 10 ML Syringe IV (22:58)
[2024-06-22] MEDS: 0.9% Normal Saline (1000mL) 1,000 ML 100 ML IV (22:58)
[2024-06-22] MEDS: Senna/Docusate Sodium 1 Tablet PO (23:21)
[2024-06-22] MEDS: busPIRone 5 MG Tablet PO (23:21)
[2024-06-23] VITALS (8 sets, daily range): BP systolic 106–154; BP diastolic 73–81; PULSE 57–70; RESP 12–18; TEMP 36.1–36.6; O2SAT 93–100; BMI 23.1
[2024-06-23 00:03] LABS: Bedside Glucose 68 mg/dL (74-106)
[2024-06-23 00:03] LABS: Bedside Glucose 87 mg/dL (74-106)
[2024-06-23 07:01] LABS: Bedside Glucose 83 mg/dL (74-106)
[2024-06-23 07:36] LABS: Absolute Lymphocyte Count 2.46 X10^3/uL (0.83-4.51); Basophil# 0.08 X10^3/uL; Basophil% 0.7 % (0-1); Eosinophil# 0.44 X10^3/uL; Hematocrit 47.5 % (40-54); Hemoglobin 15.2 g/dL (13.0-16.5); Lymphocyte # 2.46 X10^3/ul (0.83-4.51); Lymphocyte % 22.5 % (19-41); Mean Corpuscular Hgb 28.1 pg (27.0-32.0); Mean Platelet Vol. 10.8 fl (6.2-12.0); Monocyte# 0.88 X10^3/uL; Monocyte% 8.1 % (0-10); NRBC Flagged by Analyzer 0 % (0-5); Neutrophil # 6.97 X10^3/uL (2.7-7.7); Neutrophil % 63.9 % (47-70); Platelet Count 234 K/mm3 (150-450); RBC Distribution Width CV 13.6 % (11.6-14.6); RBC Distribution Width SD 43.4 fl (35.1-43.9); White Blood Count 10.9 K/mm3 (4.4-11.0)
--- NOTE | 2024-06-23 08:00 | NURSING ---
Spoke with patients sister, Pat, regarding MRI questionnaire. To her knowledge the patient has not had any procedures or implants since his previous MRI in April of this year.
[2024-06-23] MEDS: busPIRone 5 MG Tablet PO ×2 (08:13→21:42)
[2024-06-23] MEDS: Enoxaparin 40 MG/0.4 ML Syringe SC (08:13)
[2024-06-23] MEDS: DULoxetine Hcl 60 MG Capsule PO (08:13)
[2024-06-23] MEDS: Aspirin E.C. 81 MG Tablet PO (08:13)
[2024-06-23] MEDS: Pantoprazole Sodium 20 MG Tablet PO (08:14)
[2024-06-23] MEDS: Clopidogrel Bisulfate 75 MG Tablet PO (08:14)
[2024-06-23] MEDS: Senna/Docusate Sodium 1 Tablet PO (08:14)
[2024-06-23] MEDS: Lisinopril 5 MG Tablet PO (08:14)
[2024-06-23 08:38] LABS: Hemoglobin A1c 7.3 % (3.8-5.6)
[2024-06-23 08:40] LABS: ALB/GLOB Ratio 0.9 RATIO (0.9-2.4); AST(SGOT) 11 U/L (15-37); Alanine Aminotransfer ALT/SGPT 17 U/L (16-61); Alkaline Phosphatase 114 U/L (45-117); Anion Gap 5 (5-15); BUN 9 mg/dL (7-18); BUN/Creat Ratio 11.9 RATIO (10-20); Calcium,Total 8.7 mg/dL (8.5-10.1); Chloride 111 mmol/L (98-107); Cholesterol 80 mg/dL (200); Creatinine, Serum 0.76 mg/dL (0.70-1.30); EST Glomerular Filtration Rate 109 mL/min (>60); Est Glom Filt Rate - Afr Amer 132 mL/min (>60); Estimated Creatinine Clearance 96.56 ml/min; Globulin 3.5 g/dL (2.2-4.2); Glucose 83 mg/dL (74-106); High Density Lipoprotein 27 mg/dL; Potassium 3.4 mmol/L (3.5-5.1); Protein, Total 6.5 g/dL (6.4-8.2); Sodium Level 139 mmol/L (136-145); Triglycerides 94 mg/dL; Very Low Density Lipoprotein 19 mg/dL (5-40)
--- NOTE | 2024-06-23 09:11 | PN.HOSP_ITS ---
Reason for Visit Reason for Visit: Diagnoses Cerebral infarction, unspecified (06/22/24) Objective Data Objective Data Vital Signs: Vital Signs Temp Pulse Resp BP Pulse Ox O2 Del Method 97.8 F 58 L 12 141/77 H 93 Room Air 06/23/24 08:09 06/23/24 08:09 06/23/24 08:09 06/23/24 08:09 06/23/24 08:09 06/23/24 08:09 Oxygen Delivery Method Room Air Weight: 170 lb 4.8 oz Body Mass Index (BMI) 23.1 Intake & Output: Intake and Output for Last 24 Hours 06/21/24 06/22/24 06/23/24 23:59 23:59 23:59 Intake Total 1000 / 1000 936.67 / 936.67 Output Total 350 / 350 Balance 1000 / 1000 586.67 / 586.67 Lab / Micro Data 06/23/24 07:14 06/23/24 07:14 Labs: Laboratory Results - last 24 hr 06/22/24 16:20: WBC 11.6 H, RBC 5.67, Hgb 16.1, Hct 49.5, MCV 87.3, MCH 28.4, MCHC 32.5, RDW Std Deviation 43.0, RDW Coeff of Tyler 13.5, Plt Count 276, MPV 10.9, Immature Gran % (Auto) 0.800, Neut % (Auto) 58.9, Lymph % (Auto) 28.8, [place]ster % (Auto) 7.8, Eos % (Auto) 2.9, Baso % (Auto) 0.8, Absolute Neuts (auto) 6.9, Absolute Lymphs (auto) 3.35, Nucleated RBC % 0, Sodium 138, Potassium 4.8, Chloride 107, Carbon Dioxide 26.0, Anion Gap 5, BUN 14, Creatinine 1.20, Estim Creat Clear Calc 64.67, Est GFR (MDRD) Af Amer 77, Est GFR (MDRD) Non-Af 64, BUN/Creatinine Ratio 11.7, Glucose 84, Calcium 9.5, Total Bilirubin 0.60, Direct Bilirubin 0.25, AST 15, ALT 19, Alkaline Phosphatase 128 H, Troponin I High Sens 16, Total Protein 7.3, Albumin 3.3, Globulin 4.0 06/22/24 17:20: Urine Color Griselda, Urine Clarity Sl. Cloudy, Urine pH 6.0, Ur Specific [place] 1.025, Urine Protein 15 H, Urine Glucose (UA) Normal, Urine Ketones 15 H, Urine Occult Blood Negative, Urine Nitrite Negative, Urine Bilirubin 1 H, Urine Urobilinogen 4 H, Ur Leukocyte Esterase 25 H, Urine RBC 0 SEEN, Urine WBC 0-5 SEEN, Ur Squamous Epith Cells 0-5 SEEN, Urine Bacteria 1+, Urine Mucus 2+ 06/22/24 18:10: PT 15.6 H, INR 1.2, APTT 26.3, Magnesium 2.2, Ammonia 22.0 06/22/24 23:15: POC Glucose 68 L 06/22/24 23:40: POC Glucose 87 06/23/24 06:35: POC Glucose 83 06/23/24 07:14: WBC 10.9, RBC 5.40, Hgb 15.2, Hct 47.5, MCV 88.0, MCH 28.1, MCHC 32.0, RDW Std Deviation 43.4, RDW Coeff of Tyler 13.6, Plt Count 234, MPV 10.8, Immature Gran % (Auto) 0.800, Neut % (Auto) 63.9, Lymph % (Auto) 22.5, [place]ster % (Auto) 8.1, Eos % (Auto) 4.0, Baso % (Auto) 0.7, Absolute Neuts (auto) 7.0, Absolute Lymphs (auto) 2.46, Nucleated RBC % 0, Sodium 139, Potassium 3.4 L, C hloride 111 H, Carbon Dioxide 23.0, Anion Gap 5, BUN 9, Creatinine 0.76, Estim Creat Clear Calc 96.56, Est GFR (MDRD) Af Amer 132, Est GFR (MDRD) Non-Af 109, BUN/Creatinine Ratio 11.9, Glucose 83, Hemoglobin A1c 7.3 H, Calcium 8.7, Total Bilirubin 0.80, AST 11 L, ALT 17, Alkaline Phosphatase 114, Total Protein 6.5, A lbumin 3.0 L, Globulin 3.5, Albumin/Globulin Ratio 0.9, Triglycerides 94, Cholesterol 80, LDL Cholesterol 34, VLDL Cholesterol 19, HDL Cholesterol 27 L, TSH 1.680 ABG Data ABG results: ABG 06/22/24 16:23 Specimen Type ART Sample Site L Brach pH 7.42 Bicarbonate Actual 22.2 Total CO2 23 Base Excess -2 O2 Saturation 95 ABG pCO2 34.7 L ABG pO2 76 O2 Delivery Device Room Air Vent Mode Not entered Radiography Diagnostic Testing: Radiology Impression Brain CT 06/22/24 16:02 IMPRESSION: Moderate atrophy and periventricular white matter ischemic changes. Old left parietal lobe infarct. Probable subacute to chronic right occipital lobe infarct which is new finding since April 2024. MRI would be useful for more definitive evaluation Chest X-Ray 06/22/24 16:35 IMPRESSION: COPD. 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 Electronically Signed: Arsh Silveira MD at 21:55 EDT , Physical Exam Narrative Patient was admitted with fall history of present several falls and physical decline in past couple weeks. Patient also has confusion and dementia. History is difficult. Physical exam General: Confused, disoriented to time, place and person. Blank look. Cannot tell me his age though correctly state his date of . HEENT: Atraumatic, PERRLA, EOMI, Normocephalic. Field of vision intact. Oral: No Gingival or Mucosal Lesions/ Ulcerations Neck: Supple, No JVD, Negative Carotid Bruits Chest wall/Lungs: Air entry diminished in bilateral lung bases. No crepitation/rhonchi Cardiovascular: Regular rate, Regular Rhythm, Normal S1, Normal S2, No M/G/R Abdomen: Bowel Sounds Present, Soft, Non Tender, Non-Distended : No dysuria. No renal angle tenderness. No suprapubic tenderness. Extremities: No edema, Capillary Refill Less than 3 Seconds Skin: No rashes, No breakdown Musculoskeletal: No Tenderness to Palpation of Joints or Extremities. ROM intact. Muscle strength 5/5 at major joints. Neurological: Cranial nerves II-XII grossly intact, DTR 2+/4. No acute focal neurological deficit. Psych/Mental Status: Dementia. Assessment & Plan Assessment/Plan (1) CVA (cerebral vascular accident): PLAN: Plan The patient is a 69 y/o M was admitted with recent significant ~ 2 weeks history of onset of severe falls, unwitnessed with declining mental status with questionable trauma to the head, recent skin tear to his left lateral dorsal hand. #1. Fatigue, malaise, adult failure to thrive with increased mechanical falls with MRI evidence of acute ischemic right LIGHTING DIRECTOR stroke secondary to right P1 occlusion: Patient admitted to PCU. On exam it seems patient has inattention, disconnection and extinction. MRI brain showed acute ischemic stroke of right LIGHTING DIRECTOR area. CTA shows diffuse atherosclerosis which is not severe and a right P1 occlusion. LDL 34. A1c 7.3. TSH normal. NIH 2 for confusion. PT OT and speech evaluation. Patient evaluated by neurologist and advised to continue home antiplatelet agent. Continue high intensity statin. Loop recorder recommended. 2D echo ordered. #2. Mechanical fall with left hand contusion, skin tear: Localized skin care as needed, fall precautions, high risk given frequent serial falls, PT/OT/case management consulted. #3. High suspicion underlying dementia, unclear type and extent with shelter facility reported sundowning behavioral component: Complicates presentation, would benefit from formal memory testing and assessment as well as outpatient neurology follow-up, not on the regimen, PT/OT/case management consulted as noted. #4. CAD: Status post CABG x 5, continue aspirin, Plavix, lisinopril, metoprolol home regimen given patient with subacute findings and at least suspected 2 weeks out. #5. Chronic COPD: Not on chronic inhalers per current list, PRN albuterol, HOB, IS parameters. #6. Tobacco Abuse: Encouraged cessation, inpatient consultation per RT, NR if desired. #7. Hypertension: Continue home regimen including lisinopril, metoprolol, PRN hydralazine. As per stroke guidelines #8. Hyperlipidemia: Continue home statin regimen. As mentioned above #9. Diabetes mellitus type II: Hold oral home regimen, Accu-Chek before meals and at bedtime with Humalog sliding scale coverage and hypoglycemia protocol. A1c 7.3%. #10. Anxiety and depression: We will continue patient home Cymbalta and cautiously BuSpar regimen given frequent falls and altered mental status With low threshold to pause/hold if necessary. #11. DVT prophylaxis: Lovenox. #12. CODE STATUS: Full code. Laboratory Results 06/22/24 16:20: WBC 11.6 H, RBC 5.67, Hgb 16.1, Hct 49.5, MCV 87.3, MCH 28.4, MCHC 32.5, RDW Std Deviation 43.0, RDW Coeff of Tyler 13.5, Plt Count 276, MPV 10.9, Immature Gran % (Auto) 0.800, Neut % (Auto) 58.9, Lymph % (Auto) 28.8, Ulster % (Auto) 7.8, Eos % (Auto) 2.9, Baso % (Auto) 0.8, Absolute Neuts (auto) 6.9, Absolute Lymphs (auto) 3.35, Nucleated RBC % 0, Sodium 138, Potassium 4.8, Chloride 107, Carbon Dioxide 26.0, Anion Gap 5, BUN 14, Creatinine 1.20, Estim Creat Clear Calc 64.67, Est GFR (MDRD) Af Amer 77, Est GFR (MDRD) Non-Af 64, BUN/Creatinine Ratio 11.7, Glucose 84, Calcium 9.5, Total Bilirubin 0.60, Direct Bilirubin 0.25, AST 15, ALT 19, Alkaline Phosphatase 128 H, Troponin I High Sens 16, Total Protein 7.3, Albumin 3.3, Globulin 4.0 06/22/24 16:23: Specimen Type ART, Sample Site L Brach, pH 7.42, Bicarbonate Actual 22.2, Total CO2 23, Base Excess -2, O2 Saturation 95, ABG pCO2 34.7 L, ABG pO2 76, O2 Delivery Device Room Air, Vent Mode Not entered 06/22/24 17:20: Urine Color Griselda, Urine Clarity Sl. Cloudy, Urine pH 6.0, Ur Specific [place] 1.025, Urine Protein 15 H, Urine Glucose (UA) Normal, Urine Ketones 15 H, Urine Occult Blood Negative, Urine Nitrite Negative, Urine Bilirubin 1 H, Urine Urobilinogen 4 H, Ur Leukocyte Esterase 25 H, Urine RBC 0 SEEN, Urine WBC 0-5 SEEN, Ur Squamous Epith Cells 0-5 SEEN, Urine Bacteria 1+, Urine Mucus 2+ 06/22/24 18:10: PT 15.6 H, INR 1.2, APTT 26.3, Magnesium 2.2, Ammonia 22.0 06/22/24 23:15: POC Glucose 68 L 06/22/24 23:40: POC Glucose 87 06/23/24 06:35: POC Glucose 83 06/23/24 07:14: WBC 10.9, RBC 5.40, Hgb 15.2, Hct 47.5, MCV 88.0, MCH 28.1, MCHC 32.0, RDW Std Deviation 43.4, RDW Coeff of [place] 13.6, Plt Count 234, MPV 10.8, Immature Gran % (Auto) 0.800, Neut % (Auto) 63.9, Lymph % (Auto) 22.5, [place] % (Auto) 8.1, Eos % (Auto) 4.0, Baso % (Auto) 0.7, Absolute Neuts (auto) 7.0, Absolute Lymphs (auto) 2.46, Nucleated RBC % 0, Sodium 139, Potassium 3.4 L, C hloride 111 H, Carbon Dioxide 23.0, Anion Gap 5, BUN 9, Creatinine 0.76, Estim Creat Clear Calc 96.56, Est GFR (MDRD) Af Amer 132, Est GFR (MDRD) Non-Af 109, BUN/Creatinine Ratio 11.9, Glucose 83, Hemoglobin A1c 7.3 H, Calcium 8.7, Total Bilirubin 0.80, AST 11 L, ALT 17, Alkaline Phosphatase 114, Total Protein 6.5, A lbumin 3.0 L, Globulin 3.5, Albumin/Globulin Ratio 0.9, Triglycerides 94, Cholesterol 80, LDL Cholesterol 34, VLDL Cholesterol 19, HDL Cholesterol 27 L, TSH 1.680 06/23/24 11:13: POC Glucose 83 Charges/Coding Visit Charges Inpatient E&M: 55688 Subs Hosp L2
--- NOTE | 2024-06-23 09:15 | MRI_ITS ---
We are attempting to reach an attending provider to discuss findings. An addendum with communication details will be sent when the communication is complete. EXAM: MR HEAD WITHOUT INTRAVENOUS CONTRAST CLINICAL INDICATION: CVA TECHNIQUE: Multiplanar and multisequence MR images of the brain were obtained without intravenous contrast. COMPARISON: MRI brain without contrast 04/25/2024. CT head without contrast 06/22/2024. FINDINGS: BRAIN AND EXTRA-AXIAL SPACES: Abnormal diffusion restriction in the right lingual gyrus, right parahippocampus gyrus and right hippocampus. These are also visible on the T2 flair sequence suggestive of early subacute ischemic infarctions. Old cortical-based ischemic infarct with cystic atrophy and encephalomalacia involving the left occipital lobe, left inferior parietal lobule of the posterior left superior temporal gyrus are unchanged. T2 FLAIR hyperintensity in the left central and left paracentral pontine tegmentum are chronic ischemic changes. They are unchanged. No intra- or extra-axial hemorrhage. No intracranial mass or mass effect. Posterior fossa structures are unremarkable. No hydrocephalus. Basal cisterns are patent. SELLA: Unremarkable. Normal sella turcica, pituitary gland, infundibular stalk, optic chiasm and hypothalamus. AUDITORY SYSTEM: Unremarkable. The internal auditory canals are patent. BONES/JOINTS: Unremarkable. No discrete lytic or blastic abnormalities. SINUSES: Chronic minimal mucosal thickening in the left frontal sinus is unchanged. Mild mucosal thickening in the left anterior ethmoid sinus. MASTOID AIR CELLS: Unremarkable as visualized. Clear. ORBITS: Unremarkable as visualized. Both globes, extraocular muscles, optic nerves and retrobulbar fat appear unremarkable. VASCULATURE: Unremarkable as visualized. Normal flow voids in the major intracranial circulation. MRI/Brain without Contrast IMPRESSION: 1. Early subacute cortical-based ischemic infarct in the right lingual gyrus, right parahippocampus gyrus and right hippocampus. 2. Old cortical-based ischemic infarct with cystic atrophy and encephalomalacia in the left occipital lobe, left inferior parietal lobule and the posterior aspect of the left superior temporal gyrus are unchanged. 3. Chronic ischemic changes in the central pontine tegmentum and left paracentral pontine tegmentum are unchanged. Electronically Signed: Robbie Shah MD at 9:52 EDT ,
--- NOTE | 2024-06-23 10:09 | CASEMGMT ---
Discharge Planning Call placed to pts sister (Pat) . She wishes for pt to return to [facility]. SW updated. Nova Vega DC Planning Asst.
--- NOTE | 2024-06-23 11:37 | CON.PCM.NE_ITS ---
Assessment and Plan: Neuro Assessment/Plan BOAZ MICHALE, is a 69 M with hx of multiple strokes, CAD, MARCELO, HTN, HLD, DM and mood disorders [facility] who presents for one week of fall and confusion.Patient is a poor historian cannot provide any hx of what brought him to the hospital or pmh. CTH no acute issues. CTA does show diffuse athero which is not severe and a right P1 occlusion. 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 LDL 34. a1c 7.3. NIH 2 for just confusion. Presentation is likely secondary to new stroke. 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 I personally attended this patient and spent a total time of 45minutes evaluating this patient including clinical assessment, review of chart, medical history imaging, and determining appropriate treatment and workup. HPI Consult Data Date of Consult: 06/23/24 HPI Narrative HPI Narrative: BOAZ MICHAEL, is a 69 M with hx of multiple strokes, CAD, MARCELO, HTN, HLD, DM and mood disorders who resides at a jail who presents for one week of fall and confusion. Patient is a poor historian cannot provide any hx of what brought him to the hospital or pmh. CTH no acute issues. CTA does show diffuse athero which is not severe and a right P1 occlusion. 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 LDL 34. a1c 7.3. NIH 2 for just confusion. Presentation is likely secondary to new stroke. [facility] Medical History History of multiple cerebrovascular accidents (CVAs) Decreased vision of left eye Ataxia TIA (transient ischemic attack) History of stroke Tobacco abuse Obstructive sleep apnea Stroke Status post placement of implantable loop recorder History of COPD Coronary artery disease Hyperlipidemia Hypertension Diabetes type 2, controlled Home Medications ?Medication ?Instructions ?Recorded ?Last Taken ?Type duloxetine 60 mg capsule,delayed 60 mg PO DAILY depression 12/01/14 04/29/24 History release metoprolol succinate 25 mg 25 mg PO DAILY BLOOD PRESSURE 01/14/18 04/29/24 History tablet,extended release 24 hr aspirin 81 mg tablet,delayed 81 mg PO DAILY@0800 Anticoagulant 01/15/18 09/28/18 08:00 Rx release #30 tabs glipizide 5 mg tablet 5 mg PO QDAY diabetes 01/19/18 04/29/24 History buspirone 5 mg tablet 5 mg PO BID anxiety 01/27/18 09/28/18 08:00 History atorvastatin 40 mg tablet 40 mg PO DAILY Hyperlipidemia #30 04/29/24 Unknown Rx tabs clopidogrel 75 mg tablet 75 mg PO DAILY 64 days #0 tabs 05/10/24 Unknown Rx hydrocortisone 2.5 % topical cream 1 applic topical BID PRN PRN 05/10/24 Unknown Rx RASH/TOPICAL IRRITATION #0 grams menthol 0.44 %-zinc oxide 20.6 % 1 applic topical BID #0 grams 05/10/24 Unknown Rx topical ointment (Calmoseptine) nystatin 100,000 unit/gram topical 1 applic topical BID #0 grams 05/10/24 Unknown Rx powder (Nyamyc) pantoprazole 20 mg tablet,delayed 20 mg PO DAILY #0 tabs 05/10/24 Unknown Rx release sennosides 8.6 mg-docusate sodium 1 tab PO BID #0 tabs 05/10/24 Unknown Rx 50 mg tablet (Stimulant Laxative Plus) lisinopril 5 mg tablet 5 mg PO DAILY 06/22/24 Unknown History Allergy/AdvReac Type Severity Reaction Status Date / Time venom-honey bee (bee venom Allergy Swelling Verified 06/22/24 15:02 (honey bee)) simvastatin AdvReac Unknown Unknown Verified 06/22/24 15:02 metformin AdvReac Diarrhea Verified 06/22/24 15:02 Family History Mother Diabetes Hypertension Father CAD (coronary artery disease) Hypertension Sister Hypertension Surgical History History of tonsillectomy History of appendectomy S/P CABG x 5 Social History (Updated 06/22/24 @ 22:[address] Elvia Hope MD) household members: children and other details: Son with schizophrenia, bipolar disorder. Smoking Status: Current every day smoker tobacco type: cigarettes alcohol intake: never substance use type: does not use Vital Signs Vital Signs Vital Signs: 06/22/24 14:55 06/22/24 16:22 06/22/24 18:12 Temperature 98.4 F 96.1 F L Temperature Source Oral Temporal Pulse Rate 61 60 58 L Respiratory Rate 16 18 18 Respiratory Effort Respiratory Depth Respiratory Pattern Blood Pressure 135/69 H 125/81 H 140/85 H Blood Pressure Mean 91 95 103 Blood Pressure Source Blood Pressure Position Blood Pressure Location Pulse Ox 94 98 100 Oxygen Delivery Method Room Air Room Air Room Air 06/22/24 20:02 06/22/24 22:20 06/23/24 00:30 Temperature 97.8 F 97.7 F L Temperature Source Axillary Pulse Rate 58 L 52 L Respiratory Rate 14 16 Respiratory Effort Normal Respiratory Depth Normal Respiratory Pattern Normal Blood Pressure 135/67 H 124/73 H Blood Pressure Mean 89 90 Blood Pressure Source Monitor Blood Pressure Position Semi-Fowlers Blood Pressure Location Left Arm Pulse Ox 96 96 Oxygen Delivery Method Room Air Room Air 06/23/24 02:00 06/23/24 06:00 06/23/24 08:03 Temperature 96.9 F L 97.2 F L Temperature Source Temporal Temporal Pulse Rate 58 L 70 Respiratory Rate 18 16 Respiratory Effort Respiratory Depth Respiratory Pattern Blood Pressure 135/73 H 106/75 Blood Pressure Mean 93 85 Blood Pressure Source Monitor Monitor Blood Pressure Position Supine Semi-Fowlers Blood Pressure Location Right Arm Left Arm Pulse Ox 95 98 96 Oxygen Delivery Method Room Air Room Air Room Air 06/23/24 08:09 06/23/24 08:43 Temperature 97.8 F 96.9 F L Temperature Source Oral Temporal Pulse Rate 58 L 57 L Respiratory Rate 12 14 Respiratory Effort Respiratory Depth Respiratory Pattern Blood Pressure 141/77 H 148/78 H Blood Pressure Mean 98 101 Blood Pressure Source Monitor Monitor Blood Pressure Position Supine Blood Pressure Location Left Arm Pulse Ox 93 100 Oxygen Delivery Method Room Air Room Air Weight Weight: 77.247 kg Body Mass Index (BMI) 23.1 EEG Results Procedure Details EEG Procedure Details: BOAZ MICHAEL is a 69 year old M with a past medical history of , who presents for evaluation of Electroencephalogram on DATE at TIME NIHSS NIHSS Nursing Documentation NIHSS Nursing Documentation: NIH Stroke Scale Start: 06/22/24 18:20 Freq: Status: Discharge Protocol: Activity Type Activity Date Activity User E-sign Co-sign Detail Recorded Client Recorded Date Recorded By Document 06/22/24 18:21 AMB ed 06/22/24 18:22 AMB 06/22/24 18:21 NIH Stroke Scale [NIHSS] A score of 0 is normal or asymptomatic . Total possible score is 42. Inpatient: RN or Physician to activate a stroke alert for onset of new stroke symptoms or with NIHSS increase >/= 3 points. Following change in neurological status, NIHSS will be performed per physician order or more frequently PRN. -1a. Level of Consciousness Alert; keenly responsive -1b. LOC Questions Answers neither question correctly. -1c. LOC Commands Performs both tasks correctly . -2. Best Gaze Normal -3. Visual No visual loss -4. Facial Palsy Normal symmetrical movements -5a. Left Arm No drift; arm holds 90 (or 45 ) degrees for full 10 seconds -5b. Right Arm No drift; arm holds 90 (or 45 ) degrees for full 10 seconds -6a. Left Leg No drift; leg holds 30-degree position for full 5 seconds -6b. Right Leg No drift; leg holds 30-degree position for full 5 seconds -7. Limb Ataxia Absent -8. Sensory Normal; no sensory loss -9. Best Language Mild-to- moderate aphasia; -10. Dysarthria Normal -11. Extinction and Inattention No abnormality -Total 3 Query Text:A score of 0 is normal or asymptomatic. Total possible score is 42 . ED: Notify Physician for NIHSS increase by > / = 3 points. Inpatient: RN or Physician to activate a stroke alert for NIHSS increase of > / = 3 points. NIHSS: Ischemic Stroke/TIA Start: 06/22/24 22:08 Text: For PCU Patients: NIH and Neuro Check every 4 Status: Active hours, PRN and with change in RN caregiver. Freq: [id number] Protocol: Activity Type Activity Date Activity User E-sign Co-sign Detail Recorded Client Recorded Date Recorded By Document 06/23/24 10:43 NB desktop 06/23/24 10:47 NB 06/23/24 10:43 -1a. Level of Consciousness Alert; keenly responsive -1b. LOC Questions Answers neither question correctly. -1c. LOC Commands Performs both tasks correctly . -2. Best Gaze Normal -3. Visual Partial hemianopia -4. Facial Palsy Normal symmetrical movements -5a. Left Arm No drift; arm holds 90 (or 45 ) degrees for full 10 seconds -5b. Right Arm No drift; arm holds 90 (or 45 ) degrees for full 10 seconds -6a. Left Leg No drift; leg holds 30-degree position for full 5 seconds -6b. Right Leg No drift; leg holds 30-degree position for full 5 seconds -7. Limb Ataxia Absent -8. Sensory Normal; no sensory loss -9. Best Language Mild-to- moderate aphasia; -10. Dysarthria Normal -11. Extinction and Inattention No abnormality -Total 4 Query Text:A score of 0 is normal or asymptomatic. Total possible score is 42 . ED: Notify Physician for NIHSS increase by > / = 3 points. Inpatient: RN or Physician to activate a stroke alert for NIHSS increase of > / = 3 points. Coma Scale [Assess] -Eye Opening Spontaneous -Motor Obeys Commands -Verbal Confused [Total] -Coma Scale Total 14 Physical Exam Narrative Physical Exam: - General: NAD, pleasant, cooperative, well nourished, well developed - Head/Eyes: Atraumatic, normocephalic, clear cornea, normal sclera/conjunctive - Neuro: ? Mental Status: AA only to name & following simple commands. ? Speech: Clear and fluent with good repetition, comprehension, & naming. No aphasia or dysarthria ? CN II: Visual tran are full to confrontation. PERRL. ? CN III, IV, : EOMI, no gaze preference, no nystagmus, no ptosis ? CN V: Facial sensation is intact to light touch throughout. ? CN VII: Face is symmetric with normal eye closure and smile. ? CN VII: Hearing is grossly normal to conversational speech. ? CN IX, X: Palate elevates symmetrically and no uvula deviation ? CN XI: Head turning, and shoulder shrug are intact. ? CN XII: Tongue is midline with normal movements and no atrophy. ? Motor: Able to sustain all limbs ? Sensation: Normal to light touch bilaterally. ? Coordination: Normal FTN & HTS. No abn movements seen. - Exam is limited given cognitive issues Lab / Micro Data 06/23/24 07:14 06/23/24 07:14 Labs: Laboratory Results - last 24 hr 06/22/24 16:20: WBC 11.6 H, RBC 5.67, Hgb 16.1, Hct 49.5, MCV 87.3, MCH 28.4, MCHC 32.5, RDW Std Deviation 43.0, RDW Coeff of Tyler 13.5, Plt Count 276, MPV 10.9, Immature Gran % (Auto) 0.800, Neut % (Auto) 58.9, Lymph % (Auto) 28.8, Ware % (Auto) 7.8, Eos % (Auto) 2.9, Baso % (Auto) 0.8, Absolute Neuts (auto) 6.9, Absolute Lymphs (auto) 3.35, Nucleated RBC % 0, Sodium 138, Potassium 4.8, Chloride 107, Carbon Dioxide 26.0, Anion Gap 5, BUN 14, Creatinine 1.20, Estim Creat Clear Calc 64.67, Est GFR (MDRD) Af Amer 77, Est GFR (MDRD) Non-Af 64, BUN/Creatinine Ratio 11.7, Glucose 84, Calcium 9.5, Total Bilirubin 0.60, Direct Bilirubin 0.25, AST 15, ALT 19, Alkaline Phosphatase 128 H, Troponin I High Sens 16, Total Protein 7.3, Albumin 3.3, Globulin 4.0 06/22/24 17:20: Urine Color Griselda, Urine Clarity Sl. Cloudy, Urine pH 6.0, Ur Specific [place] 1.025, Urine Protein 15 H, Urine Glucose (UA) Normal, Urine Ketones 15 H, Urine Occult Blood Negative, Urine Nitrite Negative, Urine Bilirubin 1 H, Urine Urobilinogen 4 H, Ur Leukocyte Esterase 25 H, Urine RBC 0 SEEN, Urine WBC 0-5 SEEN, Ur Squamous Epith Cells 0-5 SEEN, Urine Bacteria 1+, Urine Mucus 2+ 06/22/24 18:10: PT 15.6 H, INR 1.2, APTT 26.3, Magnesium 2.2, Ammonia 22.0 06/22/24 23:15: POC Glucose 68 L 06/22/24 23:40: POC Glucose 87 06/23/24 06:35: POC Glucose 83 06/23/24 07:14: WBC 10.9, RBC 5.40, Hgb 15.2, Hct 47.5, MCV 88.0, MCH 28.1, MCHC 32.0, RDW Std Deviation 43.4, RDW Coeff of Tyler 13.6, Plt Count 234, MPV 10.8, Immature Gran % (Auto) 0.800, Neut % (Auto) 63.9, Lymph % (Auto) 22.5, Ware % (Auto) 8.1, Eos % (Auto) 4.0, Baso % (Auto) 0.7, Absolute Neuts (auto) 7.0, Absolute Lymphs (auto) 2.46, Nucleated RBC % 0, Sodium 139, Potassium 3.4 L, C hloride 111 H, Carbon Dioxide 23.0, Anion Gap 5, BUN 9, Creatinine 0.76, Estim Creat Clear Calc 96.56, Est GFR (MDRD) Af Amer 132, Est GFR (MDRD) Non-Af 109, BUN/Creatinine Ratio 11.9, Glucose 83, Hemoglobin A1c 7.3 H, Calcium 8.7, Total Bilirubin 0.80, AST 11 L, ALT 17, Alkaline Phosphatase 114, Total Protein 6.5, A lbumin 3.0 L, Globulin 3.5, Albumin/Globulin Ratio 0.9, Triglycerides 94, Cholesterol 80, LDL Cholesterol 34, VLDL Cholesterol 19, HDL Cholesterol 27 L, TSH 1.680 ABG Data ABG results: ABG 06/22/24 16:23 Specimen Type ART Sample Site L Brach pH 7.42 Bicarbonate Actual 22.2 Total CO2 23 Base Excess -2 O2 Saturation 95 ABG pCO2 34.7 L ABG pO2 76 O2 Delivery Device Room Air Vent Mode Not entered Imaging Radiology Impression Brain CT 06/22/24 16:02 IMPRESSION: Moderate atrophy and periventricular white matter ischemic changes. Old left parietal lobe infarct. Probable subacute to chronic right occipital lobe infarct which is new finding since April 2024. MRI would be useful for more definitive evaluation Electronically Signed: Arsh Silveira MD at 17:24 EDT , ADDENDUM: 06/22/24 7812 IMPRESSION: Moderate atrophy and periventricular white matter ischemic changes. Old left parietal lobe infarct. Probable subacute to chronic right occipital lobe infarct which is new finding since April 2024. MRI would be useful for more definitive evaluation N.B. : The above Results were Read Back by Arsh Silveira MD to Kevin Banegas DO, and understanding confirmed on 06/22/2024 17:30:34 (ET). Electronically Signed: Arsh Silveira MD at 17:24 EDT , Chest X-Ray 06/22/24 16:35 IMPRESSION: COPD. 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 Electronically Signed: Arsh Silveira MD at 21:55 EDT , Brain MRI 06/23/24 09:15 IMPRESSION: 1. Early subacute cortical-based ischemic infarct in the right lingual gyrus, right parahippocampus gyrus and right hippocampus. 2. Old cortical-based ischemic infarct with cystic atrophy and encephalomalacia in the left occipital lobe, left inferior parietal lobule and the posterior aspect of the left superior temporal gyrus are unchanged. 3. Chronic ischemic changes in the central pontine tegmentum and left paracentral pontine tegmentum are unchanged. Electronically Signed: Robbie Shah MD at 9:52 EDT , ADDENDUM: 06/23/24 1020 IMPRESSION: 1. Early subacute cortical-based ischemic infarct in the right lingual gyrus, right parahippocampus gyrus and right hippocampus. 2. Old cortical-based ischemic infarct with cystic atrophy and encephalomalacia in the left occipital lobe, left inferior parietal lobule and the posterior aspect of the left superior temporal gyrus are unchanged. 3. Chronic ischemic changes in the central pontine tegmentum and left paracentral pontine tegmentum are unchanged. N.B. : The above Results were Read Back by Robbie Shah MD to Heri Car RN, and understanding confirmed on 06/23/2024 10:13:27 (ET). Electronically Signed: Robbie Shah MD at 9:52 EDT , Active Medications Active Medications Active Medications: Current Medications Generic Name Dose Route Start Last Admin Trade Name Freq PRN Reason Stop Dose Admin Acetaminophen 650 mg 06/22/24 22:08 Acetaminophen 325 Mg Tablet PO Q4H PRN PRN Fever, pain 1-07/14 Al Hydrox/Mg Hydrox/Simethicone 30 ml 06/22/24 22:08 Mag /Aluminum/Simeth Wch Udc 30 Ml Oral.Susp PO Q6H PRN PRN Gastric Burning Albuterol Sulfate 2.5 mg 06/22/24 22:08 Albuterol 2.5 Mg/3 Ml Vial.Neb. INHALATION Q2H PRN PRN Dyspnea, wheezing Aspirin 81 mg 06/23/24 08:00 06/23/24 08:13 Aspirin E.C. 81 Mg Tablet PO 81 mg DAILY@0800 FELIPE Administration Atorvastatin Calcium 40 mg 06/23/24 22:00 Atorvastatin Calcium 40 Mg Tablet PO QHS FELIPE Buspirone HCl 5 mg 06/22/24 22:08 06/23/24 08:13 Buspirone 5 Mg Tablet PO 5 mg BID FELIPE Administration Calamine/Phenol 1 applic 06/22/24 22:08 06/23/24 11:04 Menthol/Lanolin/Calamine/Znox 113 Gm Tube TOPICAL Not Given BID [facility] Protocol Clopidogrel Bisulfate 75 mg 06/23/24 10:00 06/23/24 08:14 Clopidogrel Bisulfate 75 Mg Tablet PO 75 mg DAILY FELIPE Administration Duloxetine HCl 60 mg 06/23/24 10:00 06/23/24 08:13 Duloxetine Hcl 60 Mg Capsule PO 60 mg DAILY FELIPE Administration Enoxaparin Sodium 40 mg 06/23/24 10:00 06/23/24 08:13 Enoxaparin 40 Mg/0.4 Ml Syringe SC 40 mg DAILY FELIPE Administration Glucagon 1 mg 06/22/24 22:08 Glucagon 1 Mg/Ml Syringe IM X1 PRN HYPOGLYCEMIA Protocol Guaifenesin 20 ml 06/22/24 22:08 Guaifenesin 10 Ml Udc (200mg/10ml) PO Q4H PRN PRN COUGH Hydralazine HCl 10 mg 06/22/24 22:08 Hydralazine 20 Mg/Ml Vial IV Q4H PRN PRN SBP > 160 Protocol Dextrose 250 mls @ 0 mls/hr 06/22/24 22:08 Dextrose 10%-Water IV .Q0M PRN HYPOGLYCEMIA Protocol As Directed Sodium Chloride 250 mls @ 15 mls/hr 06/22/24 22:45 IV .[id number] PRN Additional IVPB Infusion Sodium Chloride 250 mls @ 15 mls/hr 06/22/24 22:45 IV .[id number] PRN Saline Flush Insulin Human Lispro 0 unit 06/22/24 22:08 06/23/24 06:39 Insulin Lispro 100 Unit/Ml Insuln.Pen SC Not Given ACHS [facility] Protocol Lisinopril 5 mg 06/23/24 10:00 06/23/24 08:14 Lisinopril 5 Mg Tablet PO 5 mg DAILY FELIPE Administration Protocol Melatonin 3 mg 06/22/24 22:08 Melatonin 3 Mg Tablet PO QHS PRN PRN INSOMNIA Metoprolol Succinate 25 mg 06/23/24 10:00 Metoprolol(Xl)Succ 25 Mg Tablet PO DAILY [facility] Protocol Nystatin 1 applic 06/22/24 22:08 06/23/24 11:04 Nystatin Powder 15gm Bottle TOPICAL Not Given BID [facility] Protocol Ondansetron HCl 4 mg 06/22/24 22:08 Ondansetron 4 Mg/2 Ml Vial IV Q8H PRN PRN NAUSEA/VOMITING Pantoprazole Sodium 20 mg 06/23/24 10:00 06/23/24 08:14 Pantoprazole Sodium 20 Mg Tablet PO 20 mg DAILY FELIPE Administration Prochlorperazine Edisylate 5 mg 06/22/24 22:08 Prochlorperazine 10 Mg/2 Ml Vial IV Q4H PRN PRN Breakthrough Nausea/Vomiting Senna/Docusate Sodium 1 tablet 06/22/24 22:08 06/23/24 08:14 Senna/Docusate Sodium 1 Tablet PO 1 tablet BID FELIPE Administration Sodium Chloride 10 - 40 ml 06/22/24 22:45 06/22/24 22:58 0.9% Saline Lock 10 Ml Syringe IV 10 ml UD PRN Administration SALINE FLUSH
[2024-06-23 11:52] LABS: Bedside Glucose 83 mg/dL (74-106)
--- NOTE | 2024-06-23 14:45 | NURSING ---
This RN attempted to get NIHSS vitals, pt swatted at me and shook his head no. After many attempts to calm the patient and get vitals, the patient still refuses. Physician notified.
--- NOTE | 2024-06-23 15:38 | CASEMGMT ---
Discharge Planning Updates sent via [facility] to [facility]. Asked if precert will be needed. Awaiting response. [facility] DC Planning
--- NOTE | 2024-06-23 16:13 | ECHOL_ITS ---
Reason For Study: CVA Procedure This was a limited 2D transthoracic echocardiogram. Technically difficult study due to uncooperative patient and patient aggression. Patient scanned supine. Exam performed portable in patient room. Left Ventricle Normal LV size. The estimated ejection fraction is 55 %. No regional wall motion abnormalities noted. Right Ventricle Normal RV size. Normal systolic function. Atria The left and right atria are normal. Not assessed. Mitral Valve There is no mitral valve stenosis. Not assessed. Tricuspid Valve Not assessed. Not assessed. Aortic Valve Trisinus/trileaflet aortic valve. There is no aortic stenosis. Not assessed. Pulmonic Valve The pulmonic valve is not well visualized. Pericardium/Pleural No pericardial effusion. MMode/2D Measurements & Calculations LVIDd: 6.5 cm IVSd: 1.2 cm LAV(MOD-sp4): 30.4 ml LVIDs: 4.3 cm LVPWd: 1.3 cm FS: 32.8 % LA A4 area: 14.3 cm2 LA dimension(2D): 3.5 cm RA A4 area: 16.7 cm2 ECHO/Echo, Limited Study Interpretation Summary Limited study as patient was uncooperative. The estimated ejection fraction is 55 %. Ordering Physician: Jamshid Maria Referring Physician: LEONEL NUNO Performed By: Jackelin Marques RCS
[2024-06-23 16:50] LABS: Bedside Glucose 116 mg/dL (74-106)
[2024-06-23] MEDS: Potassium Chloride Oral Tablet 20 MEQ 40 MEQ PO (17:44)
[2024-06-23] MEDS: Atorvastatin Calcium 40 MG Tablet PO (21:41)
[2024-06-24 00:09] LABS: Bedside Glucose 128 mg/dL (74-106)
[2024-06-24 01:19] VITALS: BP 119/72; PULSE 66; RESP 16; TEMP 36.5; O2SAT 96
--- NOTE | 2024-06-24 04:07 | NURSING ---
emergency documentation starting @ 06/23 1900
[2024-06-24 05:31] VITALS: BP 138/76; PULSE 69; RESP 18; TEMP 36.5; O2SAT 98
[2024-06-24 05:47] VITALS: BMI 23.1
[2024-06-24 06:36] LABS: Bedside Glucose 110 mg/dL (74-106)
[2024-06-24 07:57] VITALS: O2SAT 97
[2024-06-24 10:30] VITALS: BP 142/77; PULSE 68; RESP 12; TEMP 36.4; O2SAT 99
[2024-06-24] MEDS: Pantoprazole Sodium 20 MG Tablet PO (10:31)
[2024-06-24 10:32] VITALS: PULSE 68
[2024-06-24] MEDS: DULoxetine Hcl 60 MG Capsule PO (10:32)
[2024-06-24] MEDS: Metoprolol(XL)Succ 25 MG Tablet PO (10:32)
[2024-06-24] MEDS: Lisinopril 5 MG Tablet PO (10:32)
[2024-06-24] MEDS: Enoxaparin 40 MG/0.4 ML Syringe SC (10:32)
[2024-06-24] MEDS: Clopidogrel Bisulfate 75 MG Tablet PO (10:32)
[2024-06-24] MEDS: busPIRone 5 MG Tablet PO (10:32)
[2024-06-24] MEDS: Aspirin E.C. 81 MG Tablet PO (10:33)
--- NOTE | 2024-06-24 11:35 | TREXTCAR_ITS ---
Diet Diet Order/Speech Therapy: 06/22/24 22:08 Diet: Cardiac: Calorie-Controlled Food consistency:: Regular Liquid Consistency:: Regular/Thin Type of Dietary Supplement:: Glucerna Shake Diet Comments: 240 mL van Glucerna w/ dinner How many daily calories?: 1800 calorie Routine Orders/Code Status Suppository Type: Dulcolax 10mg Suppository Frequency: Daily PRN Wound(s) Right knee: Wound Type: Abrasion Therapies Extremity Affected:: Bilateral Lower Physical Therapy: Eval and Treat Occupational Therapy: Eval and Treat Speech Therapy: Eval and Treat Problem/Diagnosis (1) CVA (cerebral vascular accident): Status: Acute Code(s): I63.9 - Cerebral infarction, unspecified Plan The patient is a 69 y/o M was admitted with recent significant ~ 2 weeks history of onset of severe falls, unwitnessed with declining mental status with questionable trauma to the head, recent skin tear to his left lateral dorsal hand. #1. Fatigue, malaise, adult failure to thrive with increased mechanical falls with MRI evidence of acute ischemic right [employer] stroke secondary to right P1 occlusion: Patient admitted to PCU. On exam it seems patient has inattention, disconnection and extinction. MRI brain showed acute ischemic stroke of right [employer] G[employer] area. CTA shows diffuse atherosclerosis which is not severe and a right P1 occlusion. LDL 34. A1c 7.3. TSH normal. NIH 2 for confusion. PT OT and speech evaluation. Patient evaluated by neurologist and advised to continue home antiplatelet agent. Continue high intensity statin. Loop recorder recommended. 2D echo ordered. #2. Mechanical fall with left hand contusion, skin tear: Localized skin care as needed, fall precautions, high risk given frequent serial falls, PT/OT/case management consulted. #3. High suspicion underlying dementia, unclear type and extent with [facility] facility reported sundowning behavioral component: Complicates presentation, would benefit from formal memory testing and assessment as well as outpatient neurology follow-up, not on the regimen, PT/OT/case management consulted as noted. #4. CAD: Status post CABG x 5, continue aspirin, Plavix, lisinopril, metoprolol home regimen given patient with subacute findings and at least suspected 2 weeks out. #5. Chronic COPD: Not on chronic inhalers per current list, PRN albuterol, HOB, IS parameters. #6. Tobacco Abuse: Encouraged cessation, inpatient consultation per RT, NR if desired. #7. Hypertension: Continue home regimen including lisinopril, metoprolol, PRN hydralazine. As per stroke guidelines #8. Hyperlipidemia: Continue home statin regimen. As mentioned above #9. Diabetes mellitus type II: Hold oral home regimen, Accu-Chek before meals and at bedtime with Humalog sliding scale coverage and hypoglycemia protocol. A1c 7.3%. #10. Anxiety and depression: We will continue patient home Cymbalta and cautiously BuSpar regimen given frequent falls and altered mental status With low threshold to pause/hold if necessary. #11. DVT prophylaxis: Lovenox. #12. CODE STATUS: Full code. Laboratory Results 06/22/24 16:20: WBC 11.6 H, RBC 5.67, Hgb 16.1, Hct 49.5, MCV 87.3, MCH 28.4, MCHC 32.5, RDW Std Deviation 43.0, RDW Coeff of Tyler 13.5, Plt Count 276, MPV 10.9, Immature Gran % (Auto) 0.800, Neut % (Auto) 58.9, Lymph % (Auto) 28.8, [place] % (Auto) 7.8, Eos % (Auto) 2.9, Baso % (Auto) 0.8, Absolute Neuts (auto) 6.9, Absolute Lymphs (auto) 3.35, Nucleated RBC % 0, Sodium 138, Potassium 4.8, Chloride 107, Carbon Dioxide 26.0, Anion Gap 5, BUN 14, Creatinine 1.20, Estim Creat Clear Calc 64.67, Est GFR (MDRD) Af Amer 77, Est GFR (MDRD) Non-Af 64, BUN/Creatinine Ratio 11.7, Glucose 84, Calcium 9.5, Total Bilirubin 0.60, Direct Bilirubin 0.25, AST 15, ALT 19, Alkaline Phosphatase 128 H, Troponin I High Sens 16, Total Protein 7.3, Albumin 3.3, Globulin 4.0 06/22/24 16:23: Specimen Type ART, Sample Site L Brach, pH 7.42, Bicarbonate Actual 22.2, Total CO2 23, Base Excess -2, O2 Saturation 95, ABG pCO2 34.7 L, ABG pO2 76, O2 Delivery Device Room Air, Vent Mode Not entered 06/22/24 17:20: Urine Color Griselda, Urine Clarity Sl. Cloudy, Urine pH 6.0, Ur Specific [place] 1.025, Urine Protein 15 H, Urine Glucose (UA) Normal, Urine Ketones 15 H, Urine Occult Blood Negative, Urine Nitrite Negative, Urine Bilirubin 1 H, Urine Urobilinogen 4 H, Ur Leukocyte Esterase 25 H, Urine RBC 0 SEEN, Urine WBC 0-5 SEEN, Ur Squamous Epith Cells 0-5 SEEN, Urine Bacteria 1+, Urine Mucus 2+ 06/22/24 18:10: PT 15.6 H, INR 1.2, APTT 26.3, Magnesium 2.2, Ammonia 22.0 06/22/24 23:15: POC Glucose 68 L 06/22/24 23:40: POC Glucose 87 06/23/24 06:35: POC Glucose 83 06/23/24 07:14: WBC 10.9, RBC 5.40, Hgb 15.2, Hct 47.5, MCV 88.0, MCH 28.1, MCHC 32.0, RDW Std Deviation 43.4, RDW Coeff of Tyler 13.6, Plt Count 234, MPV 10.8, Immature Gran % (Auto) 0.800, Neut % (Auto) 63.9, Lymph % (Auto) 22.5, [place] % (Auto) 8.1, Eos % (Auto) 4.0, Baso % (Auto) 0.7, Absolute Neuts (auto) 7.0, Absolute Lymphs (auto) 2.46, Nucleated RBC % 0, Sodium 139, Potassium 3.4 L, Chloride 111 H, Carbon Dioxide 23.0, Anion Gap 5, BUN 9, Creatinine 0.76, Estim Creat Clear Calc 96.56, Est GFR (MDRD) Af Amer 132, Est GFR (MDRD) Non-Af 109, BUN/Creatinine Ratio 11.9, Glucose 83, Hemoglobin A1c 7.3 H, Calcium 8.7, Total Bilirubin 0.80, AST 11 L, ALT 17, Alkaline Phosphatase 114, Total Protein 6.5, Albumin 3.0 L, Globulin 3.5, Albumin/Globulin Ratio 0.9, Triglycerides 94, Cholesterol 80, LDL Cholesterol 34, VLDL Cholesterol 19, HDL Cholesterol 27 L, TSH 1.680 06/23/24 11:13: POC Glucose 83 Allergies/Procedures Done in Hospital Allergies venom-honey bee (bee venom (honey bee)) Allergy (Verified 06/22/24 15:02) Swelling simvastatin Adverse Reaction (Unknown, Verified 06/22/24 15:02) Unknown metformin Adverse Reaction (Verified 06/22/24 15:02) Diarrhea Type of Care/Length of Stay Estimated LOS: Convalescent Care Less Than 30 days Type of Care Needed: Skilled Rehab Potential: Good Prognosis: Good Additional Orders/Day of Discharge Day of Discharge: 06/24/24 Dietary and Speech Recommendations Dietitian Recommendations/Changes: Continue current diet order per MD Order Glucerna once daily to promote adequate energy and protein intake. Discharge Plan Admission Admit Date/Time: 06/22/24 19:54 Primary Reason for Your Visit: MRI finding of new stroke Attending Provider: Jamshid Maria Primary Care Provider: Bear Muñoz Consulting Providers: Gerardo Paris; Fidel Silva; Mary Ellen Ellington; Nia Mcgraw; Taylor Puentes; Ryan Wilson; Paulette Lopez; Girish Mora; Robby Velasquez; Maycol Farnsworth; Lili Ruvalcaba; Don Schroeder; Nika Siu; Marlon Garcia; Carol Ann Castrejon; Gerry Rush; Rachael Bennett; Rivera Mosquera; Malena Malave; Herb Major; Elvia Hope Discharge Orders/Prescriptions Prescriptions: New insulin lispro [Humalog KwikPen Insulin] 100 unit/mL Insulin Pen See Protocol subcut ACHS Qty: 0 0RF Protocol: 3. Sliding Scale Insulin Med Dosing Condition: 150-189 mg/dl = 1 unit Condition: 190-229 mg/dl = 2 units Condition: 230-269 mg/dl = 3 units Condition: 270-309 mg/dl = 4 units Condition: 310-349 mg/dl = 5 units Condition: 350-399 mg/dl = 6 units Condition: 400-449 mg/dl = 7 units Condition: Greater than 449 call physician Protocol Text: - Use for Total Daily Dose of Insulin 37-55 units - Obsese, infected, or steroid patients MEDIUM DOSING ALGORITHIM Continued glipizide 5 mg tablet 5 mg PO QDAY buspirone 5 mg tablet 5 mg PO BID duloxetine 60 MG capsule 60 mg PO DAILY Patient Comments: antidepressant metoprolol succinate 25 MG tablet extended release 24 hr 25 mg PO DAILY aspirin 81 MG tablet 81 mg PO DAILY@0800 Qty: 30 0RF clopidogrel 75 mg Tablet 75 mg PO DAILY 64 Days Qty: 0 0RF Rx Instructions: Stop after 07/16/2024 per neurology. hydrocortisone 2.5 % Cream 1 applic topical BID PRN PRN (Reason: RASH/TOPICAL IRRITATION) Qty: 0 0RF Protocol: *Topical Application Instructions APPLICATION INSTRUCTIONS: Back. menthol-zinc oxide [Calmoseptine] 0.44-20.6 % Ointment 1 applic topical BID Qty: 0 0RF Protocol: *Topical Application Instructions APPLICATION INSTRUCTIONS: Bilateral Buttocks sennosides-docusate sodium [Stimulant Laxative Plus] 8.6-50 mg Tablet 1 tab PO BID Qty: 0 0RF pantoprazole 20 mg Tablet,Delayed Release (Dr/Ec) 20 mg PO DAILY Qty: 0 0RF nystatin [Nyamyc] 100,000 unit/gram Powder 1 applic topical BID Qty: 0 0RF Protocol: *Topical Application Instructions APPLICATION INSTRUCTIONS: Groin Changed atorvastatin 40 mg tablet 80 mg PO DAILY Qty: 30 2RF lisinopril 5 mg tablet 10 mg PO DAILY 30 Days Qty: 0 0RF Rx Instructions: Hold for SBP less than 120 mmHg Other Ambulatory Orders: 30 Day Event Recorder Preventi (Routine) Timeframe: 1 Day Facility: [facility] - Location: Cardiovascular Services Ordered By: Dr. Jamshid Maria Referrals / Follow Up: Bear Muñoz DO [Primary Care Provider] - Frantz Tuttle MD [Non-Staff] - Within 2 Weeks Disposition Disposition (needs filled in before D/C Order can be placed): Shelter Facility
[2024-06-24 11:38] LABS: Bedside Glucose 106 mg/dL (74-106)
--- NOTE | 2024-06-24 11:46 | PCM.DC.SUM ---
Providers Date of Admission: 06/22/24 Date of Discharge: 06/24/24 Primary Care Physician: Dr. Bear Muñoz, DO Consultations 06/22/24 22:08 Consult: Tele-Neurology Routine Consulting Provider: [facility] Reason for Consult: Acute Ischemic Stroke/TIA EMERGENT Consult: No MD Notified: Yes Date Notified: 06/22/24 Time Notified: 22:32 Method of Notification: Answering Service Nursing Unit Staff Notify [facility] of Tele-Neurology Consult: Yes Reason For Visit: CVA Diagnosis Discharge Diagnosis (1) CVA (cerebral vascular accident): Status: Acute Code(s): I63.9 - Cerebral infarction, unspecified Plan The patient is a 69 y/o M was admitted with recent significant ~ 2 weeks history of onset of severe falls, unwitnessed with declining mental status with questionable trauma to the head, recent skin tear to his left lateral dorsal hand. #1. Fatigue, malaise, adult failure to thrive with increased mechanical falls with MRI evidence of acute ischemic right [employer] stroke secondary to right P1 occlusion: Patient admitted to PCU. On exam it seems patient has inattention, disconnection and extinction. MRI brain showed acute ischemic stroke of right [employer]ESSIONAL area. CTA shows diffuse atherosclerosis which is not severe and a right P1 occlusion. LDL 34. A1c 7.3. TSH normal. NIH 2 for confusion. PT OT and speech evaluation. Patient evaluated by neurologist and advised to continue home antiplatelet agent. Continue high intensity statin. Loop recorder recommended. 2D echo from April 2024 reviewed by the supervisor opening and picking. EF 60%. Normal left atrium. Normal mitral valve. Patient had previous negative bubble study on [facility] in September 2014. Therefore does not need repeat 1. Patient already on valve antiplatelet agent, aspirin and Plavix. Atorvastatin dose increased to 80 mg daily. Fasting for shows low HDL. Discharged on 30-day event monitor to SNF. PT OT and speech therapy was followed as per stroke protocol. Lisinopril 5 mg daily increased to 10 mg daily. Follow-up with neurologist as an outpatient. #2. Mechanical fall with left hand contusion, skin tear: Localized skin care as needed, fall precautions, high risk given frequent serial falls, PT/OT/case management consulted. #3. High suspicion underlying dementia, unclear type and extent with longterm facility reported sundowning behavioral component: Complicates presentation, would benefit from formal memory testing and assessment as well as outpatient neurology follow-up, not on the regimen, PT/OT/case management consulted as noted. #4. CAD: Status post CABG x 5, continue aspirin, Plavix, lisinopril, metoprolol home regimen given patient with subacute findings and at least suspected 2 weeks out. #5. Chronic COPD: Not on chronic inhalers per current list, PRN albuterol, HOB, IS parameters. #6. Tobacco Abuse: Encouraged cessation, inpatient consultation per RT, NR if desired. #7. Hypertension: Continue home regimen including lisinopril, metoprolol, PRN hydralazine. As per stroke guidelines #8. Hyperlipidemia: Continue home statin regimen. As mentioned above #9. Diabetes mellitus type II: Hold oral home regimen, Accu-Chek before meals and at bedtime with Humalog sliding scale coverage and hypoglycemia protocol. A1c 7.3%. #10. Anxiety and depression: We will continue patient home Cymbalta and cautiously BuSpar regimen given frequent falls and altered mental status With low threshold to pause/hold if necessary. #11. DVT prophylaxis: Lovenox. #12. CODE STATUS: Full code. Discharge medication reconciliation done. Discharge follow-up instructions completed. Discharge process discussed with the patient and all questions were answered to patient's satisfaction. Follow with PCP in 1 to 2 weeks Total time spent, exact 35 minutes on discharge meds reconciliation, examination, coordination of care with nurses and ancillary staff, review of imaging and blood test and discussion with the patient on follow-up instructions. 06/23/24 07:14: WBC 10.9, RBC 5.40, Hgb 15.2, Hct 47.5, MCV 88.0, MCH 28.1, MCHC 32.0, RDW Std Deviation 43.4, RDW Coeff of Tyler 13.6, Plt Count 234, MPV 10.8, Immature Gran % (Auto) 0.800, Neut % (Auto) 63.9, Lymph % (Auto) 22.5, [place] % (Auto) 8.1, Eos % (Auto) 4.0, Baso % (Auto) 0.7, Absolute Neuts (auto) 7.0, Absolute Lymphs (auto) 2.46, Nucleated RBC % 0, Sodium 139, Potassium 3.4 L, Chloride 111 H, Carbon Dioxide 23.0, Anion Gap 5, BUN 9, Creatinine 0.76, Estim Creat Clear Calc 96.56, Est GFR (MDRD) Af Amer 132, Est GFR (MDRD) Non-Af 109, BUN/Creatinine Ratio 11.9, Glucose 83, Hemoglobin A1c 7.3 H, Calcium 8.7, Total Bilirubin 0.80, AST 11 L, ALT 17, Alkaline Phosphatase 114, Total Protein 6.5, Albumin 3.0 L, Globulin 3.5, Albumin/Globulin Ratio 0.9, Triglycerides 94, Cholesterol 80, LDL Cholesterol 34, VLDL Cholesterol 19, HDL Cholesterol 27 L, TSH 1.680 06/23/24 11:13: POC Glucose 83 Medications at Discharge Home Medications duloxetine 60 mg capsule,delayed release 60 mg PO DAILY depression 12/01/14 metoprolol succinate 25 mg tablet,extended release 24 hr 25 mg PO DAILY BLOOD PRESSURE 01/14/18 aspirin 81 mg tablet,delayed release 81 mg PO DAILY@0800 Anticoagulant #30 tabs 01/15/18 glipizide 5 mg tablet 5 mg PO QDAY diabetes 01/19/18 buspirone 5 mg tablet 5 mg PO BID anxiety 01/27/18 clopidogrel 75 mg tablet 75 mg PO DAILY 64 days #0 tabs 05/10/24 hydrocortisone 2.5 % topical cream 1 applic topical BID PRN PRN RASH/TOPICAL IRRITATION #0 grams 05/10/24 menthol 0.44 %-zinc oxide 20.6 % topical ointment (Calmoseptine) 1 applic topical BID #0 grams 05/10/24 nystatin 100,000 unit/gram topical powder (Nyamyc) 1 applic topical BID #0 grams 05/10/24 pantoprazole 20 mg tablet,delayed release 20 mg PO DAILY #0 tabs 05/10/24 sennosides 8.6 mg-docusate sodium 50 mg tablet (Stimulant Laxative Plus) 1 tab PO BID #0 tabs 05/10/24 atorvastatin 40 mg tablet 80 mg (2 x 40 mg) PO DAILY Hyperlipidemia #30 tabs 06/24/24 insulin lispro 100 unit/mL subcutaneous pen (Humalog KwikPen (U-100) Insulin) See Protocol subcut ACHS #0 mL 06/24/24 lisinopril 5 mg tablet 10 mg (2 x 5 mg) PO DAILY 30 days #0 tabs 06/24/24 Weight / BMI Weight Weight: 170 lb 10.205 oz Body Mass Index (BMI) 23.1 ABG / Lab / Microbiology Data 06/23/24 07:14 06/23/24 07:14 Laboratory: Laboratory Results - last 24 hr 06/23/24 11:13: POC Glucose 83 06/23/24 16:32: POC Glucose 116 H 06/23/24 21:38: POC Glucose 128 H 06/24/24 06:17: POC Glucose 110 H 06/24/24 11:03: POC Glucose 106 Meaningful Use Info Meaningful Use Meaningful Use Diagnoses (Choose all that apply): Ischemic CVA CVA Therapy Assessed for PT,OT and/or ST?: Yes Ischemic Stroke Antithrombotic order at d/c?: Yes Dx of Atrial fib/flutter?: No Statin Dosing Therapy Reference: STATIN DOSE THERAPY REFERENCE: * Patients > 75 years receive moderate or high dose statin therapy. * Patients 75 years or YOUNGER should receive HIGH intensity statin dose unless contraindicated. You will be required to document reason for non-treatment if statin daily dose does not meet guidelines. HIGH DOSE STATIN THERAPY DAILY Atorvastatin > than or = to 40 mg Rosuvastatin > than or = to 20 mg Amlodipine + Atorvastatin > than or = to 2.5/40 mg Ezetimibe + Simvastatin 10/80 mg Simvastatin 80mg Statins at discharge?: Yes If patient is 75 or younger, pt will be discharged on HIGH intensity statin.: Yes Primary Dx Acute Ischemic CVA?: Yes Discharge Plan Admission Admit Date/Time: 06/22/24 19:54 Primary Reason for Your Visit: MRI finding of new stroke Attending Provider: Jamshid Maria Primary Care Provider: Bear Muñoz Consulting Providers: Gerardo Paris; Fidel Silva; Mary Ellen Ellington; Nia Mcgraw; Taylor Puentes; Ryan Wilson; Paulette Lopez; Girish Mora; Robby Velasquez; Maycol Farnsworth; Lili Ruvalcaba; Don Schroeder; Nika Siu; Marlon Garcia; Carol Ann Castrejon; Gerry Rush; Rachael Bennett; Rivera Mosquera; Malena Malave; Herb Major; Elvia Hope Discharge Orders/Prescriptions Prescriptions: New insulin lispro [Humalog KwikPen Insulin] 100 unit/mL Insulin Pen See Protocol subcut ACHS Qty: 0 0RF Protocol: 3. Sliding Scale Insulin Med Dosing Condition: 150-189 mg/dl = 1 unit Condition: 190-229 mg/dl = 2 units Condition: 230-269 mg/dl = 3 units Condition: 270-309 mg/dl = 4 units Condition: 310-349 mg/dl = 5 units Condition: 350-399 mg/dl = 6 units Condition: 400-449 mg/dl = 7 units Condition: Greater than 449 call physician Protocol Text: - Use for Total Daily Dose of Insulin 37-55 units - Obsese, infected, or steroid patients MEDIUM DOSING ALGORITHIM Continued glipizide 5 mg tablet 5 mg PO QDAY buspirone 5 mg tablet 5 mg PO BID duloxetine 60 MG capsule 60 mg PO DAILY Patient Comments: antidepressant metoprolol succinate 25 MG tablet extended release 24 hr 25 mg PO DAILY aspirin 81 MG tablet 81 mg PO DAILY@0800 Qty: 30 0RF clopidogrel 75 mg Tablet 75 mg PO DAILY 64 Days Qty: 0 0RF Rx Instructions: Stop after 07/16/2024 per neurology. hydrocortisone 2.5 % Cream 1 applic topical BID PRN PRN (Reason: RASH/TOPICAL IRRITATION) Qty: 0 0RF Protocol: *Topical Application Instructions APPLICATION INSTRUCTIONS: Back. menthol-zinc oxide [Calmoseptine] 0.44-20.6 % Ointment 1 applic topical BID Qty: 0 0RF Protocol: *Topical Application Instructions APPLICATION INSTRUCTIONS: Bilateral Buttocks sennosides-docusate sodium [Stimulant Laxative Plus] 8.6-50 mg Tablet 1 tab PO BID Qty: 0 0RF pantoprazole 20 mg Tablet,Delayed Release (Dr/Ec) 20 mg PO DAILY Qty: 0 0RF nystatin [Nyamyc] 100,000 unit/gram Powder 1 applic topical BID Qty: 0 0RF Protocol: *Topical Application Instructions APPLICATION INSTRUCTIONS: Groin Changed atorvastatin 40 mg tablet 80 mg PO DAILY Qty: 30 2RF lisinopril 5 mg tablet 10 mg PO DAILY 30 Days Qty: 0 0RF Rx Instructions: Hold for SBP less than 120 mmHg Other Ambulatory Orders: 30 Day Event Recorder Preventi (Routine) Timeframe: 1 Day Facility: [facility] - Location: Cardiovascular Services Ordered By: Dr. Jamshid Maria Referrals / Follow Up: Bear Muñoz DO [Primary Care Provider] - Frantz Tuttle MD [Non-Staff] - Within 2 Weeks Disposition Disposition (needs filled in before D/C Order can be placed): [facility] Facility Charges/Coding Visit Charges Inpatient E&M: 24711 Disch Hosp >30min
--- NOTE | 2024-06-24 12:05 | CASEMGMT ---
Patient is ready for discharge back to [facility]. Plan: d/c back to [facility] under intermediate level of care. Physicians will transport patient. Unique REGALADO
--- NOTE | 2024-06-24 15:15 | CASEMGMT ---
Discharge Planning Discharge orders, signed med list, and transport time sent to [facility]. Physicians will transport patient by cot at 5:30p. Nursing, SW, and patents sister (Pat) updated. Darlingjared updated address also sent to [facility] [place]. [place] DC Planning Ast.
[2024-06-24 16:09] VITALS: BP 135/84; PULSE 62; RESP 12; TEMP 36.6; O2SAT 97
[2024-06-24 16:55] LABS: Bedside Glucose 147 mg/dL (74-106)
== END 2024-06-24 17:48 | DRG 66 ==
LOC: ED 17:50 → PCU 21:30
PROVIDERS: Admitting Provider Family Medicine; Emergency Provider Emergency Medicine; PCP Family Medicine; Visit Provider Internal Medicine
DX: I63.431 Cerebral infarction due to embolism of right posterior cerebral artery (principal); R62.7 Adult failure to thrive; F02.80 Dementia in other diseases classified elsewhere, unspecified severity, without behavioral disturbance, psychotic disturbance, mood disturbance, and anxiety; E11.9 Type 2 diabetes mellitus without complications; J44.9 Chronic obstructive pulmonary disease, unspecified; I10 Essential (primary) hypertension; F32.A Depression, unspecified; F17.200 Nicotine dependence, unspecified, uncomplicated; E78.5 Hyperlipidemia, unspecified; I25.10 Atherosclerotic heart disease of native coronary artery without angina pectoris; S61.412A Laceration without foreign body of left hand, initial encounter; W19.XXXA Unspecified fall, initial encounter; F41.9 Anxiety disorder, unspecified; G47.33 Obstructive sleep apnea (adult) (pediatric); Z79.82 Long term (current) use of aspirin; Z79.02 Long term (current) use of antithrombotics/antiplatelets; Z79.84 Long term (current) use of oral hypoglycemic drugs; R29.703 NIHSS score 3; R29.6 Repeated falls; Z86.73 Personal history of transient ischemic attack (TIA), and cerebral infarction without residual deficits; Z95.1 Presence of aortocoronary bypass graft; Z68.23 Body mass index [BMI] 23.0-23.9, adult
CPT/HCPCS: 36415; 36600; 70450; 70496; 70498; 70551; 71045; 80048; 80053; 80061; 80076; 81001; 82140; 82803; 82962; 83036; 83735; 84443; 84484; 85025; 85610; 85730; 92507; 92523; 93005; 93308; 94668; 97162; 97166; 97535; 97802; 99285; J7030; Q9967; A4216